=== PATIENT | male | born 1960 | race Two or more races ===

== ENCOUNTER 2020-06-04 17:00 | Inpatient (IN) | payer OTHER, SELFPAY ==
[2020-06-04] VITALS (9 sets, daily range): BP systolic 97–114; BP diastolic 55–82; PULSE 66–170; RESP 15–20; O2SAT 98–100; BMI 30.2
--- NOTE | ~2020-06-04 | XR_ITS ---
EXAMINATION: XR CHEST CLINICAL INFORMATION: CHF COMPARISON: 09/28/2019 TECHNIQUE: Frontal view of the chest was obtained. FINDINGS: No significant abnormality is noted involving the heart, lungs, mediastinum, bony thorax or soft tissues. XR/XR chest 1V IMPRESSION: No acute disease within the chest.
--- NOTE | 2020-06-04 07:31 | ECG_ITS ---
Test Reason : CHEST PESSURE Blood Pressure : / mmHG Vent. Rate : 164 BPM Atrial Rate : 159 BPM P-R Int : 000 ms QRS Dur : 084 ms QT Int : 282 ms P-R-T Axes : 000 065 -65 degrees QTc Int : 465 ms Atrial fibrillation with rapid ventricular response Septal infarct , age undetermined Abnormal ECG When compared with ECG of 02-MAY-2014 15:14, Atrial fibrillation has replaced Sinus rhythm Vent. rate has increased BY [address] now depressed in Inferior leads T wave inversion now evident in Inferior leads Referred By: Taco Schultz Electronically Signed By:KYLEE JIMENEZ MD
[2020-06-04] MEDS: dilTIAZem HCL 50 MG/10 ML VIAL 20 MG IVPUSH (17:26)
[2020-06-04] MEDS: 0.9 % Sodium Chloride 1,000 ML 999 ML IVCONT (17:29)
--- NOTE | 2020-06-04 17:31 | ED_ITS ---
HPI - Arrhythmia/Palpitations General Chief Complaint: Arrhythmia/Palpitations Stated Complaint: chest pain Time Seen by Provider: 06/04/20 17:11 Source: patient Mode of arrival: ambulatory Limitations: no limitations History of Present Illness HPI narrative: Patient with no significant past medical history noticed palpitation with weakness shortness of breath feeling dizzy for last 10 days, patient had similar episode in 2016 which lasted for 4 days when he was in [place] was seen by obstetrics gynecology md here Holter monitor was done which showed SVT with PACs. Patient denies any chest pain feels weak and exhausted on arrival patient's heart rate was in 170s AFib Related Data Home Medications Medication Instructions Recorded Confirmed buprenorphine-naloxone [Suboxone] 1 strip SUBLINGUAL BID 06/04/20 06/04/20 lisinopril-hydrochlorothiazide 1 tab PO DAILY 06/04/20 06/04/20 meloxicam 1 tab PO DAILY 06/04/20 06/04/20 Allergies Allergy/AdvReac Type Severity Reaction Status Date / Time No Known Allergies Allergy Verified 06/04/20 20:07 [No Known Allergies*] Review of Systems Review of Systems: Constitutional : No Weight loss, No Fever, No Chills ENT/Mouth : No sore throat, No Rhinorrhea Eyes: No Eye Pain, No Swelling Cardiovascular : No Chest Pain, ++ palpitations Respiratory : No Cough, No Sputum, + shortness of breath Gastrointestinal : no Nausea, No Vomiting, No Diarrhea, No abdominal Pain, no black stools Genitourinary : No Dysuria, No Urinary Frequency Musculoskeletal : No joint pain, No Myalgias, No Joint Swelling Skin : No Skin Lesions, No rash Neuro : No Weakness, No Numbness, No Dizziness, No Headache Psych : No Anxiety/Panic, No Depression Heme/Lymph: No Bruising, No Lymphadenopathy Endocrine : No Polyuria, No Polydipsia All other systems reviewed and are negative [facility] Past Medical History Medical History (Updated 06/04/20 @ 20:12 by Taco Schultz MD) History of pyloric stenosis Palpitation Surgical History (Updated 02/08/20 @ 08:23 by Reshma Mann) History of colonoscopy History of hip surgery History of wisdom tooth extraction Family History Family History (Updated 02/08/20 @ 08:26 by Reshma Mann) Father Prostate cancer HTN (hypertension) Mother HTN (hypertension) Heart disease Arthritis Kidney disease Diabetes Stroke FH: cataracts Family/Other ADHD Disc disease, degenerative, lumbar or lumbosacral Social History Social History Alcohol intake: unknown Smoking Status: Unknown if ever smoked Use of substances other than those prescribed or required for medical reasons: Unknown Advance Directives: No Advance Directives Information Provided: Yes Physical Exam Vital Signs: Vital Signs: Last Vital Signs Pulse 66 06/04/20 22:00 Resp 15 06/04/20 22:00 BP 114/82 06/04/20 22:00 Pulse Ox 98 06/04/20 22:00 Body Mass Index 30.2 Const: General: comfortable, no acute distress and well developed Orientation/consciousness: patient oriented x3 HENMT: Head: Yes normocephalic and Yes atraumatic Eyes: General: appearance normal, both eyes and all related structures Neck: Neck: Yes normal visual inspection and Yes full ROM Chest: Chest palpation & inspection: normal palpation of entire chest wall Resp: Effort & Inspection: normal respiratory effort and able to speak in complete sentences Auscultation: clear to auscultation bilaterally Cardio: Jugular venous distension: no JVD Palpation: normal PMI Rate: tachycardic Rhythm: abnormal rhythm irregularly irregular Heart sounds: S1 normal heart sound present, S2 normal heart sound present and no murmurs Peripheral pulses: Peripheral pulses 2+ throughout GI: Inspection: Yes normal to inspection Palpation (GI): Soft to palpation and nontender Auscultation: normal bowel sounds : General: Yes Bimanual renal exam normal bilaterally Neuro: General: patient oriented x3 Extrem: General: Yes normal to inspection and Yes pedal edema (1+) MDM - Arrhythmia/Palpitations MDM Narrative Medical decision making narrative: Patient with non valvular atrial fibrillation, Eben vasc score is 1 will give him baby aspirin for now patient heart rate improved after IV Cardizem will start him on p.o. Cardizem plan to admit for further evaluation by obstetrics gynecology md Differential Diagnosis Differential diagnosis: Likely palpitations, artial fibrillation and artial flutter Lab Data Attestation: I reviewed the patient's lab results. Result diagrams: 06/04/20 19:22 06/04/20 19:21 Labs: Lab Results 06/04/20 06/04/20 06/04/20 Range/Units 18:09 19:21 19:22 WBC 5.9 (4.8-10.8) X10*3/uL RBC 4.51 L (4.60-5.80) X10*6/uL Hgb 12.5 L (14.0-18.0) g/dl Hct 40.2 L (42-52) % MCV 89.1 (80-98) fL MCH 27.7 (27.0-33.0) pg MCHC 31.1 (31.0-36.0) g/dl RDW 13.4 (11.0-16.0) % Plt Count 199 (160-400) X10*3/uL MPV 10.4 (9.4-12.4) fL Immature Gran % (Auto) 0.2 (0.0-0.4) % Neut % (Auto) 45.1 (45-73) % Lymph % (Auto) 42.4 H (20-40) % Dodge % (Auto) 10.3 (2-11) % Eos % (Auto) 1.5 (0-4) % Baso % (Auto) 0.5 (0-2) % Lymph # (Auto) 2.5 (1.2-4.9) X10*3/uL Dodge # (Auto) 0.6 (0.1-1.2) X10*3/uL Eos # (Auto) 0.1 (0.0-0.4) X10*3/uL Baso # (Auto) 0.0 (0.0-0.2) X10*3/uL Abs Immat Gran (auto) 0.01 (0.00-0.03) X10*3/uL Absolute Neuts (auto) 2.7 (2.0-8.3) X10*3/uL Absolute Nucleated RBC 0.000 (0.0-0.012) X10*3/uL Nucleated RBC % (auto) 0.0 (0.0-0.2) /100WBC PT (10.8-13.0) SEC INR (0.9-1.1) APTT (24.1-38.0) SEC Sodium 138 (135-145) mmol/L Potassium 5.0 (3.3-5.1) mmol/L Chloride 106 (96-108) mmol/L Carbon Dioxide 24 (22-29) mmol/L Anion Gap 13 (12-20) BUN 16 (9-16) mg/dL Creatinine 0.83 (0.5-1.4) mg/dL Estim Creat Clear Calc 109.2 Estimated GFR > 60 Random Glucose 95 (60-115) mg/dL Calcium 8.6 (8.4-10.2) mg/dL Magnesium 2.1 (1.6-2.6) mg/dL Total Bilirubin 0.6 (0.0-1.0) mg/dL Direct Bilirubin 0.2 (0.0-0.5) mg/dL AST 20 (5-37) U/L ALT 12 (0-40) U/L Alkaline Phosphatase 49 (39-117) U/L Troponin I High Sens (<3.5-35.0) ng/L B-Natriuretic Peptide (<100) pg/mL Total Protein 6.8 (6.5-8.0) g/dL Albumin 3.9 (3.5-5.0) g/dL COVID-19 ([facility]) Negative (Negative) COVID-19 Clin Com See Note 06/04/20 06/04/20 06/04/20 Range/Units 19:22 19:22 19:22 WBC (4.8-10.8) X10*3/uL RBC (4.60-5.80) X10*6/uL Hgb (14.0-18.0) g/dl Hct (42-52) % MCV (80-98) fL MCH (27.0-33.0) pg MCHC (31.0-36.0) g/dl RDW (11.0-16.0) % Plt Count (160-400) X10*3/uL MPV (9.4-12.4) fL Immature Gran % (Auto) (0.0-0.4) % Neut % (Auto) (45-73) % Lymph % (Auto) (20-40) % Dodge % (Auto) (2-11) % Eos % (Auto) (0-4) % Baso % (Auto) (0-2) % Lymph # (Auto) (1.2-4.9) X10*3/uL Dodge # (Auto) (0.1-1.2) X10*3/uL Eos # (Auto) (0.0-0.4) X10*3/uL Baso # (Auto) (0.0-0.2) X10*3/uL Abs Immat Gran (auto) (0.00-0.03) X10*3/uL Absolute Neuts (auto) (2.0-8.3) X10*3/uL Absolute Nucleated RBC (0.0-0.012) X10*3/uL Nucleated RBC % (auto) (0.0-0.2) /100WBC PT 12.6 (10.8-13.0) SEC INR 1.1 (0.9-1.1) APTT 43.9 H (24.1-38.0) SEC Sodium (135-145) mmol/L Potassium (3.3-5.1) mmol/L Chloride (96-108) mmol/L Carbon Dioxide (22-29) mmol/L Anion Gap (12-20) BUN (9-16) mg/dL Creatinine (0.5-1.4) mg/dL Estim Creat Clear Calc Estimated GFR Random Glucose (60-115) mg/dL Calcium (8.4-10.2) mg/dL Magnesium (1.6-2.6) mg/dL Total Bilirubin (0.0-1.0) mg/dL Direct Bilirubin (0.0-0.5) mg/dL AST (5-37) U/L ALT (0-40) U/L Alkaline Phosphatase (39-117) U/L Troponin I High Sens 16.0 (<3.5-35.0) ng/L B-Natriuretic Peptide 618 H (<100) pg/mL Total Protein (6.5-8.0) g/dL Albumin (3.5-5.0) g/dL COVID-19 ([facility]) (Negative) COVID-19 Clin Com ECG Data Attestation: I personally reviewed and interpreted this ECG as follows: Interpretation: Atrial fibrillation with ventricular rate 164 beats per minute poor progression of R-waves no acute ST T wave changes no acute ischemia Discharge Plan Discharge Clinical Impression: Atrial fibrillation Qualifiers: Atrial fibrillation type: paroxysmal Qualified Code(s): I48.0 - Paroxysmal atrial fibrillation Patient Disposition: Admitted As Inpatient
[2020-06-04 18:46] LABS: COVID-19 Test Negative (Negative)
[2020-06-04 19:28] LABS: MANUAL DIFF FLAG NO
[2020-06-04 19:29] LABS: Basophils Percent Auto 0.5 % (0-2); Eosinophils Absolute Auto 0.1 X10*3/uL (0.0-0.4); Eosinophils Percent Auto 1.5 % (0-4); Hematocrit 40.2 % (42-52); Hemoglobin 12.5 g/dl (14.0-18.0); Imm Gran Abs Auto 0.01 X10*3/uL (0.00-0.03); Imm Gran Pct Auto 0.2 % (0.0-0.4); Lymphocytes Absolute Auto 2.5 X10*3/uL (1.2-4.9); Lymphocytes Percent Auto 42.4 % (20-40); Mean Corpuscular HGB Conc 31.1 g/dl (31.0-36.0); Mean Corpuscular Hemoglobin 27.7 pg (27.0-33.0); Mean Corpuscular Volume 89.1 fL (80-98); Mean Platelet Volume 10.4 fL (9.4-12.4); Monocytes Absolute Auto 0.6 X10*3/uL (0.1-1.2); Monocytes Percent Auto 10.3 % (2-11); Neutrophils Absolute Auto 2.7 X10*3/uL (2.0-8.3); Neutrophils Percent Auto 45.1 % (45-73); Platelet Count 199 X10*3/uL (160-400); Red Blood Count 4.51 X10*6/uL (4.60-5.80); Red Cell Distribution Width 13.4 % (11.0-16.0); White Blood Count 5.9 X10*3/uL (4.8-10.8)
[2020-06-04 19:35] LABS: INTERNATIONAL NORM RATIO 1.1 (0.9-1.1); Prothrombin Time 12.6 SEC (10.8-13.0)
[2020-06-04 19:37] LABS: Partial Thromboplastin Time 43.9 SEC (24.1-38.0)
[2020-06-04 20:03] LABS: Alanine Aminotransferase 12 U/L (0-40); Albumin Level 3.9 g/dL (3.5-5.0); Alkaline Phosphatase 49 U/L (39-117); Anion Gap 13 (12-20); Aspartate Amino Transferase 20 U/L (5-37); Bilirubin Direct 0.2 mg/dL (0.0-0.5); Bilirubin Total 0.6 mg/dL (0.0-1.0); Blood Urea Nitrogen 16 mg/dL (9-16); Calcium 8.6 mg/dL (8.4-10.2); Carbon Dioxide 24 mmol/L (22-29); Chloride 106 mmol/L (96-108); Creatinine Clr Calc Pharmacy 109.2; Estimated Glomerular Filt Rate > 60; Glucose Random 95 mg/dL (60-115); Magnesium 2.1 mg/dL (1.6-2.6); Sodium 138 mmol/L (135-145); Total Protein 6.8 g/dL (6.5-8.0)
[2020-06-04 20:06] LABS: B Type Natriuretic Peptide 618 pg/mL (<100)
[2020-06-04] MEDS: Aspirin 81 MG TAB.CHEW 162 MG PO (20:15)
[2020-06-04] MEDS: dilTIAZem HCL 30 MG TABLET PO (20:16)
--- NOTE | 2020-06-04 20:59 | PM.IMHP ---
History of Present Illness Date of Service: 06/04/20 Chief Complaint: palpitations, dizziness This is a 52-year-old male with past medical history of hypertension who presents to the hospital with complaints of 2 weeks history of dizziness and palpitations. His symptoms are daily, not related to any specific event, associated with shortness of breath, as well as PND on multiple occasions. He denies any chest pain, no headache, change in vision, no lower extremity edema. No cough, no fever or chills. He has no abdominal pain nausea or vomiting, no diarrhea constipation. He does have nocturia otherwise no frequency, dysuria, or urgency. No numbness tingling or any limb weakness On arrival to the ED patient was found to have heart rate of 170s, all other vitals within normal range. Labs are significant for WBC count of 5.9, hemoglobin of 12.5, BNP of 618, troponin high sensitivity of 16 with a repeat of 18.9, EKG showedRVR. Patient denies any history of heart disease Past medical history as below and confirmed with patient Review of Systems Review of Systems: Yes all other systems are reviewed and are negative [facility] Medical History Arthritis History of pyloric stenosis Hypertension Family History Father Prostate cancer HTN (hypertension) Mother HTN (hypertension) Heart disease Arthritis Kidney disease Diabetes Stroke FH: cataracts Family/Other ADHD Disc disease, degenerative, lumbar or lumbosacral Pertinent family history: Reports that his mother had heart attacks but he does not remember at what age. Surgical History History of colonoscopy History of hip surgery History of wisdom tooth extraction Social History Alcohol intake: unknown Smoking Status: Unknown if ever smoked Use of substances other than those prescribed or required for medical reasons: Unknown Advance Directives: No Advance Directives Information Provided: Yes Meds Allergies Allergy/AdvReac Type Severity Reaction Status Date / Time No Known Allergies Allergy Verified 06/04/20 20:07 [No Known Allergies*] Active Medications: Current Medications Generic Name Dose Route Start Last Admin Trade Name Freq PRN Reason Stop Dose Admin Buprenorphine/Naloxone film 06/04/20 21:00 Buprenorphine/Naloxone 8/2 Mg Film SUBLINGUAL BID [facility] Non-Formulary Medication 1 tab 06/05/20 09:00 Lisinopril-Hydrochlorothiazide PO DAILY [facility] Home Medications Medication Instructions Recorded Confirmed Last Taken Type buprenorphine-naloxone [Suboxone] 1 strip SUBLINGUAL BID 06/04/20 06/04/20 Unknown History lisinopril-hydrochlorothiazide 1 tab PO DAILY 06/04/20 06/04/20 Unknown History meloxicam 1 tab PO DAILY 06/04/20 06/04/20 Unknown History Physical Exam Vital Signs and Narrative: Vital Signs: Last Vital Signs Pulse 107 H 06/04/20 20:16 Resp 16 06/04/20 18:44 BP 114/82 06/04/20 20:16 Pulse Ox 100 06/04/20 18:44 Body Mass Index 30.2 Const: General: cooperative and no acute distress Orientation/consciousness: patient oriented x3 Eyes: General: appearance normal, both eyes and all related structures Resp: Effort & Inspection: normal respiratory effort and able to speak in complete sentences Cardio: Rate: regular rate Rhythm: regular rhythm GI: Palpation (GI): Soft to palpation Auscultation: normal bowel sounds Skin: General skin exam: no rashes or lesions noted Neuro: General: patient oriented x3 Cognition (Neuro): normal cognition Extrem: General: Yes normal to inspection and Yes no pedal edema Results Labs CBC and Chem 7: 06/04/20 19:22 06/04/20 19:21 Labs: Laboratory Results - last 24 hr 06/04/20 06/04/20 06/04/20 18:09 19:21 19:22 MCV 89.1 MCH 27.7 MCHC 31.1 RDW 13.4 Plt Count 199 MPV 10.4 Immature Gran % (Auto) 0.2 Neut % (Auto) 45.1 Lymph % (Auto) 42.4 H Jerome % (Auto) 10.3 Eos % (Auto) 1.5 Baso % (Auto) 0.5 Lymph # (Auto) 2.5 Jerome # (Auto) 0.6 Eos # (Auto) 0.1 Baso # (Auto) 0.0 Abs Immat Gran (auto) 0.01 Absolute Neuts (auto) 2.7 Absolute Nucleated RBC 0.000 Nucleated RBC % (auto) 0.0 PT INR APTT Anion Gap 13 Estim Creat Clear Calc 109.2 Estimated GFR > 60 Random Glucose 95 Calcium 8.6 Magnesium 2.1 Total Bilirubin 0.6 Direct Bilirubin 0.2 AST 20 ALT 12 Alkaline Phosphatase 49 Troponin I High Sens B-Natriuretic Peptide Total Protein 6.8 Albumin 3.9 COVID-19 ([facility]) Negative COVID-19 Clin Com See Note 06/04/20 06/04/20 06/04/20 19:22 19:22 19:22 MCV MCH MCHC RDW Plt Count MPV Immature Gran % (Auto) Neut % (Auto) Lymph % (Auto) Jerome % (Auto) Eos % (Auto) Baso % (Auto) Lymph # (Auto) Jerome # (Auto) Eos # (Auto) Baso # (Auto) Abs Immat Gran (auto) Absolute Neuts (auto) Absolute Nucleated RBC Nucleated RBC % (auto) PT 12.6 INR 1.1 APTT 43.9 H Anion Gap Estim Creat Clear Calc Estimated GFR Random Glucose Calcium Magnesium Total Bilirubin Direct Bilirubin AST ALT Alkaline Phosphatase Troponin I High Sens 16.0 B-Natriuretic Peptide 618 H Total Protein Albumin COVID-19 ([facility]MIN) COVID-19 Clin Com Imaging Radiologist's Impressions: Impressions Chest X-Ray 06/04/20 17:16 IMPRESSION: No acute disease within the chest. Assessment and Plan (1) Atrial fibrillation: Qualifiers: Atrial fibrillation type: paroxysmal Qualified Code(s): I48.0 - Paroxysmal atrial fibrillation Status: Acute (2) New onset of congestive heart failure: Status: Acute This is a 60-year-old male with past medical history of hypertension who presents to the hospital with complaints of palpitations found to have AFib with RVR # new onset AFib with RVR - chads Vasc of 1 for his history of hypertension - no significant elevation of troponin - symptomatic with dizziness, palpitations - will start him with metoprolol 12.5 b.i.d. - will obtain echocardiogram - consult cardiology # new onset heart failure - has elevated BNP, dyspnea, an PND - no lower extremity edema - will start him on Lasix 40 IV daily - will obtain echocardiogram - low-sodium diet, strict I&O, daily weight # hypertension - will continue lisinopril hydrochlorothiazide combination pill # history of opioid use - continue Suboxone DVT prophylaxis: Lovenox
[2020-06-04] MEDS: Buprenorphine/Naloxone 8/2 mg FILM 1 FILM SUBLINGUAL (21:41)
--- NOTE | 2020-06-04 21:43 | PC.NURSE ---
Patient medicated per emar. Heart rate runs in 90's when patient is resting but any activity and it increases into 140's to 160's
[2020-06-04] MEDS: Furosemide 40 MG/4 ML VIAL IVPUSH (22:41)
[2020-06-04] MEDS: Enoxaparin Sodium 40 MG/0.4 ML SYRINGE SUBCUT (22:42)
[2020-06-04] MEDS: Metoprolol Tartrate 12.5 MG HALFTAB PO (22:56)
[2020-06-04 23:18] LABS: Troponin-I High Sensitivity 18.9 ng/L (<3.5-35.0)
[2020-06-05] VITALS (16 sets, daily range): BP systolic 95–120; BP diastolic 60–102; PULSE 74–160; RESP 15–20; TEMP 36.2–37.2; O2SAT 97–99; BMI 30.9
[2020-06-05] MEDS: Metoprolol Tartrate 5 MG/5 ML VIAL IVPUSH (04:31)
--- NOTE | 2020-06-05 05:13 | PC.NURSE ---
[place]400 [place] [facility] [place]140s [place]ib on tele. Pt resting in bed, asymptomatic. Dr Rivera notified. 5 mg IV lopressor ordered and administered with good effect. Hr now 80s afib on tele.
[2020-06-05] MEDS: Buprenorphine/Naloxone 8/2 mg FILM 1 FILM SUBLINGUAL ×2 (07:36→19:41)
[2020-06-05] MEDS: Furosemide 40 MG/4 ML VIAL IVPUSH (07:37)
[2020-06-05] MEDS: 0.9 % Sodium Chloride Flush 3 ML SYRINGE IVFLUSH ×3 (07:37→18:29)
[2020-06-05] MEDS: lisinopriL 10 MG, hydroCHLOROthiazide 12.5 MG PO (08:14)
[2020-06-05] MEDS: Metoprolol Tartrate 12.5 MG HALFTAB PO ×3 (08:16→18:26)
[2020-06-05 09:06] LABS: Hematocrit 42.2 % (42-52); Hemoglobin 13.1 g/dl (14.0-18.0); Mean Corpuscular Hemoglobin 27.2 pg (27.0-33.0); Mean Corpuscular Volume 87.7 fL (80-98); Mean Platelet Volume 10.5 fL (9.4-12.4); Platelet Count 232 X10*3/uL (160-400); Red Blood Count 4.81 X10*6/uL (4.60-5.80); Red Cell Distribution Width 13.5 % (11.0-16.0); White Blood Count 6.5 X10*3/uL (4.8-10.8)
[2020-06-05 09:27] LABS: Anion Gap 10 (12-20); Blood Urea Nitrogen 17 mg/dL (9-16); Carbon Dioxide 34 mmol/L (22-29); Chloride 101 mmol/L (96-108); Creatinine Clr Calc Pharmacy 100.6; Estimated Glomerular Filt Rate > 60; Glucose Random 108 mg/dL (60-115); Magnesium 2.1 mg/dL (1.6-2.6); Potassium 4.7 mmol/L (3.3-5.1); Sodium 140 mmol/L (135-145)
--- NOTE | 2020-06-05 09:31 | ECG_ITS ---
Test Reason : AFIB Blood Pressure : / mmHG Vent. Rate : 130 BPM Atrial Rate : 326 BPM P-R Int : 000 ms QRS Dur : 090 ms QT Int : 318 ms P-R-T Axes : 000 062 -34 degrees QTc Int : 467 ms Atrial fibrillation with rapid ventricular response Septal infarct (cited on or before 04-JUN-2020) Abnormal ECG When compared with ECG of 04-JUN-2020 16:03, Vent. rate has decreased Referred By: David Choudhary Electronically Signed By:KYLEE JIMENEZ MD
[2020-06-05 09:41] LABS: B Type Natriuretic Peptide 481 pg/mL (<100)
[2020-06-05 09:48] LABS: Thyroid Stimulating Hormone 3.01 uIU/mL (0.32-4.0)
--- NOTE | 2020-06-05 09:56 | P.CONCA_ITS ---
History of Present Illness History of Present Illness Date of Service: 06/05/20 Requesting physician: Jody Rivera Consult reason: atrial fibrillation and congestive heart failure Chief complaint: new onset a fib Narrative: Thank you for inviting us and consult on Mateo for new onset atrial fibrillation and shortness of breath consistent with heart failure. Patient has been having palpitation for few years but no diagnosis. Last seen Dr. florian April 2019 at which time does no obvious diagnosis. His sleep study was denied by insurance company. He was having shortness of breath exertion possibly related to smoking at that time. Since over the last 2 weeks he has been having constant intermittent symptoms of palpitations. He says when he would wake up in the morning and put his feet on the ground he would get shortness of breath and rapid heart rate. This would last for few hours and then was subside. Not sure this was paroxysmal in nature. He said that he did not seek medical attention and was going to sees PCP today however yesterday with this palpitation got very short of breath and decided to come to the [facility] room in the Emergency was noted to be in atrial fibrillation rapid ventricular response of 170 beats per minute. Also noted to have elevated BNP. He was given Lasix IV and since he has gone to urine 3-4 times and shortness of breath is improved. However remains with atrial fibrillation with rapid ventricular response with lowe blood pressure. Along with elevated heart rate he would also get dizzy. He has had no syncopal episodes. No chest pain. No orthopnea, PND. Has noted leg edema her did not pay much attention to it. Has not noted any weight gain. No history of atrial fibrillation in the past. Has prior history of hypertension. Review of Systems Constitutional: Constitutional: Denies body ache(s), Denies chills, Reports daytime sleepiness, Reports fatigue, Denies fever(s), Denies frequent falls, Reports lethargy, Denies poor appetite, Reports snoring and Reports stops breathing during sleep Eyes: Eyes: Reports no additional eye complaints Cardiovascular: Cardiovascular: Denies chest pain, Denies chest pain with activity, Reports leg edema, Denies Loss of Consciousness, Reports dyspnea and Reports orthopnea Respiratory: Respiratory: Denies change in phlegm color, Denies excessive phlegm production, Reports dyspnea and Reports snoring Gastrointestinal: Gastrointestinal: Reports no additional gastrointestinal complaints Genitourinary: Genitourinary: Reports no additional male genitourinary complaints Musculoskeletal: Musculoskeletal: Reports no additional musculoskeletal complaints Neurologic: Reports system reviewed and no additional complaints, except as documented and Denies frequent falls Psychiatric: Psychiatric: Reports no additional psychiatric complaints Endocrine: Endocrine: Reports no additional endocrine complaints and Reports fatigue Hematologic/Lymphatic: Hematologic/Lymphatic: Reports no additional hematologic/lymphatic complaints [facility] Past Medical History Medical History Arthritis History of pyloric stenosis Hypertension Family History Family History Father Prostate cancer HTN (hypertension) Mother HTN (hypertension) Heart disease Arthritis Kidney disease Diabetes Stroke FH: cataracts Family/Other ADHD Disc disease, degenerative, lumbar or lumbosacral Surgical History Surgical History History of colonoscopy History of hip surgery History of wisdom tooth extraction Social History Social History Alcohol intake: unknown Smoking Status: Unknown if ever smoked Use of substances other than those prescribed or required for medical reasons: Unknown Currently Displaying Signs/Symptoms of Drug Intoxication Withdrawal: No Advance Directives: No Advance Directives Information Provided: Yes Do you have thoughts of harming others: None Do you have a plan to hurt others: No Plan Meds Allergies Allergy/AdvReac Type Severity Reaction Status Date / Time No Known Allergies Allergy Verified 06/04/20 20:07 [No Known Allergies*] Active Medications: Current Medications Generic Name Dose Route Start Last Admin Trade Name Andresq PRN Reason Stop Dose Admin Acetaminophen 650 mg 06/04/20 21:36 Acetaminophen 325 Mg Tablet PO Q6H PRN Pain, Mild (Pain Scale 1-3) Buprenorphine/Naloxone 1 film 06/04/20 21:00 06/05/20 07:36 Buprenorphine/Naloxone 8/2 Mg Film SUBLINGUAL 1 film BID EMILE Administration Lisinopril 10 mg/ 0 mg 06/05/20 09:00 06/05/20 08:14 Hydrochlorothiazide 12.5 mg PO 12.5 tablet DAILY EMILE Administration Docusate Sodium 100 mg 06/04/20 21:36 Docusate Sodium 100 Mg Capsule PO DAILY PRN Constipation Enoxaparin Sodium 40 mg 06/04/20 22:00 06/04/20 22:42 Enoxaparin Sodium 40 Mg/0.4 Ml Syringe SUBCUT 40 mg Q24H [facility] Administration Furosemide 40 mg 06/04/20 21:36 06/05/20 07:37 Furosemide 40 Mg/4 Ml Vial IVPUSH 40 mg DAILY [facility] Administration Protocol Metoprolol Tartrate 12.5 mg 06/04/20 22:00 06/05/20 08:16 Metoprolol Tartrate 12.5 Mg Halftab PO 12.5 mg BID [facility] Administration Protocol Ondansetron HCl 4 mg 06/04/20 21:36 Ondansetron Hcl 4 Mg/2 Ml Vial IVPUSH Q8H PRN Nausea and Vomiting Sodium Chloride 3 ml 06/05/20 00:00 06/05/20 07:37 0.9 % Sodium Chloride Flush 3 Ml Syringe IVFLUSH 3 ml QSHIFT [facility] Administration Home Medications Medication Instructions Recorded Confirmed Last Taken Type buprenorphine-naloxone [Suboxone] 1 strip SUBLINGUAL BID 06/04/20 06/04/20 Unknown History lisinopril-hydrochlorothiazide 1 tab PO DAILY 06/04/20 06/04/20 Unknown History meloxicam 1 tab PO DAILY 06/04/20 06/04/20 Unknown History Physical Exam Vital Signs: Vital Signs: Last Vital Signs Temp 97.4 F 06/05/20 08:00 Pulse 160 H 06/05/20 08:16 Resp 18 06/05/20 08:00 BP 120/102 H 06/05/20 08:16 Pulse Ox 98 06/05/20 08:00 Body Mass Index 30.9 Const: General: cooperative, comfortable, no acute distress, alert and awake Nutritional Appearance: well nourished Orientation/consciousness: patient oriented x3 Limitations: no limitations HENMT: Head: Yes normocephalic and Yes atraumatic Neck: Neck: Yes trachea midline and Yes no JVD Chest: Chest palpation & inspection: normal inspection of the chest Resp: Effort & Inspection: normal respiratory effort Auscultation: no rales and wheezes Cardio: Palpation: normal PMI Rate: tachycardic Rhythm: abnormal rhythm irregularly irregular Heart sounds: S1 normal heart sound present and S2 normal heart sound present GI: Inspection: Yes normal to inspection Skin: General skin exam: no rashes or lesions noted Neuro: General: patient oriented x3 and no focal motor deficits Extrem: General: No clubbing and No cyanosis Psych: Appearance: grossly normal Affect: Anxious affect present Results Labs and Meds Result diagrams: 06/05/20 08:10 06/05/20 08:10 Lab results: Laboratory Results - last 24 hr 06/04/20 06/04/20 06/04/20 18:09 19:21 19:22 WBC 5.9 RBC 4.51 L Hgb 12.5 L Hct 40.2 L MCV 89.1 MCH 27.7 MCHC 31.1 RDW 13.4 Plt Count 199 MPV 10.4 Immature Gran % (Auto) 0.2 Neut % (Auto) 45.1 Lymph % (Auto) 42.4 H [place] % (Auto) 10.3 Eos % (Auto) 1.5 Baso % (Auto) 0.5 Lymph # (Auto) 2.5 [place] # (Auto) 0.6 Eos # (Auto) 0.1 Baso # (Auto) 0.0 Abs Immat Gran (auto) 0.01 Absolute Neuts (auto) 2.7 Absolute Nucleated RBC 0.000 Nucleated RBC % (auto) 0.0 PT INR APTT Sodium 138 Potassium 5.0 Chloride 106 Carbon Dioxide 24 Anion Gap 13 BUN 16 Creatinine 0.83 Estim Creat Clear Calc 109.2 Estimated GFR > 60 Random Glucose 95 Calcium 8.6 Magnesium 2.1 Total Bilirubin 0.6 Direct Bilirubin 0.2 AST 20 ALT 12 Alkaline Phosphatase 49 Troponin I High Sens B-Natriuretic Peptide Total Protein 6.8 Albumin 3.9 TSH COVID-19 (YASMIN) Negative COVID-19 Clin Com See Note 06/04/20 06/04/20 06/04/20 19:22 19:22 19:22 WBC RBC Hgb Hct MCV MCH MCHC RDW Plt Count MPV Immature Gran % (Auto) Neut % (Auto) Lymph % (Auto) [place] % (Auto) Eos % (Auto) Baso % (Auto) Lymph # (Auto) [place] # (Auto) Eos # (Auto) Baso # (Auto) Abs Immat Gran (auto) Absolute Neuts (auto) Absolute Nucleated RBC Nucleated RBC % (auto) PT 12.6 INR 1.1 APTT 43.9 H Sodium Potassium Chloride Carbon Dioxide Anion Gap BUN Creatinine Estim Creat Clear Calc Estimated GFR Random Glucose Calcium Magnesium Total Bilirubin Direct Bilirubin AST ALT Alkaline Phosphatase Troponin I High Sens 16.0 B-Natriuretic Peptide 618 H Total Protein Albumin TSH COVID-19 (YASMIN) COVID-19 Yieldex Com 06/04/20 06/05/20 06/05/20 22:35 08:10 08:10 WBC RBC Hgb Hct MCV MCH MCHC RDW Plt Count MPV Immature Gran % (Auto) Neut % (Auto) Lymph % (Auto) [place] % (Auto) Eos % (Auto) Baso % (Auto) Lymph # (Auto) [place] # (Auto) Eos # (Auto) Baso # (Auto) Abs Immat Gran (auto) Absolute Neuts (auto) Absolute Nucleated RBC Nucleated RBC % (auto) PT INR APTT Sodium 140 Potassium 4.7 Chloride 101 Carbon Dioxide 34 H Anion Gap 10 L BUN 17 H Creatinine 0.91 Estim Creat Clear Calc 100.6 Estimated GFR > 60 Random Glucose 108 Calcium 9.0 Magnesium 2.1 Total Bilirubin Direct Bilirubin AST ALT Alkaline Phosphatase Troponin I High Sens 18.9 B-Natriuretic Peptide 481 H Total Protein Albumin TSH 3.01 COVID-19 (YASMIN) COVID-19 Yieldex Com 06/05/20 08:10 WBC 6.5 RBC 4.81 Hgb 13.1 L Hct 42.2 MCV 87.7 MCH 27.2 MCHC 31.0 RDW 13.5 Plt Count 232 MPV 10.5 Immature Gran % (Auto) Neut % (Auto) Lymph % (Auto) [place] % (Auto) Eos % (Auto) Baso % (Auto) Lymph # (Auto) [place] # (Auto) Eos # (Auto) Baso # (Auto) Abs Immat Gran (auto) Absolute Neuts (auto) Absolute Nucleated RBC 0.000 Nucleated RBC % (auto) 0.0 PT INR APTT Sodium Potassium Chloride Carbon Dioxide Anion Gap BUN Creatinine Estim Creat Clear Calc Estimated GFR Random Glucose Calcium Magnesium Total Bilirubin Direct Bilirubin AST ALT Alkaline Phosphatase Troponin I High Sens B-Natriuretic Peptide Total Protein Albumin TSH COVID-19 (YASMIN) COVID-19 [facility] EKG shows atrial fibrillation rapid ventricular response with nonspecific ST changes Imaging Radiologist's impression: Impressions Chest X-Ray 06/04/20 17:16 IMPRESSION: No acute disease within the chest. Assessment and Plan (1) New onset of congestive heart failure: Status: Acute New onset congestive heart failure with symptoms of shortness of breath and leg edema, but does not appear to be in florid heart failure at this point time. Has responded to Lasix therapy. Continue Lasix 40 mg IV push daily. Strict intake and output chart. Most likely cause for his congestive heart failure appears to be new onset atrial fibrillation rapid ventricular response with possibility of tachycardia mediated cardiomyopathy. Will need echocardio gram to assess LV systolic and diastolic function. Further treatment based on the findings of LV systolic function. Will hold off on initiation further therapy at this point in time. CHF education should be provided in details the patient (2) Atrial fibrillation: Qualifiers: Atrial fibrillation type: paroxysmal Qualified Code(s): I48.0 - Paroxysmal atrial fibrillation Status: Acute New onset atrial fibrillation, had prior history of palpitations but no diagnosis. Now with atrial fibrillation rapid ventricular response she is difficult control. Lower blood pressure. Would do digoxin load for rate control with 0.25 mg IV push q.6 hours 3 doses. Given his heart failure and lower blood pressure would pursue VAMSI guided cardioversion. This was discussed with him in details including risks, benefits, alternatives 2nd opinion. He wants to get this done as soon as possible. Will start him on oral anticoagulation with Xarelto 20 mg daily. First dose should be given now. Continue p.o. metoprolol, increased to 12.5 mg Q 6 hours. Avoid Cardizem therapy for possibility of underlying cardiomyopathy. Most likely risk factor is his underlying hypertension and undiagnosed possibly sleep apnea, high risk for the same. Will require sleep study as an outpatient. Also provide education material for atrial fibrillation. Will follow with the patient. Thank you for allowing us to partake in his care
[2020-06-05] MEDS: Digoxin 0.5 MG/2 ML AMPUL 0.25 MG IVPUSH ×3 (10:16→22:16)
[2020-06-05] MEDS: Rivaroxaban 20 MG TABLET PO (10:16)
--- NOTE | 2020-06-05 10:39 | HO.PM.IMPN ---
Subjective Subjective Date of Service: 06/05/20 Interval History: Follow up afib rvr. Better overnight however heart rate back up this morning, patient symptomatic with sob and palpitation. Physical Exam Vital Signs: Vital Signs: Last Vital Signs Temp 97.4 F 06/05/20 08:00 Pulse 156 H 06/05/20 10:16 Resp 18 06/05/20 08:00 BP 106/68 06/05/20 10:18 Pulse Ox 98 06/05/20 08:00 Body Mass Index 30.9 Appearing in no acute distress lung sounds normal expansion heart regular rate IRR Abdomen non tender neuro patient is alert x3, no focal deficits Objective Data Current Medications Generic Name Dose Route Start Last Admin Trade Name Freq PRN Reason Stop Dose Admin Acetaminophen 650 mg 06/04/20 21:36 Acetaminophen 325 Mg Tablet PO Q6H PRN Pain, Mild (Pain Scale 1-3) Buprenorphine/Naloxone 1 film 06/04/20 21:00 06/05/20 07:36 Buprenorphine/Naloxone 8/2 Mg Film SUBLINGUAL 1 film BID EMILE Administration Lisinopril 10 mg/ 0 mg 06/05/20 09:00 06/05/20 08:14 Hydrochlorothiazide 12.5 mg PO 12.5 tablet DAILY EMILE Administration Digoxin 0.25 mg 06/05/20 10:15 06/05/20 10:16 Digoxin 0.5 Mg/2 Ml Ampul IVPUSH 06/06/20 04:16 0.25 mg Q6H EMILE Administration Docusate Sodium 100 mg 06/04/20 21:36 Docusate Sodium 100 Mg Capsule PO DAILY PRN Constipation Furosemide 40 mg 06/04/20 21:36 06/05/20 07:37 Furosemide 40 Mg/4 Ml Vial IVPUSH 40 mg DAILY EMILE Administration Protocol Metoprolol Tartrate 12.5 mg 06/04/20 22:00 06/05/20 08:16 Metoprolol Tartrate 12.5 Mg Halftab PO 12.5 mg BID EMILE Administration Protocol Ondansetron HCl 4 mg 06/04/20 21:36 Ondansetron Hcl 4 Mg/2 Ml Vial IVPUSH Q8H PRN Nausea and Vomiting Rivaroxaban 20 mg 06/05/20 10:00 06/05/20 10:16 Rivaroxaban 20 Mg Tablet PO 20 mg DAILY EMILE Administration Sodium Chloride 3 ml 06/05/20 00:00 06/05/20 07:37 0.9 % Sodium Chloride Flush 3 Ml Syringe IVFLUSH 3 ml QSHIFT EMILE Administration Labs CBC & Chem 7: 06/05/20 08:10 06/05/20 08:10 Assessment and Plan (1) New onset of congestive heart failure: Status: Acute (2) Atrial fibrillation: Status: Acute Assessment and Plan: This is a 60-year-old male with past medical history of hypertension who presents to the hospital with complaints of palpitations found to have AFib with RVR and CHF # New onset AFib with RVR. ChadsVasc of 2. Patient significantly symptomatic with palpitations, dizziness and sob - Increase metoprolol 12.5 to Q6h - xarelto - digoxin load - VAMSI - cardiology following. - Sleep study as outpatient # New onset heart failure. Elevated BNP, dyspnea, and PND. BNP trending down. - continue Lasix 40 IV daily - VAMSI - low-sodium diet, strict I&O, daily weight # Hypertension-Low blood pressure today - hold lisinopril/hydrochlorothiazide # History of opioid use - continue Suboxone # Alcohol abuse. Vague about amount he drinks - CIWA scale Attending: Dr. Choudhary
--- NOTE | 2020-06-05 11:13 | PC.NURSE ---
Pt.'s HR up to 160s, notified, pt. given scheduled PO Metoprolol and Lisinopril with no improvement, pt. was SOB with palpitations, given IV Digoxin 0.25mg, HR dipping down to 90s but fluctuating up to 120s, plan is for patient to go for VAMSI later today, resting in bed, call sarmiento in reach, will continue to monitor
--- NOTE | 2020-06-05 12:28 | MHC.CM.PN ---
PATIENT IS INDEPENDENT WITH ALL ADLS. HIS CAR IS IN LOT AND HE WILL DRIVE SELF HOME UPON DISCHARGE. PER PHYSICIAN ROUNDS, PATIENT IS SCHEDULED FOR T.E.E. TODAY. CASE MANAGEMENT FOLLOWING FOR ANY DISCHARGE NEEDS. NO HCP ON FILE, BUT PATIENT IS CONSIDERING ASSIGNING AN AGENT. HE WILL ASK FOR FINANCIAL EXAMINER IF HE NEEDS ASSIST WITH THIS.
--- NOTE | 2020-06-05 21:36 | CA_ITS ---
Transthoracic Echocardiogram Patient (Last, First, Middle): Mateo Graham R Gender: Male Date of : 1960 Age: 60 Procedure Date: 06/05/2020 Procedure Type: Transthoracic Echocardiogram Location: [facility] Height: 175.26 cm Weight: 94.8 kg BSA: 2.10 m2 Heart Rate: bpm BP: 103 / 69 mmHg Assistant Inventory Manager: MELANIE Hansen MD: Simona Rivera MD Nuclear Plant Construction Worker: Shimon Mac MD Symptoms: new onset A.fib, HF Study Quality: Fair ECG Rhythm: Atrial Fibrillation with rapid ventricular respons Conclusions: - 1. Low normal LV systolic function next 2. Mildly dilated left atrium 3. Moderately dilated right-sided chambers 4. Mild mitral regurgitation 5. Normal RV systolic pressure with mildly elevated right atrial pressure 6. No pericardial effusion Findings Left Ventricle Normal left ventricular cavity size. There is normal left ventricular wall thickness. The left ventricular systolic function is low normal. The visually estimated ejection fraction is between 50-55%. Diastolic function is indeterminate on the basis of available data. Right Ventricle Moderately increased right ventricular cavity size. There is low normal right ventricular systolic function. Atria The left atrium is mildly dilated. There is no evidence of interatrial shunt. The right atrium is moderately dilated. Aortic Valve The aortic valve structure and function is likely normal. There is no aortic valve stenosis. There is no aortic valve regurgitation. Mitral Valve Normal mitral valve structure and function. There is mild mitral valve regurgitation. There is no mitral valve stenosis. Tricuspid Valve Likely normal tricuspid valve structure and function. There is mild tricuspid valve regurgitation. Mildly elevated right atrial pressure. There is no evidence of pulmonary hypertension. Great Vessels All visible segments of the aorta are normal in size. The pulmonary artery was not well visualized. Venous The inferior vena cava is mildly dilated and collapses less than 50% with inspiration. Pericardium/Pleural There is no evidence of pericardial effusion. Prior Study Comparison Changes noted compared to prior study dated: 05/13/2018. Right atrial pressure appear to be mildly increased on this study. LV systolic function appears marginally depressed, and could be due to rapid heart rate Measurements 2D Linear Measurements IVSd: 1.10 0.6-0.9/0.6-1.0 cm LVIDd: 4.73 3.9-5.3/4.2-5.9 cm LVIDd Index: 2.25 2.4-3.2/2.2-3.1 cm/m2 LVIDs: 3.08 2.0-3.6 cm LVPWd: 1.12 0.7-1.1 cm Ao Root: 3.50 2.1-3.5 cm LA Diam: 3.90 2.7-3.8/3.0-4.0 cm LAIDs Index: 1.86 1.5-2.3 cm/m2 LV Mass: 239.07 67-162/88-224 g LV Mass Index: 113.84 43-95/49-115 g/m2 LVOT Diam: 2.20 3.0+(-)1.3 cm Aortic Valve AoV Pk Julian: 1.12 AoV Mn Julian: 0.72 AoV VTI: 0.19 AoV Pk Grad: 5.00 Aov Mn Grad: 3.00 MIGUE Cont.VTI: 2.87 LVOT LVOT Pk Julian: 0.92 LVOT Mn Julian: 0.54 LVOT VTI: 0.15 LVOT Pk Grad: 3.00 LVOT Mn Grad: 1.00 LVOT Diam: 2.20 LVOT Area: 3.80 Tricuspid Valve TR Pk Julian: 2.44 TR Pk Grad: 24.00 RA Press: 8.00 RVSP: 32.00 Great Vessels Aorta Ao Root-2D: 3.50 2.0-3.7 cm Ao Asc: 3.50 2.1-3.4 cm Ao Arch: 2.90 Updated in Other Vendor System with Status of Final Shimon Mac MD electronically signed on 06/05/2020 4:19:02 PM with status of Final
[2020-06-06] VITALS (14 sets, daily range): BP systolic 95–120; BP diastolic 56–81; PULSE 65–133; RESP 16–18; TEMP 35.9–36.8; O2SAT 78–99
[2020-06-06] MEDS: Metoprolol Tartrate 12.5 MG HALFTAB PO ×4 (00:30→20:44)
[2020-06-06] MEDS: 0.9 % Sodium Chloride Flush 3 ML SYRINGE IVFLUSH ×2 (00:36→07:54)
[2020-06-06 06:13] LABS: MANUAL DIFF FLAG NO
[2020-06-06 06:18] LABS: Basophils Percent Auto 0.4 % (0-2); Eosinophils Absolute Auto 0.2 X10*3/uL (0.0-0.4); Eosinophils Percent Auto 4.1 % (0-4); Hematocrit 43.2 % (42-52); Hemoglobin 13.4 g/dl (14.0-18.0); Imm Gran Abs Auto 0.01 X10*3/uL (0.00-0.03); Imm Gran Pct Auto 0.2 % (0.0-0.4); Lymphocytes Absolute Auto 2.4 X10*3/uL (1.2-4.9); Lymphocytes Percent Auto 44.9 % (20-40); Mean Corpuscular Hemoglobin 27.1 pg (27.0-33.0); Mean Corpuscular Volume 87.4 fL (80-98); Mean Platelet Volume 10.3 fL (9.4-12.4); Monocytes Absolute Auto 0.5 X10*3/uL (0.1-1.2); Monocytes Percent Auto 8.9 % (2-11); Neutrophils Absolute Auto 2.3 X10*3/uL (2.0-8.3); Neutrophils Percent Auto 41.5 % (45-73); Platelet Count 205 X10*3/uL (160-400); Red Blood Count 4.94 X10*6/uL (4.60-5.80); Red Cell Distribution Width 13.2 % (11.0-16.0); White Blood Count 5.4 X10*3/uL (4.8-10.8)
[2020-06-06 06:51] LABS: Anion Gap 13 (12-20); Blood Urea Nitrogen 18 mg/dL (9-16); Calcium 9.1 mg/dL (8.4-10.2); Carbon Dioxide 33 mmol/L (22-29); Chloride 101 mmol/L (96-108); Creatinine Clr Calc Pharmacy 97.4; Estimated Glomerular Filt Rate > 60; Glucose Random 109 mg/dL (60-115); Potassium 5.6 mmol/L (3.3-5.1); Sodium 141 mmol/L (135-145)
[2020-06-06] MEDS: Rivaroxaban 20 MG TABLET PO (07:53)
[2020-06-06] MEDS: Sodium Polystyrene Sulfon/Sorb 15 GM/60 ML ORAL.SUSP PO (07:53)
[2020-06-06] MEDS: Furosemide 40 MG/4 ML VIAL IVPUSH (07:53)
[2020-06-06] MEDS: Buprenorphine/Naloxone 8/2 mg FILM 1 FILM SUBLINGUAL ×2 (09:33→20:44)
--- NOTE | 2020-06-06 10:00 | CA_ITS ---
Transesophageal Echocardiogram Patient (Last, First, Middle): Mateo Graham R Gender: Male Date of : 1960 Age: 60 Procedure Date: 06/06/2020 Procedure Type: Transesophageal Echocardiogram [place] [facility] [place] Height: 172.72 cm Weight: kg Substation Operator Helper Generation: NELSON Referring MD: Shimon Mac MD Change Management Analyst: Shimon Mac MD Symptoms: AFIB, CARDIOVERSION Conclusion: ??? 1. Low normal LV systolic function 2. Normal cardiac valvular morphology with no vegetations or masses 3. No intracardiac thrombi including in the left atrial appendage 4. No intracardiac stenting 5. Normal aorta 6. Normal pericardium Findings Procedure Information Consent was obtained prior to the procedure. Pre VAMSI oral cavity was checked and revealed no overcrowding. The adult 3D probe was passed with no difficulty. This was a technically good study. Left Ventricle Normal left ventricular cavity size. There is mildly increased left ventricular wall thickness. The left ventricular systolic function is low normal. The visually estimated ejection fraction is between 50-55%. Diastolic function is indeterminate on the basis of available data. Right Ventricle Normal right ventricular cavity size and systolic function. Atria The left atrium is mildly dilated. There is no evidence of interatrial shunt. the left atrium was free of any clots or significant smoke formation. The left atrial appendage was identified in multiple views including with Xplane technology. there were no thrombi or smoke formation seen within the left atrial appendage. The left atrial appendage ejection velocity was above 40 centimeter/second. The left upper, right upper and right lower pulmonary vein drain normally into the left atrium. The right atrium is mildly dilated. Right atrium is free of any thrombus or smoke formation. The IVC and SVC drain normally into the right atrium. The right atrial appendage was identified without any significant clots. Aortic Valve Normal aortic valve structure and function. There is no aortic valve stenosis. There is no evidence of a mass on the aortic valve. There is no aortic valve regurgitation. Mitral Valve Normal mitral valve structure and function. There is no mitral valve prolapse. There is trace mitral valve regurgitation. There is no mitral valve stenosis. There is no mass noted on the mitral valve. Pulmonic Valve The pulmonic valve is likely normal. There is no mass noted on the pulmonic valve. There is trace pulmonic valve regurgitation. Tricuspid Valve Normal tricuspid valve structure. There is mild tricuspid valve regurgitation. There is no evidence of a mass on the tricuspid valve. Great Vessels All visible segments of the aorta are normal in size. The visualized portions of the pulmonary artery and branches are normal. Venous The inferior vena cava is normal in size and collapses greater than 50% with inspiration. Pericardium/Pleural There is no evidence of pericardial effusion. Updated by Shimon Mac on 05:59 PM with Status of Final Shimon Mac MD electronically signed on 06/06/2020 5:59:53 PM with status of Final
--- NOTE | 2020-06-06 10:00 | HO.PM.IMPN ---
Subjective Subjective Date of Service: 06/06/20 <Agnes Blanco NP - Last Filed: 06/06/20 14:51> 06/06/20 <David Choudhary MD - Last Filed: 06/06/20 15:06> Interval History: Follow up afib rvr. Some dizziness this morning with fast heart rate. <Agnes Blanco NP - Last Filed: 06/06/20 14:51> Physical Exam Vital Signs: Vital Signs: Last Vital Signs Temp 97.8 F 06/06/20 07:50 Pulse 91 06/06/20 07:50 Resp 18 06/06/20 07:50 BP 117/79 06/06/20 07:50 Pulse Ox 97 06/06/20 07:50 Body Mass Index 30.9 <Agnes Blanco NP - Last Filed: 06/06/20 14:51> Appearing in no acute distress lung sounds normal expansion heart regular rate IRR non tender abdomen neuro patient is alert x3, no focal deficits <Agnes Blanco NP - Last Filed: 06/06/20 14:51> Objective Data Current Medications Generic Name Dose Route Start Last Admin Trade Name Freq PRN Reason Stop Dose Admin Acetaminophen 650 mg 06/04/20 21:36 Acetaminophen 325 Mg Tablet PO Q6H PRN Pain, Mild (Pain Scale 1-3) Buprenorphine/Naloxone 1 film 06/04/20 21:00 06/06/20 09:33 Buprenorphine/Naloxone 8/2 Mg Film SUBLINGUAL 1 film BID EMILE Administration Docusate Sodium 100 mg 06/04/20 21:36 Docusate Sodium 100 Mg Capsule PO DAILY PRN Constipation Furosemide 40 mg 06/04/20 21:36 06/06/20 07:53 Furosemide 40 Mg/4 Ml Vial IVPUSH 40 mg DAILY EMILE Administration Protocol Metoprolol Tartrate 12.5 mg 06/05/20 12:45 06/06/20 06:23 Metoprolol Tartrate 12.5 Mg Halftab PO 12.5 mg Q6H EMILE Administration Protocol Ondansetron HCl 4 mg 06/04/20 21:36 Ondansetron Hcl 4 Mg/2 Ml Vial IVPUSH Q8H PRN Nausea and Vomiting Rivaroxaban 20 mg 06/05/20 10:00 06/06/20 07:53 Rivaroxaban 20 Mg Tablet PO 20 mg DAILY EMILE Administration Sodium Chloride 3 ml 06/05/20 00:00 06/06/20 07:54 0.9 % Sodium Chloride Flush 3 Ml Syringe IVFLUSH 3 ml QSHIFT EMILE Administration <Agnes Blanco NP - Last Filed: 06/06/20 14:51> Labs CBC & Chem 7: : 06/06/20 05:54 06/06/20 08:54 <Agnes Blanco NP - Last Filed: 06/06/20 14:51> Assessment and Plan (1) New onset of congestive heart failure: Status: Acute <Agnes Blanco NP - Last Filed: 06/06/20 14:51> (2) Atrial fibrillation: Status: Acute <Agnes Blanco NP - Last Filed: 06/06/20 14:51> Assessment and Plan: This is a 60-year-old male with past medical history of hypertension who presents to the hospital with complaints of palpitations found to have AFib with RVR and CHF # New onset AFib with RVR. ChadsVasc of 2. Patient significantly symptomatic with palpitations, dizziness and sob - VAMSI cardioversion done, back in SR - multaq 400mg BID - metoprolol 12.5 to Q6h - xarelto - digoxin loaded - cardiology following. - sleep study as outpatient - discharge tomorrow if stable. # New onset heart failure. BNP trending down. - Now euvolemic, stop lasix. - low-sodium diet, strict I&O, daily weight #Hyperkalemia. Resolved - Kayexalate, repeat potassium stat prior to cardioversion # Hypertension-Low blood pressure today - Continue to hold lisinopril/hydrochlorothiazide # History of opioid use - continue Suboxone # Alcohol abuse. Vague about amount he drinks - CIWA scale, monitor for withdrawl symptoms. Attending: Dr. Choudhary <Agnes Blanco NP - Last Filed: 06/06/20 14:51>
[2020-06-06 10:12] LABS: Potassium 4.3 mmol/L (3.3-5.1)
--- NOTE | 2020-06-06 10:18 | P.CONAN_ITS ---
[facility] Active Problems Active Problems: All Active Problems (Updated 06/05/20 @ 05:36 by Simona Rivera MD) New onset of congestive heart failure (Acute) Atrial fibrillation (Acute) Past Medical History Medical History Arthritis History of pyloric stenosis Hypertension Family History Family History Father Prostate cancer HTN (hypertension) Mother HTN (hypertension) Heart disease Arthritis Kidney disease Diabetes Stroke FH: cataracts Family/Other ADHD Disc disease, degenerative, lumbar or lumbosacral Surgical History Surgical History History of colonoscopy History of hip surgery History of wisdom tooth extraction Social History Social History Alcohol intake: unknown Smoking Status: Current every day smoker Years Smoked: 39 Use of substances other than those prescribed or required for medical reasons: No Currently Displaying Signs/Symptoms of Drug Intoxication Withdrawal: No Advance Directives: No Advance Directives Information Provided: Yes Do you have thoughts of harming others: None Do you have a plan to hurt others: No Plan service: No Current occupational status: employed Meds Allergies Allergy/AdvReac Type Severity Reaction Status Date / Time No Known Allergies Allergy Verified 06/04/20 20:07 [No Known Allergies*] Active Medications: Current Medications Generic Name Dose Route Start Last Admin Trade Name Freq PRN Reason Stop Dose Admin Acetaminophen 650 mg 06/04/20 21:36 Acetaminophen 325 Mg Tablet PO Q6H PRN Pain, Mild (Pain Scale 1-3) Buprenorphine/Naloxone 1 film 06/04/20 21:00 06/06/20 09:33 Buprenorphine/Naloxone 8/2 Mg Film SUBLINGUAL 1 film BID EMILE Administration Docusate Sodium 100 mg 06/04/20 21:36 Docusate Sodium 100 Mg Capsule PO DAILY PRN Constipation Furosemide 40 mg 06/04/20 21:36 06/06/20 07:53 Furosemide 40 Mg/4 Ml Vial IVPUSH 40 mg DAILY EMILE Administration Protocol Metoprolol Tartrate 12.5 mg 06/05/20 12:45 06/06/20 06:23 Metoprolol Tartrate 12.5 Mg Halftab PO 12.5 mg Q6H EMILE Administration Protocol Ondansetron HCl 4 mg 06/04/20 21:36 Ondansetron Hcl 4 Mg/2 Ml Vial IVPUSH Q8H PRN Nausea and Vomiting Rivaroxaban 20 mg 06/05/20 10:00 06/06/20 07:53 Rivaroxaban 20 Mg Tablet PO 20 mg DAILY EMILE Administration Sodium Chloride 3 ml 06/05/20 00:00 06/06/20 07:54 0.9 % Sodium Chloride Flush 3 Ml Syringe IVFLUSH 3 ml QSHIFT EMILE Administration Home Medications Medication Instructions Recorded Confirmed Last Taken Type buprenorphine-naloxone [Suboxone] 1 strip SUBLINGUAL BID 06/04/20 06/04/20 Unknown History lisinopril-hydrochlorothiazide 1 tab PO DAILY 06/04/20 06/04/20 Unknown History meloxicam 1 tab PO DAILY 06/04/20 06/04/20 Unknown History Exam Exam Date and Time: June 06, 2020 1018 Height,Weight and Vital Signs: Height 5 ft 9 in Weight 95 kg Last Vital Signs Temp 96.7 F L 06/06/20 10:02 Pulse 133 H 06/06/20 10:02 Resp 18 06/06/20 10:02 BP 108/70 06/06/20 10:02 Pulse Ox 99 06/06/20 10:02 Pertinent Lab Results Pertinent Lab Results: Laboratory Tests 06/04/20 06/04/20 06/04/20 18:09 19:21 19:22 WBC 5.9 RBC 4.51 L Hgb 12.5 L Hct 40.2 L MCV 89.1 MCH 27.7 MCHC 31.1 RDW 13.4 Plt Count 199 MPV 10.4 Immature Gran % (Auto) 0.2 Neut % (Auto) 45.1 Lymph % (Auto) 42.4 H [place] % (Auto) 10.3 Eos % (Auto) 1.5 Baso % (Auto) 0.5 Lymph # (Auto) 2.5 Free[place] # (Auto) 0.6 Eos # (Auto) 0.1 Baso # (Auto) 0.0 Abs Immat Gran (auto) 0.01 Absolute Neuts (auto) 2.7 Absolute Nucleated RBC 0.000 Nucleated RBC % (auto) 0.0 PT INR APTT Sodium 138 Potassium 5.0 Chloride 106 Carbon Dioxide 24 Anion Gap 13 BUN 16 Creatinine 0.83 Estim Creat Clear Calc 109.2 Estimated GFR > 60 Random Glucose 95 Calcium 8.6 Magnesium 2.1 Total Bilirubin 0.6 Direct Bilirubin 0.2 AST 20 ALT 12 Alkaline Phosphatase 49 Troponin I High Sens B-Natriuretic Peptide Total Protein 6.8 Albumin 3.9 TSH COVID-19 (YASMIN) Negative COVID-19 Clin Com See Note 06/04/20 06/04/20 06/04/20 19:22 19:22 19:22 WBC RBC Hgb Hct MCV MCH MCHC RDW Plt Count MPV Immature Gran % (Auto) Neut % (Auto) Lymph % (Auto) Free[place] % (Auto) Eos % (Auto) Baso % (Auto) Lymph # (Auto) Free[place] # (Auto) Eos # (Auto) Baso # (Auto) Abs Immat Gran (auto) Absolute Neuts (auto) Absolute Nucleated RBC Nucleated RBC % (auto) PT 12.6 INR 1.1 APTT 43.9 H Sodium Potassium Chloride Carbon Dioxide Anion Gap BUN Creatinine Estim Creat Clear Calc Estimated GFR Random Glucose Calcium Magnesium Total Bilirubin Direct Bilirubin AST ALT Alkaline Phosphatase Troponin I High Sens 16.0 B-Natriuretic Peptide 618 H Total Protein Albumin TSH COVID-19 (YASMIN) COVID-[facility] 06/04/20 06/05/20 06/05/20 22:35 08:10 08:10 WBC RBC Hgb Hct MCV MCH MCHC RDW Plt Count MPV Immature Gran % (Auto) Neut % (Auto) Lymph % (Auto) [place] % (Auto) Eos % (Auto) Baso % (Auto) Lymph # (Auto) Free[place] # (Auto) Eos # (Auto) Baso # (Auto) Abs Immat Gran (auto) Absolute Neuts (auto) Absolute Nucleated RBC Nucleated RBC % (auto) PT INR APTT Sodium 140 Potassium 4.7 Chloride 101 Carbon Dioxide 34 H Anion Gap 10 L BUN 17 H Creatinine 0.91 Estim Creat Clear Calc 100.6 Estimated GFR > 60 Random Glucose 108 Calcium 9.0 Magnesium 2.1 Total Bilirubin Direct Bilirubin AST ALT Alkaline Phosphatase Troponin I High Sens 18.9 B-Natriuretic Peptide 481 H Total Protein Albumin TSH 3.01 COVID-19 (YASMIN) COVID-19 Dr. Tariff Com 06/05/20 06/06/20 06/06/20 08:10 05:54 05:54 WBC 6.5 5.4 RBC 4.81 4.94 Hgb 13.1 L 13.4 L Hct 42.2 43.2 MCV 87.7 87.4 MCH 27.2 27.1 MCHC 31.0 31.0 RDW 13.5 13.2 Plt Count 232 205 MPV 10.5 10.3 Immature Gran % (Auto) 0.2 Neut % (Auto) 41.5 L Lymph % (Auto) 44.9 H [place] % (Auto) 8.9 Eos % (Auto) 4.1 H Baso % (Auto) 0.4 Lymph # (Auto) 2.4 Free[place] # (Auto) 0.5 Eos # (Auto) 0.2 Baso # (Auto) 0.0 Abs Immat Gran (auto) 0.01 Absolute Neuts (auto) 2.3 Absolute Nucleated RBC 0.000 0.000 Nucleated RBC % (auto) 0.0 0.0 PT INR APTT Sodium 141 Potassium 5.6 H Chloride 101 Carbon Dioxide 33 H Anion Gap 13 BUN 18 H Creatinine 0.94 Estim Creat Clear Calc 97.4 Estimated GFR > 60 Random Glucose 109 Calcium 9.1 Magnesium Total Bilirubin Direct Bilirubin AST ALT Alkaline Phosphatase Troponin I High Sens B-Natriuretic Peptide Total Protein Albumin TSH COVID-19 (YASMIN) COVID-19 Clin Com 06/06/20 08:54 WBC RBC Hgb Hct MCV MCH MCHC RDW Plt Count MPV Immature Gran % (Auto) Neut % (Auto) Lymph % (Auto) Free[place] % (Auto) Eos % (Auto) Baso % (Auto) Lymph # (Auto) [place] # (Auto) Eos # (Auto) Baso # (Auto) Abs Immat Gran (auto) Absolute Neuts (auto) Absolute Nucleated RBC Nucleated RBC % (auto) PT INR APTT Sodium Potassium 4.3 D Chloride Carbon Dioxide Anion Gap BUN Creatinine Estim Creat Clear Calc Estimated GFR Random Glucose Calcium Magnesium Total Bilirubin Direct Bilirubin AST ALT Alkaline Phosphatase Troponin I High Sens B-Natriuretic Peptide Total Protein Albumin TSH COVID-19 (YASMIN) COVID-19 Clin Com Narrative Narrative: Patient with diminished breath sounds and some wheezing. HR up to 170s. Sats 98% on RA. Will hold off on albuterol treatment for now with increased HR Airway Mallampati Class: II TM Dist: >3cm Neck ROM: Full Partial: Upper Heart: Irregular Lungs: Bilateral wheezes. Diminished Assessment and Plan Assessment Anesthesia Assessment: Anesthesia Plan Discussed and Chart Reviewed Final Anesthetic Review NPO: Yes ASA Class: III and Emergency Final Preanesthetic Review: No Changes in Pt Med Stat, Meds/Allgs Chart Reviewed, Consent Obtained/Reviewed and Anes Risks/Benef Reviewed Patient Risk: Intermediate Procedure Risk: Intermediate Assessment/Block/Sedation in SS: Assess/Block/Sedation-SS Anesthetic Plan Anesthetic Plan: MAC: Disposition: Inp. Admit - Standard Bed
[2020-06-06] MEDS: Lactated Ringers 1,000 ML 50 ML IV (10:20)
--- NOTE | 2020-06-06 11:17 | P.PNCAR_ITS ---
Cardioversion Procedure Note Cardioversion Date of Procedure: 06/06/2020 Ordering Provider: Myself Performing Provider: Myself Indication for Procedure: Symptomatic atrial fibrillation with rapid ventricular response with difficult to control rate Pre-Op Diagnosis: Atrial fibrillation rapid ventricular response Post-Op Diagnosis: Normal sinus rhythm Performed with Transesophageal Echo: Yes VAMSI findings (if VAMSI Performed): Complete report dictated separately. No left atrial appendage or left atrial clot noted History: See consult Consent: Verbal and Written consent was obtained from the patient before starting after confirming oral anticoagulation. The patient was made aware of the risk of of the procedure including benefits, alternatives and 2nd opinion. Procedure: After consent obtained, cardioversion pads were attached in AP configuration and the patient was sedated by the anesthesia team. Once adequate sedation achieved, patient was delivered 200 joules of biphasic synchronized energy in AP configuration. Complications: Brief hypotension was noted, quickly corrected with bolus of Deshawn- Synephrine Impression: Successful conversion to sinus rhythm Recommendations: 1. Stat EKG 2. Oral anticoagulation with Xarelto 20 mg daily uninterrupted for at least 6 weeks 3. Initiation of antiarrhythmic drug therapy with Multaq to maintain rhythm 4. Will need sleep study as outpatient.
--- NOTE | 2020-06-06 11:17 | ECG_ITS ---
Test Reason : POST CARDIOVERSION Blood Pressure : / mmHG Vent. Rate : 069 BPM Atrial Rate : 069 BPM P-R Int : 156 ms QRS Dur : 090 ms QT Int : 374 ms P-R-T Axes : 064 053 052 degrees QTc Int : 400 ms Normal sinus rhythm with sinus arrhythmia Normal ECG When compared with ECG of 05-JUN-2020 08:39, Sinus rhythm has replaced Atrial fibrillation Vent. rate has decreased BY 61 BPM Nonspecific T wave abnormality no longer evident in Inferior leads Referred By: Shimon Mac Electronically Signed By:SHIMON MAC MD
--- NOTE | 2020-06-06 11:23 | PM.PNCARD ---
Subjective Subjective Date of Service: 06/06/20 Principal diagnosis: Atrial fibrillation with rapid ventricular response Interval history: Patient underwent VAMSI guided cardioversion, successfully converted sinus rhythm. Preprocedure he was complaining of shortness of breath and was wheezing. During the procedure he had brief hypotension which was corrected. There were no left atrium or left atrial appendage clot. LV systolic function. Low normal, but he was in rapid ventricular response. He was then urgently cardioverted with good response. Review of Systems Constitutional: Reports no additional constitutional complaints Cardiovascular: Denies chest pain, Reports rapid heart rate, Denies lightheadedness and Reports dyspnea Respiratory: Denies cough and Reports dyspnea Gastrointestinal: Reports no additional gastrointestinal complaints Genitourinary: Reports no additional male genitourinary complaints Musculoskeletal: Reports no additional musculoskeletal complaints Reports system reviewed and no additional complaints, except as documented Psychiatric: Reports no additional psychiatric complaints Endocrine: Reports no additional endocrine complaints Physical Exam Vital Signs: Last Vital Signs Temp 96.7 F L 06/06/20 10:02 Pulse 133 H 06/06/20 10:02 Resp 18 06/06/20 10:02 BP 108/70 06/06/20 10:02 Pulse Ox 99 06/06/20 10:02 Body Mass Index 30.9 Const General: cooperative, comfortable and lethargic Orientation/consciousness: lethargic Neck Neck: Yes trachea midline, Yes supple and Yes no JVD Resp Effort & Inspection: normal respiratory effort Auscultation: no rales and wheezes Cardio Palpation: normal PMI Rate: regular rate Rhythm: regular rhythm Heart sounds: S1 normal heart sound present and S2 normal heart sound present GI Auscultation: normal bowel sounds Skin General skin exam: no rashes or lesions noted Neuro General: moves all extremities and no focal motor deficits Extrem General: Yes no clubbing, cyanosis or edema Psych Appearance: grossly normal Affect: Anxious affect present Results Labs and Meds Result diagrams: 06/06/20 05:54 06/06/20 08:54 Lab results: Laboratory Results - last 24 hr 06/06/20 06/06/20 06/06/20 05:54 05:54 08:54 WBC 5.4 RBC 4.94 Hgb 13.4 L Hct 43.2 MCV 87.4 MCH 27.1 MCHC 31.0 RDW 13.2 Plt Count 205 MPV 10.3 Immature Gran % (Auto) 0.2 Neut % (Auto) 41.5 L Lymph % (Auto) 44.9 H Brooks % (Auto) 8.9 Eos % (Auto) 4.1 H Baso % (Auto) 0.4 Lymph # (Auto) 2.4 Brooks # (Auto) 0.5 Eos # (Auto) 0.2 Baso # (Auto) 0.0 Abs Immat Gran (auto) 0.01 Absolute Neuts (auto) 2.3 Absolute Nucleated RBC 0.000 Nucleated RBC % (auto) 0.0 Sodium 141 Potassium 5.6 H 4.3 D Chloride 101 Carbon Dioxide 33 H Anion Gap 13 BUN 18 H Creatinine 0.94 Estim Creat Clear Calc 97.4 Estimated GFR > 60 Random Glucose 109 Calcium 9.1 Progress Note: A&P Assessment and plan (1) Atrial fibrillation: Status: Acute Assessment and Plan: New onset atrial fibrillation rapid ventricular response of at least few weeks duration. Status post VAMSI guided cardioversion. No intracardiac thrombi noted. Continue Xarelto on interrupted for at least 6 weeks, however require Xarelto long-term given his atrial enlargement and CHADSVASc score of 1-2. Will switch him to p.o. mom Multaq 400 mg b.i.d. to prevent recurrent atrial fibrillation hospitalization related to the same. Will require sleep study which will be performed as outpatient. Most likely discharge tomorrow. (2) New onset of congestive heart failure: Status: Acute Assessment and Plan: Heart failure syndrome most likely related to rapid atrial fibrillation. Converted back to sinus rhythm. Currently euvolemic and well compensated with no evidence of heart failure. Discontinue Lasix for now. Will check BNP tomorrow likely would be normalized. Will follow with the patient. Fall Risk Details Current Medications: Current Medications Generic Name Dose Route Start Last Admin Trade Name Freq PRN Reason Stop Dose Admin Acetaminophen 650 mg 06/04/20 21:36 Acetaminophen 325 Mg Tablet PO Q6H PRN Pain, Mild (Pain Scale 1-3) Buprenorphine/Naloxone 1 film 06/04/20 21:00 06/06/20 09:33 Buprenorphine/Naloxone 8/2 Mg Film SUBLINGUAL 1 film BID EMILE Administration Docusate Sodium 100 mg 06/04/20 21:36 Docusate Sodium 100 Mg Capsule PO DAILY PRN Constipation Dronedarone 400 mg 06/06/20 11:30 Dronedarone Hcl 400 Mg Tablet PO BID COUNTS INCLUDE 234 BEDS AT THE [facility] Lactated Ringer's 1,000 mls @ 50 mls/hr 06/06/20 11:30 Lr IV .Q20H COUNTS INCLUDE 234 BEDS AT THE [facility] Metoprolol Tartrate 12.5 mg 06/05/20 12:45 06/06/20 06:23 Metoprolol Tartrate 12.5 Mg Halftab PO 12.5 mg Q6H EMILE Administration Protocol Ondansetron HCl 4 mg 06/04/20 21:36 Ondansetron Hcl 4 Mg/2 Ml Vial IVPUSH Q8H PRN Nausea and Vomiting Ondansetron HCl 4 mg 06/06/20 11:18 Ondansetron Hcl 4 Mg/2 Ml Vial IVPUSH ONCE PRN Nausea and Vomiting Rivaroxaban 20 mg 06/05/20 10:00 06/06/20 07:53 Rivaroxaban 20 Mg Tablet PO 20 mg DAILY EMILE Administration Sodium Chloride 3 ml 06/05/20 00:00 06/06/20 07:54 0.9 % Sodium Chloride Flush 3 Ml Syringe IVFLUSH 3 ml QSHIFT COUNTS INCLUDE 234 BEDS AT THE [facility] Administration Time Spent With Patient Time: Total time spent is greater than 50% in coordination of care (as documented) at patient's floor/unit and/or counseling patient: Time with patient: 25 - 35 minutes
[2020-06-06 12:09] LABS: Glucose, Whole Blood 123 mg/dL (60-115)
[2020-06-06] MEDS: Dronedarone HCl 400 MG TABLET PO ×2 (14:20→20:45)
[2020-06-07] VITALS (7 sets, daily range): BP systolic 99–109; BP diastolic 61–65; PULSE 60–72; RESP 16–18; TEMP 36.1–36.7; O2SAT 96–98; BMI 30.3
--- NOTE | 2020-06-07 | ECG_ITS ---
Test Reason : NEW ONSET AFIB Blood Pressure : / mmHG Vent. Rate : 070 BPM Atrial Rate : 070 BPM P-R Int : 146 ms QRS Dur : 098 ms QT Int : 374 ms P-R-T Axes : 072 075 029 degrees QTc Int : 403 ms Normal sinus rhythm Normal ECG When compared with ECG of 06-JUN-2020 10:32, Nonspecific T wave abnormality now evident in Inferior leads Referred By: Agnes Blanco Electronically Signed By:KYLEE JIMENEZ MD
[2020-06-07] MEDS: Metoprolol Tartrate 12.5 MG HALFTAB PO (01:44)
[2020-06-07] MEDS: 0.9 % Sodium Chloride Flush 3 ML SYRINGE IVFLUSH ×2 (01:44→07:49)
[2020-06-07 06:51] LABS: MANUAL DIFF FLAG NO
[2020-06-07 06:59] LABS: Basophils Percent Auto 0.2 % (0-2); Eosinophils Absolute Auto 0.2 X10*3/uL (0.0-0.4); Eosinophils Percent Auto 4.3 % (0-4); Hemoglobin 12.1 g/dl (14.0-18.0); Imm Gran Abs Auto 0.02 X10*3/uL (0.00-0.03); Imm Gran Pct Auto 0.4 % (0.0-0.4); Lymphocytes Absolute Auto 2.3 X10*3/uL (1.2-4.9); Lymphocytes Percent Auto 41.9 % (20-40); Mean Corpuscular Hemoglobin 26.9 pg (27.0-33.0); Mean Corpuscular Volume 86.9 fL (80-98); Mean Platelet Volume 10.6 fL (9.4-12.4); Monocytes Absolute Auto 0.6 X10*3/uL (0.1-1.2); Monocytes Percent Auto 10.1 % (2-11); Neutrophils Absolute Auto 2.4 X10*3/uL (2.0-8.3); Neutrophils Percent Auto 43.1 % (45-73); Platelet Count 207 X10*3/uL (160-400); Red Blood Count 4.49 X10*6/uL (4.60-5.80); Red Cell Distribution Width 13.2 % (11.0-16.0); White Blood Count 5.6 X10*3/uL (4.8-10.8)
[2020-06-07 07:19] LABS: Anion Gap 11 (12-20); Blood Urea Nitrogen 18 mg/dL (9-16); Calcium 8.8 mg/dL (8.4-10.2); Carbon Dioxide 32 mmol/L (22-29); Chloride 99 mmol/L (96-108); Creatinine Clr Calc Pharmacy 104.2; Estimated Glomerular Filt Rate > 60; Glucose Random 101 mg/dL (60-115); Potassium 4.3 mmol/L (3.3-5.1); Sodium 138 mmol/L (135-145)
[2020-06-07 07:35] LABS: B Type Natriuretic Peptide 68 pg/mL (<100)
[2020-06-07] MEDS: Buprenorphine/Naloxone 8/2 mg FILM 1 FILM SUBLINGUAL (09:14)
[2020-06-07] MEDS: Rivaroxaban 20 MG TABLET PO (09:14)
[2020-06-07] MEDS: Dronedarone HCl 400 MG TABLET PO (09:14)
--- NOTE | 2020-06-07 10:11 | P.DS_ITS ---
DS: Providers Provider Date of Service: 06/07/20 <Agnes Blanco NP - Last Filed: 06/07/20 12:57> 06/07/20 <David Choudhary MD - Last Filed: 06/07/20 12:59> Date of admission: 06/04/20 20:23 <Agnes Blanco NP - Last Filed: 06/07/20 12:57> Date of discharge: 06/07/20 <Agnes Blanco NP - Last Filed: 06/07/20 12:57> Primary care physician: Leticia Au MD <Agnes Blanco NP - Last Filed: 06/07/20 12:57> Admitting clinician: Simona Rivera <Agnes Blanco NP - Last Filed: 06/07/20 12:57> Attending physician on admission: Simona Rivera <Agnes Blanco NP - Last Filed: 06/07/20 12:57> Consults: 06/04/20 21:36 Consult to Cardiology Routine Consulting Provider: Thomas Ruffin Reason for consultation: New onset A fib Has provider been notified: No <Agnes Blanco NP - Last Filed: 06/07/20 12:57> Attending physician on discharge: David Choudhary <Agnes Blanco NP - Last Filed: 06/07/20 12:57> Discharging clinician: Agnes Blanco <Agnes Blanco NP - Last Filed: 06/07/20 12:57> DS: Diagnosis Discharge Diagnosis (1) Atrial fibrillation: Status: Acute <Agnes Blanco NP - Last Filed: 06/07/20 12:57> (2) New onset of congestive heart failure: Status: Acute <Agnes Blanco NP - Last Filed: 06/07/20 12:57> (3) Atrial fibrillation with RVR: Status: Acute <Agnes Blanco NP - Last Filed: 06/07/20 12:57> DS: Medications Discharge Medications Home Medications: Home Medications Medication Instructions Recorded Confirmed buprenorphine-naloxone [Suboxone] 1 strip SUBLINGUAL BID 06/04/20 06/04/20 lisinopril-hydrochlorothiazide 1 tab PO DAILY 06/04/20 06/04/20 meloxicam 1 tab PO DAILY 06/04/20 06/04/20 <Agnes Blanco NP - Last Filed: 06/07/20 12:57> DS: Summary Hospital Course Hospital Course: HP as per provider This is a 52-year-old male with past medical history of hypertension who presents to the hospital with complaints of 2 weeks history of dizziness and palpitations. His symptoms are daily, not related to any specific event, associated with shortness of breath, as well as PND on multiple occasions. He denies any chest pain, no headache, change in vision, no lower extremity edema. No cough, no fever or chills. He has no abdominal pain nausea or vomiting, no diarrhea constipation. He does have nocturia otherwise no frequency, dysuria, or urgency. No numbness tingling or any limb weakness. On arrival to the ED patient was found to have heart rate of 170s, all other vitals within normal range. Labs are significant for WBC count of 5.9, hemoglobin of 12.5, BNP of 618, troponin high sensitivity of 16 with a repeat of 18.9, EKG rose . Patient denies any history of heart disease. Past medical history as below and confirmed with patient . Atrial Fibrillation. patient initially presented with dizziness and palpitations however several weeks. He did report that he had been taking some supplements from [facility] that would increase his testosterone levels. He reported he started taking them about 3 months ago but initially on admission did not mention this. His heart rates have been in the 160s pretty consistently. Echocardiogram showed biatrial enlargement. He also likely has obstructive sleep apnea which makes patient at high risk for episodes of atrial fibrillation. He under he underwent successful VAMSI cardioversion. He remained in sinus rhythm overnight. He had no complaints of dizziness, shortness of man ath. He will go home on Multaq, Toprol and Xarelto. He is to follow up with the cardiology office. Congestive heart failure. New onset. Echocardiogram showed mildly dilated left atrium, dilated right sided chambers with EF of 50-55%. he was treated with IV Lasix. Likely exacerbated by atrial fibrillation. Once cardioverted patient seems euvolemic. Will follow up with Cardiology as an outpatient. Hypertension. Blood pressure is on the lower side. Will stop lisinopril/hydrochlorothiazide. Patient to follow blood pressures closely and follow-up with PCP if there are significant changes. <Agnes Blanco NP - Last Filed: 06/07/20 12:57> Time Spent with Patient Time attestation: Total time spent providing and/or coordinating discharge services: <Agnes Blanco NP - Last Filed: 06/07/20 12:57> Discharge coordination time: Greater than 30 minutes <David Choudhary MD - Last Filed: 06/07/20 12:59> Physical Exam Vital Signs: Vital Signs: Last Vital Signs Temp 98.0 F 06/07/20 07:42 Pulse 65 06/07/20 07:42 Resp 16 06/07/20 07:42 BP 109/65 06/07/20 07:42 Pulse Ox 96 06/07/20 07:42 Body Mass Index 30.3 <Agnes Blanco NP - Last Filed: 06/07/20 12:57> Appearing in no acute distress lung sounds are clear to auscultation heart regular rate rhythm, clear S1, S2 positive bowel sounds, abdomen is soft, nontender neuro patient is alert x3, no focal deficits <Agnes Blanco NP - Last Filed: 06/07/20 12:57> DS: Data Data Completed and Pending Labs on day of discharge: Laboratory Results - last 24 hr 06/06/20 06/06/20 06/07/20 08:54 11:59 06:22 WBC 5.6 RBC 4.49 L Hgb 12.1 L Hct 39.0 L MCV 86.9 MCH 26.9 L MCHC 31.0 RDW 13.2 Plt Count 207 MPV 10.6 Immature Gran % (Auto) 0.4 Neut % (Auto) 43.1 L Lymph % (Auto) 41.9 H [place] % (Auto) 10.1 Eos % (Auto) 4.3 H Baso % (Auto) 0.2 Lymph # (Auto) 2.3 [place] # (Auto) 0.6 Eos # (Auto) 0.2 Baso # (Auto) 0.0 Abs Immat Gran (auto) 0.02 Absolute Neuts (auto) 2.4 Absolute Nucleated RBC 0.000 Nucleated RBC % (auto) 0.0 Sodium Potassium 4.3 D Chloride Carbon Dioxide Anion Gap BUN Creatinine Estim Creat Clear Calc Estimated GFR POC Glucose 123 H Random Glucose Calcium B-Natriuretic Peptide 06/07/20 06/07/20 06/07/20 06:22 06:22 06:22 WBC RBC Hgb Hct MCV MCH MCHC RDW Plt Count MPV Immature Gran % (Auto) Neut % (Auto) Lymph % (Auto) [place] % (Auto) Eos % (Auto) Baso % (Auto) Lymph # (Auto) [place] # (Auto) Eos # (Auto) Baso # (Auto) Abs Immat Gran (auto) Absolute Neuts (auto) Absolute Nucleated RBC Nucleated RBC % (auto) Sodium 138 Potassium 4.3 Chloride 99 Carbon Dioxide 32 H Anion Gap 11 L BUN 18 H Creatinine 0.87 Estim Creat Clear Calc 104.2 Estimated GFR > 60 POC Glucose Random Glucose 101 Calcium 8.8 B-Natriuretic Peptide 68 Cancelled <Agnes Blanco NP - Last Filed: 06/07/20 12:57> Discharge Plan Discharge Anticipated Discharge Date/Time: 06/07/20 10:16 <Agnes Blanco NP - Last Filed: 06/07/20 12:57> Patient Disposition: Home, Self-Care <Agnes Blanco NP - Last Filed: 06/07/20 12:57> Referrals: Leticia Au MD [Primary Care Provider] - Reginaldo Blanco MD [Physician] - (call office for appt) <Agnes Blanco NP - Last Filed: 06/07/20 12:57> Discharge Medications: New Xarelto 20 mg Tablet 20 mg PO DAILY Qty: 30 RF: 0 Multaq 400 mg Tablet 400 mg PO BID Qty: 60 RF: 0 metoprolol succinate [Toprol XL] 25 mg tablet extended release 24 hr 25 mg PO DAILY Qty: 30 RF: 0 Continued buprenorphine-naloxone [Suboxone] 8-2 mg film 1 strip sublingual BID RF: 0 Discontinued meloxicam 15 mg tablet 1 tab PO DAILY RF: 0 lisinopril-hydrochlorothiazide 10-12.5 mg tablet 1 tab PO DAILY RF: 0 <Agnes Blanco NP - Last Filed: 06/07/20 12:57> Discharge Orders: Discharge Order (Routine); Ordered 06/07/20 Ordered By: Agnes Blanco <Agnes Blanco NP - Last Filed: 06/07/20 12:57> Diet: advance to usual diet <Agnes Blanco NP - Last Filed: 06/07/20 12:57> advance to usual diet <David Choudhary MD - Last Filed: 06/07/20 12:59> Activity on Discharge: As tolerated <Agnes Blanco NP - Last Filed: 06/07/20 12:57> As tolerated <David Choudhary MD - Last Filed: 06/07/20 12:59> Stand Alone Forms: Patient Portal Discharge page, Work/School Release <Agnes Blanco NP - Last Filed: 06/07/20 12:57> Care Plan Goals: To stay healthy and out of the hospital. <Agnes Blanco NP - Last Filed: 06/07/20 12:57> Health Concerns: A. Fib Possible Sleep Apnea <Agnes Blanco NP - Last Filed: 06/07/20 12:57> Plan of Treatment: Take Xarelto 20mg daily (blood thinner) Take Multaq 400mg twice daily (to keep you in regular rhythm) Take Metoprolol Xl 25mg (to keep your heart from beating too fast) Do not drink alcohol Do not use NSAIDS Follow up with Dr. Mac from cardiology Follow up with Pulmonary clinic for sleep study <Agnes Blanco NP - Last Filed: 06/07/20 12:57>
--- NOTE | 2020-06-07 10:14 | P.PNCA_ITS ---
Subjective Subjective Date of Service: 06/07/20 Principal diagnosis: Atrial fibrillation with rapid ventricular response Interval history: Patient status post cardioversion yesterday. Maintaining sinus rhythm. Started on Multaq, tolerating well. He has lot of questions about medications. He is also on oral anticoagulation. Complains of some spotting from his nose. No chest discomfort, shortness of breath, orthopnea, PND, lightheadedness. Review of Systems Constitutional: Reports no additional constitutional complaints Cardiovascular: Reports no additional cardiovascular complaints Respiratory: Reports no additional respiratory complaints Gastrointestinal: Reports no additional gastrointestinal complaints Genitourinary: Reports no additional male genitourinary complaints Musculoskeletal: Reports no additional musculoskeletal complaints Reports system reviewed and no additional complaints, except as documented Psychiatric: Reports no additional psychiatric complaints Physical Exam Vital Signs: Last Vital Signs Temp 98.0 F 06/07/20 07:42 Pulse 65 06/07/20 07:42 Resp 16 06/07/20 07:42 BP 109/65 06/07/20 07:42 Pulse Ox 96 06/07/20 07:42 Body Mass Index 30.3 Const General: cooperative, comfortable, no acute distress, alert and awake Nutritional Appearance: overweight Orientation/consciousness: patient oriented x3 Limitations: no limitations Neck Neck: Yes trachea midline, Yes supple and Yes no JVD Resp Effort & Inspection: normal respiratory effort Auscultation: clear to auscultation bilaterally Cardio Jugular venous distension: no JVD Palpation: normal PMI Rate: regular rate Rhythm: regular rhythm Heart sounds: S1 normal heart sound present and S2 normal heart sound present GI Auscultation: normal bowel sounds Skin General skin exam: no rashes or lesions noted Neuro General: patient oriented x3 and no focal motor deficits Extrem General: Yes no clubbing, cyanosis or edema Psych Appearance: grossly normal Results Labs and Meds Result diagrams: 06/07/20 06:22 06/07/20 06:22 Lab results: Laboratory Results - last 24 hr 06/06/20 06/07/20 06/07/20 11:59 06:22 06:22 WBC 5.6 RBC 4.49 L Hgb 12.1 L Hct 39.0 L MCV 86.9 MCH 26.9 L MCHC 31.0 RDW 13.2 Plt Count 207 MPV 10.6 Immature Gran % (Auto) 0.4 Neut % (Auto) 43.1 L Lymph % (Auto) 41.9 H [place] % (Auto) 10.1 Eos % (Auto) 4.3 H Baso % (Auto) 0.2 Lymph # (Auto) 2.3 [place] # (Auto) 0.6 Eos # (Auto) 0.2 Baso # (Auto) 0.0 Abs Immat Gran (auto) 0.02 Absolute Neuts (auto) 2.4 Absolute Nucleated RBC 0.000 Nucleated RBC % (auto) 0.0 Sodium 138 Potassium 4.3 Chloride 99 Carbon Dioxide 32 H Anion Gap 11 L BUN 18 H Creatinine 0.87 Estim Creat Clear Calc 104.2 Estimated GFR > 60 POC Glucose 123 H Random Glucose 101 Calcium 8.8 B-Natriuretic Peptide 06/07/20 06/07/20 06:22 06:22 WBC RBC Hgb Hct MCV MCH MCHC RDW Plt Count MPV Immature Gran % (Auto) Neut % (Auto) Lymph % (Auto) [place] % (Auto) Eos % (Auto) Baso % (Auto) Lymph # (Auto) [place] # (Auto) Eos # (Auto) Baso # (Auto) Abs Immat Gran (auto) Absolute Neuts (auto) Absolute Nucleated RBC Nucleated RBC % (auto) Sodium Potassium Chloride Carbon Dioxide Anion Gap BUN Creatinine Estim Creat Clear Calc Estimated GFR POC Glucose Random Glucose Calcium B-Natriuretic Peptide 68 Cancelled Progress Note: A&P Assessment and plan (1) Atrial fibrillation: Status: Acute Assessment and Plan: Symptomatic new onset atrial fibrillation with rapid ventricular response, difficult control status post VAMSI guided cardioversion. Maintaining sinus rhythm. He has biatrial enlargement which makes him prone to get atrial fibrillation the future. This was discussed with him. He did not seem to understand this. Also high likelihood of underlying obstructive sleep apnea. Will require sleep study as an outpatient. Continue Multaq 400 mg b.i.d. for rhythm control to reduce hospitalization.CHADSVASc score of 1-2 with biatrial enlargement should be on oral anticoagulation probably for life. Continue Xarelto 20 mg daily. This was discussed with him and importance of this was discussed. Avoid all nonsteroidals for pain. Avoid alcohol use. Avoid stimulants. Outpatient stress study will be performed to rule out ischemia. Holter will be scheduled in 2 weeks time. Follow up in the clinic in 4 weeks time will be set up. (2) New onset of congestive heart failure: Status: Acute Assessment and Plan: Heart failure which appear to be transient related to atrial fibrillation rapid ventricular response. Clinically appears to be euvolemic and well compensated. No need for Lasix therapy at this point time. Can be discharged home. Heart failure education to be provided. Will follow up in the clinic as outpatient. Thank you for allowing me to partake in his care Fall Risk Details Current Medications: Current Medications Generic Name Dose Route Start Last Admin Trade Name Freq PRN Reason Stop Dose Admin Acetaminophen 650 mg 06/04/20 21:36 Acetaminophen 325 Mg Tablet PO Q6H PRN Pain, Mild (Pain Scale 1-3) Buprenorphine/Naloxone 1 film 06/04/20 21:00 06/07/20 09:14 Buprenorphine/Naloxone 8/2 Mg Film SUBLINGUAL 1 film BID EMILE Administration Docusate Sodium 100 mg 06/04/20 21:36 Docusate Sodium 100 Mg Capsule PO DAILY PRN Constipation Dronedarone 400 mg 06/06/20 11:30 06/07/20 09:14 Dronedarone Hcl 400 Mg Tablet PO 400 mg BID EMILE Administration Metoprolol Tartrate 12.5 mg 06/05/20 12:45 06/07/20 07:26 Metoprolol Tartrate 12.5 Mg Halftab PO Not Given Q6H EMILE Protocol Ondansetron HCl 4 mg 06/04/20 21:36 Ondansetron Hcl 4 Mg/2 Ml Vial IVPUSH Q8H PRN Nausea and Vomiting Ondansetron HCl 4 mg 06/06/20 11:18 Ondansetron Hcl 4 Mg/2 Ml Vial IVPUSH ONCE PRN Nausea and Vomiting Rivaroxaban 20 mg 06/05/20 10:00 06/07/20 09:14 Rivaroxaban 20 Mg Tablet PO 20 mg DAILY EMILE Administration Sodium Chloride 3 ml 06/05/20 00:00 06/07/20 07:49 0.9 % Sodium Chloride Flush 3 Ml Syringe IVFLUSH 3 ml QSHIFT EMILE Administration Time Spent With Patient Time: Total time spent is greater than 50% in coordination of care (as documented) at patient's floor/unit and/or counseling patient: Time with patient: 25 - 35 minutes
--- NOTE | 2020-06-07 12:11 | HO.POSTANES ---
Post Anesthesia Evaluation Post Anesthesia Evaluation Vital Signs: Vital Signs Temp Pulse Resp BP Pulse Ox 06/07/20 11:37 97.8 F 72 18 108/64 98 06/07/20 11:18 98 06/07/20 07:42 98.0 F 65 16 109/65 96 06/07/20 07:27 60 104/61 06/07/20 07:26 60 104/61 06/07/20 03:25 97 F 60 16 99/62 97 06/07/20 01:44 67 109/61 Anesthesia: General Mental Status: Awake Pain Control: Satisfactory Nausea/Vomiting: None Hydration: Adequate Anesthesia-Related Issues: No Anes. Related Issues
--- NOTE | 2020-06-07 12:45 | MHC.CDI.RETR ---
Documented by User: Magdalena Garner RN 06/07/20 12:50 Retrospective Query Please clarify if you have treated a probable/suspected/likely or confirmed: Acute Diastolic CHF Acute Systolic CHF Acute Diastolic and Systolic CHF PLEASE DO NOT DELETE/MODIFY EXISTING CONTENT Additional information is needed in order to code to the highest accuracy and appropriate Severity of Illness (SOI). Please clarify the information noted below in your progress notes and discharge summary. Risk Factors/Clinical Indicators/Treatments 60 year old male admitted with arrhythmia palpitations, chest pain, weakness, SOB, Paroxysmal Atrial Fibrillation, heart rate 170s. BNP 618 Per H&P: Paroxysmal Atrial Fibrillation, CHF. Treated with IV Lasix, cardiology consult and cardioversion CDS: Magdalena Garner RN Contact Number: [phone] Please Review the information above and exercise your independent professional judgment in responding to the query. If you concur, pleas document in the PROGRESS NOTES and DISCHARGE SUMMARY. If you do not agree with the query, please document in the query above. THIS QUERY IS PART OF THE PERMANENT MEDICAL RECORD Documented by User: David Choudhary MD 06/07/20 12:57 Retrospective Query Service Date: 06/07/20 Provider Response: Other Acute CHF related to A. Fib with RVR Normal LVEF and no evidence of diastolic dysfunction
== END 2020-06-07 14:00 | disposition home or self-care (01) | DRG 201 ==
LOC: HO.ED 20:12 → HO.EDOVER 20:57 → HO.S3 06-05 03:01
PROVIDERS: Internal Medicine Cardiovascular Disease; Nurse Practitioner Acute Care; Admitting Provider Internal Medicine; Emergency Provider Internal Medicine; PCP Internal Medicine; Visit Provider Family Medicine
PROC: 5A2204Z Restoration of Cardiac Rhythm, Single (ICD-10-PCS; principal; 2020-06-06 10:00)
DX: I48.0 Paroxysmal atrial fibrillation (principal); I11.0 Hypertensive heart disease with heart failure; I50.9 Heart failure, unspecified; F10.10 Alcohol abuse, uncomplicated; F11.20 Opioid dependence, uncomplicated; Z20.822 Contact with and (suspected) exposure to COVID-19; Z79.899 Other long term (current) drug therapy
CPT/HCPCS: 36415; 71045; 80048; 80076; 82947; 83735; 83880; 84132; 84443; 84484; 85025; 85027; 85610; 85730; 87635; 92960; 93005; 93306; 93312; 96374; 99285; J1160; J1650; J1940

== ENCOUNTER → 2020-06-26 07:42 | Outpatient (REF) | payer OTHER, SELFPAY ==
--- NOTE | ~2020-06-26 | NM_ITS ---
Lexiscan Myocardial perfusion study Indication: Atrial fibrillation, assess for coronary disease and ischemia Technique: The patient was brought in for a Lexiscan perfusion study on 06/26/2020 and was injected 0.4 mg of Lexiscan intravenously. Within a minute of this injection 44 mCi of sestamibi was given intravenously. Images were obtained using the SPECT gamma camera interlaced with the gating device. Images were obtained in supine position. Resting perfusion study was performed on 06/26/2020. Patient was administered 14 mCi of sestamibi intravenously at rest. Images were then obtained in supine position. Total DLP 69mGy-cm. Images were processed with the software and compared side to side in short axis, horizontal long axis and vertical long axis views. Findings: Raw acquisition was reviewed. The stress perfusion study showed mildly diminished tracer uptake along the inferior wall. With CT attenuation correction this improves significantly suggestive of diaphragmatic artifact. The gated study shows normal LV systolic function with calculated LVEF of 62%. LV cavity is normal in size. The gated study shows normal wall thickening and contraction of segments. Resting study shows diminished tracer uptake along the inferior wall as well as the basal inferior septum. Suspect this is all artifactual. Gating at rest reveals normal wall motion with ejection fraction at 67%. The findings are consistent with no reversible defects. Fixed inferior defect suspected to be from diaphragmatic attenuation artifact. NM/NM cardiolite stress test Impression: 1. Myocardial perfusion imaging study shows no definitive ischemia or infarction. Fixed inferior defect suspected to be from diaphragmatic attenuation artifact. 2. Gated LVEF is 62% during stress and 67% during rest. 3. Transient ischemic dilatation not present. EKG component of the test reported separately.
--- NOTE | 2020-06-26 08:00 | CA_ITS ---
Acquisition Time: 2020-06-26 09:35:06 Total Exercise Time: 00:00:15 Test Indications: Dyspnea Medications: MULTAQ XARELTO METOPROLOL Protocol: JALIL Max HR: 110 BPM 67% of Pred: 162 BPM Max BP: 116/080 mmHG Max Work Load: 1.4 METS Pt unable to walk on the treadmill, as he has L hip arhritis, and his L leg was lagging. test switched to Lexicsan, Pt had dyspnea after lexiscan, sx reversed with Aminophyline 75 mg IV and albuterol 2 puffs for mild wheeze. EKG with no arrhthmias, non-diagnostic for ischemia. Nuclear images to follow. Normotensive response to test. Test reviewed with Dr. Mac. Referred By: Shimon Mac Overread By: Judith Gama NP
== END ==
LOC: HO.CARD 07:42
PROVIDERS: Visit Provider Internal Medicine Cardiovascular Disease
DX: I48.0 Paroxysmal atrial fibrillation (principal); I50.9 Heart failure, unspecified; F51.11 Primary hypersomnia; G47.33 Obstructive sleep apnea (adult) (pediatric)
CPT/HCPCS: 78452; 93016; 93017; 93018; A9500; J0280; J2785

== ENCOUNTER → 2020-07-03 13:57 | Outpatient (REF) | payer OTHER, SELFPAY | LOC: HO.SL 13:57 | PROVIDERS: PCP Internal Medicine; Visit Provider Internal Medicine Cardiovascular Disease | DX: G47.30 Sleep apnea, unspecified (principal); I48.0 Paroxysmal atrial fibrillation; I50.9 Heart failure, unspecified; F51.11 Primary hypersomnia | CPT/HCPCS: 95806 ==

== ENCOUNTER 2020-07-20 14:58 | Emergency (ER) | payer OTHER, SELFPAY ==
--- NOTE | ~2020-07-20 | XR_ITS ---
EXAMINATION: XR KNEE, LEFT CLINICAL INFORMATION: Pain in the knee COMPARISON: Left knee 10/17/2017 TECHNIQUE: Four views of the left knee. FINDINGS: Mild joint narrowing of the medial femoral tibial joint.There are small spurs of the tibial spines. No bone erosions. No soft tissue calcification. 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 There is no fracture. No dislocation. There is no joint effusion. XR/XR knee LT 2V IMPRESSION: 1. No acute abnormality. 2. Mild degenerative change of the knee joint.
--- NOTE | ~2020-07-20 | XR_ITS ---
EXAMINATION: XR KNEE, RIGHT CLINICAL INFORMATION: Pain. COMPARISON: Right knee 01/28/2008 TECHNIQUE: Four views of the right knee. FINDINGS: Normal joint space of the femoral tibial and patellofemoral joints. No bone spur or bone erosions. There is no fracture. No dislocation or joint effusion. XR/XR knee RT 2V IMPRESSION: Normal right knee.
--- NOTE | ~2020-07-20 | US_ITS ---
EXAMINATION: US VENOUS ULTRASOUND WITH DOPPLER LOWER EXTREMITY, LEFT CLINICAL INFORMATION: Left lower extremity swelling COMPARISON: None TECHNIQUE: Ultrasound of the deep veins is performed from the hip to the calf with compression sonography and color and pulse Doppler assessment. Spectral analysis with color-flow imaging is performed. FINDINGS: There is normal venous compression and respiratory variation and augmented flow. The visualized common femoral vein, superficial femoral vein, profunda femoral vein, popliteal vein, and the trifurcation region shows no evidence of deep venous thrombosis. Visualized calf veins demonstrate normal vascular flow. No significant Gómez's cyst. There is fluid versus complex fluid collection seen superior to and lateral to the left knee. On the provided images, it is uncertain if this is within the joint space or in the soft tissues. US/US venous duplex LE LT IMPRESSION: No DVT demonstrated in the left lower extremity. Technologist documents fluid versus complex fluid collection seen superior to and lateral to the left knee. On the provided images, it is uncertain if this is in the joint space or the soft tissues. Please clinically correlate. Further evaluation with MRI as clinically warranted.
[2020-07-20 15:51] VITALS: BP 148/92; PULSE 74; RESP 16; TEMP 37.3; O2SAT 95; BMI 31.0
[2020-07-20] MEDS: oxyCODONE HCl Immed Release 5 MG TABLET PO (18:12)
--- NOTE | 2020-07-20 19:28 | ED.EXTPRO ---
HPI - Extremity Problem General Chief complaint: Extremity Problem Stated complaint: BOTH KNEE PAIN Time Seen by Provider: 07/20/20 17:00 Source: patient Mode of arrival: ambulatory Limitations: no limitations History of Present Illness HPI Narrative: Patient presents to ED for bilateral knee pain and left lower extremity swelling. Patient denies any chest pain, shortness of breath, calf pain, coughing up blood, fever, or chills. Patient denies any recent trauma to lower extremity, redness, red streaks, or hotness. Related Data Home Medications Medication Instructions Recorded Confirmed buprenorphine-naloxone [Suboxone] 1 strip SUBLINGUAL BID 06/04/20 06/04/20 Previous Rx's Medication Instructions Recorded dronedarone [Multaq] 400 mg PO BID #60 tab 06/07/20 metoprolol succinate [Toprol XL] 25 mg PO DAILY #30 tab 06/07/20 rivaroxaban [Xarelto] 20 mg PO DAILY #30 tab 06/07/20 naproxen 500 mg PO BID PRN #20 tab 07/20/20 Allergies Allergy/AdvReac Type Severity Reaction Status Date / Time No Known Allergies Allergy Verified 06/04/20 20:07 [No Known Allergies*] Review of Systems Review of Systems: Yes all other systems are reviewed and are negative Constitutional: Constitutional: Reports as per HPI and Reports no additional constitutional complaints Eyes: Eyes: Reports as per HPI and Reports no additional eye complaints ENT: Reports system reviewed and no additional complaints, except as documented and Reports as per HPI Cardiovascular: Cardiovascular: Reports as per HPI and Reports no additional cardiovascular complaints Respiratory: Respiratory: Reports as per HPI and Reports no additional respiratory complaints Gastrointestinal: Gastrointestinal: Reports as per HPI and Reports no additional gastrointestinal complaints Genitourinary: Genitourinary: Reports no additional male genitourinary complaints and Reports as per HPI Musculoskeletal: Musculoskeletal: Reports no additional musculoskeletal complaints, Reports as per HPI and Reports arthralgias (Bilateral knee pain) Neurologic: Reports system reviewed and no additional complaints, except as documented and Reports as per HPI Psychiatric: Psychiatric: Reports no additional psychiatric complaints and Reports as per HPI PMF Past Medical History Medical History Arthritis History of pyloric stenosis Hypertension Surgical History History of colonoscopy History of hip surgery History of wisdom tooth extraction Family History Family History Father Prostate cancer HTN (hypertension) Mother HTN (hypertension) Heart disease Arthritis Kidney disease Diabetes Stroke FH: cataracts Family/Other ADHD Disc disease, degenerative, lumbar or lumbosacral Social History Social History Alcohol intake: unknown Smoking Status: Current every day smoker Years Smoked: 39 Advance Directives: No Advance Directives Information Provided: No service: No Current occupational status: employed Physical Exam Vital Signs: Vital Signs: Last Vital Signs Temp 99.1 F 07/20/20 15:51 Pulse 74 07/20/20 15:51 Resp 16 07/20/20 15:51 BP 148/92 H 07/20/20 15:51 Pulse Ox 95 07/20/20 15:51 Body Mass Index 31.0 Const: General: cooperative, healthy appearing, comfortable, no acute distress, well developed, alert and awake; No Physically active Orientation/consciousness: patient oriented x3 HENMT: Head: Yes normal to inspection, Yes No palpable skull fracture present, Yes normocephalic, Yes atraumatic and No abrasion Eyes: General: appearance normal, both eyes and all related structures Neck: Neck: Yes normal visual inspection, Yes full ROM, Yes no lymphadenopathy, Yes no meningeal signs, Yes trachea midline and Yes supple Chest: Chest palpation & inspection: normal inspection of the chest and normal palpation of entire chest wall Resp: Effort & Inspection: normal respiratory effort and able to speak in complete sentences Auscultation: clear to auscultation bilaterally Cardio: Jugular venous distension: no JVD Heart sounds: S1 normal heart sound present and S2 normal heart sound present GI: Inspection: Yes normal to inspection and No abdominal wall ecchymosis Palpation (GI): Soft to palpation, not firm, nontender, no guarding and not rigid : General: No CVA tenderness and Yes no CVA tenderness Back/Spine/Pelvis: Back: no CVA tenderness, No CVA tenderness and No back tenderness Skin: General skin exam: no rashes or lesions noted and elasticity normal Neuro: General: patient oriented x3, gait normal (Ambulating with cane baseline), no meningeal signs and CN's II-XI intact bilaterally Cranial nerves: Yes CN's II-XII intact bilaterally Extrem: Other: Left lower extremity: Positive for swelling of leg. Negative for calf tenderness or erythema. Knee negative for any erythema, swelling, or ecchymosis. Mild bony tenderness on palpation. Vascular/nerves/motor exam of left lower extremity intact. Right lower extremity: Negative for any swelling, redness, calf tenderness, or ecchymosis of legs. Knee negative for any swelling, redness, deformity. Motor/neuro/vascular exam of all extremities intact. Psych: Appearance: grossly normal, well kempt and not disheveled Course Course Course Narrative: Will send patient for lower extremity knee x-ray and left flank ultrasound to rule out DVT fracture. Reevaluation(s) Reevaluation #1: Patient's right knee came back normal, but left knee came back positive for osteoarthritis. Left lower extremity ultrasound negative for DVT. Will discharge with NSAIDs. Patient states he no longer takes Xarelto or any other blood thinners. MDM - Extremity (Nontraumatic) MDM Narrative Medical decision making narrative: Arthritis Discharge Plan Discharge Clinical Impression: Arthritis Patient Disposition: Home, Self-Care Instructions: Leg Edema (ED), Arthritis (ED) Additional Instructions: Return to the ED for any chest pain, shortness of breath, swelling, redness of lower extremities, calf pain, coughing up blood, fever, chills, or any other concerning symptoms. Prescriptions: New naproxen 500 mg tablet 500 mg PO BID PRN (Reason: pain) Qty: 20 RF: 0 No Action buprenorphine-naloxone [Suboxone] 8-2 mg film 1 strip sublingual BID RF: 0 Xarelto 20 mg Tablet 20 mg PO DAILY Qty: 30 RF: 0 Multaq 400 mg Tablet 400 mg PO BID Qty: 60 RF: 0 metoprolol succinate [Toprol XL] 25 mg tablet extended release 24 hr 25 mg PO DAILY Qty: 30 RF: 0 Referrals: Leticia Au MD [Primary Care Provider] - 2 days (Knee arthritis. Leg edema. Ultrasound negative for DVT) Interventions: ED Discharge Assessment Last Done: 07/20/20 20:37 Discharge Date/Time: 07/20/20 20:38 Print Language: Welsh
--- NOTE | 2020-07-20 20:36 | PC.NURSE ---
PT GIVEN SANDWICH AND JUICE AND AMBULATING WITH OWN CANE TO RESTROOM.
== END 2020-07-20 20:38 | disposition home or self-care (01) ==
PROVIDERS: Emergency Provider Internal Medicine; PCP Internal Medicine
DX: M13.862 Other specified arthritis, left knee (principal); R60.0 Localized edema; M25.562 Pain in left knee; F17.210 Nicotine dependence, cigarettes, uncomplicated; Z71.6 Tobacco abuse counseling; Z79.899 Other long term (current) drug therapy
CPT/HCPCS: 73560; 93971; 99284

== ENCOUNTER 2020-08-01 16:03 | Outpatient (REF) | payer OTHER, SELFPAY ==
--- NOTE | 2020-08-01 | PFT_ITS ---
FLOWS: FEV1 54% of predicted at 1.95 L. FVC 92% of predicted at 4.23 L. FEV1 to FVC ratio of 0.46. Positive bronchodilator response. LUNG VOLUMES: Total lung capacity 107% of predicted at 7.28 L. Residual volume 157% of predicted at 3.38 L. Slow vital capacity 83% of predicted at 3.89 L. Expiratory reserve volume 58% of predicted at 0.80 L. Diffusion capacity is moderately decreased, diffusion capacity corrects to normal after adjustment for alveolar ventilation. IMPRESSION: Moderate to severe obstructive ventilatory defect with significant bronchodilator response. Increased residual volume suggests air trapping. Decreased expiratory reserve volume suggests extrathoracic restriction likely secondary to abdominal obesity. MD LILLIANA Rivers/MODL / [id number]
== END 2020-08-01 16:04 | disposition home or self-care (01) ==
LOC: HO.RESP 16:03
PROVIDERS: PCP Internal Medicine; Visit Provider Internal Medicine
DX: R06.02 Shortness of breath (principal); Z87.891 Personal history of nicotine dependence
CPT/HCPCS: 94060; 94727; 94729

== ENCOUNTER → 2020-08-10 09:03 | Outpatient (BNVA) | payer OTHER, SELFPAY | PROVIDERS: PCP Internal Medicine; Referring Provider Internal Medicine; Visit Provider Internal Medicine Cardiovascular Disease | DX: Z01.810 Encounter for preprocedural cardiovascular examination (principal); I48.0 Paroxysmal atrial fibrillation; I10 Essential (primary) hypertension; F17.200 Nicotine dependence, unspecified, uncomplicated; Z79.899 Other long term (current) drug therapy; Z71.6 Tobacco abuse counseling | CPT/HCPCS: 93005 ==

== ENCOUNTER 2021-01-13 10:46 | Outpatient (REF) | payer OTHER, SELFPAY ==
[2021-01-13 11:14] LABS: MANUAL DIFF FLAG NO
[2021-01-13 11:29] LABS: Basophils Percent Auto 0.4 % (0-2); Eosinophils Absolute Auto 0.2 X10*3/uL (0.0-0.4); Hematocrit 38.9 % (42-52); Hemoglobin 12.3 g/dl (14.0-18.0); Imm Gran Abs Auto 0.01 X10*3/uL (0.00-0.03); Imm Gran Pct Auto 0.2 % (0.0-0.4); Lymphocytes Absolute Auto 2.5 X10*3/uL (1.2-4.9); Lymphocytes Percent Auto 46.2 % (20-40); Mean Corpuscular HGB Conc 31.6 g/dl (31.0-36.0); Mean Corpuscular Hemoglobin 26.9 pg (27.0-33.0); Mean Corpuscular Volume 85.1 fL (80-98); Mean Platelet Volume 9.9 fL (9.4-12.4); Monocytes Absolute Auto 0.6 X10*3/uL (0.1-1.2); Monocytes Percent Auto 10.8 % (2-11); Neutrophils Absolute Auto 2.1 X10*3/uL (2.0-8.3); Neutrophils Percent Auto 39.4 % (45-73); Platelet Count 214 X10*3/uL (160-400); Red Blood Count 4.57 X10*6/uL (4.60-5.80); Red Cell Distribution Width 14.3 % (11.0-16.0); White Blood Count 5.4 X10*3/uL (4.8-10.8)
[2021-01-13 11:32] LABS: Appearance Urine CLEAR; Color Urine YELLOW; Glucose Urine UA NEG (NEG); Leukocyte Esterase Urine NEG (NEG); Nitrite Urine NEG (NEG); Specific Gravity - Urine 1.015 (1.005-1.025); Urine Blood TRACE (NEG); Urine Ketones NEG (NEG); Urine Protein NEG (NEG-TRACE)
[2021-01-13 11:40] LABS: Estimated Average Glucose 128 mg/dL; Hemoglobin A1c % 6.1 %
[2021-01-13 11:56] LABS: Alanine Aminotransferase 19 U/L (0-40); Albumin Level 4.6 g/dL (3.5-5.0); Alkaline Phosphatase 57 U/L (39-117); Anion Gap 11 (12-20); Aspartate Amino Transferase 27 U/L (5-37); Bilirubin Direct 0.2 mg/dL (0.0-0.5); Bilirubin Total 0.5 mg/dL (0.0-1.0); Blood Urea Nitrogen 18 mg/dL (9-16); Calcium 9.5 mg/dL (8.4-10.2); Carbon Dioxide 30 mmol/L (22-29); Chloride 98 mmol/L (96-108); Cholesterol 132 mg/dL; Estimated Glomerular Filt Rate > 60; Glucose Random 112 mg/dL (60-115); HDL Cholesterol 64 mg/dL; LDL Cholesterol Calculated 63 mg/dl; Potassium 4.7 mmol/L (3.3-5.1); Sodium 134 mmol/L (135-145); Total Protein 7.6 g/dL (6.5-8.0); Triglycerides 28 mg/dL
[2021-01-13 12:08] LABS: RBC Urine 0-2 /HPF (0); WBC Urine 0 /HPF (0-4)
[2021-01-13 12:12] LABS: Prostate Specific Antigen 0.12 ng/mL (<0.05-4.0); Vitamin D 25-OH Total 27.7 ng/mL (>30)
[2021-01-13 16:06] LABS: CT PCR NOT DETECTED (Not Detect.); NG PCR NOT DETECTED (Not Detect.)
[2021-01-15 07:59] LABS: HIV AB/AG Nonreactive (Nonreactive); HIV Num 1 0.09 S/CO (0.00-0.99)
[2021-01-15 08:16] LABS: Syphilis Screen Nonreactive (Nonreactive)
[2021-01-15 08:35] LABS: Vitamin B12 602 pg/mL (200-900)
[2021-01-19 11:37] LABS: HCV Log PCR <1.18 NOT DETECTED Log IU/mL (NOT DETECTED); HepC Viral Load <15 NOT DETECTED IU/mL (NOT DETECTED)
== END 2021-01-13 10:47 | disposition home or self-care (01) ==
LOC: HO.LAB 10:46
PROVIDERS: Absent Provider Internal Medicine; PCP Internal Medicine; Visit Provider Pediatrics
DX: Z01.84 Encounter for antibody response examination (principal); Z12.5 Encounter for screening for malignant neoplasm of prostate; Z11.3 Encounter for screening for infections with a predominantly sexual mode of transmission; Z11.4 Encounter for screening for human immunodeficiency virus [HIV]; I10 Essential (primary) hypertension; I48.91 Unspecified atrial fibrillation
CPT/HCPCS: 36415; 80053; 80061; 81001; 82248; 82306; 82607; 83036; 84153; 85025; 86780; 87389; 87491; 87522; 87591

== ENCOUNTER 2021-07-22 06:41 | Emergency (ER) | payer OTHER, SELFPAY ==
[2021-07-22] VITALS (9 sets, daily range): BP systolic 116–130; BP diastolic 59–78; PULSE 81–117; RESP 11–31; TEMP 36.6; O2SAT 94–100; BMI 32.5
--- NOTE | ~2021-07-22 | XR_ITS ---
EXAMINATION: XR CHEST CLINICAL INFORMATION: Chest pain COMPARISON: Chest x-ray 06/04/2020 TECHNIQUE: Frontal view of the chest was obtained. FINDINGS: No significant abnormality is noted involving the heart, lungs, mediastinum, bony thorax or soft tissues. XR/XR chest 1V IMPRESSION: Unremarkable chest examination.
--- NOTE | 2021-07-22 06:51 | ED_ITS ---
HPI - Chest Pain General Chief Complaint: Chest Pain Stated Complaint: chest pain Time Seen by Provider: 07/22/21 06:51 Source: patient Mode of arrival: ambulatory Limitations: other (poor historian) History of Present Illness MD complaint: chest pain (diff breathing) Pertinent past history: other (afib with RVR) Onset (ago): hour(s) (few) Timing of current episode: constant Prior episodes: Yes Onset: associated with drug use (snorted cocaine last night) Pain location: substernal Pain radiation: none Severity: moderate Quality: tightness Relieving factors: nothing Exacerbating factors: movement Context: other (cocaine) Associated symptoms: dyspnea Treatment prior to arrival: none Related Data Home Medications Medication Instructions Recorded Confirmed buprenorphine 8 mg-naloxone 2 mg 1 strip SUBLINGUAL BID 06/04/20 06/04/20 sublingual film (Suboxone) lisinopril 10 1 tab PO DAILY 08/10/20 mg-hydrochlorothiazide 12.5 mg tablet Previous Rx's Medication Instructions Recorded albuterol sulfate 90 mcg/actuation 2 puff INHALATION QID PRN #6.7 g 07/22/21 aerosol inhaler prednisone 20 mg tablet 40 mg PO DAILY 5 Days #10 tab 07/22/21 Allergies Allergy/AdvReac Type Severity Reaction Status Date / Time No Known Allergies Allergy Verified 06/04/20 20:07 [No Known Allergies*] Review of Systems Review of Systems: Constitutional : No Weight loss, No Fever, No Chills ENT/Mouth : No sore throat, No Rhinorrhea Eyes: No Eye Pain, No Swelling Cardiovascular : pos Chest Pain, pos SOB, no Dyspnea on Exertion, No Orthopnea, No Edema, No Palpitations Respiratory : No Cough, No Sputum Gastrointestinal : no Nausea, No Vomiting, No Diarrhea, No abdominal Pain, No Hematochezia, No Melena Genitourinary : No Dysuria, No Urinary Frequency Musculoskeletal : No joint pain, No Myalgias, No Joint Swelling Skin : No Skin Lesions, No rash Neuro : No Weakness, No Numbness, No Dizziness, No Headache Psych : pos Anxiety/Panic, No Depression Heme/Lymph: No Bruising, No Lymphadenopathy Endocrine : No Polyuria, No Polydipsia All other systems reviewed and are negative PMFSH Past Medical History Attestation statement: The following information was validated with the patient. Medical History (Updated 07/22/21 @ 07:21 by Sachi Rodriguez DO) Arthritis Atrial fibrillation with RVR History of pyloric stenosis Hypertension New onset of congestive heart failure Surgical History History of colonoscopy History of hip surgery History of wisdom tooth extraction Family History Family History Father Prostate cancer HTN (hypertension) Mother HTN (hypertension) Heart disease Arthritis Kidney disease Diabetes Stroke FH: cataracts Family/Other ADHD Disc disease, degenerative, lumbar or lumbosacral Social History Social History (Updated 07/22/21 @ 07:20 by Sachi Rodriguez DO) Alcohol intake: unknown Patient Tobacco Use Status: Current everyday Tobacco user Cigarettes Per Day: 6 Years Smoked: 39 Substance Use Type: Crack/Cocaine Advance Directives: No Advance Directives Information Provided: Yes service: No Current occupational status: employed Physical Exam Vital Signs: Vital Signs: Last Vital Signs Temp 98 F 07/22/21 13:05 Pulse 81 07/22/21 13:05 Resp 13 07/22/21 13:05 BP 130/59 L 07/22/21 13:05 Pulse Ox 94 07/22/21 13:05 BMI result Body Mass Index 32.5 Appearance: Alert. Oriented X3. anxious mild acute distress. Eyes: Pupils equal, round and reactive to light. ENT: Pharynx normal. Neck: Normal inspection. Neck supple. CVS: tachycardic heart rate and rhythm. Pulses normal. Respiratory: No respiratory distress. Breath sounds mild diffuse exp wheezes Abdomen: Soft and non-tender. Skin: Skin warm and dry. Normal skin color. Normal skin turgor. Extremities: No lower extremity edema. No calf ttp Neuro: Oriented X 3. No motor deficit. No sensory deficit. Course Course Course Narrative: repeat nebs ordered, patient is wheezing did improve HR and RR down - pulse ox stable, no STEMI on EKG initial trop 96, repeat due at 10am, given steroids and IV ativan. patient asleep, repeat trop negative patient much improved - feels better, just sleepy now admits to 3 bags of cocaine, no hypoxia, has sinus congestion from cocaine use - lungs are CTAB, able to blow nose and feels much better 98% on RA observed for 6 hours feels better anticipate DC home MDM - Chest Pain MDM Narrative Medical decision making narrative: 61 yo male with hx of afib on eliquis, opiate use disorder on suboxone, CHF, HTN, here with c/o snorting cocaine last night now c/o diff breathing and chest pain since use. He is wheezing. He appears sedated as well and is a poor historian. At this time labs, troponin. PO aspirin and IV ativan. He will need xopenex for wheezing as well given tachycardia. He has symmetric distal pulses doubt dissection and BP is stable at this time. Will need serial troponins to evaluate for coronary spasm and NSTEMI but a lot of his issue seems that he is having bronchospasm from cocaine. Lab Data Result diagrams: 07/22/21 09:54 07/22/21 07:17 Labs: Lab Results 07/22/21 07/22/21 07/22/21 Range/Units 07:17 07:17 07:17 WBC (4.8-10.8) X10*3/uL RBC (4.60-5.80) X10*6/uL Hgb (14.0-18.0) g/dl Hct (42.0-52.0) % MCV (80.0-98.0) fL MCH (27.0-33.0) pg MCHC (31.0-36.0) g/dl RDW (11.0-16.0) % Plt Count (160-400) X10*3/uL MPV (9.4-12.4) fL Immature Gran % (Auto) (0.0-0.4) % Neut % (Auto) (45-73) % Lymph % (Auto) (20-40) % Bulloch % (Auto) (2-11) % Eos % (Auto) (0-4) % Baso % (Auto) (0-2) % Lymph # (Auto) (1.2-4.9) X10*3/uL [place] # (Auto) (0.1-1.2) X10*3/uL Eos # (Auto) (0.0-0.4) X10*3/uL Baso # (Auto) (0.0-0.2) X10*3/uL Abs Immat Gran (auto) (0.00-0.03) X10*3/uL Absolute Neuts (auto) (2.0-8.3) x10*3/uL Absolute Nucleated RBC (0.0-0.012) X10*3/uL Nucleated RBC % (auto) (0.0-0.2) /100WBC PT 15.0 H (9.9-13.0) SEC INR 1.3 H (0.9-1.1) APTT 37.2 (24.1-38.0) SEC Sodium 135 (135-145) mmol/L Potassium 4.3 (3.3-5.1) mmol/L Chloride 99 (96-108) mmol/L Carbon Dioxide 25 (22-29) mmol/L Anion Gap 15 (12-20) BUN 17 H (9-16) mg/dL Creatinine 0.87 (0.5-1.4) mg/dL Estim Creat Clear Calc 106.4 Estimated GFR > 60 Random Glucose 120 H (60-115) mg/dL Calcium 9.2 (8.4-10.2) mg/dL Magnesium 2.0 (1.6-2.6) mg/dL Total Bilirubin 0.3 (0.0-1.0) mg/dL Direct Bilirubin 0.2 (0.0-0.5) mg/dL AST 21 (5-37) U/L ALT 14 (0-40) U/L Alkaline Phosphatase 57 (39-117) U/L Troponin I High Sens (<3.5-35.0) ng/L B-Natriuretic Peptide 18 (<100) pg/mL Total Protein 7.5 (6.5-8.0) g/dL Albumin 4.5 (3.5-5.0) g/dL COVID-19 (YASMIN) (Negative) COVID-19 Clin Com 07/22/21 07/22/21 07/22/21 Range/Units 07:17 08:37 09:54 WBC (4.8-10.8) X10*3/uL RBC (4.60-5.80) X10*6/uL Hgb (14.0-18.0) g/dl Hct (42.0-52.0) % MCV (80.0-98.0) fL MCH (27.0-33.0) pg MCHC (31.0-36.0) g/dl RDW (11.0-16.0) % Plt Count (160-400) X10*3/uL MPV (9.4-12.4) fL Immature Gran % (Auto) (0.0-0.4) % Neut % (Auto) (45-73) % Lymph % (Auto) (20-40) % Bulloch % (Auto) (2-11) % Eos % (Auto) (0-4) % Baso % (Auto) (0-2) % Lymph # (Auto) (1.2-4.9) X10*3/uL [place] # (Auto) (0.1-1.2) X10*3/uL Eos # (Auto) (0.0-0.4) X10*3/uL Baso # (Auto) (0.0-0.2) X10*3/uL Abs Immat Gran (auto) (0.00-0.03) X10*3/uL Absolute Neuts (auto) (2.0-8.3) x10*3/uL Absolute Nucleated RBC (0.0-0.012) X10*3/uL Nucleated RBC % (auto) (0.0-0.2) /100WBC PT (9.9-13.0) SEC INR (0.9-1.1) APTT (24.1-38.0) SEC Sodium (135-145) mmol/L Potassium (3.3-5.1) mmol/L Chloride (96-108) mmol/L Carbon Dioxide (22-29) mmol/L Anion Gap (12-20) BUN (9-16) mg/dL Creatinine (0.5-1.4) mg/dL Estim Creat Clear Calc Estimated GFR Random Glucose (60-115) mg/dL Calcium (8.4-10.2) mg/dL Magnesium (1.6-2.6) mg/dL Total Bilirubin (0.0-1.0) mg/dL Direct Bilirubin (0.0-0.5) mg/dL AST (5-37) U/L ALT (0-40) U/L Alkaline Phosphatase (39-117) U/L Troponin I High Sens 26.6 24.4 (<3.5-35.0) ng/L B-Natriuretic Peptide (<100) pg/mL Total Protein (6.5-8.0) g/dL Albumin (3.5-5.0) g/dL COVID-19 (YASMIN) Negative (Negative) COVID-19 Clin Com See Note 07/22/21 Range/Units 09:54 WBC 6.8 (4.8-10.8) X10*3/uL RBC 4.02 L (4.60-5.80) X10*6/uL Hgb 11.2 L (14.0-18.0) g/dl Hct 34.7 L (42.0-52.0) % MCV 86.3 (80.0-98.0) fL MCH 27.9 (27.0-33.0) pg MCHC 32.3 (31.0-36.0) g/dl RDW 13.8 (11.0-16.0) % Plt Count 196 (160-400) X10*3/uL MPV 9.9 (9.4-12.4) fL Immature Gran % (Auto) 0.7 H (0.0-0.4) % Neut % (Auto) 85.5 H (45-73) % Lymph % (Auto) 10.6 L (20-40) % Bulloch % (Auto) 3.1 (2-11) % Eos % (Auto) 0.0 (0-4) % Baso % (Auto) 0.1 (0-2) % Lymph # (Auto) 0.7 L (1.2-4.9) X10*3/uL [place] # (Auto) 0.2 (0.1-1.2) X10*3/uL Eos # (Auto) 0.0 (0.0-0.4) X10*3/uL Baso # (Auto) 0.0 (0.0-0.2) X10*3/uL Abs Immat Gran (auto) 0.05 H (0.00-0.03) X10*3/uL Absolute Neuts (auto) 5.8 (2.0-8.3) x10*3/uL Absolute Nucleated RBC 0.000 (0.0-0.012) X10*3/uL Nucleated RBC % (auto) 0.0 (0.0-0.2) /100WBC PT (9.9-13.0) SEC INR (0.9-1.1) APTT (24.1-38.0) SEC Sodium (135-145) mmol/L Potassium (3.3-5.1) mmol/L Chloride (96-108) mmol/L Carbon Dioxide (22-29) mmol/L Anion Gap (12-20) BUN (9-16) mg/dL Creatinine (0.5-1.4) mg/dL Estim Creat Clear Calc Estimated GFR Random Glucose (60-115) mg/dL Calcium (8.4-10.2) mg/dL Magnesium (1.6-2.6) mg/dL Total Bilirubin (0.0-1.0) mg/dL Direct Bilirubin (0.0-0.5) mg/dL AST (5-37) U/L ALT (0-40) U/L Alkaline Phosphatase (39-117) U/L Troponin I High Sens (<3.5-35.0) ng/L B-Natriuretic Peptide (<100) pg/mL Total Protein (6.5-8.0) g/dL Albumin (3.5-5.0) g/dL COVID-19 (YASMIN) (Negative) COVID-19 Clin Com ECG Data ECG #1: Attestation: I personally reviewed and interpreted this ECG as follows: ECG interpretation date: 07/22/21 ECG interpretation time: 07:05 Interpretation: Rate: 120 Rhythm: sinus tachycardia [place]: normal Normal P waves. Normal CHIQUITA. Normal QRS complex. ST T wave : no BRIAN, normal qTC: normal prior studies: no acute ischemia The study has been interpreted contemporaneously by me. . Critical Care Time Critical Care Time Critical Care Time: Yes Total Critical Care Time: 45 Attestation: repeat nebs, IV ativan, repeat assessments I attest to this time spent taking care of the patient Discharge Plan Discharge Clinical Impression: Cocaine abuse, Acute bronchospasm Chest pain Qualifiers: Chest pain type: precordial pain Qualified Code(s): R07.2 - Precordial pain Patient Disposition: Home, Self-Care Instructions: Chest Pain (ED), Cocaine Abuse (ED), Bronchospasm (ED) Additional Instructions: return to ED for any worsening symptoms or concerns do not use cocaine it can cause heart attacks and strokes Prescriptions: New prednisone 20 mg tablet 40 mg PO DAILY 5 Days Qty: 10 0RF albuterol sulfate 90 mcg/actuation HFA aerosol inhaler 2 puff inhalation QID PRN (Reason: shortness of breath or wheezing) Qty: 6.7 0RF No Action buprenorphine-naloxone [Suboxone] 8-2 mg film 1 strip sublingual BID 0RF lisinopril-hydrochlorothiazide 10-12.5 mg tablet 1 tab PO DAILY 0RF Stand Alone Forms: Work/School Release Interventions: ED Discharge Assessment Last Done: 07/22/21 13:17 Discharge Date/Time: 07/22/21 13:33
--- NOTE | 2021-07-22 06:59 | ECG_ITS ---
Test Reason : CHEST PAIN Blood Pressure : / mmHG Vent. Rate : 120 BPM Atrial Rate : 120 BPM P-R Int : 156 ms QRS Dur : 094 ms QT Int : 320 ms P-R-T Axes : 061 058 025 degrees QTc Int : 452 ms Sinus tachycardia Septal infarct , age undetermined Abnormal ECG When compared with ECG of 07-JUN-2020 09:11, Vent. rate has increased BY 50 BPM Referred By: Sachi Rodriguez Electronically Signed By:HANSA DRISCOLL
[2021-07-22] MEDS: LORazepam 2 MG/ML VIAL 1 MG IVPUSH (07:25)
[2021-07-22] MEDS: Aspirin 81 MG TAB.CHEW PO (07:25)
[2021-07-22 07:36] LABS: INTERNATIONAL NORM RATIO 1.3 (0.9-1.1)
[2021-07-22] MEDS: Albuterol Sulfate (0.083%) 2.5 MG/3 ML VIAL.NEB INHALE (07:36)
[2021-07-22 07:42] LABS: Alanine Aminotransferase 14 U/L (0-40); Albumin Level 4.5 g/dL (3.5-5.0); Alkaline Phosphatase 57 U/L (39-117); Anion Gap 15 (12-20); Aspartate Amino Transferase 21 U/L (5-37); Bilirubin Direct 0.2 mg/dL (0.0-0.5); Bilirubin Total 0.3 mg/dL (0.0-1.0); Blood Urea Nitrogen 17 mg/dL (9-16); Calcium 9.2 mg/dL (8.4-10.2); Carbon Dioxide 25 mmol/L (22-29); Chloride 99 mmol/L (96-108); Creatinine Clr Calc Pharmacy 106.4; Estimated Glomerular Filt Rate > 60; Glucose Random 120 mg/dL (60-115); Potassium 4.3 mmol/L (3.3-5.1); Sodium 135 mmol/L (135-145); Total Protein 7.5 g/dL (6.5-8.0)
[2021-07-22 07:45] LABS: Troponin-I High Sensitivity 26.6 ng/L (<3.5-35.0)
[2021-07-22] MEDS: Albuterol/Iprat 2.5/0.5MG 3 ML AMPUL.NEB INHALE (07:45)
[2021-07-22 07:46] LABS: B Type Natriuretic Peptide 18 pg/mL (<100)
[2021-07-22] MEDS: methylPREDNISolone Sod Succ 125 MG/2 ML VIAL IVPUSH (07:52)
[2021-07-22 08:51] LABS: Partial Thromboplastin Time 37.2 SEC (24.1-38.0)
[2021-07-22 09:02] LABS: COVID-19 Test Negative (Negative); IDNOW Serial# 16C4AD1C
[2021-07-22 09:58] LABS: MANUAL DIFF FLAG NO
[2021-07-22 10:05] LABS: Basophils Percent Auto 0.1 % (0-2); Hematocrit 34.7 % (42.0-52.0); Hemoglobin 11.2 g/dl (14.0-18.0); Imm Gran Abs Auto 0.05 X10*3/uL (0.00-0.03); Imm Gran Pct Auto 0.7 % (0.0-0.4); Lymphocytes Absolute Auto 0.7 X10*3/uL (1.2-4.9); Lymphocytes Percent Auto 10.6 % (20-40); Mean Corpuscular HGB Conc 32.3 g/dl (31.0-36.0); Mean Corpuscular Hemoglobin 27.9 pg (27.0-33.0); Mean Corpuscular Volume 86.3 fL (80.0-98.0); Mean Platelet Volume 9.9 fL (9.4-12.4); Monocytes Absolute Auto 0.2 X10*3/uL (0.1-1.2); Monocytes Percent Auto 3.1 % (2-11); Neutrophils Absolute Auto 5.8 x10*3/uL (2.0-8.3); Neutrophils Percent Auto 85.5 % (45-73); Platelet Count 196 X10*3/uL (160-400); Red Blood Count 4.02 X10*6/uL (4.60-5.80); Red Cell Distribution Width 13.8 % (11.0-16.0); White Blood Count 6.8 X10*3/uL (4.8-10.8)
[2021-07-22 10:23] LABS: Troponin-I High Sensitivity 24.4 ng/L (<3.5-35.0)
== END 2021-07-22 13:33 | disposition home or self-care (01) ==
PROVIDERS: Emergency Provider Emergency Medicine; PCP Internal Medicine
DX: R07.2 Precordial pain (principal); F14.10 Cocaine abuse, uncomplicated; J98.01 Acute bronchospasm; I11.0 Hypertensive heart disease with heart failure; I50.9 Heart failure, unspecified; I48.91 Unspecified atrial fibrillation; F17.210 Nicotine dependence, cigarettes, uncomplicated; Z79.01 Long term (current) use of anticoagulants; Z20.822 Contact with and (suspected) exposure to COVID-19
CPT/HCPCS: 36415; 71045; 80048; 80076; 83735; 83880; 84484; 85025; 85610; 85730; 87635; 93005; 94640; 96374; 96375; 99284; 99291; J2060; J2930

== ENCOUNTER 2022-03-23 01:24 | Emergency (ER) | payer OTHER, SELFPAY ==
--- NOTE | 2022-03-23 | ECG_ITS ---
Test Reason : palpitations Blood Pressure : / mmHG Vent. Rate : 095 BPM Atrial Rate : 095 BPM P-R Int : 160 ms QRS Dur : 090 ms QT Int : 368 ms P-R-T Axes : 070 055 039 degrees QTc Int : 462 ms Normal sinus rhythm Septal infarct (cited on or before 22-JUL-2021) Abnormal ECG When compared with ECG of 22-JUL-2021 06:53, Questionable change in initial forces of Septal leads Referred By: Generic ED Physician Electronically Signed By:HANSA DRISCOLL
[2022-03-23 02:18] VITALS: BP 110/69; PULSE 102; RESP 20; TEMP 36.2; O2SAT 100; BMI 31.0
[2022-03-23 04:36] VITALS: BP 114/73; PULSE 82; RESP 14; O2SAT 98
[2022-03-23 04:44] LABS: MANUAL DIFF FLAG NO
[2022-03-23 04:45] LABS: Basophils Percent Auto 0.2 % (0-2); Hematocrit 38.2 % (42.0-52.0); Hemoglobin 12.2 g/dl (14.0-18.0); Imm Gran Abs Auto 0.04 X10*3/uL (0.00-0.03); Imm Gran Pct Auto 0.6 % (0.0-0.4); Lymphocytes Absolute Auto 1.4 X10*3/uL (1.2-4.9); Lymphocytes Percent Auto 20.5 % (20-40); Mean Corpuscular HGB Conc 31.9 g/dl (31.0-36.0); Mean Corpuscular Hemoglobin 27.2 pg (27.0-33.0); Mean Corpuscular Volume 85.1 fL (80.0-98.0); Monocytes Absolute Auto 0.3 X10*3/uL (0.1-1.2); Monocytes Percent Auto 4.8 % (2-11); Neutrophils Absolute Auto 4.9 x10*3/uL (2.0-8.3); Neutrophils Percent Auto 73.9 % (45-73); Platelet Count 183 X10*3/uL (160-400); Red Blood Count 4.49 X10*6/uL (4.60-5.80); Red Cell Distribution Width 13.3 % (11.0-16.0); White Blood Count 6.6 X10*3/uL (4.8-10.8)
[2022-03-23 05:08] LABS: Alanine Aminotransferase 15 U/L (0-40); Albumin Level 4.5 g/dL (3.5-5.0); Alkaline Phosphatase 53 U/L (39-117); Anion Gap 14 (12-20); Aspartate Amino Transferase 26 U/L (5-37); Bilirubin Total 0.4 mg/dL (0.0-1.0); Blood Urea Nitrogen 17 mg/dL (9-16); Calcium 9.3 mg/dL (8.4-10.2); Carbon Dioxide 26 mmol/L (22-29); Chloride 99 mmol/L (96-108); Creatinine Clr Calc Pharmacy 106.5; Estimated Glomerular Filt Rate > 60; Glucose Random 111 mg/dL (60-115); Potassium 4.7 mmol/L (3.3-5.1); Sodium 134 mmol/L (135-145); Total Protein 7.5 g/dL (6.5-8.0)
[2022-03-23 05:39] VITALS: BP 125/76; PULSE 65; RESP 12; O2SAT 97
[2022-03-23 05:58] LABS: Amphetamine Screen Urine Not Detected (Not Detect); Barbiturates, Urine Not Detected (Not Detect); Benzodiazepines Screen Urine Not Detected (Not Detect); Cannabinoid Screen Urine Not Detected (Not Detect); Cocaine Screen Urine POSITIVE (Not Detect); Fentanyl, urine Not Detected (Not Detect); Opiate Screen Urine Not Detected (Not Detect); Phencyclidine Screen Urine Not Detected (Not Detect)
--- NOTE | 2022-03-23 06:01 | PC.NURSE ---
Pt sleeping, VSS.
[2022-03-23 06:58] VITALS: BP 100/62; PULSE 68; RESP 11; TEMP 36.4; O2SAT 96
--- NOTE | 2022-03-23 07:12 | PC.NURSE ---
assumed care of patient, pt resting comfortably in bed, VSS, ?d/c vs detox
[2022-03-23 08:12] VITALS: BP 91/55; PULSE 63; RESP 15; O2SAT 99
--- NOTE | 2022-03-23 08:25 | ED.GENADULT ---
HPI - General Adult General Chief complaint: ETOH/Substance Use Stated complaint: drug related Time Seen by Provider: 03/23/22 08:21 Source: patient Limitations: no limitations History of Present Illness HPI narrative: This is a 61-year-old male who came in last night as he had been doing cocaine, partying, also drinking beer, and had palpitations. The patient left but then came back again. Feels better now, denies any chest pain, shortness of breath, or palpitations. Denies wanting to hurt himself. He feels comfortable going home. He denies abdominal pain, nausea vomiting. Related Data Home Medications Medication Instructions Recorded Confirmed buprenorphine 8 mg-naloxone 2 mg 1 strip sublingual BID 06/04/20 06/04/20 sublingual film (Suboxone) lisinopril 10 1 tab PO DAILY 08/10/20 mg-hydrochlorothiazide 12.5 mg tablet Previous Rx's Medication Instructions Recorded albuterol sulfate 90 mcg/actuation 2 puff inhalation QID PRN 07/22/21 aerosol inhaler shortness of breath or wheezing #6.7 grams prednisone 20 mg tablet 40 mg PO DAILY 5 days #10 tabs 07/22/21 Allergies Allergy/AdvReac Type Severity Reaction Status Date / Time No Known Allergies Allergy Verified 03/23/22 02:20 [No Known Allergies*] Review of Systems Review of Systems: Yes all other systems are reviewed and are negative Constitutional: Constitutional: Reports as per HPI and Denies fever(s) Eyes: Eyes: Reports as per HPI and Reports no additional eye complaints ENT: Reports system reviewed and no additional complaints, except as documented, Reports as per HPI, Denies nasal congestion, Denies nasal discharge and Denies sore throat Cardiovascular: Cardiovascular: Reports as per HPI, Denies chest pain, Reports rapid heart rate and Denies dyspnea Respiratory: Respiratory: Reports as per HPI, Denies cough and Denies dyspnea Gastrointestinal: Gastrointestinal: Reports as per HPI, Denies abdominal pain, Denies diarrhea and Denies vomiting Genitourinary: Genitourinary: Reports as per HPI, Denies hematuria, Denies dysuria and Denies urinary frequency Musculoskeletal: Musculoskeletal: Reports no additional musculoskeletal complaints and Denies numbness Integumentary/Breasts: Skin/Breast: Reports as per HPI and Denies rash Neurologic: Reports as per HPI, Denies focal weakness and Denies numbness Psychiatric: Psychiatric: Reports no additional psychiatric complaints and Reports as per HPI Endocrine: Endocrine: Reports no additional endocrine complaints and Reports as per HPI Hematologic/Lymphatic: Hematologic/Lymphatic: Reports no additional hematologic/lymphatic complaints, Reports as per HPI and Reports other (No peripheral edema) [facility] Past Medical History Medical History (Updated 03/23/22 @ 08:29 by Joaquín Waller MD) Arthritis Atrial fibrillation with RVR History of pyloric stenosis Hypertension New onset of congestive heart failure Surgical History History of colonoscopy History of hip surgery History of wisdom tooth extraction Family History Family History Father Prostate cancer HTN (hypertension) Mother HTN (hypertension) Heart disease Arthritis Kidney disease Diabetes Stroke FH: cataracts Family/Other ADHD Disc disease, degenerative, lumbar or lumbosacral Social History Social History (Updated 07/22/21 @ 07:20 by Gifty Rodriguez DO) Alcohol intake: unknown Patient Tobacco Use Status: Current everyday Tobacco user Cigarettes Per Day: 6 Years Smoked: 39 Substance Use Type: Crack/Cocaine Advance Directives: No Advance Directives Information Provided: No service: No Current occupational status: employed Physical Exam ED Vital Signs: Vital Signs - 24 hr 03/23/22 02:18 03/23/22 04:36 03/23/22 05:39 Temperature 97.2 F Pulse Rate 102 H 82 65 Respiratory Rate 20 14 12 Blood Pressure 110/69 114/73 125/76 Pulse Oximetry 100 98 97 Oxygen Delivery Method Room Air Room Air Room Air 03/23/22 06:58 03/23/22 08:12 Temperature 97.6 F Pulse Rate 68 63 Respiratory Rate 11 L 15 Blood Pressure 100/62 91/55 L Pulse Oximetry 96 99 Oxygen Delivery Method Room Air Room Air BMI result Body Mass Index 31.0 Const General: no acute distress Orientation/consciousness: patient oriented x3 HENMT Head: Yes normal to inspection General nose exam: Normal external nose present Mouth: moist mucous membranes Throat: Yes posterior oropharynx normal, Yes tonsils normal and Yes uvula midline Eyes Eyelids: Yes eyelids normal Conjunctivae: conjunctivae normal Pupils: Equal, round and reactive pupils present Neck Neck: Yes supple Resp Effort & Inspection: normal respiratory effort Auscultation: clear to auscultation bilaterally Cardio Rate: regular rate Rhythm: regular rhythm Heart sounds: S1 normal heart sound present, S2 normal heart sound present, no gallops, no murmurs and no rubs GI Inspection: No distended Palpation (GI): Soft to palpation and nontender Auscultation: normal bowel sounds Skin General skin exam: other (Warm and dry) Neuro General: patient oriented x3 and CN's II-XI intact bilaterally Cranial nerves: Yes Equal, round and reactive pupils present Extrem General: Yes no pedal edema Psych Affect: normal affect Attitude: cooperative Course Course Course Narrative: Patient came in with toxication palpitations. The patient was observed overnight and feels better now. No evidence of any suicidal ideation. Patient feels comfortable going home. 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 Result Diagrams: 03/23/22 04:40 03/23/22 04:40 Labs: Lab Results 03/23/22 03/23/22 03/23/22 Range/Units 04:40 04:40 04:40 WBC 6.6 (4.8-10.8) X10*3/uL RBC 4.49 L (4.60-5.80) X10*6/uL Hgb 12.2 L (14.0-18.0) g/dl Hct 38.2 L (42.0-52.0) % MCV 85.1 (80.0-98.0) fL MCH 27.2 (27.0-33.0) pg MCHC 31.9 (31.0-36.0) g/dl RDW 13.3 (11.0-16.0) % Plt Count 183 (160-400) X10*3/uL MPV 10.0 (9.4-12.4) fL Immature Gran % (Auto) 0.6 H (0.0-0.4) % Neut % (Auto) 73.9 H (45-73) % Lymph % (Auto) 20.5 (20-40) % [place] % (Auto) 4.8 (2-11) % Eos % (Auto) 0.0 (0-4) % Baso % (Auto) 0.2 (0-2) % Lymph # (Auto) 1.4 (1.2-4.9) X10*3/uL [place] # (Auto) 0.3 (0.1-1.2) X10*3/uL Eos # (Auto) 0.0 (0.0-0.4) X10*3/uL Baso # (Auto) 0.0 (0.0-0.2) X10*3/uL Abs Immat Gran (auto) 0.04 H (0.00-0.03) X10*3/uL Absolute Neuts (auto) 4.9 (2.0-8.3) x10*3/uL Absolute Nucleated RBC 0.000 (0.0-0.012) X10*3/uL Nucleated RBC % (auto) 0.0 (0.0-0.2) /100WBC Sodium 134 L (135-145) mmol/L Potassium 4.7 (3.3-5.1) mmol/L Chloride 99 (96-108) mmol/L Carbon Dioxide 26 (22-29) mmol/L Anion Gap 14 (12-20) BUN 17 H (9-16) mg/dL Creatinine 0.85 (0.5-1.4) mg/dL Estim Creat Clear Calc 106.5 Estimated GFR > 60 Random Glucose 111 (60-115) mg/dL Calcium 9.3 (8.4-10.2) mg/dL Total Bilirubin 0.4 (0.0-1.0) mg/dL AST 26 (5-37) U/L ALT 15 (0-40) U/L Alkaline Phosphatase 53 (39-117) U/L Troponin I High Sens 25.0 (<3.5-35.0) ng/L Total Protein 7.5 (6.5-8.0) g/dL Albumin 4.5 (3.5-5.0) g/dL Urine Opiates Screen (Not Detect) Urine Fentanyl Screen (Not Detect) Ur Barbiturates Screen (Not Detect) Ur Phencyclidine Scrn (Not Detect) Ur Amphetamines Screen (Not Detect) U Benzodiazepines Scrn (Not Detect) Urine Cocaine Screen (Not Detect) U Marijuana (THC) Screen (Not Detect) 03/23/22 Range/Units 05:38 WBC (4.8-10.8) X10*3/uL RBC (4.60-5.80) X10*6/uL Hgb (14.0-18.0) g/dl Hct (42.0-52.0) % MCV (80.0-98.0) fL MCH (27.0-33.0) pg MCHC (31.0-36.0) g/dl RDW (11.0-16.0) % Plt Count (160-400) X10*3/uL MPV (9.4-12.4) fL Immature Gran % (Auto) (0.0-0.4) % Neut % (Auto) (45-73) % Lymph % (Auto) (20-40) % [place] % (Auto) (2-11) % Eos % (Auto) (0-4) % Baso % (Auto) (0-2) % Lymph # (Auto) (1.2-4.9) X10*3/uL [place] # (Auto) (0.1-1.2) X10*3/uL Eos # (Auto) (0.0-0.4) X10*3/uL Baso # (Auto) (0.0-0.2) X10*3/uL Abs Immat Gran (auto) (0.00-0.03) X10*3/uL Absolute Neuts (auto) (2.0-8.3) x10*3/uL Absolute Nucleated RBC (0.0-0.012) X10*3/uL Nucleated RBC % (auto) (0.0-0.2) /100WBC Sodium (135-145) mmol/L Potassium (3.3-5.1) mmol/L Chloride (96-108) mmol/L Carbon Dioxide (22-29) mmol/L Anion Gap (12-20) BUN (9-16) mg/dL Creatinine (0.5-1.4) mg/dL Estim Creat Clear Calc Estimated GFR Random Glucose (60-115) mg/dL Calcium (8.4-10.2) mg/dL Total Bilirubin (0.0-1.0) mg/dL AST (5-37) U/L ALT (0-40) U/L Alkaline Phosphatase (39-117) U/L Troponin I High Sens (<3.5-35.0) ng/L Total Protein (6.5-8.0) g/dL Albumin (3.5-5.0) g/dL Urine Opiates Screen Not Detected (Not Detect) Urine Fentanyl Screen Not Detected (Not Detect) Ur Barbiturates Screen Not Detected (Not Detect) Ur Phencyclidine Scrn Not Detected (Not Detect) Ur Amphetamines Screen Not Detected (Not Detect) U Benzodiazepines Scrn Not Detected (Not Detect) Urine Cocaine Screen POSITIVE H (Not Detect) U Marijuana (THC) Screen Not Detected (Not Detect) Independent Interpretation I performed an independent interpretation of an: EKG Interpretation: Sinus rhythm with a rate of 95. No ST elevation or depression. Normal QRS axis. Q-waves in leads V1 and V2 consistent with the old septal infarct. Discharge Plan Discharge Clinical Impression: Alcoholic intoxication, Cocaine use Patient Disposition: Home, Self-Care Instructions: Cocaine Abuse (ED), Alcohol Intoxication (ED) Additional Instructions: Follow-up with your primary care physician. Return for any new or worsened symptoms. Drink plenty of fluids (non alcoholic) Prescriptions: No Action buprenorphine-naloxone [Suboxone] 8-2 mg film 1 strip sublingual BID prednisone 20 mg tablet 40 mg PO DAILY 5 Days Qty: 10 0RF albuterol sulfate 90 mcg/actuation HFA aerosol inhaler 2 puff inhalation QID PRN (Reason: shortness of breath or wheezing) Qty: 6.7 0RF lisinopril-hydrochlorothiazide 10-12.5 mg tablet 1 tab PO DAILY Interventions: [place]-Suicide Risk Severity Scale Last Done: 03/23/22 03:13 LWBS Worksheet Last Done: 03/23/22 03:14
== END 2022-03-23 08:30 | disposition home or self-care (01) ==
PROVIDERS: Internal Medicine; Emergency Provider Emergency Medicine
DX: F10.220 Alcohol dependence with intoxication, uncomplicated (principal); Y90.9 Presence of alcohol in blood, level not specified; F14.90 Cocaine use, unspecified, uncomplicated; R00.2 Palpitations; F17.210 Nicotine dependence, cigarettes, uncomplicated; I48.20 Chronic atrial fibrillation, unspecified; I11.0 Hypertensive heart disease with heart failure; I50.9 Heart failure, unspecified; F11.20 Opioid dependence, uncomplicated; Z79.899 Other long term (current) drug therapy
CPT/HCPCS: 36415; 80053; 80307; 84484; 85025; 93005; 99284

== ENCOUNTER 2022-06-29 09:32 | Outpatient (REF) | payer OTHER, SELFPAY ==
[2022-06-29 09:43] LABS: MANUAL DIFF FLAG NO
[2022-06-29 09:58] LABS: Basophils Percent Auto 0.4 % (0-2); Eosinophils Absolute Auto 0.2 X10*3/uL (0.0-0.4); Eosinophils Percent Auto 3.6 % (0-4); Hemoglobin 13.1 g/dl (14.0-18.0); Lymphocytes Absolute Auto 2.9 X10*3/uL (1.2-4.9); Lymphocytes Percent Auto 56.4 % (20-40); Mean Corpuscular HGB Conc 31.2 g/dl (31.0-36.0); Mean Corpuscular Hemoglobin 27.6 pg (27.0-33.0); Mean Corpuscular Volume 88.6 fL (80.0-98.0); Mean Platelet Volume 10.2 fL (9.4-12.4); Monocytes Absolute Auto 0.6 X10*3/uL (0.1-1.2); Neutrophils Absolute Auto 1.5 x10*3/uL (2.0-8.3); Neutrophils Percent Auto 28.6 % (45-73); Platelet Count 205 X10*3/uL (160-400); Red Blood Count 4.74 X10*6/uL (4.60-5.80); Red Cell Distribution Width 13.6 % (11.0-16.0); White Blood Count 5.1 X10*3/uL (4.8-10.8)
[2022-06-29 10:52] LABS: Alanine Aminotransferase 12 U/L (0-40); Albumin Level 4.2 g/dL (3.5-5.0); Alkaline Phosphatase 53 U/L (39-117); Anion Gap 11 (12-20); Aspartate Amino Transferase 17 U/L (5-37); Bilirubin Total 0.6 mg/dL (0.0-1.0); Blood Urea Nitrogen 17 mg/dL (9-16); Calcium 9.4 mg/dL (8.4-10.2); Carbon Dioxide 34 mmol/L (22-29); Chloride 104 mmol/L (96-108); Estimated Glomerular Filt Rate > 60; Glucose Random 103 mg/dL (60-115); Potassium 5.4 mmol/L (3.3-5.1); Sodium 144 mmol/L (135-145); Total Protein 6.8 g/dL (6.5-8.0)
== END 2022-06-29 09:33 | disposition home or self-care (01) ==
LOC: HO.LAB 09:32
PROVIDERS: PCP Internal Medicine; Visit Provider Internal Medicine
DX: I10 Essential (primary) hypertension (principal)
CPT/HCPCS: 36415; 80053; 85025

== ENCOUNTER 2022-10-20 14:39 | Emergency (ER) | payer OTHER, SELFPAY ==
--- NOTE | ~2022-10-20 | XR_ITS ---
EXAMINATION: XR CHEST CLINICAL INFORMATION: Dizziness. Weakness. COMPARISON: Chest x-ray July 22, 2021 TECHNIQUE: 2 views of the chest were obtained. FINDINGS: Cardiac silhouette is normal in size. The lungs are well aerated. There is no lobar consolidation. No pleural effusion or pneumothorax. Mild degenerative changes of the spine. XR/XR chest 2V IMPRESSION: No acute pulmonary pathology.
[2022-10-20 14:49] VITALS: BP 173/86; PULSE 83; RESP 18; TEMP 36.1; O2SAT 96; BMI 30.3
--- NOTE | 2022-10-20 14:49 | ED.DIZZY ---
HPI - Dizziness General Chief Complaint: Dizziness Stated Complaint: Dizziness/Weakness Time Seen by Provider: 10/20/22 16:10 Source: patient Mode of arrival: ambulatory Limitations: no limitations History of Present Illness HPI Narrative: Patient has history of hypertension AFib on Eliquis recently diagnosed with anemia also has history of depression complaining of dizziness fatigue weakness with multiple complaints also complaining of right-sided pain recently which showed according to patient patient had labs done recently which showed anemia but today hemoglobin was 12.8 with hematocrit 40.6 no melena no bleeding from any other place Related Data Home Medications Medication Instructions Recorded Confirmed buprenorphine 8 mg-naloxone 2 mg 1 strip sublingual BID 06/04/20 06/04/20 sublingual film (Suboxone) lisinopril 10 1 tab PO DAILY 08/10/20 mg-hydrochlorothiazide 12.5 mg tablet Previous Rx's Medication Instructions Recorded albuterol sulfate 90 mcg/actuation 2 puff inhalation QID PRN 07/22/21 aerosol inhaler shortness of breath or wheezing #6.7 grams prednisone 20 mg tablet 40 mg PO DAILY 5 days #10 tabs 07/22/21 Allergies Allergy/AdvReac Type Severity Reaction Status Date / Time No Known Allergies Allergy Verified 10/20/22 14:56 [No Known Allergies*] Review of Systems Review of Systems: Yes all other systems are reviewed and are negative PMFSH Past Medical History Medical History Arthritis Atrial fibrillation with RVR History of pyloric stenosis Hypertension New onset of congestive heart failure Surgical History History of colonoscopy History of hip surgery History of wisdom tooth extraction Family History Family History Father Prostate cancer HTN (hypertension) Mother HTN (hypertension) Heart disease Arthritis Kidney disease Diabetes Stroke FH: cataracts Family/Other ADHD Disc disease, degenerative, lumbar or lumbosacral Social History Social History Alcohol intake: current Alcohol intake frequency: 3 or more drinks per day Alcohol type: beer Patient Tobacco Use Status: Current everyday Tobacco user Cigarettes Per Day: 6 Years Smoked: 39 Smoked in Last 30 Days: Yes Use of substances other than those prescribed or required for medical reasons: No Substance Use Type: Crack/Cocaine Advance Directives: No Advance Directives Information Provided: Yes service: No Current occupational status: employed Physical Exam Vital Signs: Vital Signs: Last Vital Signs Temp 97 F 10/20/22 14:49 Pulse 68 10/20/22 15:30 Resp 18 10/20/22 15:30 BP 128/77 10/20/22 15:30 Pulse Ox 97 10/20/22 15:30 O2 Del Method Room Air 10/20/22 15:30 BMI result Body Mass Index 30.3 Appearance: Alert. Oriented X3. No acute distress. Eyes: PERRLA, No Nystagmus ENT: Pharynx normal. Oral Mucosa moist Neck: Normal inspection. Neck supple. CVS: Normal heart rate and rhythm. Pulses normal. Respiratory: No respiratory distress. Equal air entry bilateral, no wheezing/rales/rhonchi Abdomen: Soft and nontender. Bowel sounds are present, no mass palpable, no CVA tenderness Skin: Skin warm and dry. Normal skin color. Normal skin turgor. Extremities: No lower extremity edema. No calf tenderness Neuro: Oriented X 3. No motor deficit. No sensory deficit.No cerebellar signs , cranial nerves II-XII intact Course Course Course Narrative: This is a rapid medical exam. Deferred additional HPI, ROS, PE to primary provider. 62yo male with history of HTN, afib on eliquis intermittently compliant, asthma, OUD on suboxone here with complaints generalized weakness, dizziness, chest pain, tactile temp x 4 days. Drinks 1-2 beers/day No current substance use. Will obtain labs, EKG, CXR, covid test. +hypertensive in triage, all other VSS Medications Administered Discontinued Medications Generic Name Dose Route Start Last Admin Trade Name Freq PRN Reason Stop Dose Admin Acetaminophen/Butalbital/Caffeine 1 tab 10/20/22 16:58 10/20/22 17:17 Butalb/Acetamin/Caff 50/325/40 Tablet PO 10/20/22 16:59 1 tab ONCE ONE Administration Medical Decision Making Medical Decision Making MDM Narrative: patient with multiple complaints nonspecific with stable labs discharge patient home likely depression patient been sleeping since he arrived in the ER Lab Data MDM Lab Attestation statement: I reviewed the patient's lab results. 10/20/22 15:14 10/20/22 15:14 Labs: Lab Results 10/20/22 10/20/22 10/20/22 Range/Units 15:14 15:14 15:14 WBC 2.4 L (4.8-10.8) X10*3/uL RBC 4.65 (4.60-5.80) X10*6/uL Hgb 12.8 L (14.0-18.0) g/dl Hct 40.6 L (42.0-52.0) % MCV 87.3 (80.0-98.0) fL MCH 27.5 (27.0-33.0) pg MCHC 31.5 (31.0-36.0) g/dl RDW 14.0 (11.0-16.0) % Plt Count 138 L D (160-400) X10*3/uL MPV 9.7 (9.4-12.4) fL Immature Gran % (Auto) 0.4 (0.0-0.4) % Neut % (Auto) 57.2 (45-73) % Lymph % (Auto) 27.6 (20-40) % [place] % (Auto) 14.4 H (2-11) % Eos % (Auto) 0.0 (0-4) % Baso % (Auto) 0.4 (0-2) % Lymph # (Auto) 0.7 L (1.2-4.9) X10*3/uL [place] # (Auto) 0.4 (0.1-1.2) X10*3/uL Eos # (Auto) 0.0 (0.0-0.4) X10*3/uL Baso # (Auto) 0.0 (0.0-0.2) X10*3/uL Abs Immat Gran (auto) 0.01 (0.00-0.03) X10*3/uL Absolute Neuts (auto) 1.4 L (2.0-8.3) x10*3/uL Absolute Nucleated RBC 0.000 (0.0-0.012) X10*3/uL Nucleated RBC % (auto) 0.0 (0.0-0.2) /100WBC Smear Tech's Comments VERIFIED PT 12.3 (11.1-13.3) SEC INR 1.0 (0.9-1.1) Sodium 137 (135-145) mmol/L Potassium 5.1 (3.3-5.1) mmol/L Chloride 99 (96-108) mmol/L Carbon Dioxide 26 (22-29) mmol/L Anion Gap 17 (12-20) BUN 11 (9-16) mg/dL Creatinine 0.83 (0.5-1.4) mg/dL Estim Creat Clear Calc 106.6 Estimated GFR > 60 Random Glucose 121 H (60-115) mg/dL Calcium 9.4 (8.4-10.2) mg/dL Magnesium 2.0 (1.6-2.6) mg/dL Total Bilirubin 0.4 (0.0-1.0) mg/dL Direct Bilirubin 0.2 (0.0-0.5) mg/dL AST 50 H (5-37) U/L ALT 39 (0-40) U/L Alkaline Phosphatase 54 (39-117) U/L Troponin I High Sens (<3.5-35.0) ng/L Total Protein 7.0 (6.5-8.0) g/dL Albumin 4.2 (3.5-5.0) g/dL Urine Color Urine Appearance Urine pH (5.0-9.0) Ur Specific [place] (1.005-1.025) Urine Protein (Neg-Trace) mg/dL Urine Glucose (UA) (Negative) mg/dL Urine Ketones (Negative) mg/dL Urine Blood (Negative) Urine Nitrite (Negative) Ur Leukocyte Esterase (Negative) COVID-19 (YASMIN) (Negative) COVID-19 Clin Com 10/20/22 10/20/22 10/20/22 Range/Units 15:14 15:14 16:02 WBC (4.8-10.8) X10*3/uL RBC (4.60-5.80) X10*6/uL Hgb (14.0-18.0) g/dl Hct (42.0-52.0) % MCV (80.0-98.0) fL MCH (27.0-33.0) pg MCHC (31.0-36.0) g/dl RDW (11.0-16.0) % Plt Count (160-400) X10*3/uL MPV (9.4-12.4) fL Immature Gran % (Auto) (0.0-0.4) % Neut % (Auto) (45-73) % Lymph % (Auto) (20-40) % [place] % (Auto) (2-11) % Eos % (Auto) (0-4) % Baso % (Auto) (0-2) % Lymph # (Auto) (1.2-4.9) X10*3/uL [place] # (Auto) (0.1-1.2) X10*3/uL Eos # (Auto) (0.0-0.4) X10*3/uL Baso # (Auto) (0.0-0.2) X10*3/uL Abs Immat Gran (auto) (0.00-0.03) X10*3/uL Absolute Neuts (auto) (2.0-8.3) x10*3/uL Absolute Nucleated RBC (0.0-0.012) X10*3/uL Nucleated RBC % (auto) (0.0-0.2) /100WBC Smear Tech's Comments PT (11.1-13.3) SEC INR (0.9-1.1) Sodium (135-145) mmol/L Potassium (3.3-5.1) mmol/L Chloride (96-108) mmol/L Carbon Dioxide (22-29) mmol/L Anion Gap (12-20) BUN (9-16) mg/dL Creatinine (0.5-1.4) mg/dL Estim Creat Clear Calc Estimated GFR Random Glucose (60-115) mg/dL Calcium (8.4-10.2) mg/dL Magnesium (1.6-2.6) mg/dL Total Bilirubin (0.0-1.0) mg/dL Direct Bilirubin (0.0-0.5) mg/dL AST (5-37) U/L ALT (0-40) U/L Alkaline Phosphatase (39-117) U/L Troponin I High Sens < 2.7 D (<3.5-35.0) ng/L Total Protein (6.5-8.0) g/dL Albumin (3.5-5.0) g/dL Urine Color Yellow Urine Appearance Clear Urine pH 8.0 (5.0-9.0) Ur Specific [place] 1.015 (1.005-1.025) Urine Protein Negative (Neg-Trace) mg/dL Urine Glucose (UA) Negative (Negative) mg/dL Urine Ketones Negative (Negative) mg/dL Urine Blood Negative (Negative) Urine Nitrite Negative (Negative) Ur Leukocyte Esterase Negative (Negative) COVID-19 (YASMIN) Negative (Negative) COVID-19 Clin Com See Note Independent Interpretation I performed an independent interpretation of an: EKG Interpretation: Now sinus rhythm heart rate 83 beats per minute normal interval normal axis no acute ST elevation acute ischemia Discharge Plan Discharge Clinical Impression: Chronic anemia, Weakness Patient Disposition: Home, Self-Care Instructions: Weakness (ED), Anemia (ED) Additional Instructions: Your hemoglobin is stable Take medication as prescribed and follow with PCP Prescriptions: No Action buprenorphine-naloxone [Suboxone] 8-2 mg film 1 strip sublingual BID prednisone 20 mg tablet 40 mg PO DAILY 5 Days Qty: 10 0RF albuterol sulfate 90 mcg/actuation HFA aerosol inhaler 2 puff inhalation QID PRN (Reason: shortness of breath or wheezing) Qty: 6.7 0RF lisinopril-hydrochlorothiazide 10-12.5 mg tablet 1 tab PO DAILY Stand Alone Forms: Work/School Release Interventions: ED Discharge Assessment Last Done: 10/20/22 17:59 Discharge Date/Time: 10/20/22 18:05
--- NOTE | 2022-10-20 14:52 | ECG_ITS ---
Test Reason : CHEST PAIN Blood Pressure : / mmHG Vent. Rate : 083 BPM Atrial Rate : 083 BPM P-R Int : 152 ms QRS Dur : 086 ms QT Int : 340 ms P-R-T Axes : 060 029 040 degrees QTc Int : 399 ms Normal sinus rhythm Normal ECG When compared with ECG of 23-MAR-2022 03:48, QT has shortened Referred By: Concepción Monroe Electronically Signed By:HANSA DRISCOLL
[2022-10-20 15:21] LABS: Basophils Percent Auto 0.4 % (0-2); Hematocrit 40.6 % (42.0-52.0); Hemoglobin 12.8 g/dl (14.0-18.0); Imm Gran Abs Auto 0.01 X10*3/uL (0.00-0.03); Imm Gran Pct Auto 0.4 % (0.0-0.4); Lymphocytes Absolute Auto 0.7 X10*3/uL (1.2-4.9); Lymphocytes Percent Auto 27.6 % (20-40); MANUAL DIFF FLAG SCAN; Mean Corpuscular HGB Conc 31.5 g/dl (31.0-36.0); Mean Corpuscular Hemoglobin 27.5 pg (27.0-33.0); Mean Corpuscular Volume 87.3 fL (80.0-98.0); Mean Platelet Volume 9.7 fL (9.4-12.4); Monocytes Absolute Auto 0.4 X10*3/uL (0.1-1.2); Monocytes Percent Auto 14.4 % (2-11); Neutrophils Absolute Auto 1.4 x10*3/uL (2.0-8.3); Neutrophils Percent Auto 57.2 % (45-73); Platelet Count 138 X10*3/uL (160-400); Red Blood Count 4.65 X10*6/uL (4.60-5.80); SCAN SMEAR FLAG 1
[2022-10-20 15:29] LABS: White Blood Count 2.4 X10*3/uL (4.8-10.8)
[2022-10-20 15:30] VITALS: BP 128/77; PULSE 68; RESP 18; O2SAT 97
--- NOTE | 2022-10-20 15:40 | PC.NURSE ---
Alert and oriented, arrived fro home after 3 days of fatigue, weakness, dizziness, and lightheadedness. is SOB. Denies chest pain. has had some dizziness in the past and hx of anemia but has never felt this bad. Denies n/v/d/. takes saboxone daily, norally drinks 3-4 beers daily but has not had a beer in 3 days because of how he has been feeling
[2022-10-20 15:46] LABS: SLIDE REVIEW VERIFIED
[2022-10-20 15:48] LABS: Alanine Aminotransferase 39 U/L (0-40); Albumin Level 4.2 g/dL (3.5-5.0); Alkaline Phosphatase 54 U/L (39-117); Anion Gap 17 (12-20); Aspartate Amino Transferase 50 U/L (5-37); Bilirubin Direct 0.2 mg/dL (0.0-0.5); Bilirubin Total 0.4 mg/dL (0.0-1.0); Blood Urea Nitrogen 11 mg/dL (9-16); Calcium 9.4 mg/dL (8.4-10.2); Carbon Dioxide 26 mmol/L (22-29); Chloride 99 mmol/L (96-108); Creatinine Clr Calc Pharmacy 106.6; Estimated Glomerular Filt Rate > 60; Glucose Random 121 mg/dL (60-115); Potassium 5.1 mmol/L (3.3-5.1); Sodium 137 mmol/L (135-145)
[2022-10-20 15:50] LABS: IDNOW Serial# BCCEAD1C
[2022-10-20 15:51] LABS: COVID-19 Test Negative (Negative)
[2022-10-20 16:11] LABS: Troponin-I High Sensitivity < 2.7 ng/L (<3.5-35.0)
[2022-10-20 16:12] LABS: Appearance Urine Clear; Color Urine Yellow; Glucose Urine UA Negative (Negative); Leukocyte Esterase Urine Negative (Negative); Nitrite Urine Negative (Negative); Specific Gravity - Urine 1.015 (1.005-1.025); Urine Blood Negative (Negative); Urine Ketones Negative (Negative); Urine Protein Negative (Neg-Trace)
[2022-10-20 16:14] LABS: Prothrombin Time 12.3 SEC (11.1-13.3)
[2022-10-20] MEDS: Butalb/Acetamin/Caff 50/325/40 TABLET 1 TAB PO (17:17)
--- NOTE | 2022-10-20 18:00 | PC.NURSE ---
Discharge instructions reviewed with patient who verbalized understanding
== END 2022-10-20 18:05 | disposition home or self-care (01) ==
PROVIDERS: Nurse Practitioner Family; Emergency Provider Internal Medicine; PCP Internal Medicine
DX: R07.89 Other chest pain (principal); D64.9 Anemia, unspecified; R42 Dizziness and giddiness; R53.1 Weakness; F17.210 Nicotine dependence, cigarettes, uncomplicated; Z71.6 Tobacco abuse counseling; Z20.822 Contact with and (suspected) exposure to COVID-19; Z20.828 Contact with and (suspected) exposure to other viral communicable diseases; Z79.899 Other long term (current) drug therapy
CPT/HCPCS: 36415; 71046; 80048; 80076; 81003; 83735; 84484; 85025; 85610; 87635; 93005; 99284; 99285

== ENCOUNTER → 2022-10-20 14:52 | Outpatient (BNV) | payer OTHER, SELFPAY | PROVIDERS: Emergency Provider Internal Medicine; PCP Internal Medicine; Visit Provider Internal Medicine | DX: R07.9 Chest pain, unspecified (principal) | CPT/HCPCS: 93010 ==

== ENCOUNTER 2022-10-22 14:40 | Outpatient (REF) | payer OTHER, SELFPAY ==
[2022-10-22 17:40] LABS: MANUAL DIFF FLAG NO
[2022-10-22 17:45] LABS: Basophils Percent Auto 0.4 % (0-2); Hematocrit 39.9 % (42.0-52.0); Hemoglobin 12.6 g/dl (14.0-18.0); Lymphocytes Absolute Auto 1.1 X10*3/uL (1.2-4.9); Lymphocytes Percent Auto 39.8 % (20-40); Mean Corpuscular HGB Conc 31.6 g/dl (31.0-36.0); Mean Corpuscular Hemoglobin 27.3 pg (27.0-33.0); Mean Corpuscular Volume 86.6 fL (80.0-98.0); Mean Platelet Volume 10.5 fL (9.4-12.4); Monocytes Absolute Auto 0.4 X10*3/uL (0.1-1.2); Monocytes Percent Auto 16.3 % (2-11); Neutrophils Absolute Auto 1.2 x10*3/uL (2.0-8.3); Neutrophils Percent Auto 43.5 % (45-73); Platelet Count 147 X10*3/uL (160-400); Red Blood Count 4.61 X10*6/uL (4.60-5.80); White Blood Count 2.6 X10*3/uL (4.8-10.8)
[2022-10-22 18:05] LABS: Iron 41 mcg/dL (45-160); Percent Iron Saturation 15 % (15-50); Total Iron Binding Capacity 277 mcg/dL (228-428); Unsaturated Iron Binding 236 ug/dL
[2022-10-22 18:21] LABS: Ferritin 326 ng/mL (20-250)
[2022-10-22 18:27] LABS: Vitamin B12 730 pg/mL (200-900)
== END 2022-10-22 14:41 | disposition home or self-care (01) ==
LOC: HO.CHCLDS 14:40
PROVIDERS: Visit Provider Internal Medicine
DX: D64.9 Anemia, unspecified (principal)
CPT/HCPCS: 36415; 82607; 82728; 83540; 85025

== ENCOUNTER 2022-11-12 09:52 | Outpatient (REF) | payer OTHER, SELFPAY ==
[2022-11-12 14:20] LABS: Baso%MD 0.2 %; Eos%MD 2.9 %; Hematocrit 37.5 % (42.0-52.0); Hemoglobin 11.8 g/dl (14.0-18.0); IG%MD 0.2 %; Immature Retic Fraction 10.9 % (2.3-13.4); Lymph%MD 56.7 %; Mean Corpuscular HGB Conc 31.5 g/dl (31.0-36.0); Mean Corpuscular Hemoglobin 27.6 pg (27.0-33.0); Mean Corpuscular Volume 87.6 fL (80.0-98.0); Mean Platelet Volume 10.6 fL (9.4-12.4); Mono%MD 9.4 %; Neut%MD 30.6 %; Platelet Count 188 X10*3/uL (160-400); Red Blood Count 4.28 X10*6/uL (4.60-5.80); Red Cell Distribution Width 13.8 % (11.0-16.0); Retic HGB Equivalent 32.2 pg (30.0-35.0); Reticulocyte Percent 1.4 % (0.5-1.8); White Blood Count 4.9 X10*3/uL (4.8-10.8)
[2022-11-12 14:52] LABS: C Reactive Protein 0.17 mg/dL (< or = 0.50)
[2022-11-12 15:01] LABS: Erythrocyte Sedimentation Rate 4 MM/HR (0-15)
[2022-11-12 15:44] LABS: Atypical Lymph Absolute Manual 0.1 x10*3/uL; Atypical Lymphs Percent Manual 3 % (0-6); Band Neutrophils Percent 1 % (3-5); Basophils Percent Manual 1 % (0-2); Eosinophils Absolute Manual 0.2 X10*3/uL (0.0-0.4); Eosinophils Percent Manual 4 % (0-4); Lymphocytes Absolute Manual 2.7 X10*3/uL (1.2-4.9); Lymphocytes Percent Manual 56 % (20-40); Monocytes Absolute Manual 0.4 X10*3/uL (0.1-1.2); Monocytes Percent Manual 8 % (2-11); Neutrophils Absolute Manual 1.4 X10*3/uL (2.0-8.3); Neutrophils Percent Manual 27 % (45-73)
[2022-11-12 15:53] LABS: Platelet Estimate NORMAL (NORMAL); Platelet Morphology Comment NORMAL; RBC Morphology NORMAL
== END 2022-11-12 09:53 | disposition home or self-care (01) ==
LOC: HO.CHCLDS 09:52
PROVIDERS: Visit Provider Internal Medicine
DX: D61.818 Other pancytopenia (principal)
CPT/HCPCS: 36415; 85007; 85027; 85045; 85652; 86140

== ENCOUNTER 2023-01-06 15:57 | Outpatient (REF) | payer OTHER, SELFPAY ==
[2023-01-06 17:28] LABS: MANUAL DIFF FLAG NO
[2023-01-06 17:34] LABS: Basophils Percent Auto 0.3 % (0-2); Eosinophils Absolute Auto 0.2 X10*3/uL (0.0-0.4); Eosinophils Percent Auto 3.7 % (0-4); Hematocrit 39.1 % (42.0-52.0); Hemoglobin 12.1 g/dl (14.0-18.0); Imm Gran Abs Auto 0.01 X10*3/uL (0.00-0.03); Imm Gran Pct Auto 0.2 % (0.0-0.4); Lymphocytes Absolute Auto 2.3 X10*3/uL (1.2-4.9); Lymphocytes Percent Auto 36.4 % (20-40); Mean Corpuscular HGB Conc 30.9 g/dl (31.0-36.0); Mean Corpuscular Hemoglobin 27.3 pg (27.0-33.0); Mean Corpuscular Volume 88.1 fL (80.0-98.0); Monocytes Absolute Auto 0.6 X10*3/uL (0.1-1.2); Neutrophils Absolute Auto 3.1 x10*3/uL (2.0-8.3); Neutrophils Percent Auto 49.4 % (45-73); Platelet Count 217 X10*3/uL (160-400); Red Blood Count 4.44 X10*6/uL (4.60-5.80); Red Cell Distribution Width 14.2 % (11.0-16.0); White Blood Count 6.2 X10*3/uL (4.8-10.8)
[2023-01-06 17:54] LABS: Anion Gap 17 (12-20); Blood Urea Nitrogen 23 mg/dL (9-16); Calcium 9.9 mg/dL (8.4-10.2); Carbon Dioxide 28 mmol/L (22-29); Chloride 97 mmol/L (96-108); Estimated Glomerular Filt Rate > 60; Glucose Random 109 mg/dL (60-115); Potassium 4.6 mmol/L (3.3-5.1); Sodium 137 mmol/L (135-145)
== END 2023-01-06 15:58 | disposition home or self-care (01) ==
LOC: HO.CHCLDS 15:57
PROVIDERS: Visit Provider Internal Medicine
DX: D50.9 Iron deficiency anemia, unspecified (principal)
CPT/HCPCS: 36415; 80048; 85025

== ENCOUNTER 2023-04-27 11:44 | Emergency (ER) | payer OTHER, SELFPAY ==
--- NOTE | ~2023-04-27 | XR_ITS ---
EXAMINATION: XR CHEST CLINICAL INFORMATION: Chest pain COMPARISON: Previous chest x-ray most recent September 2022 TECHNIQUE: Frontal view of the chest was obtained. FINDINGS: No significant abnormality is noted involving the heart, lungs, mediastinum, bony thorax or soft tissues. XR/XR chest 1V IMPRESSION: Unremarkable examination.
--- NOTE | 2023-04-27 11:53 | ECG_ITS ---
Test Reason : drug Blood Pressure : / mmHG Vent. Rate : 112 BPM Atrial Rate : 112 BPM P-R Int : 130 ms QRS Dur : 090 ms QT Int : 354 ms P-R-T Axes : 067 048 032 degrees QTc Int : 483 ms Sinus tachycardia Septal infarct , age undetermined Abnormal ECG When compared with ECG of 20-OCT-2022 15:02, No significant change was found Referred By: Sasha Pena Electronically Signed By:HANSA DRISCOLL
--- NOTE | 2023-04-27 12:00 | ED_ITS ---
HPI - General Adult General Chief complaint: ETOH/Substance Use Stated complaint: Substance use Time Seen by Provider: 04/27/23 13:47 Source: patient Mode of arrival: ambulatory Limitations: no limitations History of Present Illness HPI narrative: Patient is a 62-year-old male who presents emergency department reporting diffuse anterior chest pain, lightheadedness feeling as though he is going to pass out. Reports a smoke 6 bags crack this morning for the 1st time in about 14 years and feels unwell. Reporting that he believes it may have been laced with heroin without his knowledge. Related Data Home Medications Medication Instructions Recorded Confirmed buprenorphine 8 mg-naloxone 2 mg 1 strip sublingual BID 06/04/20 06/04/20 sublingual film (Suboxone) lisinopril 10 1 tab PO DAILY 08/10/20 mg-hydrochlorothiazide 12.5 mg tablet Previous Rx's Medication Instructions Recorded albuterol sulfate 90 mcg/actuation 2 puff inhalation QID PRN 07/22/21 aerosol inhaler shortness of breath or wheezing #6.7 grams prednisone 20 mg tablet 40 mg (2 x 20 mg) PO DAILY 5 days 07/22/21 #10 tabs Allergies Allergy/AdvReac Type Severity Reaction Status Date / Time No Known Allergies Allergy Verified 10/20/22 14:56 [No Known Allergies*] PMFSH Past Medical History Medical History Arthritis Atrial fibrillation with RVR History of pyloric stenosis Hypertension New onset of congestive heart failure Surgical History History of colonoscopy History of hip surgery History of wisdom tooth extraction Family History Family History Father Prostate cancer HTN (hypertension) Mother HTN (hypertension) Heart disease Arthritis Kidney disease Diabetes Stroke FH: cataracts Family/Other ADHD Disc disease, degenerative, lumbar or lumbosacral Social History Social History Alcohol intake: current Alcohol intake frequency: holidays/special occasions only Alcohol type: hard liquor Patient Tobacco Use Status: Current everyday Tobacco user Cigarettes Per Day: 6 Years Smoked: 39 Smoked in Last 30 Days: Yes Use of substances other than those prescribed or required for medical reasons: No Substance Use Type: Crack/Cocaine Advance Directives: No Advance Directives Information Provided: No service: No Current occupational status: employed Physical Exam ED Vital Signs: Vital Signs - 24 hr 04/27/23 12:01 04/27/23 14:02 Temperature 97.2 F 97.7 F Pulse Rate 98 74 Respiratory Rate 7 L 18 Blood Pressure 99/62 127/65 Pulse Oximetry 90 L 96 Oxygen Delivery Method Room Air Room Air BMI result Body Mass Index 36.5 Course Course Course Narrative: RME: 62 yold male with pmh of subustance abuse presents to the ED for Chest pain, drowsiness, feeling of about to pass out. states smoked six bags of crack. pin point pupils and falling alseep. Might have been laced with heroin. labs and EKG ordered. To be brought to the ED. Reevaluation(s) Reevaluation #1: CBC is without leukocytosis, mild normocytic anemia that does not meet transfusion criteria. No electrolyte abnormality. Fall the elevated BUN with normal creatinine, appears consistent with prior the slightly increased, may be secondary to slight dehydration. High sensitive troponin 7.7, EKG revealing sinus tachycardia with a ventricular rate of 112, no STEMI, no ST elevation, plan to obtain delta trop. BNP within normal range doubt acute CHF. Mildly elevated CK 358, patient to receive 1L IV fluids. CXR is without acute cardiopulmonary abnormality Time: 15:01 Reevaluation #2: Patient signed out to [facility] pending delta troponin and re-evaluation Time: 16:00 Reevaluation #3: Patient was signed out to [place] pending repeat troponin and re-evaluation. Repeat troponin 6.7, negative delta. Patient is ambulatory in the emergency department, feeling well and would like to be discharged home. Patient clinically sober, eating and drinking without difficulty. Discussed workup with patient, answered all questions. He understands and agrees with plan. Patient stable for discharge Time: 18:41 Medications Administered Discontinued Medications Generic Name Dose Route Start Last Admin Trade Name Freq PRN Reason Stop Dose Admin Aspirin 324 mg 04/27/23 15:02 04/27/23 16:54 Aspirin 81 Mg Tab.Chew PO 04/27/23 15:03 324 mg ONCE ONE Administration Sodium Chloride 1,000 mls @ 999 mls/hr 02/04/24 15:15 04/27/23 16:53 Ns IV 04/27/23 16:15 999 mls/hr .Q1H1M EMILE Administration Medical Decision Making Medical Decision Making [facility] Narrative: Patient is a 62-year-old male presents emergency department for evaluation of chest pain lightheadedness and near-syncope sensation after using crack cocaine earlier today. Sensitive initially drowsy, pinpoint pupils and slow respirations. At the time my examination he is alert, responsive to verbal stimuli, reports resolution of chest pain but still feels lightheaded. Airway is patent, speaking clear full sentences, no hypoxia or tachypnea. Will obtain CBC to evaluate for leukocytosis/ anemia, CMP and lipase to evaluate for abnormal electrolytes /abnormal renal function/ abnormal hepatic/biliary function, EKG and troponin to evaluate for ischemia/ACS. Chest x-ray to evaluate for consolidation/ infiltrate/ mass/ pulmonary congestion drug abuse screen and Urinalysis. Differential Diagnosis Differential Diagnoses: The differential diagnosis associated with the presentation includes (See narrative above) Admission/Observation Consideration of admission/observation: Escalation of care including admission/observation considered (See narrative above and course narrative for further detail) Lab Data [facility] Lab Attestation statement: I reviewed the patient's lab results. (See course narrative) 04/27/23 13:57 04/27/23 13:57 Labs: Lab Results 04/27/23 04/27/23 04/27/23 Range/Units 13:57 15:18 17:49 WBC 8.2 (4.8-10.8) X10*3/uL RBC 4.40 L (4.60-5.80) X10*6/uL Hgb 12.2 L (14.0-18.0) g/dl Hct 37.5 L (42.0-52.0) % MCV 85.2 (80.0-98.0) fL MCH 27.7 (27.0-33.0) pg MCHC 32.5 (31.0-36.0) g/dl RDW 13.2 (11.0-16.0) % Plt Count 185 (160-400) X10*3/uL MPV 9.8 (9.4-12.4) fL Immature Gran % (Auto) 0.2 (0.0-0.4) % Neut % (Auto) 81.2 H (45-73) % Lymph % (Auto) 13.7 L (20-40) % Sierra % (Auto) 4.7 (2-11) % Eos % (Auto) 0.1 (0-4) % Baso % (Auto) 0.1 (0-2) % Lymph # (Auto) 1.1 L (1.2-4.9) X10*3/uL Sierra # (Auto) 0.4 (0.1-1.2) X10*3/uL Eos # (Auto) 0.0 (0.0-0.4) X10*3/uL Baso # (Auto) 0.0 (0.0-0.2) X10*3/uL Abs Immat Gran (auto) 0.02 (0.00-0.03) X10*3/uL Absolute Neuts (auto) 6.6 (2.0-8.3) x10*3/uL Absolute Nucleated RBC 0.000 (0.0-0.012) X10*3/uL Nucleated RBC % (auto) 0.0 (0.0-0.2) /100WBC PT 12.0 (11.1-13.3) SEC INR 1.0 (0.9-1.1) APTT 37.6 H (26.0-36.8) SEC Sodium 136 (135-145) mmol/L Potassium 4.1 (3.3-5.1) mmol/L Chloride 100 (96-108) mmol/L Carbon Dioxide 23 (22-29) mmol/L Anion Gap 17 (12-20) BUN 20 H (9-16) mg/dL Creatinine 0.79 (0.5-1.4) mg/dL Estim Creat Clear Calc 118.9 Estimated GFR > 60 Random Glucose 82 (60-115) mg/dL Calcium 8.9 D (8.4-10.2) mg/dL Magnesium 1.9 (1.6-2.6) mg/dL Total Bilirubin 0.4 (0.0-1.0) mg/dL AST 25 (5-37) U/L ALT 18 (0-40) U/L Alkaline Phosphatase 47 (39-117) U/L Total Creatine Kinase 358 H (38-174) U/L Troponin I High Sens 7.7 D 6.7 (<3.5-35.0) ng/L B-Natriuretic Peptide 54 (<100) pg/mL Total Protein 7.2 (6.5-8.0) g/dL Albumin 4.3 (3.5-5.0) g/dL Urine Opiates Screen Not Detected (Not Detect) Urine Fentanyl Screen Not Detected (Not Detect) Ur Barbiturates Screen Not Detected (Not Detect) Ur Phencyclidine Scrn Not Detected (Not Detect) Ur Amphetamines Screen Not Detected (Not Detect) U Benzodiazepines Scrn Not Detected (Not Detect) Urine Cocaine Screen POSITIVE H (Not Detect) U Marijuana (THC) Screen Not Detected (Not Detect) Ethyl Alcohol 45 mg/dL Independent Interpretation I performed an independent interpretation of an: EKG (See course narrative) and Plain X-Ray (I personally interpreted x-ray and agree with radiologist impression) Radiology Impression Discussion of test interpretation with radiology: I have reviewed the radiologist's reading. Radiologist Impression: XR/XR chest 1V IMPRESSION: Unremarkable examination. External Record Review External record reviewed: Outpatient record Discharge Plan Discharge Clinical Impression: Chest pain, Substance use Patient Disposition: Home, Self-Care Additional Instructions: Your seen in the emergency department after using substances. Your workup today was reassuring. Please drink plenty of fluids get plenty of rest. We had given you IV fluids. If you develop any worsening symptoms including chest pain, shortness of breath, abdominal pain, nausea, vomiting, or diarrhea, please return for re-evaluation. Prescriptions: No Action buprenorphine-naloxone [Suboxone] 8-2 mg film 1 strip sublingual BID prednisone 20 mg tablet 40 mg PO DAILY 5 Days Qty: 10 0RF albuterol sulfate 90 mcg/actuation HFA aerosol inhaler 2 puff inhalation QID PRN (Reason: shortness of breath or wheezing) Qty: 6.7 0RF lisinopril-hydrochlorothiazide 10-12.5 mg tablet 1 tab PO DAILY Stand Alone Forms: Work/School Release Interventions: ED Discharge Assessment Last Done: 04/27/23 20:17 Discharge Date/Time: 04/27/23 20:19
[2023-04-27 12:01] VITALS: BP 99/62; PULSE 98; RESP 7; TEMP 36.2; O2SAT 90; BMI 36.5
[2023-04-27 14:01] LABS: MANUAL DIFF FLAG NO
[2023-04-27 14:02] VITALS: BP 127/65; PULSE 74; RESP 18; TEMP 36.5; O2SAT 96
[2023-04-27 14:03] LABS: Basophils Percent Auto 0.1 % (0-2); Eosinophils Percent Auto 0.1 % (0-4); Hematocrit 37.5 % (42.0-52.0); Hemoglobin 12.2 g/dl (14.0-18.0); Imm Gran Abs Auto 0.02 X10*3/uL (0.00-0.03); Imm Gran Pct Auto 0.2 % (0.0-0.4); Lymphocytes Absolute Auto 1.1 X10*3/uL (1.2-4.9); Lymphocytes Percent Auto 13.7 % (20-40); Mean Corpuscular HGB Conc 32.5 g/dl (31.0-36.0); Mean Corpuscular Hemoglobin 27.7 pg (27.0-33.0); Mean Corpuscular Volume 85.2 fL (80.0-98.0); Mean Platelet Volume 9.8 fL (9.4-12.4); Monocytes Absolute Auto 0.4 X10*3/uL (0.1-1.2); Monocytes Percent Auto 4.7 % (2-11); Neutrophils Absolute Auto 6.6 x10*3/uL (2.0-8.3); Neutrophils Percent Auto 81.2 % (45-73); Platelet Count 185 X10*3/uL (160-400); Red Cell Distribution Width 13.2 % (11.0-16.0); White Blood Count 8.2 X10*3/uL (4.8-10.8)
[2023-04-27 14:11] LABS: Partial Thromboplastin Time 37.6 SEC (26.0-36.8)
[2023-04-27 14:14] LABS: Ethanol 45 mg/dL
[2023-04-27 14:23] LABS: B Type Natriuretic Peptide 54 pg/mL (<100)
[2023-04-27 14:24] LABS: Troponin-I High Sensitivity 7.7 ng/L (<3.5-35.0)
[2023-04-27 14:30] LABS: Chloride 100 mmol/L (96-108); Potassium 4.1 mmol/L (3.3-5.1); Sodium 136 mmol/L (135-145)
[2023-04-27 14:43] LABS: Alanine Aminotransferase 18 U/L (0-40); Albumin Level 4.3 g/dL (3.5-5.0); Alkaline Phosphatase 47 U/L (39-117); Anion Gap 17 (12-20); Aspartate Amino Transferase 25 U/L (5-37); Bilirubin Total 0.4 mg/dL (0.0-1.0); Blood Urea Nitrogen 20 mg/dL (9-16); Calcium 8.9 mg/dL (8.4-10.2); Carbon Dioxide 23 mmol/L (22-29); Creatinine Clr Calc Pharmacy 118.9; Estimated Glomerular Filt Rate > 60; Glucose Random 82 mg/dL (60-115); Magnesium 1.9 mg/dL (1.6-2.6); Total Protein 7.2 g/dL (6.5-8.0)
[2023-04-27 15:33] LABS: Amphetamine Screen Urine Not Detected (Not Detect); Barbiturates, Urine Not Detected (Not Detect); Benzodiazepines Screen Urine Not Detected (Not Detect); Cannabinoid Screen Urine Not Detected (Not Detect); Cocaine Screen Urine POSITIVE (Not Detect); Fentanyl, urine Not Detected (Not Detect); Opiate Screen Urine Not Detected (Not Detect); Phencyclidine Screen Urine Not Detected (Not Detect)
--- NOTE | 2023-04-27 16:17 | ECG_ITS ---
Test Reason : CX PAIN Blood Pressure : / mmHG Vent. Rate : 071 BPM Atrial Rate : 071 BPM P-R Int : 156 ms QRS Dur : 092 ms QT Int : 424 ms P-R-T Axes : 078 042 044 degrees QTc Int : 460 ms Normal sinus rhythm Normal ECG When compared with ECG of 27-APR-2023 11:56, Vent. rate has decreased BY 41 BPM Referred By: Sasha Pena Electronically Signed By:HANSA DRISCOLL
[2023-04-27] MEDS: 0.9 % Sodium Chloride 1,000 ML 999 ML IV (16:53)
[2023-04-27] MEDS: Aspirin 81 MG TAB.CHEW 324 MG PO (16:54)
[2023-04-27 18:12] LABS: Troponin-I High Sensitivity 6.7 ng/L (<3.5-35.0)
--- NOTE | 2023-04-27 20:17 | PC.NURSE ---
Patient states he's feeling better sitting at the end of stretcher. Patient is wide awake stood up to sign discharge paperwork.
== END 2023-04-27 20:19 | disposition home or self-care (01) ==
PROVIDERS: Nurse Practitioner Family; Physician Assistant; Emergency Provider Student in an Organized Health Care Education/Training Program
DX: R07.89 Other chest pain (principal); R06.02 Shortness of breath; F14.10 Cocaine abuse, uncomplicated; F17.200 Nicotine dependence, unspecified, uncomplicated; F10.10 Alcohol abuse, uncomplicated; Y90.2 Blood alcohol level of 40-59 mg/100 ml; Z79.899 Other long term (current) drug therapy
CPT/HCPCS: 36415; 71045; 80053; 80307; 82550; 83735; 83880; 84484; 85025; 85610; 85730; 93005; 99283; 99285

== ENCOUNTER → 2023-04-27 11:53 | Outpatient (BNV) | payer MEDICAID, SELFPAY | PROVIDERS: Emergency Provider Student in an Organized Health Care Education/Training Program; Visit Provider Internal Medicine | DX: R00.0 Tachycardia, unspecified (principal); R94.31 Abnormal electrocardiogram [ECG] [EKG] | CPT/HCPCS: 93010 ==

== ENCOUNTER → 2023-04-30 14:30 | Outpatient (BNV) | payer OTHER, SELFPAY | PROVIDERS: PCP Student in an Organized Health Care Education/Training Program; Visit Provider Internal Medicine | DX: D64.9 Anemia, unspecified (principal) | CPT/HCPCS: 99204; 99214 ==

== ENCOUNTER 2023-05-28 15:01 | Outpatient (REF) | payer MEDICAID, SELFPAY ==
[2023-05-28 18:01] LABS: Appearance Urine Clear; Color Urine Yellow; Glucose Urine UA Negative (Negative); Leukocyte Esterase Urine Negative (Negative); Nitrite Urine Negative (Negative); PH 6.5 (5.0-9.0); Urine Blood Negative (Negative); Urine Ketones Negative (Negative); Urine Protein Negative (Neg-Trace)
[2023-05-28 18:46] LABS: PSA,Total (Free>4and<10) 0.11 ng/mL (0.00-4.00)
[2023-05-28 18:52] LABS: Bacteria Urine None Seen (None Seen); Hyaline Casts Urine 0-2 /LPF (0-2); RBC Urine 0-2 /HPF (0-2); Squamous Epithelial Cell Urine 0-2 /HPF (0-2); WBC Urine 0-5 /HPF (0-5)
== END 2023-05-28 15:02 | disposition home or self-care (01) ==
LOC: HO.CHCLDS 15:01
PROVIDERS: Visit Provider Internal Medicine
DX: Z12.5 Encounter for screening for malignant neoplasm of prostate (principal); R30.0 Dysuria
CPT/HCPCS: 36415; 81001; 84153

== ENCOUNTER 2023-07-25 15:04 | Outpatient (AMB) | payer OTHER, SELFPAY ==
[2023-07-25 15:08] VITALS: BP 155/86; PULSE 71; BMI 32.9
--- NOTE | 2023-07-25 15:08 | MHC.OFFVIS ---
Vital Signs 07/25/23 15:08 Height 5 ft 9 in Weight 223 lb 1.725 oz BMI 32.9 BP 155/86 H Blood Pressure Location Rt brachial Position Sitting Pulse 71 Intake Visit Reasons: Colonoscopy Screening Intake Note: Patient in office today for colonoscopy screening. CC: Last colonoscopy [place] [address] Mann. He reports occasional bleeding with BMs and about x5 of episodes of fecal incontinence. Denies having any GI symptoms at this time. Field Seismologist Required: No Accompanied by: Self / Same As Patient Allergies No Known Allergies [No Known Allergies*] Allergy (Verified 07/25/23 15:15) HPI HPI Colonoscopy Screening: Details: 63-year-old male here for preprocedural meeting to discuss a screening colonoscopy. He is referred by Monica Au of [facility]. PMX LUZ MARINA AFIB - on Eliquis HYPERTENSION Nummular eczema Varicose veins ? BPH HISTORY OF PYLORIC STENOSIS Hx of Hep C s/p tx with SVR, ? Hep B * SURGICAL HISTORY [place] tooth extraction Hip surgery 2014, 2019 bilateral THR Colonoscopy -m 2012=TA [place] * ALLERGIES: NKDA * TestObject LABS: Laboratory Tests 04/27/23 13:57 WBC 8.2 RBC 4.40 L Hgb 12.2 L Hct 37.5 L MCV 85.2 MCH 27.7 Plt Count 185 Estimated GFR > 60 Total Bilirubin 0.4 AST 25 ALT 18 Alkaline Phosphatase 47 2012 COLONOSCOPY-DEIDRE= 1 HYPERPLASTIC POLYP AND 1 TUBULAR ADENOMA TODAY'S VISIT His last scope was in [address] Mann and he had hyperplastic polyps and one TA. He denies any bowel or upper GI problems. I am like a clock! There are no prior problems with anesthesia or sedation. He has afib and is on eliquis and will need clearance from Dr. Ruffin to hold this, no respiratory problems except LUZ MARINA. He has a hx of hEP c s/p svr and he thinks Hep B - sending for testing for Hep B. He thinks that he had a maternal uncle that of crc, and his mother had a colostomy bag but he is unsure why. [facility] Medical History (Updated 07/25/23 @ 15:52 by CRYSTAL Winter) Atrial fibrillation with RVR New onset of congestive heart failure Arthritis Hypertension History of pyloric stenosis Surgical History (Updated 07/25/23 @ 15:52 by CRYSTAL Winter) Status post total replacement of both hips S/P gastric surgery History of wisdom tooth extraction History of colonoscopy Family History Father Prostate cancer HTN (hypertension) Mother HTN (hypertension) Heart disease Arthritis Kidney disease Diabetes Stroke FH: cataracts Constipation S/P colostomy Family/Other ADHD Disc disease, degenerative, lumbar or lumbosacral Maternal Uncle Cancer S/P colostomy Social History Household Members: None Housing: Apartment Alcohol intake: current Alcohol intake frequency: holidays/special occasions only Alcohol type: hard liquor Patient Tobacco Use Status: Current everyday Tobacco user Years Smoked: 39 Substance Use Type: Crack/Cocaine and Marijuana service: No Current occupational status: employed Review of Systems Const Denies fatigue, Denies fever(s), Denies night sweats, Denies poor appetite and Denies weight loss ENT Reports Normal hearing present, Denies dental pain, Denies dysphagia, Denies hearing loss, Denies mouth pain, Denies odynophagia, Denies throat swelling, Denies tongue swelling and Reports other (Dentition adequate) Card Reports no additional complaints Resp Reports no additional complaints GI Details: Denies abdominal pain, Denies melena, Denies bloating, Denies hematochezia, Denies constipation, Denies GI cramping, Denies dysphagia, Denies excessive flatus, Denies early satiety, Denies heartburn, Denies diarrhea, Denies nausea, Denies odynophagia, Denies vomiting and Denies hematemesis Skin/Breast Denies pruritus, Denies lesions, Denies rash and Denies jaundice Neuro Reports Normal hearing present and Denies Abnormal speech present Endo Denies fatigue Aller/Immun Denies throat swelling and Denies tongue swelling Physical Exam Vital Signs: Last Vital Signs Pulse 71 07/25/23 15:08 BP 155/86 H 07/25/23 15:08 BMI result Body Mass Index 32.9 Const General: cooperative, no acute distress, well developed and well groomed Nutritional Appearance: well nourished and obese Orientation/consciousness: oriented to person, oriented to place and oriented to time Limitations: language barrier HEENT Head: Yes normocephalic and Yes atraumatic Eyes General: appearance normal, both eyes and all related structures Pupils: Equal, round and reactive pupils present Neck Neck: Yes normal visual inspection and Yes no lymphadenopathy Thyroid: Thyroid normal Resp Effort & Inspection: normal respiratory effort and able to speak in complete sentences Auscultation: clear to auscultation bilaterally Cardio Rate: regular rate Rhythm: regular rhythm Heart sounds: Normal, physiologic split S2 sound present Peripheral pulses: radial pulses present and posterior tibial pulses present GI Inspection: No distended, No Abdominal panniculus present, Yes obesity and Yes scar Palpation (GI): Soft to palpation, nontender, no guarding, not rigid and No hepatosplenomegaly present Percussion: Yes normal to percussion Auscultation: normal bowel sounds Rectal Exam - Male: Yes deferred Abdomen image: 1. surgical scar pyloric stenosis correction Skin General skin exam: no rashes or lesions noted, turgor normal, skin not dry, no jaundice, No spider nevi and no striae Rashes: no rashes Nails: normal Neuro General: oriented to person, oriented to place and oriented to time Cranial nerves: Yes Equal, round and reactive pupils present and Yes Normal hearing present Speech: No Abnormal speech present Extrem General: Yes normal to inspection, No clubbing, No cyanosis and Yes edema (mild pitting) Psych Appearance: grossly normal and well kempt Mental Status: mental status grossly normal Speech and movement: Normal speech and movement present Affect: normal affect Attitude: cooperative Thought process: Normal thought process present and not confabulating Thought content: Normal thought content present Insight: Limited insight present (Psych) Judgement: Limited judgement present (Psych) Assessment & Plan Assessment & Plan (1) Tubular adenoma of colon: Comment: 2012 SCOPE-DEIDRE= 1 TA 1 HYPERPLASTIC POLYP Code(s): D12.6 - Benign neoplasm of colon, unspecified Category: Medical (2) Hepatitis B: Comment: ? if he had this with his Hep C infection Code(s): B19.10 - Unspecified viral hepatitis B without hepatic coma Category: Medical (3) Chronic hepatitis C: Comment: s/p tx adn SVR Code(s): B18.2 - Chronic viral hepatitis C Category: Medical (4) Atrial fibrillation: Code(s): I48.91 - Unspecified atrial fibrillation Category: Medical Qualifiers: Atrial fibrillation type: paroxysmal Qualified Code(s): I48.0 - Paroxysmal atrial fibrillation (5) Chronic anticoagulation: Code(s): Z79.01 - terminologist (current) use of anticoagulants Category: Medical Plan His last scope was in [address] Mann and he had hyperplastic polyps and one TA. He denies any bowel or upper GI problems. I am like a clock! There are no prior problems with anesthesia or sedation. He has afib and is on eliquis and will need clearance from Dr. Ruffin to hold this, no respiratory problems except LUZ MARINA. He has a hx of hEP c s/p svr and he thinks Hep B - sending for testing for Hep B. He thinks that he had a maternal uncle that of crc, and his mother had a colostomy bag but he is unsure why. Orders: Orders Colonoscopy - GI Use Only Today D12.6 - Benign neoplasm of colon, unspecified Hepatitis B Profile Today B18.2 - Chronic viral hepatitis C, B19.10 - Unspecified viral hepatitis B without hepatic coma Medications: New peg 3350-electrolytes 236-22.74-6.74 -5.86 gram (Golytely) until fecal effluent is clear; do not exceed a total volume of 2,000 mL 240 mL PO Q10M 1 day 4,000 mL 0RF Z12.11 - Encounter for screening for malignant neoplasm of colon bisacodyl (Dulcolax (bisacodyl)) 10 mg (2 x 5 mg) PO BEDTIME 2 days 4 tabs 0RF Coding Level of Care Code New Pt Level 3 (47134) Diagnoses Tubular adenoma of colon D12.6 Hepatitis B B19.10 Chronic hepatitis C B18.2 Atrial fibrillation I48.0 Atrial fibrillation type: paroxysmal Chronic anticoagulation Z79.01
== END 2023-07-25 15:52 | disposition home or self-care (01) ==
PROVIDERS: PCP Internal Medicine; Visit Provider Nurse Practitioner
DX: D12.6 Benign neoplasm of colon, unspecified (principal); B19.10 Unspecified viral hepatitis B without hepatic coma; B18.2 Chronic viral hepatitis C; I48.0 Paroxysmal atrial fibrillation; Z79.01 Long term (current) use of anticoagulants
CPT/HCPCS: 99203

== ENCOUNTER 2023-07-25 15:04 | Outpatient (REF) | payer OTHER, SELFPAY ==
[2023-07-26 03:46] LABS: HBS Num1 29.13 mIU/mL (0-7.99); HBc Num1 4.78 S/CO (0.00-0.79); HBsAGNum1 0.33 S/CO (0.00-0.99); Hepatitis B Surface Antigen Negative (Negative); ~Hepatitis B Surface Antibody REACTIVE (Nonreactive)
[2023-07-26 04:48] LABS: HBc Num2 4.68 S/CO; HBc Num3 4.88 S/CO; Hepatitis B Core Antibody Reactive (Nonreactive)
== END 2023-07-25 15:05 | disposition home or self-care (01) ==
LOC: HO.LAB 15:04
PROVIDERS: PCP Internal Medicine; Visit Provider Nurse Practitioner
DX: B19.10 Unspecified viral hepatitis B without hepatic coma (principal); B18.2 Chronic viral hepatitis C; D12.6 Benign neoplasm of colon, unspecified; I48.0 Paroxysmal atrial fibrillation; Z79.01 Long term (current) use of anticoagulants
CPT/HCPCS: 36415; 86704; 86706; 87340

== ENCOUNTER 2023-08-08 14:45 | Outpatient (REF) | payer OTHER, SELFPAY ==
[2023-08-08 16:52] LABS: Urine Cytology See Pathology rpt
== END 2023-08-08 14:46 | disposition home or self-care (01) ==
LOC: HO.LNP 14:45
PROVIDERS: PCP Internal Medicine; Visit Provider Nurse Practitioner Family
DX: R35.1 Nocturia (principal); R31.29 Other microscopic hematuria
CPT/HCPCS: 51798; 81003; 88112

== ENCOUNTER 2023-08-08 14:45 | Outpatient (AMB) | payer OTHER, SELFPAY ==
--- NOTE | 2023-08-08 15:19 | A.OFFVIS_ITS ---
Intake Visit Reasons: dysuria, nocturia Intake Note: New Patient presents for initial visit for Urology Medications: Blood Thinner: Director Of In Service Education Required: No Accompanied by: Self / Same As Patient Allergies No Known Allergies [No Known Allergies*] Allergy (Verified 08/08/23 22:43) Medication List - Last Reconciled 08/08/23 by CINTHYA Aguiar- albuterol sulfate 90 mcg/actuation 2 puffs inhalation QID PRN apixaban (Eliquis) 2.5 mg PO Q12H ascorbate calcium (vitamin C) 500 mg PO DAILY bisacodyl (Dulcolax (bisacodyl)) 10 mg (2 x 5 mg) PO BEDTIME 2 days buprenorphine-naloxone 8-2 mg (Suboxone) 1 strip sublingual BID cholecalciferol (vitamin D3) 25 mcg PO DAILY lisinopril-hydrochlorothiazide 10-12.5 mg 1 tab PO DAILY lisinopril-hydrochlorothiazide 20-12.5 mg 1 tab PO DAILY lorazepam 1 mg PO mecobalamin (vitamin B12) mcg PO multivitamin 1 tab PO DAILY peg 3350-electrolytes 236-22.74-6.74 -5.86 gram (Golytely) 240 mL PO Q10M 1 day triamcinolone acetonide 0.1% appl topical HPI Comments Details: Mateo is a very pleasant 63-year-old male patient of Dr. Au. He has a past medical history of AFib with RVR, congestive heart failure, arthritis, hypertension, pyloric stenosis, substance abuse, and hep C. He presents to the office today as a new patient for nocturia. In discussion with the patient today he reports nocturia has been present for many years however feels it is worsening. He reports to be getting up anywhere between 3-7 times per night. When asked he does report a history of sleep apnea in the past however is unsure as to why he stopped using his CPAP machine and does not currently have 1. He does report fatigue and snoring. When asked he does report a history of nephrolithiasis in the past however never requiring surgical intervention. In office urinalysis results reviewed with the patient today microscopic hematuria noted otherwise within normal limits. He does report a smoking history of approximately 20-25 years. He endorses smoking approximately 1 pack of cigarettes per day. He otherwise denies incontinence, hematuria, dysuria, foul smelling urine, changes to urinary stream, flank pain, fever, and or chills. He also discusses having experienced dysuria and bladder pressure in the past however these symptoms are infrequent. PVR 35 mL. In review of patient's chart it appears PSAs are as follows: PSA: 09/09 0.1, 06/14 0.1 Discussed reasons for blood in the urine may include but are not limited to kidney stones, cancer in the urinary tract, BPH, kidney stone disease or inflammatory conditions of the urinary tract. I have discussed workup to include cystoscopy evaluation. He otherwise offers no other issues or concerns at this time. [facility] Medical History Atrial fibrillation with RVR New onset of congestive heart failure Arthritis Hypertension History of pyloric stenosis Surgical History Status post total replacement of both hips S/P gastric surgery History of wisdom tooth extraction History of colonoscopy Family History Father Prostate cancer HTN (hypertension) Mother HTN (hypertension) Heart disease Arthritis Kidney disease Diabetes Stroke FH: cataracts Constipation S/P colostomy Family/Other ADHD Disc disease, degenerative, lumbar or lumbosacral Maternal Uncle Cancer S/P colostomy Social History Household Members: None Housing: Apartment Alcohol intake: current Alcohol intake frequency: holidays/special occasions on ly Alcohol type: hard liquor Patient Tobacco Use Status: Current everyday Tobacco user Years Smoked: 39 Substance Use Type: Crack/Cocaine and Marijuana service: No Current occupational status: employed Review of Systems Const Reports no additional complaints Eyes Reports no additional complaints ENT Reports no additional complaints Card Reports as per HPI Resp Reports no additional complaints GI Reports as per HPI Reports as per HPI Musc Reports as per HPI Neuro Reports no additional complaints Psych Reports no additional complaints Endo Reports no additional complaints Robby/Lymph Reports no additional complaints Aller/Immun Reports no additional complaints Physical Exam Const General: cooperative, healthy appearing, comfortable, no acute distress, well developed, alert and awake Nutritional Appearance: overweight Orientation/consciousness: patient oriented x3 Limitations: no limitations HEENT Head: Yes normal to inspection, Yes normocephalic and Yes atraumatic Ears: hearing grossly normal bilaterally Eyes General: appearance normal, both eyes and all related structures Neck Neck: Yes normal visual inspection and Yes trachea midline Chest Chest palpation & inspection: normal inspection of the chest Resp Effort & Inspection: normal respiratory effort and able to speak in complete sentences Cardio Rate: regular rate GI Inspection: Yes normal to inspection General: Yes no CVA tenderness Back/Spine/Pelvis Back: no CVA tenderness Skin General skin exam: no rashes or lesions noted Neuro General: patient oriented x3 Extrem General: Yes normal to inspection Psych Appearance: grossly normal and well kempt Mental Status: mental status grossly normal Speech and movement: Normal speech and movement present and Clear speech present Affect: normal affect Attitude: cooperative Thought process: Normal thought process present Thought content: Normal thought content present Insight: Fair insight present (Psych) Judgement: Fair judgement present (Psych) Office Procedures Post Void Residual Post Residual Void Post Void Residual (PVR): 35 23336-Nulv Void Residual by ultrasound Results AMB Urinalysis, Automated UA Leukoctes 0 Raven/uL Last Edit by [employer] on 08/08/23 15:45 UA Nitrite Negative Last Edit by [employer] on 08/08/23 15:45 UA Urobilinogen 0.2 mg/dL Last Edit by [employer] on 08/08/23 15:45 UA Protein 0 mg/dL Last Edit by [employer] on 08/08/23 15:45 UA pH 6.5 Last Edit by [employer] on 08/08/23 15:45 UA Blood 10 Aldair/uL Last Edit by [employer] on 08/08/23 15:45 UA Specific Hinckley 1.005 Last Edit by [employer] on 08/08/23 15:45 UA Ketone Negative Last Edit by [employer] on 08/08/23 15:45 UA Bilirubin 0 mg/dL Last Edit by [employer] on 08/08/23 15:45 UA Glucose 0 mg/dL Last Edit by [employer] on 08/08/23 15:45 Results Reviewed Results Reviewed: Laboratory Last Values Urine pH (Auto) 6.5 08/08/23 15:40 Specific Hinckley (Auto) 1.005 08/08/23 15:40 Urine Protein (Auto) 0 mg/dL 08/08/23 15:40 Glucose (UA)(Auto) 0 mg/dL 08/08/23 15:40 Urine Ketones (Auto) Negative 08/08/23 15:40 Urine Blood (Auto) 10 Aldair/uL 08/08/23 15:40 Urine Nitrite (Auto) Negative 08/08/23 15:40 Urine Bilirubin (Auto) 0 mg/dL 08/08/23 15:40 Urine Urobilinogen (Auto) 0.2 mg/dL 08/08/23 15:40 Leukocyte Esterase (Auto) 0 Raven/uL 08/08/23 15:40 Assessment & Plan Assessment & Plan (1) Nocturia: Code(s): R35.1 - Nocturia Category: Medical (2) Microscopic hematuria: Code(s): R31.29 - Other microscopic hematuria Category: Medical (3) Nicotine dependence: Code(s): F17.200 - Nicotine dependence, unspecified, uncomplicated Category: Medical Plan In office urinalysis results reviewed with the patient today; as noted above; will send for urine cytology. PVR 35 mL. Discussed at length potential causes for microscopic hematuria; discussed further workup to include CT urogram, in office cystoscopy, and urine cytology; discussed risks and benefits of further workup versus surveillance monitoring. Will obtain sleep study for further assessment evaluation. Discussed at length potential causes of nocturia. Discussed limiting fluids 2-3 hours prior to bed to decrease episodes of nocturia. Discussed bladder triggers/irritants. Discussed, educated, and stressed the importance of limiting/quitting smoking for overall health and well-being. Will obtain CT urogram for further assessment evaluation. BUN and creatinine ordered for imaging. Follow-up in office cystoscopy with imaging and labs to be completed prior; or sooner with any issues, concerns, and or questions. Orders: Orders Urine Cytology Today Z13.9 - Encounter for screening, unspecified CT urogram Today R31.0 - Gross hematuria RT home sleep study Today R06.83 - Snoring, R35.1 - Nocturia, R53.83 - Other fatigue AMB Urinalysis Automated Today Z13.9 - Encounter for screening, unspecified AMB Post Void Residual by ultrasound Today Z13.9 - Encounter for screening, unspecified Blood Urea Nitrogen Today R31.29 - Other microscopic hematuria, R35.1 - Noc turia Creatinine Today R31.29 - Other microscopic hematuria, R35.1 - Nocturia Patient Instructions: The patient had an opportunity to ask questions regarding the treatment plan. All questions were answered. Physical exam, labs, and imaging were discussed and reviewed in detail. As well as risks, benefits, and discussion of treatment choices. No major barriers to understanding were identified. The patient expressed understanding and agreement with the above treatment plan. The patient was made aware they should contact our office by phone for worsening of their current condition, the appearance of new symptoms, or with any questions or concerns. Compliance is encouraged with any medications and follow up testing that is ordered. It is a privilege to be allowed the opportunity to participate in? your urological care.? Again, if you have any questions or concerns If you have any questions or concerns please do not hesitate to contact me. The office is [phone]. This note is constructed using voice recognition software. While every effort has been made to ensure accuracy fire lieutenant marine errors may have been included. Yours sincerely, CINTHYA Aguiar-MEGHANA Coding Level of Care Code New Pt Level 4 (45325) Diagnoses Nocturia R35.1 Microscopic hematuria R31.29 Nicotine dependence F17.200 CPT Codes Post Residual Void - PVR CPT Code: 92282-Chxa Void Residual by ultrasound ([id number]) Time Spent (min) 35
== END 2023-08-08 16:02 | disposition home or self-care (01) ==
PROVIDERS: PCP Internal Medicine; Visit Provider Nurse Practitioner Family
DX: R35.1 Nocturia (principal); R31.29 Other microscopic hematuria; F17.200 Nicotine dependence, unspecified, uncomplicated; Z13.9 Encounter for screening, unspecified
CPT/HCPCS: 99204

== ENCOUNTER 2023-09-04 08:29 | Emergency (ER) | payer OTHER, SELFPAY ==
--- NOTE | ~2023-09-04 | XR_ITS ---
EXAMINATION: XR KNEE, LEFT CLINICAL INFORMATION: Work injury COMPARISON: Left knee radiograph from 07/20/2020 TECHNIQUE: Four views of the left knee. FINDINGS: No acute visible fracture or dislocation. Multicompartment arthritic changes. Enthesopathy at the quadriceps tendon insertion site. 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 Joint space alignment otherwise maintained. No large knee joint effusion. Soft tissues are unremarkable. XR/XR knee LT 4V IMPRESSION: 1. No acute visible fracture or dislocation. 2. Multicompartment arthritic changes. 3. Enthesopathy at the quadriceps tendon insertion site. 4. 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
[2023-09-04 08:39] VITALS: BP 144/59; PULSE 71; RESP 18; TEMP 36.6; O2SAT 98; BMI 31.7
--- NOTE | 2023-09-04 09:42 | ED_ITS ---
HPI - General Adult General Chief complaint: Extremity Injury, Lower Stated complaint: l knee inj at work Time Seen by Provider: 09/04/23 09:43 Source: patient Mode of arrival: ambulatory Limitations: no limitations History of Present Illness ED Provider: Meredith SANCHEZ narrative: Patient is a 63-year-old male presenting to the emergency department complaint of left knee pain and swelling since yesterday. 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 He felt a twisting sensation. He arrives in a knee brace and using crutches from home. Has not taken any [id number]-oermojk medications for his symptoms. MD complaint: Left knee pain Onset (ago): day(s) Location: left and lower extremity Radiation: non-radiation Severity: severe Quality: aching Pain Consistency: constant Relieving factors: rest Exacerbating factors: movement Associated symptoms: denies other symptoms Treatments prior to arrival: none Related Data Home Medications ?Medication ?Instructions ?Recorded ?Confirmed buprenorphine 8 mg-naloxone 2 mg 1 strip sublingual BID 06/04/20 04/30/23 sublingual film (Suboxone) apixaban 2.5 mg tablet (Eliquis) 2.5 mg PO Q12H 04/30/23 04/30/23 ascorbate calcium (vitamin C) 500 500 mg PO DAILY 07/25/23 mg tablet cholecalciferol (vitamin D3) 25 25 mcg PO DAILY 07/25/23 mcg (1,000 unit) tablet lisinopril 20 1 tab PO DAILY 07/25/23 mg-hydrochlorothiazide 12.5 mg tablet lorazepam 1 mg tablet 1 mg PO 07/25/23 mecobalamin (vitamin B12) 500 mcg mcg PO 07/25/23 chewable tablet multivitamin 1 tab PO DAILY 07/25/23 triamcinolone acetonide 0.1 % appl topical pain 07/25/23 topical cream Previous Rx's ?Medication ?Instructions ?Recorded albuterol sulfate 90 mcg/actuation 2 puff inhalation QID PRN 07/22/21 aerosol inhaler shortness of breath or wheezing #6.7 grams bisacodyl 5 mg tablet,delayed 10 mg (2 x 5 mg) PO BEDTIME 2 days 07/25/23 release (Dulcolax (bisacodyl)) #4 tabs peg 3350-electrolytes 236 240 ml PO Q10M 1 day #4,000 mL 07/25/23 gram-22.74 gram-6.74 gram-5.86 gram solution (Golytely) lidocaine 5 % topical patch 1 patch topical DAILY #15 ea 09/04/23 Allergies Allergy/AdvReac Type Severity Reaction Status Date / Time No Known Allergies Allergy Verified 09/04/23 08:42 [No Known Allergies*] Review of Systems Review of Systems: As per HPI. Yes all other systems are reviewed and are negative Constitutional: Constitutional: Reports as per HPI [facility] Past Medical History Medical History Atrial fibrillation with RVR New onset of congestive heart failure Arthritis Hypertension History of pyloric stenosis Surgical History Status post total replacement of both hips S/P gastric surgery History of wisdom tooth extraction History of colonoscopy Family History Family History Father Prostate cancer HTN (hypertension) Mother HTN (hypertension) Heart disease Arthritis Kidney disease Diabetes Stroke FH: cataracts Constipation S/P colostomy Family/Other ADHD Disc disease, degenerative, lumbar or lumbosacral Maternal Uncle Cancer S/P colostomy Social History Social History Household Members: None Housing: Apartment Alcohol intake: current Alcohol intake frequency: holidays/special occasions only Alcohol type: hard liquor Patient Tobacco Use Status: Current everyday Tobacco user Years Smoked: 39 Substance Use Type: Crack/Cocaine and Marijuana Advance Directives: No service: No Current occupational status: employed Physical Exam ED Vital Signs: Vital Signs - 24 hr 09/04/23 08:39 Temperature 97.8 F Pulse Rate 71 Respiratory Rate 18 Blood Pressure 144/59 H Pulse Oximetry 98 Oxygen Delivery Method Room Air BMI result Body Mass Index 31.7 Vital signs have been reviewed and appear to be correct. Blood pressure mildly elevated. Heart rate normal. Respiratory rate normal. Temperature normal. Oxygen saturation normal. Const General: cooperative, healthy appearing and no acute distress Orientation/consciousness: oriented to person, oriented to place, oriented to time and patient oriented x3 Limitations: no limitations HENMT Head: Yes normocephalic and Yes atraumatic Ears: external ears normal General nose exam: Normal external nose present Face and sinus: Yes face symmetric Mouth: oropharynx normal and moist mucous membranes Throat: Yes uvula midline Eyes Pupils: Equal, round and reactive pupils present Neck Neck: Yes normal visual inspection and Yes supple Resp Effort & Inspection: normal respiratory effort and able to speak in complete sentences Auscultation: clear to auscultation bilaterally Cardio Rate: regular rate Rhythm: regular rhythm Heart sounds: S1 normal heart sound present and S2 normal heart sound present GI Palpation (GI): Soft to palpation and nontender Auscultation: normoactive bowel sounds General: Yes no CVA tenderness Back/Spine/Pelvis Back: no CVA tenderness Skin General skin exam: elasticity normal and turgor normal Neuro General: oriented to person, oriented to place, oriented to time, patient oriented x3, moves all extremities, no focal motor deficits and CN's II-XI intact bilaterally Cranial nerves: Yes Equal, round and reactive pupils present Cognition (Neuro): normal cognition Extrem General: Yes full ROM, Yes normal exam except as noted, Yes no pedal edema and Yes no calf tenderness Left lower extremity: knee Details: tenderness Location: of the medial joint line, swelling Location: of the pre-patellar area, normal ROM (pain with ROM) and knee ligament exam normal Details: anterior drawer test normal, posterior drawer test normal, valgus stress test normal, varus stress test normal and Phillip's test normal; no ecchymosis and no unusual warmth and foot Details: vascular exam Details: dorsalis pedis pulse present and posterior tibial pulse present Psych Mental Status: mental status grossly normal Affect: normal affect Thought process: Normal thought process present Medical Decision Making Medical Decision Making MDM Narrative: Patient is a 63-year-old male presenting to the emergency department complaint of left knee pain and swelling since yesterday. On exam patient is awake, A+ Ox3, VS WNL, afebrile, normal neurological exam without focal deficits, physical exam findings as above. Given reported symptoms and physical exam findings, initial differential includes left knee strain, sprain, ligamentous injury. Unlikely fracture or dislocation. Do not suspect septic arthritis. X-ray notable for no acute fracture or dislocation, arthritic changes, enthesopathy at quadriceps tendon insertion site, previously noted bony ankylosis. My interpretation is in agreement with the radiologist's interpretation. Will place patient in knee immobilizer and advised him to remain nonweightbearing until evaluated by orthopedics. Patient has his own crutches, will provide crutch teaching and ensure crutches or fitted properly. [facility] as this was a work-related injury. Advised patient to keep leg elevated while at rest and apply ice intermittently. Will send prescription for lidocaine patches, advised Tylenol every 6 hours as patient is on Eliquis. Instructed patient to follow-up with PCP as well. Return precautions discussed. Patient verbalized understanding of and agreement with plan. Differential Diagnosis Differential Diagnoses: The differential diagnosis associated with the presentation includes As per MDM. Independent Interpretation I performed an independent interpretation of an: Plain X-Ray Interpretation: X-ray notable for no acute fracture or dislocation, arthritic changes, enthesopathy at quadriceps tendon insertion site, previously noted bony ankylosis. Radiology Impression Discussion of test interpretation with radiology: I have reviewed the radiologist's reading. Radiologist Impression: XR/XR knee LT 4V IMPRESSION: 1. No acute visible fracture or dislocation. 2. Multicompartment arthritic changes. 3. Enthesopathy at the quadriceps tendon insertion site. 4. 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 External Record Review External record reviewed: Inpatient record, Office record and Outpatient record Prescription Management I considered prescription management with: Pain Medication Discharge Plan Discharge Clinical Impression: Strain of left knee Patient Disposition: Home, Self-Care Instructions: Knee Sprain (DC), Crutch Instructions (ED), Knee Immobilizer (ED) Additional Instructions: You were evaluated in the emergency department today for left knee pain. Your x-ray did not show evidence of a fracture or dislocation. We recommend further evaluation and management with orthopedics. PLEASE CALL THEIR OFFICE TO SCHEDULE AN APPOINTMENT, THEY WILL NOT CALL YOU. You were placed in a knee immobilizer in the emergency department today. Please wear this until advised otherwise by Orthopedics. You were provided with crutch teaching. We recommend that you elevate your leg while at rest and apply ice for 10-15 minutes at a time several times daily, using caution not to apply ice directly to skin. We recommend taking 650 mg of Tylenol every 6 hours as needed for pain. You are also being prescribed topical lidocaine patches which you can wear for up to 12 hours in a 24 hour period, do not apply heat directly over the patches. You will need to follow-up with [facility] as this was a work-related injury. Please call to schedule an appointment. [facility] [address] [place] [address] Return to the emergency department if you develop new redness, increasing swelling, worsening pain, fever, change of color in your leg or any other concerning symptoms. Prescriptions: New lidocaine 5 % adhesive patch,medicated 1 patch topical DAILY Qty: 15 0RF Rx Instructions: leave on most painful area for up to 12 hrs No Action buprenorphine-naloxone [Suboxone] 8-2 mg film 1 strip sublingual BID albuterol sulfate 90 mcg/actuation HFA aerosol inhaler 2 puff inhalation QID PRN (Reason: shortness of breath or wheezing) Qty: 6.7 0RF Eliquis 2.5 mg tablet 2.5 mg PO Q12H lisinopril-hydrochlorothiazide 20-12.5 mg tablet 1 tab PO DAILY triamcinolone acetonide 0.1 % cream topical cholecalciferol (vitamin D3) 25 mcg (1,000 unit) tablet 25 mcg PO DAILY lorazepam 1 mg tablet 1 mg PO multivitamin Tablet 1 tab PO DAILY mecobalamin (vitamin B12) 500 mcg tablet,chewable PO ascorbate calcium (vitamin C) 500 mg tablet 500 mg PO DAILY peg 3350-electrolytes [Golytely] 236-22.74-6.74 -5.86 gram recon soln 240 ml PO Q10M 1 Days Qty: 4000 0RF Rx Instructions: until fecal effluent is clear; do not exceed a total volume of 2,000 mL bisacodyl [Dulcolax (bisacodyl)] 5 mg tablet,delayed release (DR/EC) 10 mg PO BEDTIME 2 Days Qty: 4 0RF Referrals: [facility] [Provider Group] Print Language: Faroese
[2023-09-04 11:47] VITALS: BP 122/85; PULSE 58; RESP 16; TEMP 36.2; O2SAT 100
== END 2023-09-04 11:48 | disposition home or self-care (01) ==
PROVIDERS: Emergency Provider Emergency Medicine; PCP Internal Medicine
DX: S86.912A Strain of unspecified muscle(s) and tendon(s) at lower leg level, left leg, initial encounter (principal); I10 Essential (primary) hypertension; W23.0XXA Caught, crushed, jammed, or pinched between moving objects, initial encounter; Y93.9 Activity, unspecified; Y92.9 Unspecified place or not applicable; Y99.0 Civilian activity done for income or pay
CPT/HCPCS: 73564; 99282; 99283

== ENCOUNTER → 2023-09-05 13:03 | Outpatient (BNVA) | payer OTHER, SELFPAY | PROVIDERS: PCP Internal Medicine; Visit Provider Physician Assistant Medical | DX: M25.562 Pain in left knee (principal) | CPT/HCPCS: 99202 ==

== ENCOUNTER → 2023-09-09 12:36 | Outpatient (BNVA) | payer OTHER, SELFPAY | PROVIDERS: PCP Internal Medicine; Visit Provider Physician Assistant Medical | DX: M23.92 Unspecified internal derangement of left knee (principal); S83.412A Sprain of medial collateral ligament of left knee, initial encounter; S90.02XA Contusion of left ankle, initial encounter; W24.0XXA Contact with lifting devices, not elsewhere classified, initial encounter | CPT/HCPCS: 73610; 99214 ==

== ENCOUNTER → 2023-09-16 12:56 | Outpatient (BNVA) | payer OTHER, SELFPAY | PROVIDERS: PCP Internal Medicine; Visit Provider Physician Assistant Medical | DX: M23.92 Unspecified internal derangement of left knee (principal); S83.412A Sprain of medial collateral ligament of left knee, initial encounter; S90.02XA Contusion of left ankle, initial encounter; W24.0XXA Contact with lifting devices, not elsewhere classified, initial encounter | CPT/HCPCS: 99213 ==

== ENCOUNTER 2023-09-19 08:13 | Outpatient (REF) | payer OTHER, SELFPAY ==
--- NOTE | ~2023-09-19 | XR_ITS ---
EXAMINATION: XR KNEE, BILATERAL CLINICAL INFORMATION: Pain. COMPARISON: 09/04/2023. TECHNIQUE: AP standing view and sunrise views of the bilateral knees FINDINGS: Minimal narrowing of the bilateral medial compartments. Redemonstration of bony ankylosis along the left proximal tibial metadiaphysis and left proximal fibular head. Tiny posterior patellar osteophytes bilaterally. XR/XR knee LT 1V IMPRESSION: 1. Mild degenerative changes as detailed above. 2. Redemonstration of bony ankylosis along the left proximal tibial metadiaphysis and left proximal fibular head.
--- NOTE | ~2023-09-19 | XR_ITS ---
EXAMINATION: XR KNEE, BILATERAL CLINICAL INFORMATION: Pain. COMPARISON: 09/04/2023. TECHNIQUE: AP standing view and sunrise views of the bilateral knees FINDINGS: Minimal narrowing of the bilateral medial compartments. Redemonstration of bony ankylosis along the left proximal tibial metadiaphysis and left proximal fibular head. Tiny posterior patellar osteophytes bilaterally. XR/XR knee RT 2V IMPRESSION: 1. Mild degenerative changes as detailed above. 2. Redemonstration of bony ankylosis along the left proximal tibial metadiaphysis and left proximal fibular head.
== END 2023-09-19 08:14 | disposition home or self-care (01) ==
LOC: HO.HOSX 08:13
PROVIDERS: Visit Provider Physician Assistant
DX: M23.92 Unspecified internal derangement of left knee (principal)
CPT/HCPCS: 73560; 99202

== ENCOUNTER 2023-09-19 10:53 | Outpatient (AMB) | payer OTHER, SELFPAY ==
[2023-09-19 11:10] VITALS: BMI 31.7
--- NOTE | 2023-09-19 11:10 | A.OFFVIS_ITS ---
Vital Signs 09/19/23 11:10 Height 5 ft 9 in Weight 215 lb BMI 31.7 Intake Visit Reasons: New Pt - Left knee injury, WC 09/03/23 Intake Note: Mateo is a 63 year old male who presents today as a new patient for a evaluation of his left knee injury, DOI 09/03/23. He states that he was operating a Merlin at work and when he turned the corner it did not stop as it was supposed to and states that his knee became pinned in between the merlin and a steal wall. Currently he is doing a little better, he states that his ROM is a bit limited. He finds relief with taking Tylenol 650mg and using lidocaine patches. Allergies No Known Allergies [No Known Allergies*] Allergy (Verified 09/19/23 11:11) HPI HPI New Pt - Left knee injury, WC 09/03/23: Details: 63-year-old male who presents in the office today, as a new patient, for an evaluation of left knee pain. The patient presented to the ED on 09/04/2023 with a complaint of left knee pain accompanied by edema, which began on 09/03/2023. He reports he was operating a merlin at work when he turned a corner. The merlin did not stop like it was supposed to pinning his left knee and causing him a twisting sensation. He presented to the ED in a knee brace with crutch from home. X-rays were obtained. He was placed in a knee immobilizer and instructed to remain non-weight bearing.? ? The patient reported being seen at work connection and confirmed this is a work- related injury. ? ? While in the office today, the patient confirmed his left knee was pinned at a corner of a steal wall while using a merlin at work. He states he is currently doing ?a little better?. He reports his ROM is also slightly better. He finds pain relief with the use of Tylenol 650 mg and Lidocaine patches. ? [facility] Medical History Atrial fibrillation with RVR New onset of congestive heart failure Arthritis Hypertension History of pyloric stenosis Surgical History Status post total replacement of both hips S/P gastric surgery History of wisdom tooth extraction History of colonoscopy Family History Father Prostate cancer HTN (hypertension) Mother HTN (hypertension) Heart disease Arthritis Kidney disease Diabetes Stroke FH: cataracts Constipation S/P colostomy Family/Other ADHD Disc disease, degenerative, lumbar or lumbosacral Maternal Uncle Cancer S/P colostomy Social History (Updated 09/19/23 @ 11:22 by Radha Blanco) Household Members: None Housing: Apartment Alcohol intake: current Alcohol intake frequency: holidays/special occasions only Alcohol type: hard liquor Patient Tobacco Use Status: Current everyday Tobacco user Years Smoked: 39 Substance Use Type: Crack/Cocaine and Marijuana Substance Use Type Other:: no longer using service: No Current occupational status: employed Review of Systems Const All systems reviewed & are unremarkable except as noted in HPI and below Physical Exam Vital Signs: BMI result Body Mass Index 31.7 Const General: cooperative and no acute distress Orientation/consciousness: patient oriented x3 Resp Effort & Inspection: normal respiratory effort and able to speak in complete sentences Cardio Peripheral pulses: Peripheral pulses 2+ throughout Skin General skin exam: no rashes or lesions noted Neuro General: patient oriented x3 Extrem Other: Left knee: Normal to inspection. No ecchymosis, erythema, or joint effusion. No tenderness to palpation over the medial or lateral joint lines. ROM is 0-90 degrees. Positive Steiman?s at the medial and lateral joint lines. NVI.? Assessment & Plan Assessment & Plan (1) Internal derangement of left knee: Code(s): M23.92 - Unspecified internal derangement of left knee Category: Medical Plan Mr. Graham is a 63-year-old male who presents in the office today, as a new patient, for an evaluation of left knee pain. The patient presented to the ED on 09/04/2023 with a complaint of left knee pain accompanied by edema, which began on 09/03/2023. He reports he was operating a merlin at work when he turned a corner. The merlin did not stop like it was supposed to pinning his left knee and causing him a twisting sensation. He presented to the ED in a knee brace with crutch from home. X-rays were obtained. He was placed in a knee immobilizer and instructed to remain non-weight bearing.? ? The patient reported being seen at work connection and confirmed this is a work- related injury. ? ? While in the office today, the patient confirmed his left knee was pinned at a corner of a steal wall while using a merlin at work. He states he is currently doing ?a little better?. He reports his ROM is also slightly better. He finds pain relief with the use of Tylenol 650 mg and Lidocaine patches.? ? A referral for an MRI to further evaluate the integrity of the left knee was made in the office today. We discussed the role of physical therapy; however, the patient has declined at this time due to working on ROM at home. He will call the office once the MRI is obtained. Follow-up will after the MRI, or sooner if needed. ? ? X-rays of the left knee which were obtained while in the office today and were reviewed by me, Elizabeth Erazo PA-C, revealed no acute fractures or dislocations.? ? X-rays of the left knee, obtained on 09/04/2023, revealed:? 1. No acute visible fracture or dislocation.? 2. Multicompartment arthritic changes.? 3. Enthesopathy at the quadriceps tendon insertion site.? 4. 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 Orders: Orders XR knee LT 1V Today M25.569 - Pain in unspecified knee XR knee RT 2V Today M25.569 - Pain in unspecified knee MR knee LT wo con Today M23.92 - Unspecified internal derangement of left knee Patient Instructions: Scribed by Vashti Escamilla anesthesiology medical doctor, for Elizabeth Erazo PA-C on 09/19/2023 at 11:37 am, EST.? Coding Level of Care Code New Pt Level 4 (17797) Diagnoses Internal derangement of left knee M23.92
== END 2023-09-19 11:33 | disposition home or self-care (01) ==
PROVIDERS: PCP Internal Medicine; Visit Provider Physician Assistant
DX: M23.92 Unspecified internal derangement of left knee (principal); W23.0XXA Caught, crushed, jammed, or pinched between moving objects, initial encounter; Y99.0 Civilian activity done for income or pay; Z04.2 Encounter for examination and observation following work accident
CPT/HCPCS: 99204

== ENCOUNTER → 2023-09-23 14:58 | Outpatient (BNVA) | payer OTHER, SELFPAY | PROVIDERS: PCP Internal Medicine; Visit Provider Physician Assistant Medical | DX: M23.92 Unspecified internal derangement of left knee (principal) | CPT/HCPCS: 99213 ==

== ENCOUNTER → 2023-09-24 14:51 | Outpatient (REF) | payer OTHER, SELFPAY | LOC: HO.SL 14:51 | PROVIDERS: PCP Internal Medicine; Visit Provider Nurse Practitioner Family | DX: G47.33 Obstructive sleep apnea (adult) (pediatric) (principal); R35.1 Nocturia; R53.83 Other fatigue; R06.83 Snoring | CPT/HCPCS: 95806 ==

== ENCOUNTER → 2023-09-26 15:03 | Outpatient (BNV) | payer OTHER, SELFPAY | PROVIDERS: PCP Internal Medicine; Visit Provider Internal Medicine | DX: G47.33 Obstructive sleep apnea (adult) (pediatric) (principal) | CPT/HCPCS: 95806 ==

== ENCOUNTER 2023-09-27 09:50 | Outpatient (REF) | payer OTHER, SELFPAY ==
[2023-09-27 10:53] LABS: Blood Urea Nitrogen 16 mg/dL (9-16); Estimated Glomerular Filt Rate > 60
== END 2023-09-27 09:51 | disposition home or self-care (01) ==
LOC: HO.LAB 09:50
PROVIDERS: PCP Internal Medicine; Visit Provider Nurse Practitioner Family
DX: R31.29 Other microscopic hematuria (principal); R35.1 Nocturia
CPT/HCPCS: 36415; 82565; 84520

== ENCOUNTER 2023-09-30 12:31 | Outpatient (AMB) | payer OTHER, SELFPAY ==
--- NOTE | 2023-09-30 13:04 | A.OFFVIS_ITS ---
Intake Visit Reasons: cysto/CT/labs Intake Note: Patient is Present for Cystoscopy Urology Med: None Antibiotic Allergy:None Blood Thinner:Eliquis URO- G Disposable Cystoscope lot: [id number] exp:05/08/2026 Aerial Crop Duster Required: No Allergies No Known Allergies [No Known Allergies*] Allergy (Verified 09/30/23 13:04) HPI Comments Details: Mateo is a pleasant male. He has a patient of Dr. Au. He has seen for the following urologic conditions - lower urinary tract symptoms Here for cystoscopy secondary to microscopic hematuria Prostate normal Side effects with prior medication and retrograde ejaculation Will start alfuzosin 2 month follow-up with a me. Apparently sleep study has been done. Lower urinary tract symptoms Progressive nocturia getting up 3-7 times per night Prior history sleep apnea but had stopped using CPAP machine. Reports fatigue and snoring. Prior history of nephrolithiasis Smoking history 25 year pack per day history Urine cytology negative Is on Eliquis PSA 09/09 0.1, 06/14 0.1 PFSH Medical History Atrial fibrillation with RVR New onset of congestive heart failure Arthritis Hypertension History of pyloric stenosis Surgical History Status post total replacement of both hips S/P gastric surgery History of wisdom tooth extraction History of colonoscopy Family History Father Prostate cancer HTN (hypertension) Mother HTN (hypertension) Heart disease Arthritis Kidney disease Diabetes Stroke FH: cataracts Constipation S/P colostomy Family/Other ADHD Disc disease, degenerative, lumbar or lumbosacral Maternal Uncle Cancer S/P colostomy Social History Household Members: None Housing: Apartment Alcohol intake: current Alcohol intake frequency: holidays/special occasions only Alcohol type: hard liquor Patient Tobacco Use Status: Current everyday Tobacco user Years Smoked: 39 Substance Use Type: Crack/Cocaine and Marijuana service: No Current occupational status: employed Review of Systems Const Denies chills and Denies fever(s) Card Reports no additional complaints and Denies syncope Resp Denies cough GI Denies abdominal pain and Denies heartburn Reports as per HPI and Denies change in libido Neuro Denies syncope Psych Denies change in libido Endo Denies change in libido Physical Exam Const General: cooperative, healthy appearing, comfortable and no acute distress Orientation/consciousness: patient oriented x3 HEENT Face and sinus: Yes normal facial exam Mouth: moist mucous membranes Neck Neck: Yes normal visual inspection, Yes full ROM and Yes trachea midline Chest Chest palpation & inspection: normal inspection of the chest Resp Effort & Inspection: normal respiratory effort, able to speak in complete sentences and no respiratory distress GI Inspection: Yes normal to inspection Back/Spine/Pelvis Cervical Spine: normal cervical lordosis Thoracic/Lumbar Spine: thoracic and lumbar spine normal to inspection Skin General skin exam: no rashes or lesions noted Neuro General: patient oriented x3, gait normal, tone normal and moves all extremities Extrem General: Yes normal to inspection and Yes capillary refill normal Office Procedures Cystoscopy Consent Discussed risk and benefit or proposed procedure with the patient. Information consent for procedure given to the patient. Discussed technical aspects, risks, benefits and alternatives in full. Addressed all of the patient's questions and concerns regarding the procedure. The patient demonstrated knowledge and u nderstanding. They wish to proceed with this procedure. Preparation The patient was prepped in the usual manner. A billboard poster was present and in the room. Genitalia was prepped with betadine solution in a sterile manner. Lidocaine Jelly 2% was placed into the urethra and 16Fr flexible Olympus cystoscope was inserted into the meatus after adequate lubrication. Procedure Cystoscopy performed using a disposable Urovue digital 16 Ukrainian cystoscope. Meatus circumcised Urethra anterior-posterior urethra normal Prostatic Urethra unremarkable Bladder examination with retroflexion of cystoscope Bladder Orifices normal shape and position Bladder Capacity median Trabeculations grade 1 Cellule Formation - Diverticulum Formation - Mucosal Erythema - Bladder Tumor - 45310-Hlayraxpyh DISPOSABLE SCOPE URO-G FLEXIBLE SCOPE Procedure code (CPT) selection complete Office Meds lidocaine HCl 2 % mucosal jelly in applicator Performing Provider: Navid Mcgowan MD [place] [facility] [place] [facility] Documented (not given) by: Navid Mcgowan MD on 09/30/23 13:49 Dose Route Admin Location Dispensed Lot Number Expiration Date [facility] Care Aide 10 mL intra-urethral mL nitrofurantoin monohydrate/macrocrystals 100 mg capsule Performing Provider: Navid Mcgowan MD Performing Location[place] [facility] [place] [facility] Documented (not given) by: Navid Mcgowan MD on 09/30/23 13:49 Dose Route Admin Location Dispensed Lot Number Expiration Date [facility] Care Aide 100 mg PO cap naproxen 500 mg tablet Performing Provider: Navid Mcgowan MD Performing Location: [facility] [place] [facility] Documented (not given) by: Navid Mcgowan MD on 09/30/23 13:49 Dose Route Admin Location Dispensed Lot Number Expiration Date [facility]DC Care Aide 500 mg PO tab Results AMB Urinalysis, Automated UA Leukoctes 0 Raven/uL Last Edit by Lizz Marie [facility] on 09/30/23 13:16 UA Nitrite Negative Last Edit by Lizz Marie [facility] on 09/30/23 13:16 UA Urobilinogen 0.2 mg/dL Last Edit by Lizz Marie [facility] on 09/30/23 13:1 6 UA Protein 0 mg/dL Last Edit by Lizz Marie [facility] on 09/30/23 13:16 UA pH 6.0 Last Edit by Lizz Marie [facility] on 09/30/23 13:16 UA Blood 10 Aldair/uL Last Edit by Lizz Marie [facility] on 09/30/23 13:16 UA Specific Serafina 1.010 Last Edit by Lizz Marie [facility] on 09/30/23 13: 16 UA Ketone Negative Last Edit by Lizz Marie [facility] on 09/30/23 13:16 UA Bilirubin 0 mg/dL Last Edit by Lizz Marie [facility] on 09/30/23 13:16 UA Glucose 0 mg/dL Last Edit by Lizz Marie [facility] on 09/30/23 13:16 Results Reviewed Results Reviewed: Laboratory Last Values Urine pH (Auto) 6.0 09/30/23 13:05 Specific Serafina (Auto) 1.010 09/30/23 13:05 Urine Protein (Auto) 0 mg/dL 09/30/23 13:05 Glucose (UA)(Auto) 0 mg/dL 09/30/23 13:05 Urine Ketones (Auto) Negative 09/30/23 13:05 Urine Blood (Auto) 10 Aldair/uL 09/30/23 13:05 Urine Nitrite (Auto) Negative 09/30/23 13:05 Urine Bilirubin (Auto) 0 mg/dL 09/30/23 13:05 Urine Urobilinogen (Auto) 0.2 mg/dL 09/30/23 13:05 Leukocyte Esterase (Auto) 0 Raven/uL 09/30/23 13:05 Assessment & Plan Assessment & Plan (1) Nocturia: Code(s): R35.1 - Nocturia Category: Medical Plan Two month follow-up nurse-practitioner Orders: Orders AMB Cystoscopy Today R31.29 - Other microscopic hematuria AMB Urinalysis Automated Today Z13.9 - Encounter for screening, unspecified Medications: New naproxen 500 mg PO ONCE 1 tab 0RF R31.29 - Other microscopic hematuria lidocaine HCl 2% 10 mL intra-urethral ONCE 10 mL 0RF R31.29 - Other microscopic hematuria nitrofurantoin monohyd/m-cryst 100 mg 100 mg PO ONCE 1 cap 0RF R31.29 - Other microscopic hematuria alfuzosin ER Take before bedtime 10 mg PO BEDTIME 30 days 30 tabs 1RF N32.0 - Bladder- neck obstruction, N40.1 - Benign prostatic hyperplasia with lower urinary tract symptoms, R33.9 - Retention of urine, unspecified, R35.1 - Nocturia, R39.12 - Poor urinary stream Patient Instructions: Imaging studies, laboratory and physical exam results were discussed and reviewed in detail. No major barriers to patient understanding were identified. An opportunity to ask questions regarding the treatment plan was provided. All questions were answered. The patient expressed understanding and agreement with the above treatment plan. The patient is aware they should contact our office by phone for worsening of their current condition or the appearance of new urologic symptoms. Compliance is encouraged with any medications and followup testing that is ordered. It is a privilege to participate in the urologic care of your patient. If you have any questions or concerns regarding treatment for the above conditions, or other urologic issues, please do not hesitate to contact me. The office telephone contact is [phone]. This note is constructed using voice recognition software. While every effort has been made to ensure accuracy data analytics developer errors may have been included. Yours sincerely, Dr Navid Mcgowan MD, [facility] - Urology Providers of Expert, Compassionate Care for the Genitourinary System Coding Level of Care Code Est Pt Level 3 (63830) Diagnoses Nocturia R35.1 CPT Codes Cystoscopy - CPT: 54931-[id number] ([id number])
== END 2023-09-30 13:52 | disposition home or self-care (01) ==
PROVIDERS: PCP Internal Medicine; Visit Provider Urology
DX: R35.1 Nocturia (principal); Z13.9 Encounter for screening, unspecified
CPT/HCPCS: 52000; 99213

== ENCOUNTER → 2023-09-30 12:31 | Outpatient (BNVA) | payer OTHER, SELFPAY | PROVIDERS: PCP Internal Medicine; Visit Provider Urology | DX: R35.1 Nocturia (principal) | CPT/HCPCS: 52000; 81003 ==

== ENCOUNTER 2023-10-13 15:03 | Outpatient (REF) | payer OTHER, SELFPAY ==
--- NOTE | ~2023-10-13 | CT_ITS ---
EXAMINATION: CT ABDOMEN AND PELVIS WITHOUT AND WITH CONTRAST CLINICAL INFORMATION: Gross hematuria. Urogram protocol. COMPARISON: CT abdomen and pelvis 04/14/2014. Renal ultrasound 03/30/2019, 09/09/2018. TECHNIQUE: Noncontrast CT of the abdomen and pelvis is performed followed by split bolus contrast-enhanced images using 85 mL Omnipaque 350 contrast. Postcontrast imaging is performed during the combined nephrogram and excretion phase. Sagittal and coronal reformatted images were obtained on the technologist's workstation for both the precontrast and postcontrast phases. This CT examination was performed using dose optimization techniques as appropriate, variously including the following: *Automated exposure control *Adjustment of mA and/or kV according to patient size (this includes techniques or standardized protocols for targeted exams where dose is matched to indication/reason for exam; i.e. extremities or head) *Use of iterative reconstruction technique DLP: 963 mGy-cm Please note, due to [facility] contractual, systems, and staffing issues, an [facility] radiologist was not available for review and dictation of this case until 11/25/2023. FINDINGS: LUNG BASES: Lung bases are clear aside from minor dependent atelectasis. No effusions. LIVER, GALLBLADDER, AND BILIARY TREE: The liver is normal in size, shape, and attenuation. No focal hepatic lesion or biliary ductal dilatation is present. The dome of the liver was excluded from the both the pre and postcontrast sequences. The gallbladder is unremarkable with no evidence of radiopaque gallstones, gallbladder wall thickening, or obvious pericholecystic inflammatory changes. PANCREAS: Unremarkable. SPLEEN: Unremarkable. ADRENAL GLANDS: -There is a low-attenuation left oval adrenal mass measuring 2.6 x 3.2 cm, with Hounsfield units of -11, consistent with a lipid rich benign adenoma. This is unchanged. -The right adrenal gland is normal. KIDNEYS AND URETERS: -Noncontrast exam demonstrates no evidence of calculi in either kidney. -In the left kidney midpole, there is a minimally complex cyst measuring 6.2 x 4.9 x 4,0 cm, increased somewhat in size from 2014 (on 03/30/2019 sonogram, this measured 4.9 x 3.7 x 3.4 cm). After contrast this demonstrates no significant abnormal nodular or thin enhancement. There is a solitary septation with calcification contained within, making this a Bosniak 2 cyst. This is benign. There is a smaller simple cyst in the more inferior aspect left kidney, simple in appearance, measuring 2.6 cm in diameter. This is benign. -There are no renal masses, no hydronephrosis, and there are no pyelocalyceal filling defects identified. -There are symmetric nephrograms. There is symmetric excretion of contrast on the delayed sequence. -Ureters enhance normally and are normal in course and caliber. No ureteral abnormality. BLADDER: The urinary bladder posteroinferior aspect is obscured by streak artifact from bilateral replacements. Within these confines, there are no bladder calculi or definite bladder masses or wall thickening identified in the visualized aspects of the bladder. If there remains high clinical suspicion, cystoscopy is recommended. GASTROINTESTINAL TRACT: -Probable small type hiatus hernia. -The stomach is decompressed but grossly normal. -The duodenal sweep is normal. -Small bowel appears normal in course and caliber. -Normal appendix is visualized. -Colon is normal in course and caliber. No significant diverticular disease. No wall thickening or inflammation. -The rectum is partially obscured by streak artifact but grossly normal. ABDOMINAL WALL: There is a right scrotal hydrocele incidentally noted. This is partially imaged. -No hernia is appreciated. -Abdominal and pelvic wall is normal. No adenopathy. LYMPH NODES: No abnormal lymph nodes are appreciated in the abdomen or pelvis. VASCULAR: The aorta is normal in caliber and course. No aneurysm. Mild atheromatous calcification of the iliac arteries. PELVIC VISCERA: Prostate is largely obscured. No definite enlargement. OSSEUS STRUCTURES: -Bilateral hip arthroplasties in place. [id number] heterotopic bone formation is present right greater than left . -Mild levoconvex scoliosis of the lumbar spine with associated moderate degenerative spondylosis most significant at L3-4. 5 mm, grade 1 anterolisthesis L3 on L4. There are bilateral L3 pars defects. Disc vacuum phenomenon L3-4 and L5-S1. -Mild degenerative changes in both SI joints. -No suspicious lytic or blastic bony lesions appreciated. CT/CT urogram IMPRESSION: 1. No CT urogram explanation for hematuria. The imaged urinary bladder appears normal. Of note, posteroinferior aspect of the urinary bladder is completely obscured by streak artifact from bilateral hip arthroplasties, making this region non-characterizable. If there is high clinical suspicion, cystoscopy is recommended. Alternatively, a quality sonogram of the urinary bladder could also be performed. 2. There are no renal calculi, or masses. The ureters are normal in course and caliber. 3. There are 2 cysts in the left kidney, the larger measuring 6.2 x 4.9 x 4.0 cm, with a solitary thin septation with thin calcification, making this a Bosniak 2 cyst. The smaller cyst is a simple cyst. The right kidney is normal. 4. The dome of the liver has been excluded from the examination. 5. Stable left adrenal lipid rich adenoma. This is benign. 6. Additional ancillary findings as discussed in the body of the report. Electronically signed by: Johnny Hurley MD 11/25/2023 08:51 AM EDT
[2023-10-13] MEDS: iohexoL 350 MG/ML 100 ML INFUS..BTL IV (16:24)
== END 2023-10-13 15:04 | disposition home or self-care (01) ==
LOC: HO.CT 15:03
PROVIDERS: Visit Provider Nurse Practitioner Family
DX: R31.0 Gross hematuria (principal)
CPT/HCPCS: 74178; Q9967

== ENCOUNTER → 2023-10-13 15:05 | Outpatient (BNV) | payer OTHER, SELFPAY | PROVIDERS: Visit Provider Radiology Diagnostic Radiology | DX: R31.0 Gross hematuria (principal) | CPT/HCPCS: 74178 ==

== ENCOUNTER → 2023-10-14 14:58 | Outpatient (BNVA) | payer OTHER, SELFPAY | PROVIDERS: PCP Internal Medicine; Visit Provider Physician Assistant Medical | DX: S86.912D Strain of unspecified muscle(s) and tendon(s) at lower leg level, left leg, subsequent encounter (principal); W23.0XXD Caught, crushed, jammed, or pinched between moving objects, subsequent encounter | CPT/HCPCS: 99213 ==

== ENCOUNTER 2023-10-18 10:12 | Outpatient (REF) | payer OTHER, SELFPAY ==
--- NOTE | ~2023-10-18 | MR_ITS ---
EXAMINATION: MR KNEE WITHOUT CONTRAST, LEFT CLINICAL INFORMATION: Unspecified internal derangement of the knee. COMPARISON: None available. TECHNIQUE: MRI of the knee without contrast was performed using routine sequences on a high-field scanner. FINDINGS: MENISCI: Medial Meniscus: Intact Lateral Meniscus: Intact LIGAMENTS: Cruciate: Intact Collateral: Medial collateral ligament: There is abnormal signal marked thickening and some irregularity proximal medial collateral ligament beginning at the femoral attachment extending just distal to the joint line. There is some reactive edema within the medial condyle at the deep fibers attachment and some edema in the immediately surrounding soft tissues. Distal ligament grossly intact. Lateral ligaments intact. EXTENSOR MECHANISM: Intact ARTICULAR CARTILAGE/BONE: Patellofemoral Compartment: There is minimal surface irregularity of the cartilage of the medial facet of the patella. There is some mild cartilage heterogeneity of the central sulcus of the trochlea. Overall, mild patellofemoral arthrosis. Medial Compartment: Normal. Lateral Compartment: Normal. JOINT FLUID AND BURSAE: There is a mild joint effusion. MR/MR knee LT wo con IMPRESSION: 1. Moderate grade partial tear of the proximal medial collateral ligament. 2. Mild patellofemoral arthrosis. 3. Mild joint effusion.
== END 2023-10-18 10:13 | disposition home or self-care (01) ==
LOC: HO.MRI 10:12
PROVIDERS: PCP Internal Medicine; Visit Provider Physician Assistant
DX: M23.92 Unspecified internal derangement of left knee (principal)
CPT/HCPCS: 73721

== ENCOUNTER 2023-10-23 14:59 | Outpatient (AMB) | payer OTHER, SELFPAY ==
[2023-10-23 15:14] VITALS: BP 130/78; PULSE 75; O2SAT 96; BMI 32.9
--- NOTE | 2023-10-23 15:14 | A.OFFVIS_ITS ---
Vital Signs 10/23/23 15:14 Height 5 ft 9 in Weight 223 lb BMI 32.9 BP 130/78 Blood Pressure Location Lt brachial Position Sitting Pulse 75 Pulse Source Pulse Oximeter Pulse Oximetry (%) 96 Oxygen Delivery Method Room Air Intake Visit Reasons: sleep apnea Intake Note: pt is here as a new patient for follow up of sleep study, and he does state some shortness of breath, wheezing. Drive In Waiter/Waitress Required: No Allergies No Known Allergies [No Known Allergies*] Allergy (Verified 10/23/23 15:44) Medication List - Last Reconciled 10/23/23 by Carlene Guardado MD albuterol sulfate 90 mcg/actuation 2 puffs inhalation QID PRN alfuzosin ER 10 mg PO BEDTIME 30 days apixaban (Eliquis) 2.5 mg PO Q12H ascorbate calcium (vitamin C) 500 mg PO DAILY bisacodyl (Dulcolax (bisacodyl)) 10 mg (2 x 5 mg) PO BEDTIME 2 days buprenorphine-naloxone 8-2 mg (Suboxone) 1 strip sublingual BID cholecalciferol (vitamin D3) 25 mcg PO DAILY lidocaine 5% 1 patch topical DAILY lisinopril-hydrochlorothiazide 20-12.5 mg 1 tab PO DAILY lorazepam 1 mg PO mecobalamin (vitamin B12) mcg PO multivitamin 1 tab PO DAILY peg 3350-electrolytes 236-22.74-6.74 -5.86 gram (Golytely) 240 mL PO Q10M 1 day triamcinolone acetonide 0.1% appl topical Do you need a note to return to daycare/school/sports/work: No HPI HPI sleep apnea: Details: THIS 63 YEARS OLD GENTLEMAN IS BEING SEEN FOR THE 1ST TIME, FOR MANAGEMENT OF HIS OBSTRUCTIVE SLEEP APNEA. HE IS VERY VAGUE AND HAS SOMEWHAT POOR UNDERSTANDING OF HIS HEALTH ISSUE. IT IS STRANGE TO KNOW THAT HE DOES NOT HAVE ANY PRIMARY CARE PHYSICIAN AT THIS TIME. THE RECENT SLEEP STUDY WAS ORDERED ACTUALLY BY JEROD HORAN , THE NURSE PRACTITIONER . THIS GENTLEMAN WAS HOSPITALIZED IN 2020 DUE TO NEW ONSET ATRIAL FIBRILLATION. HE HAS BEEN MANAGED BY CARDIOLOGY SERVICE, AND IS ON ANTICOAGULATION WITH ELIQUIS ALSO ON LISINOPRIL FOR CONTROL OF HYPERTENSION. HE DID HAVE A SLEEP STUDY IN 2020 WHICH WAS POSITIVE FOR RATHER SEVERE OBSTRUCTIVE SLEEP APNEA. BECAUSE HE ALSO HAD NOCTURNAL HYPOXEMIA IS CPAP TITRATION IN THE SLEEP LAB WAS ADVISED AT THAT TIME. UNFORTUNATELY THERE HAS BEEN NO FOLLOW-UP SINCE THEN, OR AT LEAST I A.M. NOT ABLE TO GET ANY DETAIL. HE CONTINUES TO HAVE POOR SLEEP AT NIGHT WITH FREQUENT AWAKENINGS, HE SNORES HEAVY. HE REMAINS SOMEWHAT TIRED AND SLEEPY DURING THE DAYTIME. IN ADDITION HE ALSO HAS INTERMITTENT COUGH AND WHEEZING AND USES ALBUTEROL INHALER P.R.N.. SURPRISINGLY HE HAD PULMONARY FUNCTION TEST IN 2020 WHICH SHOWED PRESENCE OF SEVERE OBSTRUCTIVE DISORDER AND ALMOST COMPLETE REVERSIBILITY WITH BRONCHODILATOR THERAPY. HE DENIES SMOKING CIGARETTES. HE HAS HISTORY OF OPIOIDS ABUSE, AND CURRENTLY ON SUBOXONE THERAPY [facility] Medical History (Updated 10/23/23 @ 15:59 by Carlene Guardado MD) Asthma LUZ MARINA (obstructive sleep apnea) Obesity (BMI 30-39.9) Atrial fibrillation with RVR New onset of congestive heart failure Arthritis Hypertension History of pyloric stenosis Surgical History Status post total replacement of both hips S/P gastric surgery History of wisdom tooth extraction History of colonoscopy Family History Father Prostate cancer HTN (hypertension) Mother HTN (hypertension) Heart disease Arthritis Kidney disease Diabetes Stroke FH: cataracts Constipation S/P colostomy Family/Other ADHD Disc disease, degenerative, lumbar or lumbosacral Maternal Uncle Cancer S/P colostomy Social History Household Members: None Housing: Apartment Alcohol intake: current Alcohol intake frequency: holidays/special occasions only Alcohol type: hard liquor Patient Tobacco Use Status: Current everyday Tobacco user Cigarette Packs Per Day: 0.5 Cigarettes Per Day: 12 Years Smoked: 39 Substance Use Type: Crack/Cocaine and Marijuana service: No Current occupational status: employed Review of Systems Const All systems reviewed & are unremarkable except as noted in HPI and below Reports snoring Eyes Reports no additional complaints ENT Reports no additional complaints Card Denies chest pain, Denies irregular heart rhythm and Denies leg edema Resp Reports cough, Reports snoring and Reports wheezing GI Reports constipation Reports other (HISTORY OF FREQUENT URINARY TRACT INFECTION) Skin/Breast Reports system reviewed and no additional complaints, except as documented Neuro Reports no additional complaints Psych Reports no additional complaints Endo Reports no additional complaints Robby/Lymph Reports no additional complaints Aller/Immun Reports no additional complaints and Reports wheezing Physical Exam Vital Signs: Last Vital Signs Pulse 75 10/23/23 15:14 BP 130/78 10/23/23 15:14 Pulse Ox 96 10/23/23 15:14 Oxygen Delivery Method Room Air 10/23/23 15:14 BMI result Body Mass Index 32.9 HE IS MODERATELY OBESE WITH THE ROUND FACE, SHORT NECK. Const General: healthy appearing (EXCEPT FOR BEING OVERWEIGHT), comfortable, no acute distress, alert and awake Orientation/consciousness: patient oriented x3 HEENT Head: Yes normal to inspection General nose exam: No nasal polyps present and No nasal discharge present Face and sinus: Yes sinuses nontender Mouth: oropharynx abnormals (NARROW AND SOMEWHAT CROWDED, MALLAMPATI CLASS 3) Throat: Yes posterior oropharynx normal Eyes General: appearance normal, both eyes and all related structures Neck Neck: Yes normal visual inspection, Yes no lymphadenopathy, Yes trachea midline, Yes no JVD and Yes other (NECK SIZE 16 IN) Thyroid: Thyroid normal Chest Chest palpation & inspection: normal inspection of the chest, normal palpation of entire chest wall and no tenderness Resp Effort & Inspection: normal respiratory effort Auscultation: clear to auscultation bilaterally, no crackles and no wheezes Cardio Palpation: normal PMI Rate: regular rate Rhythm: regular rhythm Heart sounds: no gallops and no murmurs Peripheral pulses: Peripheral pulses 2+ throughout GI Palpation (GI): Soft to palpation, nontender, No hepatosplenomegaly present and no masses Auscultation: normal bowel sounds Back/Spine/Pelvis Thoracic/Lumbar Spine: thoracic and lumbar spine normal to inspection Skin General skin exam: no rashes or lesions noted Neuro General: patient oriented x3 and no focal motor deficits Cranial nerves: Yes CN's II-XII intact bilaterally Extrem General: Yes normal to inspection, Yes no clubbing, cyanosis or edema and Yes no calf tenderness Psych Appearance: grossly normal and well kempt Mental Status: mental status grossly normal Speech and movement: Normal speech and movement present Results Reviewed Results Reviewed: HOME-BASED SLEEP STUDY ON 09/26/2023 TOTAL SLEEP TIME AHI 22.6 MOST OF THE SLEEP WAS IN SUPINE POSITION HE SLEPT ONLY FOR 200 64 MINUTE SNORING FOR 10% OF THE SLEEP TIME. MILD NOCTURNAL HYPOXEMIA WITH O2 SAT BELOW 88% FOR 4 MINUTE Assessment & Plan Assessment & Plan (1) Obesity (BMI 30-39.9): Comment: THIS GENTLEMAN IS MODERATELY OBESE WITH CURRENT BMI 32.9. HE DOES HAVE A SHORT OBESE NECK. PHYSICAL FEATURES SUGGESTIVE OF OBSTRUCTIVE SLEEP APNEA Code(s): E66.9 - Obesity, unspecified Category: Medical Plan: DISCUSSED ABOUT HIM BEING OVERWEIGHT. HE WILL HAVE DIFFICULTY IN UNDERSTANDING ABOUT DIETARY RESTRICTION. HOPEFULLY AFTER HE STARTS USING CPAP AND HAS MORE ENERGY WE CAN ASK HIM TO DO SOME EXERCISE. (2) LUZ MARINA (obstructive sleep apnea): Comment: HE IS A KNOWN CASE OF OBSTRUCTIVE SLEEP APNEA SINCE 2020. UNFORTUNATELY HE LOST FOLLOW-UP AFTER HIS INITIAL STUDY IN 2020. HIS CURRENT STUDY IS POSITIVE FOR MODERATELY SEVERE OBSTRUCTIVE SLEEP APNEA. HE HAS MINIMAL NOCTURNAL HYPOXEMIA WHICH SHOULD IMPROVE AFTER TREATMENT OF HIS LUZ MARINA. Code(s): G47.33 - Obstructive sleep apnea (adult) (pediatric) Category: Medical Plan: HE NEEDS TO BE STARTED ON CPAP THERAPY. I HAVE EXPLAINED TO HIM IN DETAIL THE FINDINGS OF SLEEP APNEA AND NEED TO START HIM ON CPAP. CPAP THERAPY WITH AUTO PAP MODE AND PRESSURE SETTING 6-20 CM IS ORDERED, HE WILL BE CHECKED IN 4-6 WEEKS FOR COMPLIANCE AND BENEFITS. (3) Asthma: Comment: HE HAS HISTORY OF INTERMITTENT BRONCHIAL ASTHMA SINCE MANY YEARS. PULMONARY FUNCTION TEST IN JULY 2020 SHOWED SEVERE OBSTRUCTIVE AIRWAY DISORDER W ITH ALMOST COMPLETE REVERSIBILITY. C/W BRONCHIAL ASTHMA, HE HAS BEEN USING ALBUTEROL HFA 2 PUFFS Q 4-6 HOURS P.R.N.. Code(s): J45.909 - Unspecified asthma, uncomplicated Category: Medical Plan: AT THIS TIME HE WILL CONTINUE ALBUTEROL USE P.R.N.. I THINK HE WOULD NEED REPEAT PULMONARY FUNCTION TEST, WHICH WILL BE ARRANGED ON HIS NEXT VISIT. HE MAY NEED TO BE STARTED ON LONG-ACTING BD AND ICS AGENT . Coding Level of Care Code New Pt Level 4 (87359) Diagnoses Obesity (BMI 30-39.9) E66.9 LUZ MARINA (obstructive sleep apnea) G47.33 Asthma J45.909
== END 2023-10-23 15:40 | disposition home or self-care (01) ==
PROVIDERS: PCP Internal Medicine; Visit Provider Internal Medicine
DX: G47.33 Obstructive sleep apnea (adult) (pediatric) (principal); E66.9 Obesity, unspecified; J45.909 Unspecified asthma, uncomplicated
CPT/HCPCS: 99214

== ENCOUNTER → 2023-10-23 14:59 | Outpatient (BNVA) | payer OTHER, SELFPAY | PROVIDERS: PCP Internal Medicine; Visit Provider Internal Medicine ==

== ENCOUNTER 2023-12-18 23:20 | Inpatient (IN) | payer OTHER, SELFPAY ==
--- NOTE | ~2023-12-18 | CT_ITS ---
EXAMINATION: CT ANGIOGRAM CHEST CLINICAL INFORMATION: Chest pain. COMPARISON: None available. TECHNIQUE: Multiple axial images were obtained through the chest after the administration of 65 mL of Omnipaque 350 intravenous contrast. Extensive vascular post-processing including two-dimensional and three-dimensional reformatted images were created and reviewed on an independent workstation. This CT examination was performed using dose optimization techniques as appropriate, variously including the following: *Automated exposure control *Adjustment of mA and/or kV according to patient size (this includes techniques or standardized protocols for targeted exams where dose is matched to indication/reason for exam; i.e. extremities or head) *Use of iterative reconstruction technique DLP: 366 mGy-cm FINDINGS: QUALITY OF STUDY/CONTRAST BOLUS: Satisfactory. PULMONARY ARTERIES: No pulmonary emboli. THORACIC AORTA: No aneurysm. LUNG: There is mild bibasilar atelectasis or scarring. The lungs are otherwise clear. PLEURA: No pleural effusion or pneumothorax. MEDIASTINUM: Normal heart size. No pericardial effusion. No hilar or mediastinal lymphadenopathy. No evidence of septal bowing or right heart strain. CORONARY ARTERY CALCIFICATION: None visualized on this study. CHEST WALL/AXILLA: No axillary or internal mammary lymphadenopathy. OSSEOUS STRUCTURES: No acute or suspicious osseous abnormality. UPPER ABDOMEN: There is a 3.5 cm low-density left adrenal mass. No reflux of contrast into the hepatic veins to suggest elevated right heart pressures. CT/CT angio chest PE protocol IMPRESSION: No evidence of pulmonary embolism. Mild bibasilar atelectasis or scarring. 3.5 cm low-density left adrenal mass probably representing an adenoma. Fleischner guidelines were followed. Electronically signed by: Beka Haas MD 12/19/2023 06:44 AM EDT
--- NOTE | ~2023-12-18 | US_ITS ---
EXAMINATION: US TRIPLEX LOWER EXTREMITY, LEFT CLINICAL INFORMATION: Left lower extremity edema and pain COMPARISON: 07/20/2020 TECHNIQUE: Color-flow triplex imaging with spectral analysis and compression Doppler were performed on the left lower extremity. FINDINGS: Respiratory variation, normal compression and augmented flow are noted throughout the left lower extremity. The visualized common femoral vein, superficial femoral vein, profunda femoral vein, popliteal vein and midcalf peroneal and posterior tibial venous segments show no evidence of deep venous thrombosis. There is no Gómez's cyst. US/US venous duplex LE LT IMPRESSION: No evidence of deep venous thrombosis involving the left lower extremity. Electronically signed by: Zoran Patterson MD 12/19/2023 08:51 AM EDT
--- NOTE | ~2023-12-18 | XR_ITS ---
EXAMINATION: XR CHEST CLINICAL INFORMATION: Dyspnea. COMPARISON: April 27, 2023. TECHNIQUE: Frontal view of the chest was obtained. FINDINGS: The cardiomediastinal silhouette is stable. There is no focal lung consolidation or pleural effusions. The bony structures and the soft tissues are unremarkable. XR/XR chest 1V IMPRESSION: No acute cardiopulmonary process. Electronically signed by: Beka Haas MD 12/19/2023 12:12 AM EDT
[2023-12-18 23:24] VITALS: BP 99/72; PULSE 155; RESP 20; TEMP 36.8; O2SAT 98; BMI 33.7
--- NOTE | 2023-12-18 23:30 | ECG_ITS ---
Test Reason : CHEST PAIN Blood Pressure : / mmHG Vent. Rate : 169 BPM Atrial Rate : 000 BPM P-R Int : 000 ms QRS Dur : 086 ms QT Int : 280 ms P-R-T Axes : 000 061 259 degrees QTc Int : 469 ms Atrial fibrillation with rapid ventricular response Nonspecific ST and T wave abnormality Abnormal ECG When compared with ECG of 27-APR-2023 17:13, Atrial fibrillation has replaced Sinus rhythm Vent. rate has increased BY [address] now depressed in Anterolateral leads Nonspecific T wave abnormality, worse in Inferior leads Nonspecific T wave abnormality now evident in Lateral leads Referred By: Nelson Hoang Electronically Signed By:SVEN PALM
[2023-12-18 23:46] VITALS: BP 115/83; PULSE 180; RESP 18; O2SAT 98
--- NOTE | 2023-12-18 23:47 | MHC.EDTECH ---
Patient brought in from triage,EKG completed by pilot plant techniciannasreen Garcia,this tech changed pt in hospital attire,placed on the campus monitor,HR at 180/RN and MD at bedside,vitals taken
[2023-12-18 23:54] VITALS: BP 115/83; PULSE 175
[2023-12-18] MEDS: dilTIAZem HCL 50 MG/10 ML VIAL 10 MG IVPUSH (23:54)
--- NOTE | 2023-12-18 23:55 | ED.ARRPALP ---
HPI - Arrhythmia/Palpitations General Chief Complaint: Arrhythmia/Palpitations Stated Complaint: heart palp, dizziness Time Seen by Provider: 12/18/23 23:39 Source: patient and old records reviewed Mode of arrival: ambulatory Limitations: other (poor historian) History of Present Illness ED Provider: GILBERTO HPI narrative: 63 yo male with PMH of asthma, anemia, hep C, HTN, PAF prior cardioversion currently on eliquis and compliant since 12/08 though admits between 11/22 and 12/08 he was short 11 days when he went to visit his mom in [place]. He notes in [place] he had episodes on and off of palpitations. He never sought care. He takes his eliquis and lisinopril and that is it. He notes he did drink ETOH today. He states he feels dizzy and tired and his left leg is swollen and a friend told him it could be a blood clot so he hasn't missed a dose of eliquis since 12/08 but it looks like he is on the 2.5mg dose. He has no chest pain. MD complaint: rapid heart beat, heart racing , skipped beats and palpitations Onset (ago): month(s) (1) Duration: intermittent Severity: severe Context: other (states eating bother hims) Arrhythmia history: atrial fibrillation Associated symptoms: shortness of breath, anxiety and paresthesias Related Data Home Medications ?Medication ?Instructions ?Recorded ?Confirmed buprenorphine 8 mg-naloxone 2 mg 1 strip sublingual BID 06/04/20 10/23/23 sublingual film (Suboxone) apixaban 2.5 mg tablet (Eliquis) 2.5 mg PO Q12H 04/30/23 10/23/23 ascorbate calcium (vitamin C) 500 500 mg PO DAILY 07/25/23 10/23/23 mg tablet cholecalciferol (vitamin D3) 25 25 mcg PO DAILY 07/25/23 10/23/23 mcg (1,000 unit) tablet lisinopril 20 1 tab PO DAILY 07/25/23 10/23/23 mg-hydrochlorothiazide 12.5 mg tablet lorazepam 1 mg tablet 1 mg PO 07/25/23 10/23/23 mecobalamin (vitamin B12) 500 mcg mcg PO 07/25/23 10/23/23 chewable tablet multivitamin 1 tab PO DAILY 07/25/23 10/23/23 triamcinolone acetonide 0.1 % appl topical pain 07/25/23 10/23/23 topical cream Previous Rx's ?Medication ?Instructions ?Recorded albuterol sulfate 90 mcg/actuation 2 puff inhalation QID PRN 07/22/21 aerosol inhaler shortness of breath or wheezing #6.7 grams bisacodyl 5 mg tablet,delayed 10 mg (2 x 5 mg) PO BEDTIME 2 days 07/25/23 release (Dulcolax (bisacodyl)) #4 tabs peg 3350-electrolytes 236 240 ml PO Q10M 1 day #4,000 mL 07/25/23 gram-22.74 gram-6.74 gram-5.86 gram solution (Golytely) lidocaine 5 % topical patch 1 patch topical DAILY #15 ea 09/04/23 alfuzosin 10 mg tablet,extended 10 mg PO BEDTIME 30 days #30 tabs 09/30/23 release 24 hr Allergies Allergy/AdvReac Type Severity Reaction Status Date / Time No Known Allergies Allergy Verified 12/18/23 23:26 [No Known Allergies*] Review of Systems Review of Systems: Constitutional : No Fever, No Chills ENT/Mouth : No sore throat, No Rhinorrhea, No Swallowing Difficulty Eyes: No Eye Pain, No Swelling, No Redness Cardiovascular : No Chest Pain, positive SOB, No Orthopnea, positive Edema, pos palpitations Respiratory : No Cough, No Sputum, No Wheezing, positive dyspnea Gastrointestinal : No Nausea, No Vomiting, No Diarrhea, No abdominal Pain, No Hematochezia, No Melena Genitourinary : No Dysuria, No Urinary Frequency, No Hematuria Musculoskeletal : No joint pain, No Myalgias Skin : No Skin Lesions, No rash Neuro : No Weakness, No Numbness, No Dizziness, No Headache All other systems reviewed and are negative [facility] Past Medical History Attestation statement: The following information was validated with the patient. Source: old records reviewed Medical History Asthma LUZ MARINA (obstructive sleep apnea) Obesity (BMI 30-39.9) Atrial fibrillation with RVR New onset of congestive heart failure Arthritis Hypertension History of pyloric stenosis Surgical History Status post total replacement of both hips S/P gastric surgery History of wisdom tooth extraction History of colonoscopy Family History Family History Father Prostate cancer HTN (hypertension) Mother HTN (hypertension) Heart disease Arthritis Kidney disease Diabetes Stroke FH: cataracts Constipation S/P colostomy Family/Other ADHD Disc disease, degenerative, lumbar or lumbosacral Maternal Uncle Cancer S/P colostomy Social History Social History Household Members: None Housing: Apartment Alcohol intake: current Alcohol intake frequency: 0-2 drinks per day Alcohol type: beer Patient Tobacco Use Status: Current everyday Tobacco user Cigarette Packs Per Day: 0.5 Cigarettes Per Day: 12 Years Smoked: 39 Smoked in Last 30 Days: Yes Use of substances other than those prescribed or required for medical reasons: No Substance Use Type: Crack/Cocaine and Marijuana Advance Directives: No Advance Directives Information Provided: No service: No Current occupational status: employed Physical Exam Vital Signs: Vital Signs: Last Vital Signs Temp 98.2 F 12/18/23 23:24 Pulse 123 H 12/19/23 00:23 Resp 17 12/19/23 00:23 BP 101/60 12/19/23 00:23 Pulse Ox 95 12/19/23 00:23 O2 Del Method Room Air 12/19/23 00:23 BMI result Body Mass Index 33.7 Appearance: Alert. Oriented X3. No acute distress. Eyes: Pupils equal, round and reactive to light. ENT: Pharynx normal. Neck: Normal inspection. Neck supple. CVS: tachycardic irregular heart rate and rhythm. Pulses normal. Respiratory: No respiratory distress. Breath sounds bases diminished Abdomen: Soft and nontender. Skin: Skin warm and dry. Normal skin color. Normal skin turgor. Extremities: 1-2+ pitting lower extremity edema. Neuro: Oriented X 3. No motor deficit. No sensory deficit. Medications Administered Discontinued Medications Generic Name Dose Route Start Last Admin Trade Name Freq PRN Reason Stop Dose Admin Diltiazem HCl 10 mg 12/18/23 23:46 12/18/23 23:54 Diltiazem Hcl 50 Mg/10 Ml Vial IVPUSH 12/18/23 23:47 10 mg STAT STA Administration Diltiazem HCl 10 mg 12/19/23 00:07 12/19/23 00:12 Diltiazem Hcl 50 Mg/10 Ml Vial IVPUSH 12/19/23 00:08 10 mg STAT STA Administration Medical Decision Making Medical Decision Making [facility] Narrative: 63 yo male with PMH of asthma, anemia, hep C, HTN, PAF prior cardioversion here in afib with RVR though states he is only on lisinopril and eliquis recently missed some doses of eliquis at this time has some leg edema will start on IV diltiazem and likely gtt - took eliquis COMPLIANCE CLERK will obtain ddimer. At this time suspect either ETOH use, lyte abnormality, VTE, afib with RVR Differential Diagnosis Differential Diagnoses: The differential diagnosis associated with the presentation includes ETOH use, lyte abnormality, VTE, afib with RVR Admission/Observation Consideration of admission/observation: Escalation of care including admission/observation considered admit for afib with RVR Consult Healthcare Provider Management of the patient was discussed with: Hospitalist (will admit) Lab Data [facility] Lab Attestation statement: I reviewed the patient's lab results. 12/18/23 23:50 12/18/23 23:50 Labs: Lab Results 12/18/23 Range/Units 23:50 WBC 6.1 (4.8-10.8) X10*3/uL RBC 4.14 L (4.60-5.80) X10*6/uL Hgb 11.8 L (14.0-18.0) g/dl Hct 35.7 L (42.0-52.0) % MCV 86.2 (80.0-98.0) fL MCH 28.5 (27.0-33.0) pg MCHC 33.1 (31.0-36.0) g/dl RDW 14.1 (11.0-16.0) % Plt Count 197 (160-400) X10*3/uL MPV 10.2 (9.4-12.4) fL Absolute Nucleated RBC 0.000 (0.0-0.012) X10*3/uL Nucleated RBC % (auto) 0.0 (0.0-0.2) /100WBC D-Dimer High Sensitivty < 150 NG/ML Sodium 137 (135-145) mmol/L Potassium 3.9 D (3.3-5.1) mmol/L Chloride 101 (96-108) mmol/L Carbon Dioxide 27 (22-29) mmol/L Anion Gap 13 (12-20) BUN 22 H (9-16) mg/dL Creatinine 1.15 (0.5-1.4) mg/dL Estim Creat Clear Calc 79.9 Estimated GFR > 60 Random Glucose 147 H (60-115) mg/dL Calcium 9.3 D (8.4-10.2) mg/dL Magnesium 2.1 (1.6-2.6) mg/dL Total Bilirubin 0.3 (0.0-1.0) mg/dL AST 22 (5-37) U/L ALT 30 (0-40) U/L Alkaline Phosphatase 61 (39-117) U/L Troponin I High Sens 3.4 (<3.5-35.0) ng/L B-Natriuretic Peptide 622 H (<100) pg/mL Total Protein 6.7 (6.5-8.0) g/dL Albumin 4.1 (3.5-5.0) g/dL Ethyl Alcohol < 10 mg/dL Independent Interpretation I performed an independent interpretation of an: EKG and Plain X-Ray (normal ) Interpretation: Rate: 169 Rhythm: afib [place]: normal Normal QRS complex. ST T wave : nonspecific ST T wave changes inf and lateral leads, NO BRIAN qTC: 469 prior studies: no acute ischemia The study has been interpreted contemporaneously by me. . Radiology Impression Discussion of test interpretation with radiology: I have reviewed the radiologist's reading. External Record Review External record reviewed: Inpatient record Critical Care Time Critical Care Time Critical Care Time: Yes Total Critical Care Time: 45 Attestation: review of records, repeat IV diltiazem, IV dilt gtt, admission I attest to this time spent taking care of the patient Discharge Plan Discharge Clinical Impression: Atrial fibrillation with rapid ventricular response Patient Disposition: Admitted As Inpatient Prescriptions: No Action buprenorphine-naloxone [Suboxone] 8-2 mg film 1 strip sublingual BID albuterol sulfate 90 mcg/actuation HFA aerosol inhaler 2 puff inhalation QID PRN (Reason: shortness of breath or wheezing) Qty: 6.7 0RF Eliquis 2.5 mg tablet 2.5 mg PO Q12H lidocaine 5 % adhesive patch,medicated 1 patch topical DAILY Qty: 15 0RF Rx Instructions: leave on most painful area for up to 12 hrs naproxen 500 mg tablet 500 mg PO ONCE Qty: 1 0RF nitrofurantoin monohyd/m-cryst 100 mg capsule 100 mg PO ONCE Qty: 1 0RF lidocaine HCl 2 % jelly in applicator 10 ml intra-urethral ONCE Qty: 10 0RF alfuzosin 10 mg tablet extended release 24 hr 10 mg PO BEDTIME 30 Days Qty: 30 1RF Rx Instructions: Take before bedtime lisinopril-hydrochlorothiazide 20-12.5 mg tablet 1 tab PO DAILY triamcinolone acetonide 0.1 % cream topical cholecalciferol (vitamin D3) 25 mcg (1,000 unit) tablet 25 mcg PO DAILY lorazepam 1 mg tablet 1 mg PO multivitamin Tablet 1 tab PO DAILY mecobalamin (vitamin B12) 500 mcg tablet,chewable PO ascorbate calcium (vitamin C) 500 mg tablet 500 mg PO DAILY peg 3350-electrolytes [Golytely] 236-22.74-6.74 -5.86 gram recon soln 240 ml PO Q10M 1 Days Qty: 4000 0RF Rx Instructions: until fecal effluent is clear; do not exceed a total volume of 2,000 mL bisacodyl [Dulcolax (bisacodyl)] 5 mg tablet,delayed release (DR/EC) 10 mg PO BEDTIME 2 Days Qty: 4 0RF Print Language: Arabic
[2023-12-19] VITALS (22 sets, daily range): BP systolic 85–129; BP diastolic 50–86; PULSE 61–134; RESP 12–20; TEMP 36.2–36.6; O2SAT 93–98
[2023-12-19] LABS: Hematocrit 35.7 % (42.0-52.0); Hemoglobin 11.8 g/dl (14.0-18.0); Mean Corpuscular HGB Conc 33.1 g/dl (31.0-36.0); Mean Corpuscular Hemoglobin 28.5 pg (27.0-33.0); Mean Corpuscular Volume 86.2 fL (80.0-98.0); Mean Platelet Volume 10.2 fL (9.4-12.4); Platelet Count 197 X10*3/uL (160-400); Red Blood Count 4.14 X10*6/uL (4.60-5.80); Red Cell Distribution Width 14.1 % (11.0-16.0); White Blood Count 6.1 X10*3/uL (4.8-10.8)
[2023-12-19] MEDS: dilTIAZem HCL 50 MG/10 ML VIAL 10 MG IVPUSH (00:12)
[2023-12-19 00:18] LABS: Alanine Aminotransferase 30 U/L (0-40); Albumin Level 4.1 g/dL (3.5-5.0); Alkaline Phosphatase 61 U/L (39-117); Anion Gap 13 (12-20); Aspartate Amino Transferase 22 U/L (5-37); Bilirubin Total 0.3 mg/dL (0.0-1.0); Blood Urea Nitrogen 22 mg/dL (9-16); Calcium 9.3 mg/dL (8.4-10.2); Carbon Dioxide 27 mmol/L (22-29); Chloride 101 mmol/L (96-108); Creatinine Clr Calc Pharmacy 79.9; Estimated Glomerular Filt Rate > 60; Ethanol < 10 mg/dL; Glucose Random 147 mg/dL (60-115); Magnesium 2.1 mg/dL (1.6-2.6); Potassium 3.9 mmol/L (3.3-5.1); Sodium 137 mmol/L (135-145); Total Protein 6.7 g/dL (6.5-8.0)
[2023-12-19 00:19] LABS: B Type Natriuretic Peptide 622 pg/mL (<100); D Dimer High Sensitivity < 150 NG/ML; Troponin-I High Sensitivity 3.4 ng/L (<3.5-35.0)
--- NOTE | 2023-12-19 00:50 | PC.NURSE ---
Holding diltiazem at this time at pts HR is within protocol parameters and BP is soft 96/56. aware
--- NOTE | 2023-12-19 00:52 | P.HPHOSP_ITS ---
History of Present Illness Date of Service: 12/19/23 Chief Complaint: Palpitations This is a 63-year-old male with pertinent history of opioid use disorder on Suboxone, hypertension, chronic hepatitis-C, asthma not on home oxygen, atrial fibrillation on anticoagulation who presents to the emergency department for evaluation of palpitations. Patient states he recently went to [place] for 11 days but only took 3 days supply of Eliquis with him. Admits he is not compliant with his Eliquis and only takes 2.5 mg twice a day. Does have a history of AFib with prior cardioversion. During his trip in [place] he was having palpitations on and off. Reports drinking 2 beers every day but no history of alcohol withdrawal. Also noticed that his left lower extremity is swollen with redness. No fever, chills, abdominal pain, changes in urinary or bowel habits. In the emergency department, patient was found to be in AFib with RVR and initiated on IV diltiazem drip Review of Systems 2 Constitutional: Constitutional: Reports no additional constitutional complaints Cardiovascular: Cardiovascular: Reports rapid heart rate Respiratory: Respiratory: Reports no additional respiratory complaints Gastrointestinal: Gastrointestinal: Reports no additional gastrointestinal complaints Genitourinary: Genitourinary: Reports no additional male genitourinary complaints [facility] Medical History Asthma LUZ MARINA (obstructive sleep apnea) Obesity (BMI 30-39.9) Atrial fibrillation with RVR New onset of congestive heart failure Arthritis Hypertension History of pyloric stenosis Family History Father Prostate cancer HTN (hypertension) Mother HTN (hypertension) Heart disease Arthritis Kidney disease Diabetes Stroke FH: cataracts Constipation S/P colostomy Family/Other ADHD Disc disease, degenerative, lumbar or lumbosacral Maternal Uncle Cancer S/P colostomy Surgical History Status post total replacement of both hips S/P gastric surgery History of wisdom tooth extraction History of colonoscopy Social History Household Members: None Housing: Apartment Alcohol intake: current Alcohol intake frequency: 0-2 drinks per day Alcohol type: beer Patient Tobacco Use Status: Current everyday Tobacco user Cigarette Packs Per Day: 0.5 Cigarettes Per Day: 12 Years Smoked: 39 Smoked in Last 30 Days: Yes Use of substances other than those prescribed or required for medical reasons: No Substance Use Type: Crack/Cocaine and Marijuana Advance Directives: No Advance Directives Information Provided: No Nutrition Risks: No Nutritional Risk service: No Current occupational status: employed Meds Allergies Allergy/AdvReac Type Severity Reaction Status Date / Time No Known Allergies Allergy Verified 12/18/23 23:26 [No Known Allergies*] Active Medications: Current Medications Acetaminophen (Acetaminophen 325 Mg Tablet) 650 mg PO Q6H PRN PRN Reason: Pain, Mild (Pain Scale 1-3), fever or headache Calcium Carbonate (Calcium Carbonate 750 Mg Tab.Chew) 750 mg PO Q4H PRN PRN Reason: Heartburn Diltiazem HCl 125 mg/ Sodium (Chloride) 125 mls @ 0 mls/hr IVCONT .Q0M [facility]; Protocol Magnesium Hydroxide (Milk Of Magnesia 30 Ml Oral.Susp) 30 ml PO DAILY PRN PRN Reason: Constipation Melatonin (Melatonin 3 Mg Tablet) 6 mg PO BEDTIME PRN PRN Reason: Insomnia Ondansetron HCl (Ondansetron Hcl 4 Mg/2 Ml Vial) 4 mg IVPUSH Q8H PRN PRN Reason: Nausea and Vomiting Sodium Chloride (0.9 % Sodium Chloride Flush 3 Ml Syringe) [facility] Home Medications ?Medication ?Instructions ?Recorded ?Confirmed ?Last Taken ?Type buprenorphine 8 mg-naloxone 2 mg 1 strip sublingual BID 06/04/20 10/23/23 Unknown History sublingual film (Suboxone) apixaban 2.5 mg tablet (Eliquis) 2.5 mg PO Q12H 04/30/23 10/23/23 Unknown History ascorbate calcium (vitamin C) 500 500 mg PO DAILY 07/25/23 10/23/23 Unknown History mg tablet cholecalciferol (vitamin D3) 25 25 mcg PO DAILY 07/25/23 10/23/23 Unknown History mcg (1,000 unit) tablet lisinopril 20 1 tab PO DAILY 07/25/23 10/23/23 Unknown History mg-hydrochlorothiazide 12.5 mg tablet lorazepam 1 mg tablet 1 mg PO 07/25/23 10/23/23 Unknown History mecobalamin (vitamin B12) 500 mcg 500 mcg PO 1XD 07/25/23 12/19/23 Unknown History chewable tablet multivitamin 1 tab PO DAILY 07/25/23 10/23/23 Unknown History triamcinolone acetonide 0.1 % appl topical pain 07/25/23 10/23/23 Unknown History topical cream Physical Exam 2 Vital Signs and Narrative: Vital Signs: Last Vital Signs Temp 98.2 F 12/18/23 23:24 Pulse 123 H 12/19/23 00:23 Resp 17 12/19/23 00:23 BP 101/60 12/19/23 00:23 Pulse Ox 95 12/19/23 00:23 O2 Del Method Room Air 12/19/23 00:23 BMI result Body Mass Index 33.7 Middle-aged male lying in bed in no distress Neck supple, no JVD Irregularly irregular, S1-S2 heard Regular breath sounds bilaterally, no wheezing or crackles appreciated Abdomen soft nontender, no guarding, no rigidity Patient is awake, alert and oriented to self, place, time and person ; no focal motor deficit Psych: Normal mood Left leg with swelling or erythema Results Labs 12/19/23 04:22 12/19/23 04:22 Labs: Laboratory Results - last 24 hr 12/18/23 23:50 MCV 86.2 MCH 28.5 MCHC 33.1 RDW 14.1 Plt Count 197 MPV 10.2 Absolute Nucleated RBC 0.000 Nucleated RBC % (auto) 0.0 D-Dimer High Sensitivty < 150 Anion Gap 13 Estim Creat Clear Calc 79.9 Estimated GFR > 60 Random Glucose 147 H Calcium 9.3 D Magnesium 2.1 Total Bilirubin 0.3 AST 22 ALT 30 Alkaline Phosphatase 61 Troponin I High Sens 3.4 B-Natriuretic Peptide 622 H Total Protein 6.7 Albumin 4.1 Ethyl Alcohol < 10 Imaging Radiologist's Impressions: Impressions Chest X-Ray 12/18/23 23:47 IMPRESSION: No acute cardiopulmonary process. Electronically signed by: Beka Haas MD 12/19/2023 12:12 AM EDT Assessment and Plan (1) Atrial fibrillation with rapid ventricular response: Status: Acute Plan This is a 63-year-old male with pertinent history of opioid use disorder on Suboxone, hypertension, chronic hepatitis-C, asthma not on home oxygen, atrial fibrillation on anticoagulation who presents to the emergency department for evaluation of palpitations. #. AFib with RVR: Noncompliant with Eliquis, was also taking subtherapeutic dosage. Will admit patient with cardiac monitoring. Initiated on diltiazem drip in the ER which has now been discontinued. Obtaining TSH and echocardiogram. Initiated p.o. diltiazem. Also initiated therapeutic dose Eliquis 5 mg b.i.d.. CTA pending #. Left lower extremity swelling: Obtaining venous Doppler #. Opioid use disorder: On Suboxone #. Hypertension: On lisinopril #. Asthma: No exacerbation during admission. Continue home inhalers Med rec pending DVT prophylaxis: Eliquis Full code Admit as inpatient and will require two night minimum hospital stay for close monitoring of heart rate, IV diltiazem drip (as above), which is not possible in a lesser acute setting. Quality Stroke Does the patient have a stroke diagnosis?: No VTE Prior VTE?: No VTE Risk Level:: Medical - moderate - high VTE Device Contraindication: Treatment Not Indicated VTE Drug Contraindication: N/A - Med Ordered
--- NOTE | 2023-12-19 01:23 | MHC.EDTECH ---
Patient urinated 650MLS of yellow urine in urinal,UDS obtained and sent to lab,vitals taken,BP is low 91/53,RN made aware,belongings list completed and copy placed in chart,call sarmiento in reach
[2023-12-19] MEDS: iohexoL 350 MG/ML 100 ML INFUS..BTL 65 ML IV ×2 (01:40→01:51)
[2023-12-19 01:45] LABS: Amphetamine Screen Urine Not Detected (Not Detect); Barbiturates, Urine Not Detected (Not Detect); Benzodiazepines Screen Urine Not Detected (Not Detect); Buprenorphine Scr Positive (Not Detect); Cannabinoid Screen Urine Not Detected (Not Detect); Cocaine Screen Urine Not Detected (Not Detect); Fentanyl, urine Not Detected (Not Detect); Methadone Screen, Urine Not Detected (Not Detect); Opiate Screen Urine Not Detected (Not Detect); Oxycodone Screen Urine Not Detected (Not Detect); Phencyclidine Screen Urine Not Detected (Not Detect)
[2023-12-19] MEDS: Lactated Ringers 1,000 ML 999 ML IV (01:58)
[2023-12-19 04:33] LABS: Hematocrit 36.8 % (42.0-52.0); Hemoglobin 11.7 g/dl (14.0-18.0); Mean Corpuscular HGB Conc 31.8 g/dl (31.0-36.0); Mean Corpuscular Hemoglobin 27.9 pg (27.0-33.0); Mean Corpuscular Volume 87.6 fL (80.0-98.0); Mean Platelet Volume 10.3 fL (9.4-12.4); Platelet Count 171 X10*3/uL (160-400); Red Cell Distribution Width 14.2 % (11.0-16.0); White Blood Count 4.6 X10*3/uL (4.8-10.8)
[2023-12-19 04:55] LABS: Anion Gap 12 (12-20); Blood Urea Nitrogen 20 mg/dL (9-16); Calcium 9.1 mg/dL (8.4-10.2); Carbon Dioxide 26 mmol/L (22-29); Chloride 103 mmol/L (96-108); Creatinine Clr Calc Pharmacy 102.1; Estimated Glomerular Filt Rate > 60; Glucose Random 101 mg/dL (60-115); Sodium 137 mmol/L (135-145)
[2023-12-19 05:11] LABS: Thyroid Stimulating Hormone 3.15 uIU/mL (0.32-4.0)
--- NOTE | 2023-12-19 05:24 | PC.NURSE ---
Inpatient MD notified of Diltiazem drip continuing to be held d/t HR within protocol limits and asking if he would like to put in Diltiazem PO. MD agreed with PO Diltiazem and that he would d/c the drip.
[2023-12-19] MEDS: dilTIAZem HCL 30 MG TABLET PO (05:39)
--- NOTE | 2023-12-19 06:15 | MHC.EDTECH ---
Emptied 400MLS from suction canister ,yellow in color,vitals completed,patient is watching TV at this time,call sarmiento in reach
--- NOTE | 2023-12-19 06:21 | MHC.EDTECH ---
Emptied 400MLS of yellow urine from urinal,vitals taken,patient is resting quietly,call sarmiento in reach
--- NOTE | 2023-12-19 07:00 | CA_ITS ---
Transthoracic Echocardiogram Patient (Last, First, Middle): Mateo Graham R Gender: Male Date of : 1960 Age: 63 Procedure Date: 12/19/2023 Procedure Type: Transthoracic Echocardiogram [place] [facility] [place] Height: 175.26 cm Weight: 103.42 kg BSA: 2.18 m2 Heart Rate: bpm BP: 121 / 82 mmHg Kitchen Mechanic: Referring MD: Xavier Hoang MD Symptoms: afib Study Quality: Fair ECG Rhythm: Atrial Fibrillation Conclusions: - LVEF difficult to assess due to atrial fibrillation as well as image quality. Probably mildly reduced at about 45-50%. - No obvious valvular pathology seen on this study. Findings Left Ventricle Normal left ventricular cavity size. There is mildly increased left ventricular wall thickness. Diastolic function is indeterminate on the basis of available data. LVEF difficult to assess due to atrial fibrillation as well as image quality. Probably mildly reduced at about 45-50%. Right Ventricle Mildly increased right ventricular cavity size. There is normal right ventricular systolic function. Atria The left atrium is mildly dilated. The right atrium is normal in size. Aortic Valve There is a normal trileaflet aortic valve. There is no aortic valve stenosis. There is trace (trivial) aortic valve regurgitation. Mitral Valve The mitral valve appears normal. There is mild mitral valve regurgitation. There is no mitral valve stenosis. Pulmonic Valve The pulmonic valve is likely normal. Tricuspid Valve There is mild tricuspid valve regurgitation. There is no evidence of pulmonary hypertension. Great Vessels The aorta was not well visualized. The sinuses of valsalva is normal in size. Venous The inferior vena cava is normal in size and collapses greater than 50% with inspiration. Pericardium/Pleural There is no evidence of pericardial effusion. Prior Study Comparison No significant change compared to prior study dated: 06/06/2020. Recommendations, Care & Conclusions No obvious valvular pathology seen on this study. Measurements 2D Linear Measurements IVSd: 1.25 0.6-0.9/0.6-1.0 cm LVIDd: 4.73 3.9-5.3/4.2-5.9 cm LVIDd Index: 2.17 2.4-3.2/2.2-3.1 cm/m2 LVIDs: 2.99 2.0-3.6 cm LVPWd: 1.30 0.7-1.1 cm Ao Root: 3.20 2.1-3.5 cm LA Diam: 4.50 2.7-3.8/3.0-4.0 cm LAIDs Index: 2.06 1.5-2.3 cm/m2 LV Mass: 291.20 67-162/88-224 g LV Mass Index: 133.58 43-95/49-115 g/m2 LVOT Diam: 2.20 3.0+(-)1.3 cm 2D Systolic Function EF 4C: 59.40 >55% EF 2C: 60.90 >55% EF BiP: 61.20 >55% Mitral Valve MV Pk E: 0.89 MV Decel Time: 253.00 E'Lateral: 10.20 E'Medial: 10.80 E/E' Med: 8.30 E/E' Lat: 8.80 PHT: 74.00 MVA PHT: 2.97 Decel Florence: 3.53 Aortic Valve AoV Pk Julian: 1.14 AoV Mn Julian: 0.77 AoV VTI: 0.25 AoV Pk Grad: 5.00 Aov Mn Grad: 3.00 MIGUE Cont.VTI: 2.64 LVOT LVOT Pk Julian: 0.99 LVOT Mn Julian: 0.62 LVOT VTI: 0.18 LVOT Pk Grad: 4.00 LVOT Mn Grad: 2.00 LVOT Diam: 2.20 LVOT Area: 3.80 Diastolic Function MV Pk E: 0.89 E'Medial: 10.80 E/E' Med: 8.30 E' Laterial: 10.20 E/E' Lat: 8.80 Right Ventricle TAPSE (mm): 23.00 TVS' Julian: 12.00 Tricuspid Valve TR Pk Julian: 2.45 TR Pk Grad: 24.00 RA Press: 3.00 RVSP: 27.00 Great Vessels Aorta Ao Root-2D: 3.20 2.0-3.7 cm Ao Asc: 3.60 2.1-3.4 cm Pulmonary Valve PV Pk Julian: 0.91 Peak PV Grad: 3.00 Updated in Other Vendor System with Status of Final Logan Teixeira MD electronically signed on 12/19/2023 2:24:18 PM with status of Final
--- NOTE | 2023-12-19 09:06 | PHA.MEDREC ---
Addendum entered by Charlene Bonilla [facility] 12/19/23 09:11: Reviewed by [facility] Original Note: Pharmacy Consult ? Medication Reconciliation Pharmacy has completed the medication reconciliation. Spoke to patent to confirm med list. Patient states is no longer taking Alfuzosin 10 mg, Bisacodyl 5 mg, Lidocaine patch, Lidocain 2% jelly, Lorazepam 1 mg, Naproxen 500 mg, Nitrofurantion 100 mg, Triamcinolone 0.1% cream. Patient states he is on Eliquis 2.5 mg BID and he is taking BOTH suboxone 8/2 mg bid and Suboxone 4 mg daily, claims does show both where filled 12/09/23 for 20 days.
[2023-12-19] MEDS: 0.9 % Sodium Chloride Flush 3 ML SYRINGE IVFLUSH ×3 (09:19→23:55)
[2023-12-19] MEDS: dilTIAZem HCL CD 180 MG CAP.ER.24H PO (09:19)
[2023-12-19] MEDS: Apixaban 5 MG TABLET PO ×2 (09:19→23:55)
--- NOTE | 2023-12-19 10:40 | P.CONCA_ITS ---
History of Present Illness History of Present Illness Date of Service: 12/19/23 Chief complaint: Palpitations Narrative: This is a cardiology consultation regarding atrial fibrillation. Last seen in our clinic by . He had atrial fibrillation 2020. At that time, apparently was not heart failure. Underwent VAMSI/cardioversion. Then put on Multaq and Xarelto. After that, he was not taking any medications. After that visit, he has not been seen. Currently, he states he went to [place] and apparently there was again a medication issue. He was not taking Eliquis. He believes he was still taking the others but again not very clear. He has been having some palpitations for the last couple of weeks and hence he is here. Was thought to be in atrial fibrillation with rapid rate and given IV diltiazem. Currently, in atrial fibrillation but slow down. He states he is okay at rest but has not been moving around. Smoker. Drinks beer daily. Substance abuse history as well. However, denies any recent drugs but not clear if reliable or not. Cocaine screen from April of this year was positive. Currently negative. Review of Systems 2 Review of Systems: Yes all other systems are reviewed and are negative Constitutional: Constitutional: Reports as per HPI and Reports no additional constitutional complaints Eyes: Eyes: Reports as per HPI and Denies no additional eye complaints ENT: Denies system reviewed and no additional complaints, except as documented and Reports as per HPI Cardiovascular: Cardiovascular: Reports as per HPI, Reports no additional cardiovascular complaints, Denies acrocyanosis, Denies cool extremities, Denies chest pain, Denies leg edema, Denies lightheadedness, Reports palpitations and Denies dyspnea Respiratory: Respiratory: Reports as per HPI, Denies no additional respiratory complaints and Denies dyspnea Gastrointestinal: Gastrointestinal: Reports as per HPI and Denies no additional gastrointestinal complaints Genitourinary: Genitourinary: Reports no additional male genitourinary complaints and Reports as per HPI Musculoskeletal: Musculoskeletal: Reports no additional musculoskeletal complaints and Reports as per HPI Integumentary/Breasts: Skin/Breast: Reports system reviewed and no additional complaints, except as docu Neurologic: Reports system reviewed and no additional complaints, except as documented and Reports as per HPI Psychiatric: Psychiatric: Reports no additional psychiatric complaints and Reports as per HPI Endocrine: Endocrine: Reports no additional endocrine complaints, Reports as per HPI and Reports palpitations Hematologic/Lymphatic: Hematologic/Lymphatic: Reports no additional hematologic/lymphatic complaints and Reports as per HPI Allergic/Immunologic: Allergic/Immunologic: Reports no additional allergic/immunologic complaints and Reports as per HPI [facility] Past Medical History Medical History Asthma LUZ MARINA (obstructive sleep apnea) Obesity (BMI 30-39.9) Atrial fibrillation with RVR New onset of congestive heart failure Arthritis Hypertension History of pyloric stenosis Family History Family History Father Prostate cancer HTN (hypertension) Mother HTN (hypertension) Heart disease Arthritis Kidney disease Diabetes Stroke FH: cataracts Constipation S/P colostomy Family/Other ADHD Disc disease, degenerative, lumbar or lumbosacral Maternal Uncle Cancer S/P colostomy Surgical History Surgical History Status post total replacement of both hips S/P gastric surgery History of wisdom tooth extraction History of colonoscopy Social History Social History Household Members: None Housing: Apartment Alcohol intake: current Alcohol intake frequency: 0-2 drinks per day Alcohol type: beer Patient Tobacco Use Status: Current everyday Tobacco user Cigarette Packs Per Day: 0.5 Cigarettes Per Day: 12 Years Smoked: 39 Smoked in Last 30 Days: Yes Use of substances other than those prescribed or required for medical reasons: No Substance Use Type: Crack/Cocaine and Marijuana Advance Directives: No Advance Directives Information Provided: No Nutrition Risks: No Nutritional Risk service: No Current occupational status: employed Meds Allergies Allergy/AdvReac Type Severity Reaction Status Date / Time No Known Allergies Allergy Verified 12/18/23 23:26 [No Known Allergies*] Active Medications: Current Medications Acetaminophen (Acetaminophen 325 Mg Tablet) 650 mg PO Q6H PRN PRN Reason: Pain, Mild (Pain Scale 1-3), fever or headache Apixaban (Apixaban 5 Mg Tablet) 5 mg PO BID EMILE Last Admin: 12/19/23 09:19 Dose: 5 mg Calcium Carbonate (Calcium Carbonate 750 Mg Tab.Chew) 750 mg PO Q4H PRN PRN Reason: Heartburn Diltiazem HCl (Diltiazem Hcl Cd 180 Mg Cap.Er.24h) 180 mg PO DAILY [facility]; Protocol Last Admin: 12/19/23 09:19 Dose: 180 mg Magnesium Hydroxide (Milk Of Magnesia 30 Ml Oral.Susp) 30 ml PO DAILY PRN PRN Reason: Constipation Melatonin (Melatonin 3 Mg Tablet) 6 mg PO BEDTIME PRN PRN Reason: Insomnia Ondansetron HCl (Ondansetron Hcl 4 Mg/2 Ml Vial) 4 mg IVPUSH Q8H PRN PRN Reason: Nausea and Vomiting Sodium Chloride (0.9 % Sodium Chloride Flush 3 Ml Syringe) [facility] Last Admin: 12/19/23 09:19 Dose: 3 ml Home Medications ?Medication ?Instructions ?Recorded ?Confirmed ?Last Taken ?Type buprenorphine 8 mg-naloxone 2 mg 1 strip sublingual BID 06/04/20 12/19/23 12/18/23 History sublingual film (Suboxone) apixaban 2.5 mg tablet (Eliquis) 2.5 mg PO BID 04/30/23 12/19/23 12/18/23 History ascorbate calcium (vitamin C) 500 500 mg PO DAILY 07/25/23 12/19/23 12/18/23 History mg tablet cholecalciferol (vitamin D3) 25 25 mcg PO DAILY 07/25/23 12/19/23 12/18/23 History mcg (1,000 unit) tablet lisinopril 20 1 tab PO DAILY 07/25/23 12/19/23 12/18/23 History mg-hydrochlorothiazide 12.5 mg tablet mecobalamin (vitamin B12) 500 mcg 500 mcg PO DAILY 07/25/23 12/19/23 12/18/23 History chewable tablet multivitamin 1 tab PO DAILY 07/25/23 12/19/23 12/18/23 History buprenorphine 4 mg-naloxone 1 mg 1 film sublingual DAILY 12/19/23 12/19/23 12/18/23 History sublingual film Physical Exam 2 Vital Signs: Vital Signs: Last Vital Signs Temp 97.8 F 12/19/23 05:30 Pulse 86 12/19/23 09:19 Resp 14 12/19/23 09:17 BP 99/70 12/19/23 09:19 Pulse Ox 95 12/19/23 09:17 O2 Del Method Room Air 12/19/23 09:17 BMI result Body Mass Index 33.7 Const: General: comfortable and no acute distress O rientation/consciousness: patient oriented x3 HEENT: Other: Unremarkable Head: Yes normal to inspection Neck: Neck: Yes normal visual inspection Chest: Chest palpation & inspection: normal inspection of the chest Resp: Auscultation: clear to auscultation bilaterally Cardio: Palpation: normal PMI Heart sounds: S1 normal heart sound present, S2 normal heart sound present, no gallops, no murmurs and no rubs GI: Palpation (GI): Soft to palpation Back/Spine/Pelvis: Other: unremarkable Skin: General skin exam: no rashes or lesions noted Neuro: General: patient oriented x3 Extrem: General: Yes normal to inspection Psych: Mental Status: mental status grossly normal Objective Labs and Meds 12/19/23 04:22 12/19/23 04:22 Lab results: Laboratory Results - last 24 hr 12/18/23 12/19/23 12/19/23 23:50 01:23 04:22 WBC 6.1 4.6 L RBC 4.14 L 4.20 L Hgb 11.8 L 11.7 L Hct 35.7 L 36.8 L MCV 86.2 87.6 MCH 28.5 27.9 MCHC 33.1 31.8 RDW 14.1 14.2 Plt Count 197 171 MPV 10.2 10.3 Absolute Nucleated RBC 0.000 0.000 Nucleated RBC % (auto) 0.0 0.0 D-Dimer High Sensitivty < 150 Sodium 137 137 Potassium 3.9 D 4.0 Chloride 101 103 Carbon Dioxide 27 26 Anion Gap 13 12 BUN 22 H 20 H Creatinine 1.15 0.90 Estim Creat Clear Calc 79.9 102.1 Estimated GFR > 60 > 60 Random Glucose 147 H 101 Calcium 9.3 D 9.1 Magnesium 2.1 Total Bilirubin 0.3 AST 22 ALT 30 Alkaline Phosphatase 61 Troponin I High Sens 3.4 B-Natriuretic Peptide 622 H Total Protein 6.7 Albumin 4.1 TSH 3.15 Urine Opiates Screen Not Detected Ur Buprenorphine Scrn Positive H Ur Oxycodone Screen Not Detected Urine Methadone Screen Not Detected Urine Fentanyl Screen Not Detected Ur Barbiturates Screen Not Detected Ur Phencyclidine Scrn Not Detected Ur Amphetamines Screen Not Detected U Benzodiazepines Scrn Not Detected Urine Cocaine Screen Not Detected U Marijuana (THC) Screen Not Detected Ethyl Alcohol < 10 12/19/23 04:22 WBC RBC Hgb Hct MCV MCH MCHC RDW Plt Count MPV Absolute Nucleated RBC Nucleated RBC % (auto) D-Dimer High Sensitivty Sodium Potassium Chloride Carbon Dioxide Anion Gap BUN Creatinine Estim Creat Clear Calc Estimated GFR Random Glucose Calcium Magnesium Total Bilirubin AST ALT Alkaline Phosphatase Troponin I High Sens B-Natriuretic Peptide Total Protein Albumin TSH Cancelled Urine Opiates Screen Ur Buprenorphine Scrn Ur Oxycodone Screen Urine Methadone Screen Urine Fentanyl Screen Ur Barbiturates Screen Ur Phencyclidine Scrn Ur Amphetamines Screen U Benzodiazepines Scrn Urine Cocaine Screen U Marijuana (THC) Screen Ethyl Alcohol ECG Interpretation: Admission EKG with atrial fibrillation at a rate of 169/Min with nonspecific ST- T changes. Currently, rate is much lower in the 70s or so. Imaging Radiologist's impression: Impressions Chest X-Ray 12/18/23 23:47 IMPRESSION: No acute cardiopulmonary process. Electronically signed by: Beka Haas MD 12/19/2023 12:12 AM EDT Chest CTA 12/19/23 01:40 IMPRESSION: No evidence of pulmonary embolism. Mild bibasilar atelectasis or scarring. 3.5 cm low-density left adrenal mass probably representing an adenoma. Fleischner guidelines were followed. Electronically signed by: Beka Haas MD 12/19/2023 06:44 AM EDT Venous Duplex 12/19/23 08:04 IMPRESSION: No evidence of deep venous thrombosis involving the left lower extremity. Electronically signed by: Zoran Patterson MD 12/19/2023 08:51 AM EDT Assessment and Plan (1) Atrial fibrillation with rapid ventricular response: Status: Acute Plan In the home meds, do not see any beta-blockers or calcium channel blockers and hence not clear what he is taking. Seems to be on Eliquis at lower dose. Due to compliance issues, recommend that he is just rather be on rate control as opposed to rhythm control. Not reliable for antiarrhythmics. Agree with diltiazem CD 180 mg daily. Also on appropriate dose of Eliquis. They may be continued. Recommend follow-up in clinic. Per transesophageal echocardiogram in 2020, low normal LVEF. No significant valvular findings. Procedures Date of Service Date of Service: 12/19/23
[2023-12-19] MEDS: Buprenorphine/Naloxone 4/1 mg FILM 1 FILM SUBLINGUAL (14:43)
[2023-12-19] MEDS: Buprenorphine/Naloxone 8/2 mg FILM 1 FILM SUBLINGUAL ×2 (14:43→23:55)
[2023-12-20] VITALS: BP 105/72; PULSE 71; RESP 18; TEMP 36.4; O2SAT 96
[2023-12-20 03:41] VITALS: BP 109/76; PULSE 66; RESP 18; TEMP 36.1; O2SAT 95
[2023-12-20 08:00] VITALS: BP 126/85; PULSE 72; RESP 20; TEMP 36.4; O2SAT 98
--- NOTE | 2023-12-20 08:25 | P.DS_ITS ---
DS: Providers Provider Date of Service: 12/20/23 Date of admission: 12/19/23 00:49 Date of discharge: 12/20/23 Primary care physician: Unknown Physician DS: Diagnosis Discharge Diagnosis (1) Atrial fibrillation with rapid ventricular response: Status: Acute DS: Summary Hospital Course Hospital Course: admission hpi Chief Complaint: Palpitations This is a 63-year-old male with pertinent history of opioid use disorder on Suboxone, hypertension, chronic hepatitis-C, asthma not on home oxygen, atrial fibrillation on anticoagulation who presents to the emergency department for evaluation of palpitations. Patient states he recently went to [place] for 11 days but only took 3 days supply of Eliquis with him. Admits he is not compliant with his Eliquis and only takes 2.5 mg twice a day. Does have a history of AFib with prior cardioversion. During his trip in [place] he was having palpitations on and off. Reports drinking 2 beers every day but no history of alcohol withdrawal. Also noticed that his left lower extremity is swollen with redness. No fever, chills, abdominal pain, changes in urinary or bowel habits. In the emergency department, patient was found to be in AFib with RVR and initiated on IV diltiazem drip Hospital course: The patient has a history of atrial fibrillation (AFib) and is non-compliant with his medications. He presented with palpitations and was found to be in AFib with rapid ventricular response (RVR). He was treated with IV Cardizem, and his heart rate is now controlled. The patient has been transitioned to oral Cardizem and restarted on Eliquis at the appropriate dose of 5 mg twice daily, as opposed to the previously prescribed 2.5 mg twice daily, which he was not taking. Additionally, he was not on any rate control agents such as beta-blockers or calcium channel blockers. Cardiology recommends continuing Cardizem and anticoagulation, he is not a good candidate for antiarrythmic due to non compliance. Outpatient follow-up with cardiology. Presently his heart rate is in the 60s and 70 Time Attestation Discharge Coordination Time (in mins): 35 Quality: Safe Use of Opioids Does Pt have an Active Cancer Diagnosis on the Problem List?: No Quality: Stroke Does the patient have a stroke diagnosis?: No Physical Exam Vital Signs: Vital Signs: Selected Entries 12/20/23 08:00 Temperature 97.6 F Pulse Rate 72 Respiratory Rate 20 Blood Pressure 126/85 Pulse Oximetry 98 Oxygen Delivery Me thod Room Air General: AO X 3, no acute distress Resp: CTA bilateral CVS: S1,S2, iregular iregular GI: +BS, NT, no distention Skin: No rash Neuro: motor grossly intact Psych: appropriate affect DS: Data Data Completed and Pending Completed studies during hospitalization [Text1]: Procedures [facility] of Cardiac Rhythm, Single (06/04/20) Labs on day of discharge: Laboratory Results - last 24 hr 12/18/23 12/19/23 12/19/23 23:50 01:23 04:22 WBC 6.1 4.6 L RBC 4.14 L 4.20 L Hgb 11.8 L 11.7 L Hct 35.7 L 36.8 L MCV 86.2 87.6 MCH 28.5 27.9 MCHC 33.1 31.8 RDW 14.1 14.2 Plt Count 197 171 MPV 10.2 10.3 Absolute Nucleated RBC 0.000 0.000 Nucleated RBC % (auto) 0.0 0.0 D-Dimer High Sensitivty < 150 Sodium 137 137 Potassium 3.9 D 4.0 Chloride 101 103 Carbon Dioxide 27 26 Anion Gap 13 12 BUN 22 H 20 H Creatinine 1.15 0.90 Estim Creat Clear Calc 79.9 102.1 Estimated GFR > 60 > 60 Random Glucose 147 H 101 Calcium 9.3 D 9.1 Magnesium 2.1 Total Bilirubin 0.3 AST 22 ALT 30 Alkaline Phosphatase 61 Troponin I High Sens 3.4 B-Natriuretic Peptide 622 H Total Protein 6.7 Albumin 4.1 TSH 3.15 Urine Opiates Screen Not Detected Ur Buprenorphine Scrn Positive H Ur Oxycodone Screen Not Detected Urine Methadone Screen Not Detected Urine Fentanyl Screen Not Detected Ur Barbiturates Screen Not Detected Ur Phencyclidine Scrn Not Detected Ur Amphetamines Screen Not Detected U Benzodiazepines Scrn Not Detected Urine Cocaine Screen Not Detected U Marijuana (THC) Screen Not Detected Ethyl Alcohol < 10 12/19/23 04:22 WBC RBC Hgb Hct MCV MCH MCHC RDW Plt Count MPV Absolute Nucleated RBC Nucleated RBC % (auto) D-Dimer High Sensitivty Sodium Potassium Chloride Carbon Dioxide Anion Gap BUN Creatinine Estim Creat Clear Calc Estimated GFR Random Glucose Calcium Magnesium Total Bilirubin AST ALT Alkaline Phosphatase Troponin I High Sens B-Natriuretic Peptide Total Protein Albumin TSH Cancelled Urine Opiates Screen Ur Buprenorphine Scrn Ur Oxycodone Screen Urine Methadone Screen Urine Fentanyl Screen Ur Barbiturates Screen Ur Phencyclidine Scrn Ur Amphetamines Screen U Benzodiazepines Scrn Urine Cocaine Screen U Marijuana (THC) Screen Ethyl Alcohol Discharge Plan Discharge Anticipated Discharge Date/Time: 12/20/23 07:10 Patient Disposition: Home, Self-Care Discharge Diagnosis: Atrial Fibrilation, palpitation Referrals: Physician,Unknown J [Physician] - 1 Week Discharge Medications: New diltiazem HCl [Cardizem CD] 180 mg Capsule,Extended Release 24hr 180 mg PO DAILY Qty: 90 0RF Protocol: Hold for SBP/HR < HOLD for SBP < : 90 HOLD for HR < : 60 Eliquis 5 mg Tablet 5 mg PO BID Qty: 180 0RF Continued buprenorphine-naloxone [Suboxone] 8-2 mg film 1 strip sublingual BID albuterol sulfate 90 mcg/actuation HFA aerosol inhaler 2 puff inhalation QID PRN (Reason: shortness of breath or wheezing) Qty: 6.7 0RF buprenorphine-naloxone 4-1 mg film 1 film sublingual DAILY lisinopril-hydrochlorothiazide 20-12.5 mg tablet 1 tab PO DAILY cholecalciferol (vitamin D3) 25 mcg (1,000 unit) tablet 25 mcg PO DAILY multivitamin Tablet 1 tab PO DAILY mecobalamin (vitamin B12) 500 mcg tablet,chewable 500 mcg PO DAILY ascorbate calcium (vitamin C) 500 mg tablet 500 mg PO DAILY Discontinued Eliquis 2.5 mg tablet 2.5 mg PO BID Discharge Orders: Discharge Order (Routine); Ordered 12/20/23 Ordered By: Dilshad Owusu Diet: Advance to usual diet Activity on Discharge: As tolerated Stand Alone Forms: Patient Portal Discharge page Print Language: Hungarian Care Plan Goals: management of afib, stroke prevention and symptom control Health Concerns: atrial fibrilation Plan of Treatment: take cardizem to control your heart rate take elquis to thin your blood and prevent stroke follow up with your doctor in a week Assessment: see above
[2023-12-20] MEDS: Cyanocobalamin (Vitamin B-12) 500 MCG TABLET PO (08:32)
[2023-12-20] MEDS: Multivitamin TABLET 1 TAB PO (08:32)
[2023-12-20] MEDS: Apixaban 5 MG TABLET PO (08:32)
[2023-12-20] MEDS: dilTIAZem HCL CD 180 MG CAP.ER.24H PO (08:32)
[2023-12-20] MEDS: Ascorbic Acid 500 MG TABLET PO (08:32)
[2023-12-20] MEDS: Buprenorphine/Naloxone 8/2 mg FILM 1 FILM SUBLINGUAL (08:32)
[2023-12-20] MEDS: Buprenorphine/Naloxone 4/1 mg FILM 1 FILM SUBLINGUAL (08:32)
[2023-12-20] MEDS: Cholecalciferol (Vitamin D3) 25 MCG TABLET PO (08:32)
[2023-12-20] MEDS: 0.9 % Sodium Chloride Flush 3 ML SYRINGE IVFLUSH (08:33)
--- NOTE | 2023-12-20 10:11 | MHC.CM.PN ---
PT REPORTS HE LIVES ALONE AND IS INDEPENDENT WITH CARE HE REPORTS HE HAS A CPAP HOWEVER FEELS WORSE WHEN HE USES IT PT STATES HE HAS A HCP, COPY REQUESTED PCP: KRISTIAN CABRALES DCP: HOME TODAY, WITH NO SERVICES, VIA SELF TRANSPORT
== END 2023-12-20 09:55 | disposition home or self-care (01) | DRG 201 ==
LOC: HO.ED 12-19 00:38 → HO.EDOVER 12-19 00:53 → HO.IMC 12-19 19:19
PROVIDERS: Admitting Provider Student in an Organized Health Care Education/Training Program; Emergency Provider Emergency Medicine; PCP Internal Medicine; Visit Provider Internal Medicine
DX: I48.0 Paroxysmal atrial fibrillation (principal); B18.2 Chronic viral hepatitis C; G47.33 Obstructive sleep apnea (adult) (pediatric); F11.20 Opioid dependence, uncomplicated; I10 Essential (primary) hypertension; J45.909 Unspecified asthma, uncomplicated; T45.516A Underdosing of anticoagulants, initial encounter; F17.210 Nicotine dependence, cigarettes, uncomplicated; Z71.6 Tobacco abuse counseling; Z79.01 Long term (current) use of anticoagulants; Z79.899 Other long term (current) drug therapy
CPT/HCPCS: 36415; 71045; 71275; 80048; 80053; 80307; 83735; 83880; 84443; 84484; 85027; 85379; 93005; 93306; 93971; 99285; J7120; Q9957; Q9967

== ENCOUNTER → 2023-12-19 00:49 | Outpatient (BNV) | payer OTHER, SELFPAY | PROVIDERS: Admitting Provider Student in an Organized Health Care Education/Training Program; Emergency Provider Emergency Medicine; Visit Provider Internal Medicine | DX: I48.91 Unspecified atrial fibrillation (principal); I36.1 Nonrheumatic tricuspid (valve) insufficiency; I34.0 Nonrheumatic mitral (valve) insufficiency | CPT/HCPCS: 93306; 99223 ==

== ENCOUNTER → 2023-12-19 00:49 | Outpatient (BNV) | payer OTHER, SELFPAY | PROVIDERS: Admitting Provider Student in an Organized Health Care Education/Training Program; Emergency Provider Emergency Medicine; Visit Provider Student in an Organized Health Care Education/Training Program | DX: I48.91 Unspecified atrial fibrillation (principal) | CPT/HCPCS: 99222; 99239 ==

== ENCOUNTER 2023-12-31 14:21 | Outpatient (AMB) | payer OTHER, SELFPAY ==
[2023-12-31 14:25] VITALS: BP 130/70; PULSE 114; BMI 33.6
--- NOTE | 2023-12-31 14:25 | A.OFFVIS_ITS ---
Vital Signs 12/31/23 14:25 Height 5 ft 9 in Weight 227 lb 11.8 oz BMI 33.6 BP 130/70 Blood Pressure Location Lt brachial Position Sitting Pulse 114 H Pulse Source Monitor Intake Visit Reasons: C f/up-Afib Intake Note: [facility] [place] f/up-Afib Transportation Planning Technician Required: No Accompanied by: Self / Same As Patient Allergies No Known Allergies [No Known Allergies*] Allergy (Verified 12/18/23 23:26) Medication List - Last Reconciled 12/31/23 by Thomas Ruffin MD albuterol sulfate 90 mcg/actuation 2 puffs inhalation QID PRN apixaban (Eliquis) 5 mg PO BID ascorbate calcium (vitamin C) 500 mg PO DAILY buprenorphine-naloxone 4-1 mg 1 film sublingual DAILY buprenorphine-naloxone 8-2 mg (Suboxone) 1 strip sublingual BID cholecalciferol (vitamin D3) 25 mcg PO DAILY diltiazem HCl CD (Cardizem CD) 180 mg See Protocol PO DAILY lisinopril-hydrochlorothiazide 20-12.5 mg 1 tab PO DAILY mecobalamin (vitamin B12) 500 mcg PO DAILY multivitamin 1 tab PO DAILY quetiapine 25 - 50 mg PO BEDTIME HPI Comments Details: 63-year-old male returning for office visit after 3 years. He was seen in 2020 for atrial fibrillation. He was in [place] and was drinking alcohol when he developed atrial fibrillation. He was started on anticoagulation with CHADS- VASc score of 2. Subsequent to that he stopped following up with us and recently got admitted to [facility] with palpitations and AFib with RVR. Apparently he was in [place] and again was drinking beer every day and developed palpitations. He also ran out of his Eliquis while he was in [place] and did not take it for some time. He was started on Cardizem drip in the hospital and eventually transitioned to oral Cardizem. He was started on Eliquis 5 mg twice a day. ECHO showed borderline reduced EF and previously had low normal ejection fraction. He is complaining of some fatigue. Denying any chest discomfort. Overall not complaining of any significant shortness of breath or symptoms of heart failure. Blood pressure control is good. He is drinking around 5 beers daily. No hard liquor. [facility] Medical History Asthma LUZ MARINA (obstructive sleep apnea) Obesity (BMI 30-39.9) Atrial fibrillation with RVR New onset of congestive heart failure Arthritis Hypertension History of pyloric stenosis Surgical History Status post total replacement of both hips S/P gastric surgery History of wisdom tooth extraction History of colonoscopy Family History Father Prostate cancer HTN (hypertension) Mother HTN (hypertension) Heart disease Arthritis Kidney disease Diabetes Stroke FH: cataracts Constipation S/P colostomy Family/Other ADHD Disc disease, degenerative, lumbar or lumbosacral Maternal Uncle Cancer S/P colostomy Social History Household Members: None Housing: Apartment Do you presently have visiting nurse or other home services: No Alcohol intake: current Alcohol intake frequency: 0-2 drinks per day Alcohol type: beer Patient Tobacco Use Status: Current everyday Tobacco user Tobacco use type: Cigarette Cigarette Packs Per Day: 0.5 Cigarettes Per Day: 10 Years Smoked: 25 e-Cigarette/Vaping Use: Never Used Second Hand Smoke Exposure: Yes Substance Use Type: Crack/Cocaine and Heroin service: No Current occupational status: employed Review of Systems Const Denies chills, Denies fatigue, Denies fever(s), Denies frequent falls, Denies weakness, Denies weight gain and Denies weight loss ENT Denies dizziness Card Denies chest pain, Denies leg edema, Denies lightheadedness, Denies palpitations, Denies dyspnea and Denies dyspnea on exertion Resp Denies cough, Denies dyspnea and Denies dyspnea on exertion GI Denies hematochezia Musc Denies abnormal gait, Denies muscle weakness, Denies numbness, Denies radiating pain into limb and Denies tingling Neuro Denies abnormal gait, Denies dizziness, Denies frequent falls, Denies numbness, Denies tingling and Denies weakness Endo Denies fatigue and Denies palpitations Physical Exam Vital Signs: Last Vital Signs Pulse 114 H 12/31/23 14:25 BP 130/70 12/31/23 14:25 BMI result Body Mass Index 33.6 GENERAL APPEARANCE: in no acute distress, pleasant. NECK: no carotid bruit, no jugular venous distention. SKIN: no suspicious lesions, warm and dry. HEART: no murmurs, irregular rate and rhythm. tachycardic LUNGS: clear to auscultation bilaterally. ABDOMEN: soft, nontender. EXTREMITIES: no edema. PERIPHERAL PULSES: equal. NEUROLOGIC: No gross deficits, AAO X 3 Office Procedures EKG Details: Atrial fibrillation 114 beats per minute, normal axis, QTC 446 milliseconds. [id number], Complete Assessment & Plan Assessment & Plan (1) Atrial fibrillation with rapid ventricular response: Code(s): I48.91 - Unspecified atrial fibrillation Category: Medical Plan [age] year gentleman here for atrial fibrillation with rapid ventricular response. Recent admission to [facility] when he was in AFib with RVR and was started on Cardizem drip and then transitioned to 180 mg p.o. Cardizem. He is on Eliquis 5 mg twice a day. There is clear noncompliance with medications and decision was made not to do cardioversion or start him on any antiarrhythmic therapy. Heart rates are in 110s currently. I am going to start him on metoprolol 25 mg 2 times a day. He will continue Cardizem and Eliquis. If he stops drinking and shows that he will take medications regularly then we can consider cardioversion and put him on antiarrhythmic therapy. Otherwise there is risk of stroke and I think we should be careful with cardioverting him. Overall he appears to be stable and I think with beta-escobar addition we can control his heart rate. I have explained to him that he needs to stop drinking completely. Thank you for allowing me to participate in the care of your patient. Please feel free to contact me if you have any questions. Medications: New metoprolol tartrate 12.5 mg (1/2 x 25 mg) PO BID 60 tabs 4RF metoprolol tartrate 25 mg PO BID 60 tabs 4RF Coding Level of Care Code New Pt Level 5 (63273) Complex EM visit Add On G2211 Diagnoses Atrial fibrillation with rapid ventricular response I48.91 CPT Codes EKG - CPT: 79336-[id number], Complete ([id number])
== END 2023-12-31 14:57 | disposition home or self-care (01) ==
PROVIDERS: PCP Internal Medicine; Visit Provider Internal Medicine Cardiovascular Disease
DX: I48.91 Unspecified atrial fibrillation (principal)
CPT/HCPCS: 93010; 99214

== ENCOUNTER → 2023-12-31 14:21 | Outpatient (BNVA) | payer OTHER, SELFPAY | PROVIDERS: PCP Internal Medicine; Visit Provider Internal Medicine Cardiovascular Disease | DX: I48.91 Unspecified atrial fibrillation (principal); Z79.01 Long term (current) use of anticoagulants | CPT/HCPCS: 93005 ==

== ENCOUNTER 2024-01-13 14:31 | Outpatient (AMB) | payer OTHER, SELFPAY ==
--- NOTE | 2024-01-13 14:35 | A.OFFVIS_ITS ---
Intake Visit Reasons: 2m follow up Intake Note: Patient presents today for follow up visit on: nocturia Urology Medications: none (patient stated that he stopped alfuzosin due to side effects) Blood Thinner: Eliquis PVR: 38ml's Sales Operations Specialist Required: No Accompanied by: Self / Same As Patient Allergies No Known Allergies [No Known Allergies*] Allergy (Verified 01/13/24 15:19) Medication List - Last Reconciled 01/13/24 by AGUILAR Aguiar albuterol sulfate 90 mcg/actuation 2 puffs inhalation QID PRN apixaban (Eliquis) 5 mg PO BID ascorbate calcium (vitamin C) 500 mg PO DAILY buprenorphine-naloxone 4-1 mg 1 film sublingual DAILY buprenorphine-naloxone 8-2 mg (Suboxone) 1 strip sublingual BID cholecalciferol (vitamin D3) 25 mcg PO DAILY diltiazem HCl CD (Cardizem CD) 180 mg See Protocol PO DAILY lisinopril-hydrochlorothiazide 20-12.5 mg 1 tab PO DAILY mecobalamin (vitamin B12) 500 mcg PO DAILY metoprolol tartrate 25 mg PO BID multivitamin 1 tab PO DAILY quetiapine 25 - 50 mg PO BEDTIME HPI Comments Details: Mateo is a very pleasant 63-year-old male patient of Dr. Au. He has a past medical history of AFib with RVR, congestive heart failure, arthritis, hypertension, pyloric stenosis, substance abuse, and hep C. He presents to the office today for follow-up of his nocturia. Of note, patient underwent an office cystoscopy a proximally [address] Mcgowan that noted a normal prostate and was started on alfuzosin 10 mg at bedtime. In discussion with the patient today he reports having stopped the medication due to side effects of retrograde ejaculation and low libido he noted after 3-4 days of taking the medication. He continues to experience episodes of nocturia up to 5 times per night. He has been diagnosed with sleep apnea however continues to follow-up with neurology as he has been having a difficult time with settings and compliance with CPAP. He has previously trialed Flomax with no improvement in lower urinary tract symptoms. Previous workup has also included at CT urogram as patient also has a history of microscopic hematuria in the setting of nicotine dependence. There are symmetrical nephrograms, no ureteral abnormality, no renal masses or hydronephrosis noted bilaterally there are bilateral renal cysts simple and classifications of Bosniak 2. The urinary bladder post inferior aspect is obscured by artifact. There are no definite bladder calculi or bladder masses. Urine cytology 08/14 Negative for high-grade urothelial carcinoma. When asked denies incontinence, hematuria, dysuria, foul smelling urine, changes to urinary stream, flank pain, fever, and or chills. In office urinalysis results reviewed with the patient today. PVR 38 mL. In review of patient's chart it appears PSAs are as follows: PSA: 09/09 0.1, 06/14 0.1 We discussed at length potential causes of nocturia. We discussed correlation of sleep apnea and nocturia. He continues to drink approximately 5 beers per day we discussed affects of alcohol on lower urinary tract symptoms as well as overall health and well-being. He discusses his ongoing cardiac issues and has been following up with cardiology here at [place]. He otherwise offers no other issues or concerns at this time. [facility] Medical History Asthma LUZ MARINA (obstructive sleep apnea) Obesity (BMI 30-39.9) Atrial fibrillation with RVR New onset of congestive heart failure Arthritis Hypertension History of pyloric stenosis Surgical History Status post total replacement of both hips S/P gastric surgery History of wisdom tooth extraction History of colonoscopy Family History Father Prostate cancer HTN (hypertension) Mother HTN (hypertension) Heart disease Arthritis Kidney disease Diabetes Stroke FH: cataracts Constipation S/P colostomy Family/Other ADHD Disc disease, degenerative, lumbar or lumbosacral Maternal Uncle Cancer S/P colostomy Social History Household Members: None Housing: Apartment Do you presently have visiting nurse or other home services: No Alcohol intake: current Alcohol intake frequency: 0-2 drinks per day Alcohol type: beer Patient Tobacco Use Status: Current everyday Tobacco user Tobacco use type: Cigarette Cigarette Packs Per Day: 0.5 Cigarettes Per Day: 10 Years Smoked: 25 e-Cigarette/Vaping Use: Never Used Second Hand Smoke Exposure: Yes Substance Use Type: Crack/Cocaine and Heroin service: No Current occupational status: employed Review of Systems Const Reports no additional complaints Eyes Reports no additional complaints ENT Reports no additional complaints Card Reports as per HPI Resp Reports no additional complaints GI Reports as per HPI Reports as per HPI Musc Reports as per HPI Neuro Reports no additional complaints Psych Reports no additional complaints Endo Reports no additional complaints Robby/Lymph Reports no additional complaints Aller/Immun Reports no additional complaints Physical Exam Const General: cooperative, healthy appearing, comfortable, no acute distress, well developed, alert and awake Nutritional Appearance: overweight Orientation/consciousness: patient oriented x3 Limitations: no limitations HEENT Head: Yes normal to inspection, Yes normocephalic and Yes atraumatic Ears: hearing grossly normal bilaterally Eyes General: appearance normal, both eyes and all related structures Neck Neck: Yes normal visual inspection and Yes trachea midline Chest Chest palpation & inspection: normal inspection of the chest Resp Effort & Inspection: normal respiratory effort and able to speak in complete sentences Cardio Rate: regular rate GI Inspection: Yes normal to inspection General: Yes no CVA tenderness Back/Spine/Pelvis Back: no CVA tenderness Skin General skin exam: no rashes or lesions noted Neuro General: patient oriented x3 Extrem General: Yes normal to inspection Psych Appearance: grossly normal and well kempt Mental Status: mental status grossly normal Speech and movement: Normal speech and movement present and Clear speech present Affect: normal affect Attitude: cooperative Thought process: Normal thought process present Thought content: Normal thought content present Insight: Fair insight present (Psych) Judgement: Fair judgement present (Psych) Office Procedures Post Void Residual Post Residual Void Post Void Residual (PVR): 38 [id number] Void Residual by ultrasound Results AMB Urinalysis, Automated UA Leukoctes 0 Raven/uL Last Edit by Brandyce Bress on 01/13/24 15:03 UA Nitrite Negative Last Edit by Utanyce Bress on 01/13/24 15:03 UA Urobilinogen 0.2 mg/dL Last Edit by Brandyce Bress on 01/13/24 15:03 UA Protein 0 mg/dL Last Edit by Raquel Emilyjovana on 01/13/24 15:03 UA pH 6.0 Last Edit by Raquel Emilyjovana on 01/13/24 15:03 UA Blood 10 Aldair/uL Last Edit by Raquel Bailey on 01/13/24 15:03 UA Specific Lake 1.010 Last Edit by Raquel Emilyjovana on 01/13/24 15:03 UA Ketone Last Edit by Raquel Bailey on 01/13/24 15:03 UA Bilirubin 0 mg/dL Last Edit by Raquel Bailey on 01/13/24 15:03 UA Glucose 0 mg/dL Last Edit by Raquel Bailey on 01/13/24 15:03 Results Reviewed Results Reviewed: Laboratory Last Values Urine pH (Auto) 6.0 01/13/24 15:02 Specific [place] (Auto) 1.010 01/13/24 15:02 Urine Protein (Auto) 0 mg/dL 01/13/24 15:02 Glucose (UA)(Auto) 0 mg/dL 01/13/24 15:02 Urine Blood (Auto) 10 Aldair/uL 01/13/24 15:02 Urine Nitrite (Auto) Negative 01/13/24 15:02 Urine Bilirubin (Auto) 0 mg/dL 01/13/24 15:02 Urine Urobilinogen (Auto) 0.2 mg/dL 01/13/24 15:02 Leukocyte Esterase (Auto) 0 Raven/uL 01/13/24 15:02 Assessment & Plan Assessment & Plan (1) Nocturia: Code(s): R35.1 - Nocturia Category: Medical (2) Microscopic hematuria: Code(s): R31.29 - Other microscopic hematuria Category: Medical (3) Nicotine dependence: Code(s): F17.200 - Nicotine dependence, unspecified, uncomplicated Category: Medical Plan In office urinalysis results reviewed with the patient today; as noted above; will send for urine cytology. PVR 38 mL. Stop alfuzosin. Start Cialis 5 mg daily as discussed. Discussed importance of following up with Neurology regarding CPAP. We discussed affects of sleep apnea as well as noncompliance with CPAP and affects it has on overall health and well-being. Discussed at length potential causes of nocturia. Discussed limiting fluids 2-3 hours prior to bed to decrease episodes of noctur ia. Discussed bladder triggers/irritants. Discussed, educated, and stressed the importance of limiting/quitting smoking for overall health and well-being. Follow-up in 3 months with PVR; or sooner with any issues, concerns, and or questions. Orders: Orders AMB Post Void Residual by ultrasound Today R35.1 - Nocturia AMB Urinalysis Automated Today Z13.9 - Encounter for screening, unspecified Medications: New tadalafil (Cialis) [facility] [id number] [id number] 5 mg PO DAILY 90 days 90 tabs 1RF Patient Instructions: The patient had an opportunity to ask questions regarding the treatment plan. All questions were answered. Physical exam, labs, and imaging were discussed and reviewed in detail. As well as risks, benefits, and discussion of treatment choices. No major barriers to understanding were identified. The patient expressed understanding and agreement with the above treatment plan. The patient was made aware they should contact our office by phone for worsening of their current condition, the appearance of new symptoms, or with any questions or concerns. Compliance is encouraged with any medications and follow up testing that is ordered. It is a privilege to be allowed the opportunity to participate in? your urological care.? Again, if you have any questions or concerns If you have any questions or concerns please do not hesitate to contact me. The office is [phone]. This note is constructed using voice recognition software. While every effort has been made to ensure accuracy cat swamper errors may have been included. Yours sincerely, JUANA Aguiar Coding Level of Care Code Est Pt Level 4 (75816) Complex EM visit Add On G2211 Diagnoses Nocturia R35.1 Microscopic hematuria R31.29 Nicotine dependence F17.200 CPT Codes Post Residual Void - PVR CPT Code: 03450-Skan Void Residual by ultrasound ([id number]) Time Spent (min) 30
== END 2024-01-13 15:17 | disposition home or self-care (01) ==
PROVIDERS: PCP Internal Medicine; Visit Provider Nurse Practitioner Family
DX: R35.1 Nocturia (principal); R31.29 Other microscopic hematuria; F17.200 Nicotine dependence, unspecified, uncomplicated; Z13.9 Encounter for screening, unspecified
CPT/HCPCS: 99214

== ENCOUNTER → 2024-01-13 14:31 | Outpatient (BNVA) | payer OTHER, SELFPAY | PROVIDERS: PCP Internal Medicine; Visit Provider Nurse Practitioner Family | DX: R35.1 Nocturia (principal); R31.29 Other microscopic hematuria; F17.210 Nicotine dependence, cigarettes, uncomplicated | CPT/HCPCS: 51798; 81003 ==

== ENCOUNTER → 2024-02-10 06:21 | Day surgery (SDC) | payer OTHER, SELFPAY ==
[2024-02-06 14:18] VITALS: BMI 32.9
--- NOTE | 2024-02-09 11:54 | HO.ANESPROP2 ---
HPI - Anesthesia Eval Consult details Narrative: 63yo M for Colonoscopy Follows C for afib. 11/2023 C admit for afib with RVR. Question of med compliance. 12/2023 office f/u stable Eliquis for afib Polysub abuse. Suboxone daily PMFSH Active Problems Active Problems: All Active Problems Atrial fibrillation with rapid ventricular response (Acute) Asthma (Acute) LUZ MARINA (obstructive sleep apnea) (Acute) Obesity (BMI 30-39.9) (Acute) Sleep apnea (Acute) Internal derangement of left knee (Acute) Nicotine dependence (Acute) Nocturia (Acute) Microscopic hematuria (Acute) Chronic anticoagulation (Acute) Chronic hepatitis C (Acute) Hepatitis B (Acute) Tubular adenoma of colon (Acute) Anemia (Chronic) Preoperative cardiovascular examination (Acute) Hypertension (Acute) Atrial fibrillation (Acute) Past Medical History Medical History Asthma LUZ MARINA (obstructive sleep apnea) Obesity (BMI 30-39.9) Atrial fibrillation with RVR New onset of congestive heart failure Arthritis Hypertension History of pyloric stenosis Family History Family History Father Prostate cancer HTN (hypertension) Mother HTN (hypertension) Heart disease Arthritis Kidney disease Diabetes Stroke FH: cataracts Constipation S/P colostomy Family/Other ADHD Disc disease, degenerative, lumbar or lumbosacral Maternal Uncle Cancer S/P colostomy Surgical History Surgical History Status post total replacement of both hips S/P gastric surgery History of wisdom tooth extraction History of colonoscopy Social History Social History Household Members: None Housing: Apartment Do you presently have visiting nurse or other home services: No Alcohol intake: current Alcohol intake frequency: 0-2 drinks per day Alcohol type: beer Patient Tobacco Use Status: Current everyday Tobacco user Tobacco use type: Cigarette Cigarette Packs Per Day: 0.5 Cigarettes Per Day: 10 Years Smoked: 25 e-Cigarette/Vaping Use: Never Used Second Hand Smoke Exposure: Yes Substance Use Type: Crack/Cocaine and Heroin service: No Current occupational status: employed Meds Allergies Allergy/AdvReac Type Severity Reaction Status Date / Time No Known Allergies Allergy Verified 01/13/24 15:19 [No Known Allergies*] Home Medications ?Medication ?Instructions ?Recorded ?Confirmed ?Last Taken ?Type buprenorphine 8 mg-naloxone 2 mg 1 strip sublingual BID 06/04/20 12/31/23 12/18/23 History sublingual film (Suboxone) ascorbate calcium (vitamin C) 500 500 mg PO DAILY 07/25/23 12/31/23 12/18/23 History mg tablet cholecalciferol (vitamin D3) 25 25 mcg PO DAILY 07/25/23 12/31/23 12/18/23 History mcg (1,000 unit) tablet lisinopril 20 1 tab PO DAILY 07/25/23 12/31/23 12/18/23 History mg-hydrochlorothiazide 12.5 mg tablet mecobalamin (vitamin B12) 500 mcg 500 mcg PO DAILY 07/25/23 12/31/23 12/18/23 History chewable tablet multivitamin 1 tab PO DAILY 07/25/23 12/31/23 12/18/23 History buprenorphine 4 mg-naloxone 1 mg 1 film sublingual DAILY 12/19/23 12/31/23 12/18/23 History sublingual film quetiapine 25 mg tablet 25 - 50 mg PO BEDTIME 12/31/23 12/31/23 Unknown History Exam Height,Weight and Vital Signs: Height 5 ft 9 in Weight 101.151 kg Pertinent Lab Results Pertinent Lab Results: Laboratory Tests 12/19/23 04:22 WBC 4.6 L Hgb 11.7 L Hct 36.8 L Plt Count 171 Sodium 137 Potassium 4.0 Chloride 103 Carbon Dioxide 26 BUN 20 H Creatinine 0.90 Narrative Narrative: EKG 12/2023 Details: Atrial fibrillation 114 beats per minute, normal axis, QTC 446 milliseconds. ECHO 11/2023 Conclusions: - LVEF difficult to assess due to atrial fibrillation as well as image quality. Probably mildly reduced at about 45-50%. - No obvious valvular pathology seen on this study. Assessment and Plan Assessment Anesthesia Assessment: Chart Reviewed
[2024-02-10 06:40] VITALS: BMI 34.0
--- NOTE | 2024-02-10 06:48 | MHC.SHP ---
Pre-Procedural Eval Section A - 24 Hr Update-Section A only Date of Service: 02/10/24 Section B - Complete if H&P > 30 days Chief Complaint: Benign neoplasm of colon, unspecified Relevant Family History (Specify if Yes): No Relevant Social History: Tobacco Use Present Medications: see Short Stay Collaborative assessment Medical History: Significant History (Asthma LUZ MARINA (obstructive sleep apnea) Obesity (BMI 30-39.9) Atrial fibrillation with RVR New onset of congestive heart failure Arthritis Hypertension History of pyloric stenosis) History of Previous Operations: Relevant previous surgery/procedure and date(s) (Status post total replacement of both hips S/P gastric surgery History of wisdom tooth extraction History of colonoscopy) Allergies: Allergies Allergy/AdvReac Type Severity Reaction Status Date / Time No Known Allergies Allergy Verified 01/13/24 15:19 [No Known Allergies*] Family History Family History Father Prostate cancer HTN (hypertension)Mother HTN (hypertension) Heart disease Arthritis Kidney disease Diabetes Stroke FH: cataracts Constipation S/P colostomyFamily/Other ADHD Disc disease, degenerative, lumbar or lumbosacralMaternal Uncle Cancer S/P colostomy Surgical History Surgical History Review of Systems Sugical H&P ROS: Negative: Constitution, Cardiovascular, Respiratory, Neurological, Psychiatric, Hem-Onc, Allergic/Immunologic, Gastrointestinal, Genitourinary, Musculoskeletal, Integumentary, Endocrine and Eyes/Ears/Nose/Throat Plan I have reviewed the history and physical and performed a pertinent physical examination on my patient. No changes have occurred unless specified. Time Spent With Patient Time: Total time managing care of this patient today ____ minutes.
[2024-02-10 06:56] VITALS: BP 92/68; PULSE 176; RESP 18; TEMP 36.5; O2SAT 96
[2024-02-10 07:07] LABS: Amphetamine Screen Urine Not Detected (Not Detect); Barbiturates, Urine Not Detected (Not Detect); Benzodiazepines Screen Urine Not Detected (Not Detect); Buprenorphine Scr Positive (Not Detect); Cannabinoid Screen Urine Not Detected (Not Detect); Cocaine Screen Urine Not Detected (Not Detect); Fentanyl, urine Not Detected (Not Detect); Methadone Screen, Urine Not Detected (Not Detect); Opiate Screen Urine Not Detected (Not Detect); Oxycodone Screen Urine Not Detected (Not Detect); Phencyclidine Screen Urine Not Detected (Not Detect)
--- NOTE | 2024-02-10 07:10 | ECG_ITS ---
Test Reason : pre op Blood Pressure : / mmHG Vent. Rate : 166 BPM Atrial Rate : 000 BPM P-R Int : 000 ms QRS Dur : 082 ms QT Int : 244 ms P-R-T Axes : 000 066 254 degrees QTc Int : 405 ms Atrial fibrillation with rapid ventricular response Low voltage QRS Septal infarct , age undetermined ST & T wave abnormality, consider lateral ischemia Abnormal ECG When compared with ECG of 18-DEC-2023 23:30, Nonspecific T wave abnormality, worse in Anterior leads Referred By: Daisy Manuel Electronically Signed By:KYLEE JIMENEZ MD
--- NOTE | 2024-02-10 07:16 | PC.NURSE ---
ekg being performed. iv inserted 2l n/c applied. sob per patient. no s/sx of resp distress.
[2024-02-10] MEDS: Lactated Ringers 1,000 ML 100 ML IVCONT (07:17)
--- NOTE | 2024-02-10 07:36 | PC.NURSE ---
0724-report given to jason cedeno charge nurse and transferred on to [facility] ed bed two. no changes. patient aware of plan of care.
== END ==
LOC: HO.SSS 06:22
PROVIDERS: Nurse Practitioner; PCP Internal Medicine; Visit Provider Internal Medicine Gastroenterology
DX: Z12.11 Encounter for screening for malignant neoplasm of colon (principal); Z53.09 Procedure and treatment not carried out because of other contraindication; Z86.0101 Personal history of adenomatous and serrated colon polyps; I48.91 Unspecified atrial fibrillation; Z79.01 Long term (current) use of anticoagulants; F19.10 Other psychoactive substance abuse, uncomplicated; F14.90 Cocaine use, unspecified, uncomplicated; F11.90 Opioid use, unspecified, uncomplicated; F17.210 Nicotine dependence, cigarettes, uncomplicated
CPT/HCPCS: 80307; 93005

== ENCOUNTER → 2024-02-10 07:10 | Outpatient (BNV) | payer OTHER, SELFPAY | PROVIDERS: PCP Internal Medicine; Visit Provider Internal Medicine Cardiovascular Disease | DX: R94.31 Abnormal electrocardiogram [ECG] [EKG] (principal) | CPT/HCPCS: 93010 ==

== ENCOUNTER 2024-02-10 07:33 | Inpatient (IN) | payer OTHER, SELFPAY ==
[2024-02-10] VITALS (15 sets, daily range): BP systolic 110–139; BP diastolic 73–104; PULSE 85–171; RESP 11–18; TEMP 36.6–36.9; O2SAT 89–98; BMI 35.1
--- NOTE | ~2024-02-10 | XR_ITS ---
EXAMINATION: XR CHEST 8:15 AM CLINICAL INFORMATION: dyspnea COMPARISON: 12/18/2023 TECHNIQUE: Frontal view of the chest was obtained. FINDINGS: The lungs are grossly clear and unchanged since 12/18/2023. The cardiomediastinal silhouette is magnified by the AP position. XR/XR chest 1V IMPRESSION: Grossly clear and unchanged single view chest x-ray. Electronically signed by: Jose Pete MD 02/10/2024 08:33 AM [facility] - [place]
--- NOTE | 2024-02-10 07:35 | ECG_ITS ---
Test Reason : rapid afib Blood Pressure : / mmHG Vent. Rate : 170 BPM Atrial Rate : 000 BPM P-R Int : 000 ms QRS Dur : 084 ms QT Int : 246 ms P-R-T Axes : 000 073 252 degrees QTc Int : 413 ms Atrial fibrillation with rapid ventricular response Low voltage QRS Septal infarct (cited on or before 10-FEB-2024) Abnormal ECG When compared with ECG of 10-FEB-2024 07:15, No significant change was found Referred By: Gifty Rodriguez Electronically Signed By:KYLEE JIMENEZ MD
--- NOTE | 2024-02-10 07:37 | ED.ARRPALP ---
HPI - Arrhythmia/Palpitations General Chief Complaint: Arrhythmia/Palpitations Stated Complaint: rapid AFib Time Seen by Provider: 02/10/24 07:34 Source: patient and old records reviewed Mode of arrival: other (via stretcher from preop) Limitations: no limitations History of Present Illness ED Provider: GILBERTO HPI narrative: 63 yo male with PMH of afib on dilt and eliquis, LUZ MARINA, asthma, hep C, HTN, suboxone use, leg swelling but not on diuretics here with c/o doing his colonscopy prep last night he has not been on eliquis x 2 days. He states it was rough and he feels terrible. Did not take his medications today. He did have a lot of diarrhea and some blood x 2 in the stool. He has no complaints now he does admit that his leg swelling is worse. He denies CP/SOB but was in rapid afib in preop. He state he wouldn't have known unless the RN told him. MD complaint: atrial fibrillation Onset (ago): unknown Duration: constant Severity: mild Context: occurred during rest Arrhythmia history: atrial fibrillation Associated symptoms: other (with prep did have 2 episodes of blood in stool) Related Data Home Medications ?Medication ?Instructions ?Recorded ?Confirmed buprenorphine 8 mg-naloxone 2 mg 1 strip sublingual BID 06/04/20 12/31/23 sublingual film (Suboxone) ascorbate calcium (vitamin C) 500 500 mg PO DAILY 07/25/23 12/31/23 mg tablet cholecalciferol (vitamin D3) 25 25 mcg PO DAILY 07/25/23 12/31/23 mcg (1,000 unit) tablet lisinopril 20 1 tab PO DAILY 07/25/23 12/31/23 mg-hydrochlorothiazide 12.5 mg tablet mecobalamin (vitamin B12) 500 mcg 500 mcg PO DAILY 07/25/23 12/31/23 chewable tablet multivitamin 1 tab PO DAILY 07/25/23 12/31/23 buprenorphine 4 mg-naloxone 1 mg 1 film sublingual DAILY 12/19/23 12/31/23 sublingual film quetiapine 25 mg tablet 25 - 50 mg PO BEDTIME 12/31/23 12/31/23 Previous Rx's ?Medication ?Instructions ?Recorded albuterol sulfate 90 mcg/actuation 2 puff inhalation QID PRN 07/22/21 aerosol inhaler shortness of breath or wheezing #6.7 grams apixaban 5 mg tablet (Eliquis) 5 mg PO BID #180 tabs 12/20/23 diltiazem HCl 180 mg 180 mg PO DAILY #90 caps 12/20/23 capsule,extended release 24 hr (Cardizem CD) metoprolol tartrate 25 mg tablet 25 mg PO BID #60 tabs 12/31/23 tadalafil 5 mg tablet (Cialis) 5 mg PO DAILY 90 days #90 tabs 01/13/24 bisacodyl 5 mg tablet,delayed 20 mg (4 x 5 mg) PO ONCE 1 day #4 02/05/24 release (Dulcolax (bisacodyl)) tabs peg 3350-electrolytes 236 240 ml PO Q10M #4,000 mL 02/05/24 gram-22.74 gram-6.74 gram-5.86 gram solution Allergies Allergy/AdvReac Type Severity Reaction Status Date / Time No Known Allergies Allergy Verified 02/10/24 07:53 [No Known Allergies*] Review of Systems Review of Systems: Constitutional : No Fever, No Chills, No Fatigue ENT/Mouth : No sore throat, No Rhinorrhea Eyes: No Eye Pain, No Swelling, No Redness Cardiovascular : No Chest Pain, pos SOB, No Dyspnea on Exertion, pos edema Respiratory : No Cough, No Sputum Gastrointestinal : No Nausea, No Vomiting, No Diarrhea, No abdominal Pain Genitourinary : No Dysuria, No Urinary Frequency, No Hematuria, Musculoskeletal : No joint pain, No Myalgias, No Joint Swelling Skin : No Skin Lesions, No rash Neuro : No Weakness, No Numbness, No Dizziness, no Headache Psych : No Anxiety/Panic, No Depression All other systems reviewed and are negative [facility] Past Medical History Attestation statement: The following information was validated with the patient. Source: old records reviewed Medical History Asthma LUZ MARINA (obstructive sleep apnea) Obesity (BMI 30-39.9) Atrial fibrillation with RVR New onset of congestive heart failure Arthritis Hypertension History of pyloric stenosis Surgical History S/P LASIK surgery of both eyes History of abdominal surgery Status post total replacement of both hips S/P gastric surgery History of wisdom tooth extraction History of colonoscopy Family History Family History Father Prostate cancer HTN (hypertension) Mother HTN (hypertension) Heart disease Arthritis Kidney disease Diabetes Stroke FH: cataracts Constipation S/P colostomy Family/Other ADHD Disc disease, degenerative, lumbar or lumbosacral Maternal Uncle Cancer S/P colostomy Social History Social History Household Members: None Housing: Apartment Do you presently have visiting nurse or other home services: No Alcohol intake: current Alcohol intake frequency: a few times a week Alcohol type: beer Patient Tobacco Use Status: Current everyday Tobacco user Tobacco use type: Cigarette Cigarette Packs Per Day: 0.5 Cigarettes Per Day: 8 Years Smoked: 25 Smoked in Last 30 Days: Yes e-Cigarette/Vaping Use: Never Used Second Hand Smoke Exposure: Yes Use of substances other than those prescribed or required for medical reasons: No Substance Use Type: Crack/Cocaine and Heroin Advance Directives: No Advance Directives Information Provided: Yes service: No Current occupational status: employed Physical Exam Vital Signs: Vital Signs: Last Vital Signs Temp 98 F 02/10/24 08:44 Pulse 85 02/10/24 10:10 Resp 14 02/10/24 10:00 BP 125/91 H 02/10/24 10:00 Pulse Ox 89 L 02/10/24 10:24 O2 Del Method Room Air 02/10/24 10:24 BMI result Body Mass Index 35.1 Appearance: Alert. Oriented X3. No acute distress. Eyes: Pupils equal, round and reactive to light. ENT: Pharynx normal. Neck: Normal inspection. Neck supple. CVS: irregular tachycardic heart rate and rhythm. Pulses normal. Respiratory: No respiratory distress. Breath sounds diminished bilaterally bases with rales Abdomen: Soft and nontender. Skin: Skin warm and dry. Normal skin color. Normal skin turgor. Extremities: 2+ pitting lower extremity edema. Neuro: Oriented X 3. No motor deficit. No sensory deficit. Course Course Course Narrative: HR down in 80s, BP stable CXR clear given IV lasix repet trop for 950am but suspect demand he is very upset and wants to have a colonoscopy today Reevaluation(s) Reevaluation #1: got up to use BR HR 170s repeat IV dilt ordered Medications Administered Discontinued Medications Generic Name Dose Route Start Last Admin Trade Name Prasanth PRN Reason Stop Dose Admin Diltiazem HCl 10 mg 02/10/24 07:34 02/10/24 07:48 Diltiazem Hcl 50 Mg/10 Ml Vial IVPUSH 02/10/24 07:35 10 mg STAT STA Administration Diltiazem HCl 10 mg 02/10/24 09:06 02/10/24 09:12 Diltiazem Hcl 50 Mg/10 Ml Vial IVPUSH 02/10/24 09:07 10 mg STAT STA Administration Furosemide 40 mg 02/10/24 08:22 02/10/24 08:40 Furosemide 40 Mg/4 Ml Vial IVPUSH 02/10/24 08:23 40 mg STAT STA Administration Protocol Medical Decision Making Medical Decision Making [facility] Narrative: 63 yo male with PMH of afib on dilt and eliquis, LUZ MARINA, asthma, hep C, HTN, suboxone use, leg swelling but not on diuretics here with c/o rapid afib in preop at this time will need basic labs, IV dilt, BNP and CXR. The patient likely in rapid afib from lack of medications and colonoscopy prep. He has no CP/SOB. May need start of diuretic last ECHO 11/2023 EF 45-50% only on HCTZ Differential Diagnosis Differential Diagnoses: The differential diagnosis associated with the presentation includes dehydration, CHF, afib with RVR Admission/Observation Consideration of admission/observation: Escalation of care including admission/observation considered 89% on RA suspect CHF and afib with RVR anticipate admission for diuresis Consult Healthcare Provider Management of the patient was discussed with: Hospitalist (will admit) Lab Data [facility] Lab Attestation statement: I reviewed the patient's lab results. 02/10/24 07:50 02/10/24 07:50 Labs: Lab Results 02/10/24 02/10/24 Range/Units 07:50 10:05 WBC 5.9 (4.8-10.8) X10*3/uL RBC 4.75 (4.60-5.80) X10*6/uL Hgb 13.2 L (14.0-18.0) g/dl Hct 40.5 L (42.0-52.0) % MCV 85.3 (80.0-98.0) fL MCH 27.8 (27.0-33.0) pg MCHC 32.6 (31.0-36.0) g/dl RDW 14.1 (11.0-16.0) % Plt Count 184 (160-400) X10*3/uL MPV 10.8 (9.4-12.4) fL Immature Gran % (Auto) 0.2 (0.0-0.4) % Neut % (Auto) 41.8 L (45-73) % Lymph % (Auto) 44.9 H (20-40) % [place] % (Auto) 11.8 H (2-11) % Eos % (Auto) 0.8 (0-4) % Baso % (Auto) 0.5 (0-2) % Lymph # (Auto) 2.7 (1.2-4.9) X10*3/uL [place] # (Auto) 0.7 (0.1-1.2) X10*3/uL Eos # (Auto) 0.1 (0.0-0.4) X10*3/uL Baso # (Auto) 0.0 (0.0-0.2) X10*3/uL Abs Immat Gran (auto) 0.01 (0.00-0.03) X10*3/uL Absolute Neuts (auto) 2.5 (2.0-8.3) x10*3/uL Absolute Nucleated RBC 0.000 (0.0-0.012) X10*3/uL Nucleated RBC % (auto) 0.0 (0.0-0.2) /100WBC Hold Blue Top SEE NOTE Sodium 138 (135-145) mmol/L Potassium 3.8 (3.3-5.1) mmol/L Chloride 104 (96-108) mmol/L Carbon Dioxide 24 (22-29) mmol/L Anion Gap 14 (12-20) BUN 14 (9-16) mg/dL Creatinine 1.03 (0.5-1.4) mg/dL Estim Creat Clear Calc 91.0 Estimated GFR > 60 Random Glucose 112 (60-115) mg/dL Calcium 8.6 (8.4-10.2) mg/dL Magnesium 2.0 (1.6-2.6) mg/dL Total Bilirubin 1.0 (0.0-1.0) mg/dL Direct Bilirubin 0.4 (0.0-0.5) mg/dL AST 39 H (5-37) U/L ALT 34 (0-40) U/L Alkaline Phosphatase 42 (39-117) U/L Troponin I High Sens 57.5 H D 61.1 H (<3.5-35.0) ng/L B-Natriuretic Peptide 851 H (<100) pg/mL Total Protein 5.7 L (6.5-8.0) g/dL Albumin 3.6 (3.5-5.0) g/dL Lipase 25 (8-78) U/L Independent Interpretation I performed an independent interpretation of an: EKG and Plain X-Ray (no edema) Interpretation: Rate: 170 Rhythm: afib with RVR [place]: normal Normal QRS complex. ST T wave : nonspecific ST T wave changes, no BRIAN qTC: 413 prior studies: now in rapid afib with RVR The study has been interpreted contemporaneously by me. . Radiology Impression Discussion of test interpretation with radiology: I have reviewed the radiologist's reading. External Record Review External record reviewed: Inpatient record and Outpatient record Discharge Plan Discharge Clinical Impression: Atrial fibrillation with rapid ventricular response, Leg edema, Hypoxia, Acute on chronic clinical systolic heart failure Patient Disposition: Admitted As Inpatient Print Language: Sinhala
[2024-02-10] MEDS: dilTIAZem HCL 50 MG/10 ML VIAL 10 MG IVPUSH ×2 (07:48→09:12)
[2024-02-10 07:53] LABS: MANUAL DIFF FLAG NO
[2024-02-10 08:01] LABS: Basophils Percent Auto 0.5 % (0-2); Eosinophils Absolute Auto 0.1 X10*3/uL (0.0-0.4); Eosinophils Percent Auto 0.8 % (0-4); Hematocrit 40.5 % (42.0-52.0); Hemoglobin 13.2 g/dl (14.0-18.0); Imm Gran Abs Auto 0.01 X10*3/uL (0.00-0.03); Imm Gran Pct Auto 0.2 % (0.0-0.4); Lymphocytes Absolute Auto 2.7 X10*3/uL (1.2-4.9); Lymphocytes Percent Auto 44.9 % (20-40); Mean Corpuscular HGB Conc 32.6 g/dl (31.0-36.0); Mean Corpuscular Hemoglobin 27.8 pg (27.0-33.0); Mean Corpuscular Volume 85.3 fL (80.0-98.0); Mean Platelet Volume 10.8 fL (9.4-12.4); Monocytes Absolute Auto 0.7 X10*3/uL (0.1-1.2); Monocytes Percent Auto 11.8 % (2-11); Neutrophils Absolute Auto 2.5 x10*3/uL (2.0-8.3); Neutrophils Percent Auto 41.8 % (45-73); Platelet Count 184 X10*3/uL (160-400); Red Blood Count 4.75 X10*6/uL (4.60-5.80); Red Cell Distribution Width 14.1 % (11.0-16.0); White Blood Count 5.9 X10*3/uL (4.8-10.8)
--- NOTE | 2024-02-10 08:05 | PC.NURSE ---
Brought fro OR to ED with afib with RVR. Patient alert and oriented, reports felt sob earlier but feels fine now. Reports took 1/2 dose of metoprolol and did not take cardizem this am. Completed prep for colonoscopy. Medicated per may, remains in afib with HR of 102 at this time. Denies pain, reports he really does not want to have to re-do colonoscopy prep and once he is out of afib he would like to have the colonoscopy today.
[2024-02-10 08:14] LABS: Alanine Aminotransferase 34 U/L (0-40); Albumin Level 3.6 g/dL (3.5-5.0); Alkaline Phosphatase 42 U/L (39-117); Anion Gap 14 (12-20); Aspartate Amino Transferase 39 U/L (5-37); Bilirubin Direct 0.4 mg/dL (0.0-0.5); Blood Urea Nitrogen 14 mg/dL (9-16); Calcium 8.6 mg/dL (8.4-10.2); Carbon Dioxide 24 mmol/L (22-29); Chloride 104 mmol/L (96-108); Estimated Glomerular Filt Rate > 60; Glucose Random 112 mg/dL (60-115); Lipase 25 U/L (8-78); Potassium 3.8 mmol/L (3.3-5.1); Sodium 138 mmol/L (135-145); Total Protein 5.7 g/dL (6.5-8.0)
[2024-02-10 08:18] LABS: B Type Natriuretic Peptide 851 pg/mL (<100)
[2024-02-10 08:21] LABS: Troponin-I High Sensitivity 57.5 ng/L (<3.5-35.0)
[2024-02-10] MEDS: Furosemide 40 MG/4 ML VIAL IVPUSH ×2 (08:40→17:44)
--- NOTE | 2024-02-10 08:59 | PC.NURSE ---
Patient out of bed to use bathroom HR 160-170`s. Patient declined to use urinal, walked to bathroom. Provider aware
--- NOTE | 2024-02-10 10:13 | PC.NURSE ---
Called OR to review that patient was still in afib but with HR in the 80`s. Nurse Peyton stating patient unable to have procedure today d/t HR in 180`s and patient being symptomatic with SOB and low BP. Provider aware
[2024-02-10 10:38] LABS: Troponin-I High Sensitivity 61.1 ng/L (<3.5-35.0)
--- NOTE | 2024-02-10 12:03 | PHA.MEDREC ---
Addendum entered by Arley Nuno 02/10/24 12:49: review Original Note: Pharmacy Consult ? Medication Reconciliation Pharmacy has completed the medication reconciliation. Spoke to patient to confirm med list. Patient states he no longer takes Diltiazem 180 mg. Patient states he only had Suboxone 8/2mg today all other medication was 02/08/24
--- NOTE | 2024-02-10 12:47 | PM.IMHP ---
History of Present Illness Date of Service: 02/10/24 Chief Complaint: sent from pre-op The patient is a 63 year old male with a PMH of asthma, LUZ MARINA, obesity, AFib with RVR, CHF with borderline EF, alcohol use, chronic opiate therapy on Suboxone who presents to the emergency room from the preop area for tachycardia. The patient was scheduled for an outpatient colonoscopy today but was noted to have heart rates above 160-70. In the emergency room he was found to be in AFib with RVR and was treated with 2 doses of IV diltiazem with improved heart rate. Further workup revealed signs and symptoms concerning for acute CHF. The patient was treated with IV diuretics and reports no significant improvement in his symptoms. He was noted to have O2 saturations of 89% on room air which have improved to the mid 90s on 2 L. Given his AFib and suspected CHF, he will be admitted for further care. The patient is seen and examined in the emergency room around 12:30. He reports that currently he is not feeling any palpitations but does endorse shortness of breath with exertion. On further questioning, the patient reports that he is supposed to be on both metoprolol and diltiazem for his AFib. He states that he was not able to tolerate his diltiazem as he felt this worsened his heart rate and hence he has not taken it over the last 1 month. He has not taken his metoprolol today in preparation for his colonoscopy. He reports he is on Eliquis but that has been on hold for the last 48 hours again in preparation for his colonoscopy. In regards to his shortness of breath, the patient endorses exertional dyspnea. He reports easy fatigability even with ambulation within his own home. He is unsure if he has had orthopnea or nocturnal dyspnea but does report feeling increasingly bloated as well as bilateral lower extremity edema. He reports a weight gain of about 10-15 lb, unclear in what duration. He does not appear to be on diuretic therapy other than HCTZ. In regards to compliance with his medication, the patient reports that he has been compliant with his meds with the exception of Cardizem. Does endorse alcohol use on a near daily basis. States that he was previously drinking about 10 beers daily and now has cut that in about half. He denies any withdrawal symptoms. He states ?I am not an alcoholic.? He does report minor epistaxis several weeks ago and reports 2 episodes of blood in his stool while completing his prep. Review of Systems Review of Systems: Negative except HPI/interval history. [facility] Medical History Asthma LUZ MARINA (obstructive sleep apnea) Obesity (BMI 30-39.9) Atrial fibrillation with RVR New onset of congestive heart failure Arthritis Hypertension History of pyloric stenosis Family History Father Prostate cancer HTN (hypertension) Mother HTN (hypertension) Heart disease Arthritis Kidney disease Diabetes Stroke FH: cataracts Constipation S/P colostomy Family/Other ADHD Disc disease, degenerative, lumbar or lumbosacral Maternal Uncle Cancer S/P colostomy Surgical History S/P LASIK surgery of both eyes History of abdominal surgery Status post total replacement of both hips S/P gastric surgery History of wisdom tooth extraction History of colonoscopy Social History Household Members: None Housing: Apartment Do you presently have visiting nurse or other home services: No Alcohol intake: current Alcohol intake frequency: a few times a week Alcohol type: beer Patient Tobacco Use Status: Current everyday Tobacco user Tobacco use type: Cigarette Cigarette Packs Per Day: 0.5 Cigarettes Per Day: 8 Years Smoked: 25 Smoked in Last 30 Days: Yes e-Cigarette/Vaping Use: Never Used Second Hand Smoke Exposure: Yes Use of substances other than those prescribed or required for medical reasons: No Substance Use Type: Crack/Cocaine and Heroin Advance Directives: No Advance Directives Information Provided: Yes service: No Current occupational status: employed Meds Allergies Allergy/AdvReac Type Severity Reaction Status Date / Time No Known Allergies Allergy Verified 02/10/24 07:53 [No Known Allergies*] Active Medications: Current Medications Acetaminophen (Acetaminophen 325 Mg Tablet) 650 mg PO Q6H PRN PRN Reason: Pain, Mild (Pain Scale 1-3), fever or headache Calcium Carbonate (Calcium Carbonate 750 Mg Tab.Chew) 750 mg PO Q4H PRN PRN Reason: Heartburn Furosemide (Furosemide 40 Mg/4 Ml Vial) 40 mg IVPUSH BID@0900,1800 EMILE; Protocol Magnesium Hydroxide (Milk Of Magnesia 30 Ml Oral.Susp) 30 ml PO DAILY PRN PRN Reason: Constipation Melatonin (Melatonin 3 Mg Tablet) 6 mg PO BEDTIME PRN PRN Reason: Insomnia Ondansetron HCl (Ondansetron Hcl 4 Mg/2 Ml Vial) 4 mg IVPUSH Q8H PRN PRN Reason: Nausea and Vomiting Sodium Chloride (0.9 % Sodium Chloride Flush 3 Ml Syringe) 3 ml IVFLUSH [facility] Home Medications ?Medication ?Instructions ?Recorded ?Confirmed ?Last Taken ?Type buprenorphine 8 mg-naloxone 2 mg 1 strip sublingual BID 06/04/20 02/10/24 02/10/24 History sublingual film (Suboxone) ascorbate calcium (vitamin C) 500 500 mg PO DAILY 07/25/23 02/10/24 02/09/24 History mg tablet cholecalciferol (vitamin D3) 25 25 mcg PO DAILY 07/25/23 02/10/24 02/09/24 History mcg (1,000 unit) tablet lisinopril 20 1 tab PO DAILY 07/25/23 02/10/24 02/09/24 History mg-hydrochlorothiazide 12.5 mg tablet mecobalamin (vitamin B12) 500 mcg 500 mcg PO DAILY 07/25/23 02/10/24 02/09/24 History chewable tablet multivitamin 1 tab PO DAILY 07/25/23 02/10/24 02/09/24 History buprenorphine 4 mg-naloxone 1 mg 1 film sublingual DAILY 12/19/23 02/10/24 02/09/24 History sublingual film quetiapine 25 mg tablet 25 - 50 mg PO BEDTIME 12/31/23 02/10/24 02/09/24 History ferrous sulfate 325 mg (65 mg 325 mg PO DAILY 02/10/24 02/10/24 Unknown History iron) tablet (iron) Physical Exam Vital Signs and Narrative: Vital Signs: Last Vital Signs Temp 98.4 F 02/10/24 12:00 Pulse 88 02/10/24 12:00 Resp 11 L 02/10/24 12:00 BP 111/80 02/10/24 12:00 Pulse Ox 95 02/10/24 12:00 O2 Del Method Nasal Cannula 02/10/24 12:00 O2 Flow Rate 2 02/10/24 12:00 BMI result Body Mass Index 35.1 Const: Other: Constitutional - Awake and Alert, No apparent distress Eyes - PERRLA, EOMI Cardiovascular - IRR, rates 90s-100s; +JVD; +2+ b/l pitting edema Respiratory - dimished sounds globally, trace wheezing; no rales appreciated Gastrointestinal - NT / ND; +BS; No rebound or guarding - No CVA tenderness Extremities - no calf tenderness bilaterally, no swelling Musculoskeletal - Normal inspection, normal ROM Skin - Warm/Dry Neurological - Alert & oriented x3, No focal deficit Psychological - Appropriate affect Results Labs 02/10/24 07:50 02/10/24 07:50 Labs: Laboratory Results - last 24 hr 02/10/24 02/10/24 07:50 10:05 MCV 85.3 MCH 27.8 MCHC 32.6 RDW 14.1 Plt Count 184 MPV 10.8 Immature Gran % (Auto) 0.2 Neut % (Auto) 41.8 L Lymph % (Auto) 44.9 H [place] % (Auto) 11.8 H Eos % (Auto) 0.8 Baso % (Auto) 0.5 Lymph # (Auto) 2.7 [place] # (Auto) 0.7 Eos # (Auto) 0.1 Baso # (Auto) 0.0 Abs Immat Gran (auto) 0.01 Absolute Neuts (auto) 2.5 Absolute Nucleated RBC 0.000 Nucleated RBC % (auto) 0.0 Hold Blue Top SEE NOTE Anion Gap 14 Estim Creat Clear Calc 91.0 Estimated GFR > 60 Random Glucose 112 Calcium 8.6 Magnesium 2.0 Total Bilirubin 1.0 Direct Bilirubin 0.4 AST 39 H ALT 34 Alkaline Phosphatase 42 Troponin I High Sens 57.5 H D 61.1 H B-Natriuretic Peptide 851 H Total Protein 5.7 L Albumin 3.6 Lipase 25 Imaging Radiologist's Impressions: Impressions Chest X-Ray 02/10/24 07:54 IMPRESSION: Grossly clear and unchanged single view chest x-ray. Electronically signed by: Jose Pete MD 02/10/2024 08:33 AM [facility] [place] and Plan (1) Acute on chronic clinical systolic heart failure: Status: Acute (2) Hypoxia: Status: Acute (3) Atrial fibrillation with rapid ventricular response: Status: Acute Plan 63 yo M who presents from preop for outpatient colonoscopy for tachycardia and is found to be in rapid AFib and CHF. He has been treated with 2 doses of IV diltiazem and IV Lasix with improvements in his rates, however, appears to be in CHF and hence will be admitted for further treatment. Also noted to hypoxic at 89% on room air. 1. Acute on chronic CHF, possibly systolic Question if related to tachycardia / AFib Last echo showing borderline EF of about 45% but technically difficult study but does endorse about a 10-15 lb weight gain and exertional dyspnea Is not on diuretics at home, given IV Lasix in the ED, will continue Will ask for Cardiology input Low-salt diet, daily weights, intake and output 2. AFib with RVR Patient improved status post 2 doses of IV diltiazem Patient states he was last told to be on metoprolol as well as Cardizem, last Cardiology notes confirm this. Patient reports he stopped diltiazem about 1 month ago and has only been taking metoprolol For the time being, will continue with oral metoprolol and use IV rate control drugs as needed On Eliquis, which had been held in preparation for his colonoscopy. He reports several episodes of blood in the stool, suspect mild. For now will hold his Eliquis and check H&H tomorrow. 3. Acute respiratory failure with hypoxia Saturations 89 on room air with symptoms of exertional dyspnea Likely due to 1. 4. Suspected alcohol use disorder Patient endorses drinking 10 beers almost every day, reports the last several weeks he has cut this down to about 5. Denies prior withdrawal symptoms For now monitor with [facility] Consider Addiction Medicine consultation, although the patient at this point does not appear to think his drinking is a problem. 5. Chronic opiate therapy Continue Suboxone at baseline 6. Hypertension Blood pressure in the 110s post IV Cardizem Will hold his home medications with the exception of metoprolol for rate control 7. LUZ MARINA CPAP 8. Demand ischemia HS trop elevated x 2, but delta okay. Suspected due to #1 and #2 monitor for now Full Code DVT pptx -- mechanical for now (due to reports of blood in stool), but likely back on Eliquis if h/h stable Pt with CHF resulting in hypoxia and uncontrolled A. fib requiring IV diuretics and oxygen therapy, complicated by A. fib with poorly controlled rates - therefore expected to require, at a minimum 2 midnights in the hospital for treatment, hence will be admitted as inpatient. Quality Stroke Does the patient have a stroke diagnosis?: No VTE Prior VTE?: No VTE Risk Level:: Medical - moderate - high VTE Device Contraindication: N/A - Device Ordered VTE Drug Contraindication: Treatment Not Indicated
[2024-02-10] MEDS: Metoprolol Tartrate 25 MG TABLET PO ×2 (14:12→22:01)
[2024-02-10] MEDS: 0.9 % Sodium Chloride Flush 3 ML SYRINGE IVFLUSH (15:21)
[2024-02-10] MEDS: Buprenorphine/Naloxone 8/2 mg FILM 1 FILM SUBLINGUAL (17:40)
[2024-02-11] VITALS (15 sets, daily range): BP systolic 104–135; BP diastolic 67–100; PULSE 74–125; RESP 12–20; TEMP 36.6–36.9; O2SAT 94–98; BMI 32.1
--- NOTE | 2024-02-11 | ECG_ITS ---
Test Reason : AFIB Blood Pressure : / mmHG Vent. Rate : 093 BPM Atrial Rate : 000 BPM P-R Int : 000 ms QRS Dur : 096 ms QT Int : 398 ms P-R-T Axes : 000 050 170 degrees QTc Int : 494 ms Atrial fibrillation Low voltage QRS Septal infarct (cited on or before 10-FEB-2024) T wave abnormality, consider anterolateral ischemia Abnormal ECG When compared with ECG of 10-FEB-2024 07:35, Vent. rate has decreased BY 77 BPM Inverted T waves have replaced nonspecific T wave abnormality in Anterior leads Referred By: Peyton Sanches Electronically Signed By:KYLEE JIMENEZ MD
[2024-02-11] MEDS: 0.9 % Sodium Chloride Flush 3 ML SYRINGE IVFLUSH ×3 (02:26→20:34)
--- NOTE | 2024-02-11 02:45 | MHC.EDTECH ---
This tech took over care of patient at 0245AM,rounded and introduced self to patient,patient appears comfortable,belongings list completed,copy placed in chart,call sarmiento in reach
[2024-02-11] MEDS: QUEtiapine Fumarate 50 MG TABLET PO ×2 (03:46→20:29)
[2024-02-11] MEDS: Buprenorphine/Naloxone 4/1 mg FILM 1 FILM SUBLINGUAL (06:13)
[2024-02-11] MEDS: Buprenorphine/Naloxone 8/2 mg FILM 1 FILM SUBLINGUAL ×2 (06:13→17:43)
[2024-02-11 07:29] LABS: MANUAL DIFF FLAG NO
[2024-02-11 07:31] LABS: Basophils Percent Auto 0.4 % (0-2); Eosinophils Absolute Auto 0.1 X10*3/uL (0.0-0.4); Eosinophils Percent Auto 2.2 % (0-4); Hematocrit 37.9 % (42.0-52.0); Hemoglobin 12.4 g/dl (14.0-18.0); Lymphocytes Absolute Auto 2.2 X10*3/uL (1.2-4.9); Lymphocytes Percent Auto 47.3 % (20-40); Mean Corpuscular HGB Conc 32.7 g/dl (31.0-36.0); Mean Corpuscular Hemoglobin 27.9 pg (27.0-33.0); Mean Corpuscular Volume 85.4 fL (80.0-98.0); Mean Platelet Volume 10.8 fL (9.4-12.4); Monocytes Absolute Auto 0.4 X10*3/uL (0.1-1.2); Monocytes Percent Auto 9.2 % (2-11); Neutrophils Absolute Auto 1.9 x10*3/uL (2.0-8.3); Neutrophils Percent Auto 40.9 % (45-73); Platelet Count 165 X10*3/uL (160-400); Red Blood Count 4.44 X10*6/uL (4.60-5.80); Red Cell Distribution Width 14.4 % (11.0-16.0); White Blood Count 4.6 X10*3/uL (4.8-10.8)
[2024-02-11 07:49] LABS: Alanine Aminotransferase 31 U/L (0-40); Albumin Level 3.3 g/dL (3.5-5.0); Alkaline Phosphatase 42 U/L (39-117); Anion Gap 13 (12-20); Aspartate Amino Transferase 34 U/L (5-37); Bilirubin Total 0.6 mg/dL (0.0-1.0); Blood Urea Nitrogen 21 mg/dL (9-16); Calcium 8.4 mg/dL (8.4-10.2); Carbon Dioxide 29 mmol/L (22-29); Chloride 103 mmol/L (96-108); Creatinine Clr Calc Pharmacy 105.4; Estimated Glomerular Filt Rate > 60; Glucose Random 107 mg/dL (60-115); Potassium 3.6 mmol/L (3.3-5.1); Sodium 141 mmol/L (135-145); Total Protein 5.2 g/dL (6.5-8.0)
[2024-02-11 07:51] LABS: Troponin-I High Sensitivity 26.8 ng/L (<3.5-35.0)
[2024-02-11] MEDS: Metoprolol Tartrate 25 MG TABLET PO ×2 (08:57→20:28)
[2024-02-11] MEDS: dilTIAZem HCL 50 MG/10 ML VIAL 15 MG IVPUSH (08:58)
[2024-02-11] MEDS: Furosemide 40 MG/4 ML VIAL IVPUSH ×2 (09:02→17:44)
[2024-02-11] MEDS: Cholecalciferol (Vitamin D3) 25 MCG TABLET PO (09:03)
[2024-02-11] MEDS: Multivitamin TABLET 1 TAB PO (09:03)
[2024-02-11] MEDS: Ferrous Sulfate 324 MG TABLET.DR PO (09:03)
[2024-02-11] MEDS: Apixaban 5 MG TABLET PO ×2 (09:13→20:28)
[2024-02-11] MEDS: dilTIAZem HCL 125 MG in 0.9 % Sodium Chloride 100 ML 10 MG IVCONT (09:26)
--- NOTE | 2024-02-11 09:26 | P.CONCA_ITS ---
History of Present Illness History of Present Illness Date of Service: 02/11/24 Requesting physician: Peyton Sanches Consult reason: atrial fibrillation and congestive heart failure Chief complaint: a fib rvr chf Narrative: I was consulted to see Mateo in cardiology consultation today for management of atrial fibrillation heart failure. Patient is 63-year-old male with prior history of recent onset atrial fibrillation which she has not been tolerating well and has had difficult control rate as an outpatient. He was started on Cardizem therapy although he said he was having side effects to Cardizem therapy in his heart was not feeling right and he was not taking it. He was subsequently started on metoprolol therapy which has been taking regularly. He was also started on Eliquis therapy initially said only on 2.5 mg b.i.d. was tolerating well but due to inadequate dosing which was appropriately increased to 5 mg b.i.d.. He said once he started taking that he started having epistaxis and was only taking Eliquis once a day. Discussed with him that this is an inadequate dosing of Eliquis. He seemed to think that the medicines are not working for him and he is quite frustrated. He said he has been getting progressively increasing shortness of breath. He has notice that his closer been getting tighter and he has gained significant amount of weight. He is noticing abdominal distension as well as gassiness. He has noted bilateral leg swelling. He is also notice shortness of breath sometimes at rest. He said this has made him not able to work. Last echocardiogram LVEF of 45-50%. He comes to the hospital as he was not feeling well and has had progressive symptoms. He was noted to be in atrial fibrillation rapid ventricular response. Got 1 dose of IV Cardizem with better rate control although with discussion his heart rate easily went up to 190 beats per minute after he was getting frustrated. He seems to be mildly short of breath. He said he has been diuresing has got 1 dose of Lasix. Going to receive another dose of Lasix right now. However he says he when his heart rates go up to 180 beats per minute he was not feeling well. He denies any chest pain. Denies any lightheadedness, syncope. Does attest to orthopnea. Review of Systems 2 Constitutional: Constitutional: Reports lethargy and Reports poor appetite Eyes: Eyes: Reports no additional eye complaints Cardiovascular: Cardiovascular: Reports Abdominal Distension, Denies chest pain, Reports rapid heart rate, Reports leg edema, Denies Loss of Consciousness, Reports palpitations, Reports dyspnea on exertion and Reports orthopnea Respiratory: Respiratory: Reports dyspnea on exertion and Denies wheezing Gastrointestinal: Gastrointestinal: Reports no additional gastrointestinal complaints Genitourinary: Genitourinary: Reports no additional male genitourinary complaints Musculoskeletal: Musculoskeletal: Reports no additional musculoskeletal complaints Integumentary/Breasts: Skin/Breast: Reports system reviewed and no additional complaints, except as docu Neurologic: Reports system reviewed and no additional complaints, except as documented Psychiatric: Psychiatric: Reports no additional psychiatric complaints Endocrine: Endocrine: Reports palpitations Allergic/Immunologic: Allergic/Immunologic: Denies wheezing PMFSH Past Medical History Medical History Asthma LUZ MARINA (obstructive sleep apnea) Obesity (BMI 30-39.9) Atrial fibrillation with RVR New onset of congestive heart failure Arthritis Hypertension History of pyloric stenosis Family History Family History Father Prostate cancer HTN (hypertension) Mother HTN (hypertension) Heart disease Arthritis Kidney disease Diabetes Stroke FH: cataracts Constipation S/P colostomy Family/Other ADHD Disc disease, degenerative, lumbar or lumbosacral Maternal Uncle Cancer S/P colostomy Surgical History Surgical History S/P LASIK surgery of both eyes History of abdominal surgery Status post total replacement of both hips S/P gastric surgery History of wisdom tooth extraction History of colonoscopy Social History Social History Household Members: None Housing: Apartment Do you presently have visiting nurse or other home services: No Alcohol intake: current Alcohol intake frequency: a few times a week Alcohol type: beer Patient Tobacco Use Status: Current everyday Tobacco user Tobacco use type: Cigarette Cigarette Packs Per Day: 0.5 Cigarettes Per Day: 8 Years Smoked: 25 Smoked in Last 30 Days: Yes e-Cigarette/Vaping Use: Never Used Second Hand Smoke Exposure: Yes Use of substances other than those prescribed or required for medical reasons: No Substance Use Type: Crack/Cocaine and Heroin Advance Directives: No Advance Directives Information Provided: Yes Nutrition Risks: No Nutritional Risk service: No Current occupational status: employed Meds Allergies Allergy/AdvReac Type Severity Reaction Status Date / Time No Known Allergies Allergy Verified 02/10/24 07:53 [No Known Allergies*] Active Medications: Current Medications Acetaminophen (Acetaminophen 325 Mg Tablet) 650 mg PO Q6H PRN PRN Reason: Pain, Mild (Pain Scale 1-3), fever or headache Apixaban (Apixaban 5 Mg Tablet) 5 mg PO BID [facility] Last Admin: 02/11/24 09:13 Dose: 5 mg Buprenorphine/Naloxone (Buprenorphine/Naloxone 4/1 Mg Film) 1 film SUBLINGUAL DAILY@0600 [facility] Last Admin: 02/11/24 06:13 Dose: 1 film Buprenorphine/Naloxone (Buprenorphine/Naloxone 8/2 Mg Film) 1 film SUBLINGUAL BID@0600,1800 [facility] Last Admin: 02/11/24 06:13 Dose: 1 film Calcium Carbonate (Calcium Carbonate 750 Mg Tab.Chew) 750 mg PO Q4H PRN PRN Reason: Heartburn Ferrous Sulfate (Ferrous Sulfate 324 Mg Tablet.Dr) 324 mg PO DAILY [facility] Last Admin: 02/11/24 09:03 Dose: 324 mg Furosemide (Furosemide 40 Mg/4 Ml Vial) 40 mg IVPUSH BID@0900,1800 [facility]; Protocol Last Admin: 02/11/24 09:02 Dose: 40 mg Diltiazem HCl 125 mg/ Sodium (Chloride) 125 mls @ 0 mls/hr IVCONT .Q0M [facility]; Protocol Magnesium Hydroxide (Milk Of Magnesia 30 Ml Oral.Susp) 30 ml PO DAILY PRN PRN Reason: Constipation Melatonin (Melatonin 3 Mg Tablet) 6 mg PO BEDTIME PRN PRN Reason: Insomnia Metoprolol Tartrate (Metoprolol Tartrate 25 Mg Tablet) 25 mg PO BID [facility]; Protocol Last Admin: 02/11/24 08:57 Dose: 25 mg Multivitamins/Vitamin C (Multivitamin Tablet) 1 tab PO DAILY [facility] Last Admin: 02/11/24 09:03 Dose: 1 tab Ondansetron HCl (Ondansetron Hcl 4 Mg/2 Ml Vial) 4 mg IVPUSH Q8H PRN PRN Reason: Nausea and Vomiting Sodium Chloride (0.9 % Sodium Chloride Flush 3 Ml Syringe) 3 ml IVFLUSH QSHIFT [facility] Last Admin: 02/11/24 08:59 Dose: 3 ml Vitamin D (Cholecalciferol (Vitamin D3) 25 Mcg Tablet) 25 mcg PO DAILY [facility] Last Admin: 02/11/24 09:03 Dose: 25 mcg Home Medications ?Medication ?Instructions ?Recorded ?Confirmed ?Last Taken ?Type buprenorphine 8 mg-naloxone 2 mg 1 strip sublingual BID 06/04/20 02/10/24 02/10/24 History sublingual film (Suboxone) ascorbate calcium (vitamin C) 500 500 mg PO DAILY 07/25/23 02/10/24 02/09/24 History mg tablet cholecalciferol (vitamin D3) 25 25 mcg PO DAILY 07/25/23 02/10/24 02/09/24 History mcg (1,000 unit) tablet lisinopril 20 1 tab PO DAILY 07/25/23 02/10/24 02/09/24 History mg-hydrochlorothiazide 12.5 mg tablet mecobalamin (vitamin B12) 500 mcg 500 mcg PO DAILY 07/25/23 02/10/24 02/09/24 History chewable tablet multivitamin 1 tab PO DAILY 07/25/23 02/10/24 02/09/24 History buprenorphine 4 mg-naloxone 1 mg 1 film sublingual DAILY 12/19/23 02/10/24 02/09/24 History sublingual film quetiapine 25 mg tablet 25 - 50 mg PO BEDTIME 12/31/23 02/10/24 02/09/24 History ferrous sulfate 325 mg (65 mg 325 mg PO DAILY 02/10/24 02/10/24 Unknown History iron) tablet (iron) Physical Exam 2 Vital Signs: Vital Signs: Last Vital Signs Temp 97.8 F 02/11/24 06:16 Pulse 125 H 02/11/24 08:58 Resp 15 02/11/24 08:00 BP 115/86 02/11/24 09:02 Pulse Ox 94 02/11/24 08:00 O2 Del Method Room Air 02/11/24 08:00 O2 Flow Rate 2 02/10/24 12:00 BMI result Body Mass Index 35.1 Const: General: cooperative, well developed, alert, awake and in distress mild and respiratory Nutritional Appearance: average body habitus and well nourished Orientation/consciousness: patient oriented x3 Limitations: no limitations HEENT: Head: Yes normocephalic and Yes atraumatic Neck: Neck: Yes trachea midline, Yes supple and Yes JVD Resp: Effort & Inspection: normal respiratory effort Auscultation: rales bilateral at the base Cardio: Jugular venous distension: JVD Rate: tachycardic Rhythm: a bnormal rhythm irregularly irregular Heart sounds: S1 normal heart sound present, S2 normal heart sound present, no click, no gallops and no murmurs GI: Inspection: Yes distended Auscultation: normal bowel sounds Skin: General skin exam: no rashes or lesions noted Neuro: General: patient oriented x3 and no focal motor deficits Extrem: General: No clubbing, No cyanosis and Yes edema Psych: Appearance: grossly normal Objective Labs and Meds 02/11/24 07:26 02/11/24 07:26 Lab results: Laboratory Results - last 24 hr 02/10/24 02/11/24 10:05 07:26 WBC 4.6 L RBC 4.44 L Hgb 12.4 L Hct 37.9 L MCV 85.4 MCH 27.9 MCHC 32.7 RDW 14.4 Plt Count 165 MPV 10.8 Immature Gran % (Auto) 0.0 Neut % (Auto) 40.9 L Lymph % (Auto) 47.3 H [place] % (Auto) 9.2 Eos % (Auto) 2.2 Baso % (Auto) 0.4 Lymph # (Auto) 2.2 [place] # (Auto) 0.4 Eos # (Auto) 0.1 Baso # (Auto) 0.0 Abs Immat Gran (auto) 0.00 Absolute Neuts (auto) 1.9 L Absolute Nucleated RBC 0.000 Nucleated RBC % (auto) 0.0 Sodium 141 Potassium 3.6 Chloride 103 Carbon Dioxide 29 Anion Gap 13 BUN 21 H Creatinine 0.89 Estim Creat Clear Calc 105.4 Estimated GFR > 60 Random Glucose 107 Calcium 8.4 Total Bilirubin 0.6 AST 34 ALT 31 Alkaline Phosphatase 42 Troponin I High Sens 61.1 H 26.8 D Total Protein 5.2 L Albumin 3.3 L Assessment and Plan (1) Decompensated heart failure: Status: Acute Decompensated congestive heart failure in this middle-aged man who has otherwise been healthy seems likely related to atrial fibrillation with slightly reduced LV EF by last echocardiogram, I suspect his LV function is further deteriorated due to tachycardia mediated cardiomyopathy. Clinically appears to be significantly fluid overloaded. Continue IV Lasix. Strict intake and output chart needs to be pursued. Management was discussed with him in details. I think he needs rate control/rhythm control for his atrial fibrillation which has been difficult to achieve as an outpatient. Continue oxygen therapy and supportive care. Add Jardiance 10 mg to his regimen. His last LV ejection fraction in the mid range and not reduced LV ejection fraction at this point in time although this may have change. Overall prognosis guarded. I had a very detailed discussion about management plan. He seems irritated and frustrated as he is not getting better, although I told him that this is probably related to inadequately treated underlying cardiac condition. (2) Atrial fibrillation with rapid ventricular response: Status: Acute Atrial fibrillation rapid ventricular response which has been difficult control as an outpatient. He has perceived side effects to Cardizem therapy question whether this was ineffective dose of Cardizem he was performing poorly due to his adequate rate control is unclear. At this point time I would start him on Cardizem drip to get a better rate control for now. I think he will benefit from VAMSI guided cardioversion. He has not been on adequate anticoagulation therefore the reason for VAMSI to rule out intracardiac thrombi in masses. This was discussed with him. The procedure was discussed in details including risks, benefits, alternatives. Will schedule for tomorrow. Please keep him NPO after midnight. Please start Eliquis 5 mg b.i.d.. I advised him to completely abstain from alcohol as it is probably increasing his bleeding diatheses. He is willing to try that. Extreme importance of using oral anticoagulation therapy after cardioversion was discussed to reduce risk of stroke. He understands. He will most likely require antiarrhythmic drug therapy post cardioversion to maintain rhythm. I think he also should get treated for sleep apnea and importance of this was discussed with him. In the long run probably benefit from ablation although we need to pursue rhythm control approach in the near future. Will follow with you. Greater than 40 minutes was spent in managing his complex care. Thank you for allowing me to partake in his care Plan Atrial Procedures Date of Service Date of Service: 02/11/24
--- NOTE | 2024-02-11 10:37 | HO.PM.IMPN ---
Subjective Subjective Date of Service: 02/11/24 Interval History: c/o dyspnea, orthopnea, leg edema, and palpitations in AF, RVR as high as 180s at times Review of Systems Review of Systems: Yes all other systems are reviewed and are negative Physical Exam Vital Signs: Vital Signs: Last Vital Signs Temp 97.8 F 02/11/24 06:16 Pulse 105 H 02/11/24 09:26 Resp 15 02/11/24 08:00 BP 125/81 02/11/24 09:26 Pulse Ox 94 02/11/24 08:00 O2 Del Method Room Air 02/11/24 08:00 O2 Flow Rate 2 02/10/24 12:00 BMI result Body Mass Index 35.1 Gen: in no acute distress HEENT: sclera anicteric, moist mucus membranes Neck: supple Lungs: clear to auscultation bilaterally Heart: rapid, irregular,, no murmurs Abd: soft, non-tender, non-distended Ext: no edema Skin: warm/well-perfused Neuro: alert and oriented x3, no focal findings Psych: appropriate affect Objective Data Active Medications Acetaminophen (Acetaminophen 325 Mg Tablet) 650 mg PO Q6H PRN PRN Reason: Pain, Mild (Pain Scale 1-3), fever or headache Apixaban (Apixaban 5 Mg Tablet) 5 mg PO BID [facility] Last Admin: 02/11/24 09:13 Dose: 5 mg Documented By: CHRIS Buprenorphine/Naloxone (Buprenorphine/Naloxone 4/1 Mg Film) 1 film SUBLINGUAL DAILY@0600 [facility] Last Admin: 02/11/24 06:13 Dose: 1 film Documented By: ZAIDA Buprenorphine/Naloxone (Buprenorphine/Naloxone 8/2 Mg Film) 1 film SUBLINGUAL BID@0600,1800 [facility] Last Admin: 02/11/24 06:13 Dose: 1 film Documented By: ZAIDA Calcium Carbonate (Calcium Carbonate 750 Mg Tab.Chew) 750 mg PO Q4H PRN PRN Reason: Heartburn Ferrous Sulfate (Ferrous Sulfate 324 Mg Tablet.) 324 mg PO DAILY [facility] Last Admin: 02/11/24 09:03 Dose: 324 mg Documented By: CHRIS Furosemide (Furosemide 40 Mg/4 Ml Vial) 40 mg IVPUSH BID@0900,1800 [facility]; Protocol Last Admin: 02/11/24 09:02 Dose: 40 mg Documented By: CHRIS Diltiazem HCl 125 mg/ Sodium (Chloride) 125 mls @ 0 mls/hr IVCONT .Q0M [facility]; Protocol Last Admin: 02/11/24 09:26 Dose: 10 mg/hr, 10 mls/hr Documented By: CHRIS Magnesium Hydroxide (Milk Of Magnesia 30 Ml Oral.Susp) 30 ml PO DAILY PRN PRN Reason: Constipation Melatonin (Melatonin 3 Mg Tablet) 6 mg PO BEDTIME PRN PRN Reason: Insomnia Metoprolol Tartrate (Metoprolol Tartrate 25 Mg Tablet) 25 mg PO BID [facility]; Protocol Last Admin: 02/11/24 08:57 Dose: 25 mg Documented By: CHRIS Multivitamins/Vitamin C (Multivitamin Tablet) 1 tab PO DAILY [facility] Last Admin: 02/11/24 09:03 Dose: 1 tab Documented By: CHRIS Ondansetron HCl (Ondansetron Hcl 4 Mg/2 Ml Vial) 4 mg IVPUSH Q8H PRN PRN Reason: Nausea and Vomiting Sodium Chloride (0.9 % Sodium Chloride Flush 3 Ml Syringe) 3 ml IVFLUSH QSHIFT [facility] Last Admin: 02/11/24 08:59 Dose: 3 ml Documented By: CHRIS Vitamin D (Cholecalciferol (Vitamin D3) 25 Mcg Tablet) 25 mcg PO DAILY [facility] Last Admin: 02/11/24 09:03 Dose: 25 mcg Documented By: CHRIS Labs 02/11/24 07:26 02/11/24 07:26 Labs: Laboratory Results - last 24 hr 02/10/24 02/11/24 10:05 07:26 MCV 85.4 MCH 27.9 MCHC 32.7 RDW 14.4 Plt Count 165 MPV 10.8 Immature Gran % (Auto) 0.0 Neut % (Auto) 40.9 L Lymph % (Auto) 47.3 H [place] % (Auto) 9.2 Eos % (Auto) 2.2 Baso % (Auto) 0.4 Lymph # (Auto) 2.2 [place] # (Auto) 0.4 Eos # (Auto) 0.1 Baso # (Auto) 0.0 Abs Immat Gran (auto) 0.00 Absolute Neuts (auto) 1.9 L Absolute Nucleated RBC 0.000 Nucleated RBC % (auto) 0.0 Anion Gap 13 Estim Creat Clear Calc 105.4 Estimated GFR > 60 Random Glucose 107 Calcium 8.4 Total Bilirubin 0.6 AST 34 ALT 31 Alkaline Phosphatase 42 Troponin I High Sens 61.1 H 26.8 D Total Protein 5.2 L Albumin 3.3 L Assessment and Plan (1) Atrial fibrillation with rapid ventricular response: Status: Acute Plan d2 for 63yo M sent in from short-stay surgery where he was to undergo outpatient colonoscopy but was found to be in AF/RVR and ADHF AF/RVR - Cardiology consulted, start diltiazem gtt, continue metoprolol tartrate, resume apixaban. Pt noncompliant with scheduled dosing as outpatient due to concern about side effects; counseled on importance of prescribed dosing. NPO for planned cardioversion tomorrow ADHF, acute/chronic HF with mildly reduced EF - Continue furosemide, monitor I/O + BNP + BMP/Mg; continue metoprolol tartrate; start empagliflozin AHRF - wean O2 as tolerated HTN - hold lisinopril + HCTZ, continue metoprolol tartrate; also on diltiazem gtt as above LUZ MARINA - CPAP at night suspected AUD - Addiction Medicine consultation, prn CIWA OUD - continue Suboxone VTE ppx - anticoagulation with apixaban dispo - eventual home In my clinical judgment, the patient requires continued inpatient hospitalization for the following reasons: IV rate control, IV diuresis Total time managing care of this patient today: 45 minutes. Quality Stroke Does the patient have a stroke diagnosis?: No VTE Prior VTE?: No VTE Risk Level:: Medical - moderate - high VTE Device Contraindication: N/A - Device Ordered VTE Drug Contraindication: Treatment Not Indicated
--- NOTE | 2024-02-11 11:19 | MHC.CM.PN ---
Pt lives alone, he is independent, no home health services, no DME. HCP discussed, Pt. unsure as to who he could name. PCP confirmed: Leticia Au. Pt. will need transport home at DC, DCP: home, self care. CM to follow for DC needs.
[2024-02-11] MEDS: Acetaminophen 325 MG TABLET 650 MG PO (23:33)
[2024-02-12] VITALS (10 sets, daily range): BP systolic 113–144; BP diastolic 63–89; PULSE 62–170; RESP 10–20; TEMP 36.1–37.2; O2SAT 94–99
--- NOTE | 2024-02-12 | ECG_ITS ---
Test Reason : chest discomfort Blood Pressure : / mmHG Vent. Rate : 090 BPM Atrial Rate : 000 BPM P-R Int : 000 ms QRS Dur : 100 ms QT Int : 362 ms P-R-T Axes : 000 030 039 degrees QTc Int : 442 ms Atrial fibrillation Low voltage QRS Septal infarct (cited on or before 10-FEB-2024) Abnormal ECG When compared with ECG of 11-FEB-2024 08:34, Nonspecific T wave abnormality has replaced inverted T waves in Anterior leads Referred By: Peyton Sanches Electronically Signed By:KYLEE JIMENEZ MD
--- NOTE | 2024-02-12 03:20 | PC.NURSE ---
Addendum entered by Dacia Menendez RN 02/12/24 04:13: ETA - When pt stands to urinate, his HR rises between 160-190. Original Note: Pt AOX4, able to make needs known. Approx 2325 pt rang call sarmiento to report cramping in BLLE. Pt has edema in BLLE, states this is not new and reported these cramps when he was in the ED. Cardizem drip had been off for approx 30 minutes when pt began c/o cramping. MD hanson, ivan back on d/t pt's HR going into 190's Pt requested Tylenol, administered. Pts labs once again reviewed, most WNL. Oralia COLMENARES asking if albumin should be replaced d/t it being low, replied no need to replace albumin. At this time, pt has not c/o the cramping since. Call sarmiento within reach, bed alarm on.
[2024-02-12] MEDS: Buprenorphine/Naloxone 4/1 mg FILM 1 FILM SUBLINGUAL (05:34)
[2024-02-12] MEDS: Buprenorphine/Naloxone 8/2 mg FILM 1 FILM SUBLINGUAL ×2 (05:34→18:32)
[2024-02-12 07:19] LABS: Anion Gap 14 (12-20); Blood Urea Nitrogen 17 mg/dL (9-16); Calcium 9.2 mg/dL (8.4-10.2); Carbon Dioxide 29 mmol/L (22-29); Chloride 101 mmol/L (96-108); Creatinine Clr Calc Pharmacy 110.8; Estimated Glomerular Filt Rate > 60; Glucose Random 111 mg/dL (60-115); Potassium 3.8 mmol/L (3.3-5.1); Sodium 140 mmol/L (135-145)
[2024-02-12 07:31] LABS: B Type Natriuretic Peptide 235 pg/mL (<100)
[2024-02-12] MEDS: 0.9 % Sodium Chloride Flush 3 ML SYRINGE IVFLUSH ×2 (08:44→23:00)
[2024-02-12] MEDS: Metoprolol Tartrate 25 MG TABLET PO ×2 (08:46→20:46)
[2024-02-12] MEDS: Apixaban 5 MG TABLET PO ×2 (08:46→20:46)
[2024-02-12] MEDS: Furosemide 40 MG/4 ML VIAL IVPUSH ×2 (08:46→18:32)
--- NOTE | 2024-02-12 09:14 | PM.PNCARD ---
Subjective Subjective Date of Service: 02/12/24 Principal diagnosis: Atrial fibrillation, congestive heart failure. Interval history: Patient says he is feeling better although he says when he gets up his heart rate shoots up. He continues to have palpitation and still short of breath but has a negative balance of 3 L. Overall improved. Two yesterday. Plan for VAMSI cardioversion later today Review of Systems Constitutional: Reports no additional constitutional complaints Cardiovascular: Reports Abdominal Distension (Improved), Denies chest pain, Reports rapid heart rate, Reports leg edema (Improved), Denies lightheadedness, Denies Loss of Consciousness and Reports dyspnea on exertion Respiratory: Reports dyspnea on exertion Gastrointestinal: Reports no additional gastrointestinal complaints Physical Exam Vital Signs: Last Vital Signs Temp 98.9 F 02/12/24 07:30 Pulse 84 02/12/24 07:30 Resp 18 02/12/24 07:30 BP 126/89 02/12/24 07:30 Pulse Ox 95 02/12/24 07:30 O2 Del Method Room Air 02/12/24 07:30 O2 Flow Rate 2 02/10/24 12:00 BMI result Body Mass Index 32.1 Const General: cooperative, comfortable, alert and awake Nutritional Appearance: overweight Orientation/consciousness: patient oriented x3 Neck Neck: Yes trachea midline, Yes supple and Yes JVD Resp Effort & Inspection: normal respiratory effort Auscultation: no rales, no wheezes and diminished lung sounds Cardio Jugular venous distension: JVD Rate: tachycardic Rhythm: abnormal rhythm irregularly irregular Heart sounds: S1 normal heart sound present, S2 normal heart sound present, no click, no gallops and no murmurs GI Auscultation: normal bowel sounds Neuro General: patient oriented x3 Extrem General: No clubbing, No cyanosis and Yes edema Objective Labs and Meds 02/11/24 07:26 02/12/24 06:14 Lab results: Laboratory Results - last 24 hr 02/12/24 06:14 Sodium 140 Potassium 3.8 Chloride 101 Carbon Dioxide 29 Anion Gap 14 BUN 17 H Creatinine 0.81 Estim Creat Clear Calc 110.8 Estimated GFR > 60 Random Glucose 111 Calcium 9.2 D Magnesium 2.0 B-Natriuretic Peptide 235 H Progress Note: A&P Assessment and plan (1) Decompensated heart failure: Status: Acute Assessment and Plan: Acute decompensated congestive heart failure improving. Continue IV diuresis. Continue Jardiance. Continue metoprolol for rate control. Add Entresto for neurohormonal modulation as well as vasodilators therapy. Strict intake and output chart needs to be pursued. Continue to pursue rate control with metoprolol as neurohormonal modulator as well as a rate control agent. Continue Cardizem for now, needs VAMSI/cardioversion, see below. Continue replace electrolytes as needed. CHF education need to be provided. (2) Atrial fibrillation with rapid ventricular response: Status: Acute Assessment and Plan: Atrial fibrillation with better rate control but still has rapid ventricular response despite IV Cardizem and metoprolol. Will need VAMSI guided cardioversion to pursue rate/rhythm control. This was discussed with him. Risks, benefits, alternatives to VAMSI and cardioversion were discussed. He said he understood completely possible outcomes were discussed. Most likely will require antiarrhythmic drug therapy. Importance of oral anticoagulation therapy was discussed. Abstinence from alcohol was discussed. Continue sleep apnea treatment. Will follow with you Time Spent With Patient Time: Total time managing care of this patient today ____ minutes. Progress Note: Quality Stroke Does the patient have a stroke diagnosis?: No Procedures Date of Service Date of Service: 02/12/24
--- NOTE | 2024-02-12 10:33 | CA_ITS ---
Transesophageal Echocardiogram Patient (Last, First, Middle): Mateo Graham R Gender: Male Date of : 1960 Age: 63 Procedure Date: 02/12/2024 Procedure Type: Transesophageal Echocardiogram Location: [facility] [place] Height: 175. cm Weight: 217. kg BSA: 2.99 m2 Heart Rate: 180 bpm BP: 132 / 93 mmHg Laminating Machine Offbearer: CLAY Hansen MD: Shimon Mac MD Administration Assistant: Shimon Mac MD Symptoms: Pre cardioversion Conclusion: ??? 1. Severely reduced LV ejection fraction 15-20% 2. Mild left atrial enlargement 3. Mild mitral regurgitation 4. No intracardiac thrombi, masses or vegetations 5. No gross pericardial effusion 6. No intracardiac shunting Findings Procedure Information Consent was obtained prior to the procedure. Pre VAMSI oral cavity was checked and revealed mild overcrowding. The adult 3D probe was passed with minimal difficulty. This was a technically good study. Left Ventricle Normal left ventricular cavity size. The left ventricular systolic function is severely decreased. The visually estimated ejection fraction is between 15-20%. Diastolic function is indeterminate on the basis of available data. Right Ventricle Normal right ventricular cavity size. There is low normal right ventricular systolic function. Atria The left atrium is mildly dilated. There is no evidence of interatrial shunt. There is no evidence of a patent foramen ovale. There is no evidence of thrombus or mass in the left atrium. Smoke formation seen within left atrial cavity as well as left atrial appendage. No clots noted on left atrial appendage in multiple different views. Left atrial appendage ejection velocity had 0.44 centimeters/second. Left upper, right upper and right lower pulmonary veins drain normally into the left atrium. The right atrium is mildly dilated. There is no evidence of thrombus or mass in the right atrium. Small formation seen within right atrium. The right atrial appendage was identified with multiple views and no thrombus seen with the right atrial appendage. The IVC and SVC drain normally into the right atrium. Aortic Valve Normal aortic valve structure and function. There is no evidence of thickening of the aortic valve. There is no aortic valve stenosis. There is no evidence of a mass on the aortic valve. There is no aortic valve regurgitation. Mitral Valve Normal mitral valve structure and function. There is no mitral valve prolapse. There is mild mitral valve regurgitation. There is no mitral valve stenosis. There is no mass noted on the mitral valve. Pulmonic Valve The pulmonic valve is normal. There is no mass noted on the pulmonic valve. There is trace pulmonic valve regurgitation. Tricuspid Valve Normal tricuspid valve structure. There is mild tricuspid valve regurgitation. There is no evidence of a mass on the tricuspid valve. Tricuspid regurgitation envelope is inadequate for calculation of right ventricular systolic pressure. Great Vessels All visible segments of the aorta are normal in size. The visualized portions of the pulmonary artery and branches are normal. Venous The inferior vena cava is mildly dilated. Pericardium/Pleural There is no evidence of pericardial effusion. Prior Study Comparison LV systolic function by VAMSI appears worse than prior study. Measurements Tricuspid Valve TR Pk Julian: 1.23 TR Pk Grad: 6.00 Updated by Shimon Mac on 04:51 PM with Status of Final Shimon Mac MD electronically signed on 02/12/2024 4:51:27 PM with status of Final
--- NOTE | 2024-02-12 10:33 | MHC.SHP ---
Pre-Procedural Eval Section A - 24 Hr Update-Section A only Date of Service: 02/12/24 The patient is an INPATIENT: Yes Changes since office visit: Yes New Medical Problems, Yes Changes in Medication and Yes Patient answered all questions; No Cold of Flu in the past 2 weeks The patient has been examined within 24 hours of the surgical procedure. The History & Physical has been completed within 30 days and I have reviewed it.: Yes Section B - Complete if H&P > 30 days Chief Complaint: a fib rvr chf Allergies: Allergies Allergy/AdvReac Type Severity Reaction Status Date / Time No Known Allergies Allergy Verified 02/10/24 07:53 [No Known Allergies*] Plan I have reviewed the history and physical and performed a pertinent physical examination on my patient. No changes have occurred unless specified. Time Spent With Patient Time: Total time managing care of this patient today ____ minutes.
--- NOTE | 2024-02-12 10:37 | P.CONAN_ITS ---
HPI - Anesthesia Eval Consult details Narrative: 63 yo male patient for VAMSI, [facility] Active Problems Active Problems: All Active Problems Decompensated heart failure (Acute) Acute on chronic clinical systolic heart failure (Acute) Hypoxia (Acute) Leg edema (Acute) Atrial fibrillation with rapid ventricular response (Acute) Atrial fibrillation with rapid ventricular response (Acute) Sleep apnea (Acute) Internal derangement of left knee (Acute) Nicotine dependence (Acute) Nocturia (Acute) Microscopic hematuria (Acute) Chronic anticoagulation (Acute) Chronic hepatitis C (Acute) Hepatitis B (Acute) Tubular adenoma of colon (Acute) Anemia (Chronic) Preoperative cardiovascular examination (Acute) Atrial fibrillation (Acute) Asthma (Acute)- uses inhaler prn LUZ MARINA (obstructive sleep apnea) (Acute) Obesity (BMI 30-39.9) (Acute) Hypertension (Acute) Urine toxicology only positive for suboxone Past Medical History Medical History Asthma LUZ MARINA (obstructive sleep apnea) Obesity (BMI 30-39.9) Atrial fibrillation with RVR New onset of congestive heart failure Arthritis Hypertension History of pyloric stenosis Family History Family History Father Prostate cancer HTN (hypertension) Mother HTN (hypertension) Heart disease Arthritis Kidney disease Diabetes Stroke FH: cataracts Constipation S/P colostomy Family/Other ADHD Disc disease, degenerative, lumbar or lumbosacral Maternal Uncle Cancer S/P colostomy Family history of problems with anesthesia: No Surgical History Surgical History S/P LASIK surgery of both eyes History of abdominal surgery Status post total replacement of both hips S/P gastric surgery History of wisdom tooth extraction History of colonoscopy History of Problems with Anesthesia: No Social History Social History Household Members: None Housing: Apartment Do you presently have visiting nurse or other home services: No Alcohol intake: current Alcohol intake frequency: a few times a week Alcohol type: beer Patient Tobacco Use Status: Current everyday Tobacco user Tobacco use type: Cigarette Cigarette Packs Per Day: 0.5 Cigarettes Per Day: 8 Years Smoked: 25 e-Cigarette/Vaping Use: Never Used Second Hand Smoke Exposure: Yes Substance Use Type: Crack/Cocaine and Heroin service: No Current occupational status: employed Meds Allergies Allergy/AdvReac Type Severity Reaction Status Date / Time No Known Allergies Allergy Verified 02/10/24 07:53 [No Known Allergies*] Active Medications: Current Medications Acetaminophen (Acetaminophen 325 Mg Tablet) 650 mg PO Q6H PRN PRN Reason: Pain, Mild (Pain Scale 1-3), fever or headache Last Admin: 02/11/24 23:33 Dose: 650 mg Apixaban (Apixaban 5 Mg Tablet) 5 mg PO BID [facility] Last Admin: 02/12/24 08:46 Dose: 5 mg Buprenorphine/Naloxone (Buprenorphine/Naloxone 4/1 Mg Film) 1 film SUBLINGUAL DAILY@0600 [facility] Last Admin: 02/12/24 05:34 Dose: 1 film Buprenorphine/Naloxone (Buprenorphine/Naloxone 8/2 Mg Film) 1 film SUBLINGUAL BID@0600,1800 [facility] Last Admin: 02/12/24 05:34 Dose: 1 film Calcium Carbonate (Calcium Carbonate 750 Mg Tab.Chew) 750 mg PO Q4H PRN PRN Reason: Heartburn Empagliflozin (Empagliflozin 10 Mg Tablet) 10 mg PO DAILY [facility] Last Admin: 02/12/24 08:50 Dose: Not Given Ferrous Sulfate (Ferrous Sulfate 324 Mg Tablet.Dr) 324 mg PO DAILY [facility] Last Admin: 02/12/24 08:50 Dose: Not Given Furosemide (Furosemide 40 Mg/4 Ml Vial) 40 mg IVPUSH BID@0900,1800 [facility]; Protocol Last Admin: 02/12/24 08:46 Dose: 40 mg Diltiazem HCl 125 mg/ Sodium (Chloride) 125 mls @ 0 mls/hr IVCONT .Q0M [facility]; Protocol Last Titration: 02/11/24 23:59 Dose: 0 mg/hr, 0 mls/hr Magnesium Hydroxide (Milk Of Magnesia 30 Ml Oral.Susp) 30 ml PO DAILY PRN PRN Reason: Constipation Melatonin (Melatonin 3 Mg Tablet) 6 mg PO BEDTIME PRN PRN Reason: Insomnia Metoprolol Tartrate (Metoprolol Tartrate 25 Mg Tablet) 25 mg PO BID [facility]; Protocol Last Admin: 02/12/24 08:46 Dose: 25 mg Multivitamins/Vitamin C (Multivitamin Tablet) 1 tab PO DAILY [facility] Last Admin: 02/12/24 08:50 Dose: Not Given Ondansetron HCl (Ondansetron Hcl 4 Mg/2 Ml Vial) 4 mg IVPUSH Q8H PRN PRN Reason: Nausea and Vomiting Quetiapine Fumarate (Quetiapine Fumarate 50 Mg Tablet) 50 mg PO BEDTIME [facility] Last Admin: 02/11/24 20:29 Dose: 50 mg Sodium Chloride (0.9 % Sodium Chloride Flush 3 Ml Syringe) 3 ml IVFLUSH QSHIFT [facility] Last Admin: 02/12/24 08:44 Dose: 3 ml Vitamin D (Cholecalciferol (Vitamin D3) 25 Mcg Tablet) 25 mcg PO DAILY [facility] Last Admin: 02/12/24 08:50 Dose: Not Given Home Medications ?Medication ?Instructions ?Recorded ?Confirmed ?Last Taken ?Type buprenorphine 8 mg-naloxone 2 mg 1 strip sublingual BID 06/04/20 02/10/24 02/10/24 History sublingual film (Suboxone) ascorbate calcium (vitamin C) 500 500 mg PO DAILY 07/25/23 02/10/24 02/09/24 History mg tablet cholecalciferol (vitamin D3) 25 25 mcg PO DAILY 07/25/23 02/10/24 02/09/24 History mcg (1,000 unit) tablet lisinopril 20 1 tab PO DAILY 07/25/23 02/10/24 02/09/24 History mg-hydrochlorothiazide 12.5 mg tablet mecobalamin (vitamin B12) 500 mcg 500 mcg PO DAILY 07/25/23 02/10/24 02/09/24 History chewable tablet multivitamin 1 tab PO DAILY 07/25/23 02/10/24 02/09/24 History buprenorphine 4 mg-naloxone 1 mg 1 film sublingual DAILY 12/19/23 02/10/24 02/09/24 History sublingual film quetiapine 25 mg tablet 25 - 50 mg PO BEDTIME 12/31/23 02/10/24 02/09/24 History ferrous sulfate 325 mg (65 mg 325 mg PO DAILY 02/10/24 02/10/24 Unknown History iron) tablet (iron) Exam Height,Weight and Vital Signs: Height 5 ft 9 in Weight 98.5 kg Last Vital Signs Temp 98.9 F 02/12/24 07:30 Pulse 84 02/12/24 07:30 Resp 18 02/12/24 07:30 BP 126/89 02/12/24 07:30 Pulse Ox 95 02/12/24 07:30 O2 Del Method Room Air 02/12/24 07:30 O2 Flow Rate 2 02/10/24 12:00 Vital Signs Temp Pulse Resp BP Pulse Ox O2 Del Method 02/12/24 11:06 94 18 02/12/24 07:30 98.9 F 84 18 126/89 95 Room Air 02/12/24 03:18 98.4 F 99 16 121/82 94 Room Air 02/11/24 23:38 97.8 F 93 16 135/100 H 97 Room Air 02/11/24 19:57 98.0 F 112 H 20 129/87 97 Room Air 02/11/24 19:03 98.4 F 122 H 18 120/91 H 97 Room Air 02/11/24 17:44 106/81 02/11/24 16:15 74 14 104/67 97 Room Air 02/11/24 12:00 98.3 F 87 16 108/80 98 Room Air 02/11/24 11:22 81 14 113/77 96 Room Air Pertinent Lab Results Pertinent Lab Results: Laboratory Tests 02/10/24 02/10/24 02/11/24 07:50 10:05 07:26 WBC 5.9 4.6 L RBC 4.75 4.44 L Hgb 13.2 L 12.4 L Hct 40.5 L 37.9 L MCV 85.3 85.4 MCH 27.8 27.9 MCHC 32.6 32.7 RDW 14.1 14.4 Plt Count 184 165 MPV 10.8 10.8 Immature Gran % (Auto) 0.2 0.0 Neut % (Auto) 41.8 L 40.9 L Lymph % (Auto) 44.9 H 47.3 H Meagher % (Auto) 11.8 H 9.2 Eos % (Auto) 0.8 2.2 Baso % (Auto) 0.5 0.4 Lymph # (Auto) 2.7 2.2 Meagher # (Auto) 0.7 0.4 Eos # (Auto) 0.1 0.1 Baso # (Auto) 0.0 0.0 Abs Immat Gran (auto) 0.01 0.00 Absolute Neuts (auto) 2.5 1.9 L Absolute Nucleated RBC 0.000 0.000 Nucleated RBC % (auto) 0.0 0.0 Hold Blue Top SEE NOTE Sodium 138 141 Potassium 3.8 3.6 Chloride 104 103 Carbon Dioxide 24 29 Anion Gap 14 13 BUN 14 21 H Creatinine 1.03 0.89 Estim Creat Clear Calc 91.0 105.4 Estimated GFR > 60 > 60 Random Glucose 112 107 Calcium 8.6 8.4 Magnesium 2.0 Total Bilirubin 1.0 0.6 Direct Bilirubin 0.4 AST 39 H 34 ALT 34 31 Alkaline Phosphatase 42 42 Troponin I High Sens 57.5 H D 61.1 H 26.8 D B-Natriuretic Peptide 851 H Total Protein 5.7 L 5.2 L Albumin 3.6 3.3 L Lipase 25 02/12/24 06:14 WBC RBC Hgb Hct MCV MCH MCHC RDW Plt Count MPV Immature Gran % (Auto) Neut % (Auto) Lymph % (Auto) Meagher % (Auto) Eos % (Auto) Baso % (Auto) Lymph # (Auto) Meagher # (Auto) Eos # (Auto) Baso # (Auto) Abs Immat Gran (auto) Absolute Neuts (auto) Absolute Nucleated RBC Nucleated RBC % (auto) Hold Blue Top Sodium 140 Potassium 3.8 Chloride 101 Carbon Dioxide 29 Anion Gap 14 BUN 17 H Creatinine 0.81 Estim Creat Clear Calc 110.8 Estimated GFR > 60 Random Glucose 111 Calcium 9.2 D Magnesium 2.0 Total Bilirubin Direct Bilirubin AST ALT Alkaline Phosphatase Troponin I High Sens B-Natriuretic Peptide 235 H Total Protein Albumin Lipase Airway Mallampati Class: II TM Dist: >3cm Neck ROM: Full Partial: Upper Loose/Missing/Broken Teeth: Yes (Partial denture top. Some teeth missing in bottom. Denies broken or loose teeth) Heart: Irregularly irregular Lungs: Bilateral expiratory wheezes vs transmitted sounds. Will order respirarory treatment. Post treatment, still with expiratory added sounds ? Related to heart failure. Pre- treatment Sats 95%, post 99% Assessment and Plan Assessment Anesthesia Assessment: Anesthesia Plan Discussed and Chart Reviewed Final Anesthetic Review Family History of Problems with Anesthesia: No History of Problems with Anesthesia: No NPO: Yes ASA Class: III Final Preanesthetic Review: No Changes in Pt Med Stat, Meds/Allgs Chart Reviewed, Consent Obtained/Reviewed and Anes Risks/Benef Reviewed Patient Risk: Intermediate Procedure Risk: Intermediate Assessment/Block/Sedation in SS: Assess/Block/Sedation- Anesthetic Plan Anesthetic Plan: TIVA Disposition: Standard PACU
[2024-02-12] MEDS: Albuterol Sulfate (0.083%) 2.5 MG/3 ML VIAL.NEB INHALE (11:01)
--- NOTE | 2024-02-12 11:29 | P.PNIM_ITS ---
Subjective Subjective Date of Service: 02/12/24 Interval History: negative 2900mL thus far dyspnea improved HR improved, still in AF Review of Systems Review of Systems: Yes all other systems are reviewed and are negative Physical Exam 2 Vital Signs: Vital Signs: Last Vital Signs Temp 98.9 F 02/12/24 07:30 Pulse 94 02/12/24 11:06 Resp 18 02/12/24 11:06 BP 126/89 02/12/24 07:30 Pulse Ox 95 02/12/24 07:30 O2 Del Method Room Air 02/12/24 07:30 O2 Flow Rate 2 02/10/24 12:00 BMI result Body Mass Index 32.1 Gen: in no acute distress HEENT: sclera anicteric, moist mucus membranes Neck: supple, JVD present Lungs: diminished bilaterally Heart: irregular, no murmurs Abd: soft, non-tender, non-distended Ext: no edema Skin: warm/well-perfused Neuro: alert and oriented x3, no focal findings Psych: appropriate affect Objective Data Active Medications Acetaminophen (Acetaminophen 325 Mg Tablet) 650 mg PO Q6H PRN PRN Reason: Pain, Mild (Pain Scale 1-3), fever or headache Last Admin: 02/11/24 23:33 Dose: 650 mg Documented By: JASON Apixaban (Apixaban 5 Mg Tablet) 5 mg PO BID [facility] Last Admin: 02/12/24 08:46 Dose: 5 mg Documented By: HENRY Buprenorphine/Naloxone (Buprenorphine/Naloxone 4/1 Mg Film) 1 film SUBLINGUAL DAILY@0600 [facility] Last Admin: 02/12/24 05:34 Dose: 1 film Documented By: JASON Buprenorphine/Naloxone (Buprenorphine/Naloxone 8/2 Mg Film) 1 film SUBLINGUAL BID@0600,1800 [facility] Last Admin: 02/12/24 05:34 Dose: 1 film Documented By: JASON Calcium Carbonate (Calcium Carbonate 750 Mg Tab.Chew) 750 mg PO Q4H PRN PRN Reason: Heartburn Empagliflozin (Empagliflozin 10 Mg Tablet) 10 mg PO DAILY [facility] Last Admin: 02/12/24 08:50 Dose: Not Given Documented By: HENRY Non-Admin Reason: NPO Ferrous Sulfate (Ferrous Sulfate 324 Mg Tablet.) 324 mg PO DAILY [facility] Last Admin: 02/12/24 08:50 Dose: Not Given Documented By: HENRY Non-Admin Reason: NPO Furosemide (Furosemide 40 Mg/4 Ml Vial) 40 mg IVPUSH BID@0900,1800 [facility]; Protocol Last Admin: 02/12/24 08:46 Dose: 40 mg Documented By: HENRY Diltiazem HCl 125 mg/ Sodium (Chloride) 125 mls @ 0 mls/hr IVCONT .Q0M [facility]; Protocol Last Titration: 02/11/24 23:59 Dose: 0 mg/hr, 0 mls/hr Documented By: JASON Lactated Ringer's (Lr) 1,000 mls @ 50 mls/hr IVCONT .Q20H [facility] Magnesium Hydroxide (Milk Of Magnesia 30 Ml Oral.Susp) 30 ml PO DAILY PRN PRN Reason: Constipation Melatonin (Melatonin 3 Mg Tablet) 6 mg PO BEDTIME PRN PRN Reason: Insomnia Metoprolol Tartrate (Metoprolol Tartrate 25 Mg Tablet) 25 mg PO BID [facility]; Protocol Last Admin: 02/12/24 08:46 Dose: 25 mg Documented By: HENRY Multivitamins/Vitamin C (Multivitamin Tablet) 1 tab PO DAILY [facility] Last Admin: 02/12/24 08:50 Dose: Not Given Documented By: HENRY Non-Admin Reason: NPO Ondansetron HCl (Ondansetron Hcl 4 Mg/2 Ml Vial) 4 mg IVPUSH Q8H PRN PRN Reason: Nausea and Vomiting Ondansetron HCl (Ondansetron Hcl 4 Mg/2 Ml Vial) 4 mg IVPUSH ONCE PRN PRN Reason: Nausea and Vomiting Stop: 02/12/24 16:51 Quetiapine Fumarate (Quetiapine Fumarate 50 Mg Tablet) 50 mg PO BEDTIME [facility] Last Admin: 02/11/24 20:29 Dose: 50 mg Documented By: JASON Sodium Chloride (0.9 % Sodium Chloride Flush 3 Ml Syringe) 3 ml IVFLUSH QSHIFT [facility] Last Admin: 02/12/24 08:44 Dose: 3 ml Documented By: HENRY Vitamin D (Cholecalciferol (Vitamin D3) 25 Mcg Tablet) 25 mcg PO DAILY [facility] Last Admin: 02/12/24 08:50 Dose: Not Given Documented By: HENRY Non-Admin Reason: NPO Labs 02/11/24 07:26 02/12/24 06:14 Labs: Laboratory Results - last 24 hr 02/12/24 06:14 Anion Gap 14 Estim Creat Clear Calc 110.8 Estimated GFR > 60 Random Glucose 111 Calcium 9.2 D Magnesium 2.0 B-Natriuretic Peptide 235 H Assessment and Plan (1) Atrial fibrillation with rapid ventricular response: Status: Acute Plan d3 for 63yo M sent in from short-stay surgery where he was to undergo outpatient colonoscopy but was found to be in AF/RVR and ADHF AF/RVR - Cardiology consulted, continued metoprolol tartrate, resumed apixaban. Pt noncompliant with scheduled dosing as outpatient due to concern about side effects; counseled on importance of prescribed dosing. NPO for planned cardioversion today. ADHF, acute/chronic HF with mildly reduced EF - continue furosemide + empagliflozin; start Entresto; monitor I/O + BNP + BMP/Mg AHRF - weaned off O2 HTN - stopped lisinopril + HCTZ, continue metoprolol tartrate and started Entresto as above LUZ MARINA - CPAP at night suspected AUD - Addiction Medicine consultation, prn CIWA OUD - continue Suboxone VTE ppx - anticoagulation with apixaban dispo - eventual home In my clinical judgment, the patient requires continued inpatient hospitalization for the following reasons: cardioversion, IV diuresis Total time managing care of this patient today: 45 minutes. Quality Stroke Does the patient have a stroke diagnosis?: No VTE Prior VTE?: No VTE Risk Level:: Medical - moderate - high VTE Device Contraindication: N/A - Device Ordered VTE Drug Contraindication: Treatment Not Indicated
--- NOTE | 2024-02-12 12:46 | HO.CARDIVERS ---
Cardioversion Procedure Note Cardioversion Date of Procedure: 02/12/2024 Ordering Provider: Mike Mac Performing Provider: Mike Mac Indication for Procedure: Persistent difficult control rate with heart failure Pre-Op Diagnosis: Same Post-Op Diagnosis: Same Performed with Transesophageal Echo: Yes VAMSI findings (if VAMSI Performed): Dictated separately History: See my progress note from today Consent: Verbal and Written consent was obtained from the patient before starting. The patient was made aware of the risk of synchronized cardioversion including benefits and alternatives Procedure: After consent obtained, cardioversion pads were attached in anteroposterior configuration and the patient was sedated by the anesthesia team. Once adequate sedation achieved, patient was delivered 200 joules of synchronized cardioversion x3 in anteroposterior configuration Complications: None Impression: Unsuccessful conversion to sinus rhythm Recommendations: 1. Start amiodarone drip 2. Continue full oral anticoagulation with Eliquis 3. Discontinue Cardizem
--- NOTE | 2024-02-12 13:26 | PC.NURSE ---
Patient back from cardioversion. This RN went to start amiodarone drip at 1315. Patient irritated and voicing he has questions about failed cardioverson. Patient states he does not want any new medications given to him until he speaks to the doctor. notified.
[2024-02-12] MEDS: Amiodarone/Dextrose 150 MG/100 ML PLAST..BAG 600 MG IV (14:46)
[2024-02-12] MEDS: Amiodarone HCL 900 MG in 0.9 % Sodium Chloride 500 ML 34.53 MG IVCONT (15:18)
--- NOTE | 2024-02-12 15:40 | MHC.RECOVRN ---
AUDIT-C Brief Intervention Pt had positive screen for unhealthy alcohol use on admission, subsequently met with t/w to discuss alcohol use and recovery supports/options. This check writer met with patient to discuss current alcohol use and concerns related to increased risk of alcohol related problems.? Pt reports drinking 2-3 beers after work, did not specify how many days a week. Pt reports he does not have a problem with alcohol and does not have concerns related to his alcohol use. Pt was accepting of written resources if needed as well as t/w contact information. Denies questions or concerns at this time.
--- NOTE | 2024-02-12 16:01 | PM.EVENT ---
Event Note Date of Service: 02/12/24 Event Note: Pt received amiodarone IV load then drip started; developed nausea and shortness of breath and felt difficulty swallowing. Demanded the drip be stopped and threatened to rip out IV. I arrived to find him in no distress with clear lungs and no oral or pharyngeal swelling. Pt in AF/RVR in 120s-130s. Will obtain EKG, cycle trops. Give metoprolol for rate control. Time Spent With Patient Time: Total time managing care of this patient today ____ minutes.
[2024-02-12 19:49] LABS: Troponin-I High Sensitivity 21.3 ng/L (<3.5-35.0)
[2024-02-12] MEDS: Sacubitril/Valsartan 24/26 1 TAB TABLET PO (20:46)
[2024-02-12] MEDS: Amiodarone HCL 900 MG in 0.9 % Sodium Chloride 500 ML 17.27 MG IVCONT (21:11)
[2024-02-12] MEDS: QUEtiapine Fumarate 50 MG TABLET PO (23:00)
[2024-02-13 01:40] VITALS: RESP 18
[2024-02-13 03:38] VITALS: BP 108/67; PULSE 107; RESP 18; TEMP 36.9; O2SAT 100
[2024-02-13] MEDS: Buprenorphine/Naloxone 4/1 mg FILM 1 FILM SUBLINGUAL (05:37)
[2024-02-13] MEDS: Buprenorphine/Naloxone 8/2 mg FILM 1 FILM SUBLINGUAL ×2 (05:37→17:13)
[2024-02-13 07:44] VITALS: BP 113/82; PULSE 77; RESP 19; TEMP 35.9; O2SAT 96
[2024-02-13 07:59] LABS: B Type Natriuretic Peptide 287 pg/mL (<100)
[2024-02-13 08:03] LABS: Anion Gap 10 (12-20); Blood Urea Nitrogen 16 mg/dL (9-16); Calcium 8.6 mg/dL (8.4-10.2); Carbon Dioxide 30 mmol/L (22-29); Chloride 102 mmol/L (96-108); Creatinine Clr Calc Pharmacy 99.7; Estimated Glomerular Filt Rate > 60; Glucose Random 108 mg/dL (60-115); Magnesium 2.2 mg/dL (1.6-2.6); Potassium 3.4 mmol/L (3.3-5.1); Sodium 139 mmol/L (135-145)
[2024-02-13] MEDS: Furosemide 40 MG/4 ML VIAL IVPUSH ×2 (08:20→17:13)
[2024-02-13] MEDS: Multivitamin TABLET 1 TAB PO (08:20)
[2024-02-13] MEDS: Sacubitril/Valsartan 24/26 1 TAB TABLET PO ×2 (08:20→20:41)
[2024-02-13] MEDS: 0.9 % Sodium Chloride Flush 3 ML SYRINGE IVFLUSH ×3 (08:20→20:42)
[2024-02-13] MEDS: Apixaban 5 MG TABLET PO ×2 (08:20→20:42)
[2024-02-13] MEDS: Cholecalciferol (Vitamin D3) 25 MCG TABLET PO (08:20)
[2024-02-13] MEDS: Metoprolol Tartrate 25 MG TABLET PO ×3 (08:21→17:13)
[2024-02-13] MEDS: Ferrous Sulfate 324 MG TABLET.DR PO (08:21)
--- NOTE | 2024-02-13 10:40 | PM.PNCARD ---
Subjective Subjective Date of Service: 02/13/24 Principal diagnosis: Atrial fibrillation, congestive heart failure. Interval history: patient was diuresed over 6 L. He says shortness of breath is much improved. His heart rate is better controlled on amiodarone drip although still with agitation his heart rate goes up to 130 beats per minute easily. He however says he feels much improved compared to when he came in his hospital. Yesterday he underwent VAMSI guided cardioversion. There were no intracardiac thrombi although he failed synchronized cardioversion with 3 attempts. His Cardizem was appropriately stopped. Review of Systems Constitutional: Reports no additional constitutional complaints Cardiovascular: Denies chest pain, Reports rapid heart rate, Reports leg edema ( Improved), Denies lightheadedness, Denies Loss of Consciousness and Reports dyspnea ( improved) Respiratory: Reports dyspnea ( improved) Gastrointestinal: Reports no additional gastrointestinal complaints Musculoskeletal: Reports no additional musculoskeletal complaints Reports system reviewed and no additional complaints, except as documented Physical Exam Vital Signs: Last Vital Signs Temp 96.7 F L 02/13/24 07:44 Pulse 77 02/13/24 07:44 Resp 19 02/13/24 07:44 BP 113/82 02/13/24 07:44 Pulse Ox 96 02/13/24 07:44 O2 Del Method Room Air 02/13/24 07:44 O2 Flow Rate 4 02/12/24 11:47 BMI result Body Mass Index 32.1 Const General: cooperative, comfortable, no acute distress, alert and awake Nutritional Appearance: average body habitus Orientation/consciousness: patient oriented x3 Neck Neck: Yes trachea midline, Yes supple and Yes JVD Resp Effort & Inspection: normal respiratory effort Auscultation: clear to auscultation bilaterally Cardio Jugular venous distension: JVD Rate: tachycardic Rhythm: abnormal rhythm irregularly irregular Heart sounds: S1 normal heart sound present, S2 normal heart sound present, no click, no gallops and no murmurs GI Auscultation: normal bowel sounds Neuro General: patient oriented x3 Extrem General: Yes no clubbing, cyanosis or edema Objective Labs and Meds 02/11/24 07:26 02/13/24 07:16 Lab results: Laboratory Results - last 24 hr 02/12/24 02/13/24 18:42 07:16 Sodium 139 Potassium 3.4 Chloride 102 Carbon Dioxide 30 H Anion Gap 10 L BUN 16 Creatinine 0.90 Estim Creat Clear Calc 99.7 Estimated GFR > 60 Random Glucose 108 Calcium 8.6 D Magnesium 2.2 Troponin I High Sens 21.3 B-Natriuretic Peptide 287 H Progress Note: A&P Assessment and plan (1) Decompensated heart failure: Status: Acute Assessment and Plan: decompensated congestive heart failure with worsening LV systolic function on VAMSI most suggestive of tachycardia mediated cardiomyopathy. Clinically congestion rangel patient is doing a lot better. In needs more aggressive rate control approach. He failed rhythm control approach with the cardioversion will require antiarrhythmic support. I would suggest to add Entresto to his regimen. Continue IV diuresis for 1 more day. Continue Jardiance and I discussed with him about the need for although medications and importance of taking medications and compliance with it. Uptitrate metoprolol to 25 mg q.6 for better rate control. Switch to p.o. amiodarone also for rate control and eventually for rhythm control, see below. Advised him to ambulate today. Continue trend BNP and BNP tomorrow. Replace electrolytes as needed. (2) Atrial fibrillation with rapid ventricular response: Status: Acute Assessment and Plan: Resistant atrial fibrillation with failure to cardioversion yesterday. There are no intracardiac thrombi so agree with amiodarone loading 400 mg b.i.d. for 2 weeks followed by synchronized cardioversion as outpatient. Rate still seems to be difficult control and will add an uptitrate metoprolol as above. Continue monitor blood pressure closely. Continue full oral anticoagulation Eliquis. Again discussed with him that if he has noncompliance with Eliquis we can not pursue rhythm control approach in him in the future. He is advised to avoid alcohol use completely continue CPAP therapy. If his rate remains difficult control will need to add digoxin to his regimen. Will follow with you Time Spent With Patient Time: Total time managing care of this patient today ____ minutes. Progress Note: Quality Stroke Does the patient have a stroke diagnosis?: No Procedures Date of Service Date of Service: 02/13/24
--- NOTE | 2024-02-13 10:45 | MHC.CM.PN ---
Per ROUNDS discussion, Patient is not yet medically cleared for dc (working on rate control); home is the goal and CM will continue to follow.
[2024-02-13 10:51] VITALS: O2SAT 96
[2024-02-13] MEDS: Amiodarone HCL 200 MG TABLET 400 MG PO ×2 (11:42→20:41)
[2024-02-13] MEDS: Empagliflozin 10 MG TABLET PO (11:46)
--- NOTE | 2024-02-13 12:55 | P.PNIM_ITS ---
Subjective Subjective Date of Service: 02/13/24 Interval History: dyspnea improved, negative 6L thus far AF, rate in 80s-90s at rest but 120s with speaking Review of Systems Review of Systems: Yes all other systems are reviewed and are negative Physical Exam 2 Vital Signs: Vital Signs: Last Vital Signs Temp 96.7 F L 02/13/24 07:44 Pulse 77 02/13/24 07:44 Resp 19 02/13/24 07:44 BP 113/82 02/13/24 07:44 Pulse Ox 96 02/13/24 10:51 O2 Del Method Room Air 02/13/24 07:44 O2 Flow Rate 4 02/12/24 11:47 Oxygen Flow Rate 19 02/13/24 10:51 BMI result Body Mass Index 32.1 Gen: in no acute distress HEENT: sclera anicteric, moist mucus membranes Neck: supple, JVD present Lungs: diminished bilaterally Heart: irregular, no murmurs Abd: soft, non-tender, non-distended Ext: no edema Skin: warm/well-perfused Neuro: alert and oriented x3, no focal findings Psych: appropriate affect Objective Data Active Medications Acetaminophen (Acetaminophen 325 Mg Tablet) 650 mg PO Q6H PRN PRN Reason: Pain, Mild (Pain Scale 1-3), fever or headache Last Admin: 02/11/24 23:33 Dose: 650 mg Documented By: JASON Amiodarone HCl (Amiodarone Hcl 200 Mg Tablet) 400 mg PO BID [facility] Last Admin: 02/13/24 11:42 Dose: 400 mg Documented By: LUIS F Apixaban (Apixaban 5 Mg Tablet) 5 mg PO BID [facility] Last Admin: 02/13/24 08:20 Dose: 5 mg Documented By: LUIS F Buprenorphine/Naloxone (Buprenorphine/Naloxone 4/1 Mg Film) 1 film SUBLINGUAL DAILY@0600 [facility] Last Admin: 02/13/24 05:37 Dose: 1 film Documented By: JASON Buprenorphine/Naloxone (Buprenorphine/Naloxone 8/2 Mg Film) 1 film SUBLINGUAL BID@0600,1800 [facility] Last Admin: 02/13/24 05:37 Dose: 1 film Documented By: JASON Calcium Carbonate (Calcium Carbonate 750 Mg Tab.Chew) 750 mg PO Q4H PRN PRN Reason: Heartburn Empagliflozin (Empagliflozin 10 Mg Tablet) 10 mg PO DAILY [facility] Last Admin: 02/13/24 11:46 Dose: 10 mg Documented By: LUIS F Ferrous Sulfate (Ferrous Sulfate 324 Mg Tablet.Dr) 324 mg PO DAILY [facility] Last Admin: 02/13/24 08:21 Dose: 324 mg Documented By: LUIS F Furosemide (Furosemide 40 Mg/4 Ml Vial) 40 mg IVPUSH BID@0900,1800 [facility]; Protocol Last Admin: 02/13/24 08:20 Dose: 40 mg Documented By: LUIS F Magnesium Hydroxide (Milk Of Magnesia 30 Ml Oral.Susp) 30 ml PO DAILY PRN PRN Reason: Constipation Melatonin (Melatonin 3 Mg Tablet) 6 mg PO BEDTIME PRN PRN Reason: Insomnia Metoprolol Tartrate (Metoprolol Tartrate 25 Mg Tablet) 25 mg PO Q6H [facility]; Protocol Last Admin: 02/13/24 11:42 Dose: 25 mg Documented By: LUIS F Multivitamins/Vitamin C (Multivitamin Tablet) 1 tab PO DAILY [facility] Last Admin: 02/13/24 08:20 Dose: 1 tab Documented By: LUIS F Ondansetron HCl (Ondansetron Hcl 4 Mg/2 Ml Vial) 4 mg IVPUSH Q8H PRN PRN Reason: Nausea and Vomiting Sacubitril/Valsartan (Sacubitril/Valsartan 1 Tab Tablet) 1 tab PO BID [facility]; Protocol Last Admin: 02/13/24 08:20 Dose: 1 tab Documented By: LUIS F Sodium Chloride (0.9 % Sodium Chloride Flush 3 Ml Syringe) 3 ml IVFLUSH QSHIFT [facility] Last Admin: 02/13/24 08:20 Dose: 3 ml Documented By: LUIS F Vitamin D (Cholecalciferol (Vitamin D3) 25 Mcg Tablet) 25 mcg PO DAILY [facility] Last Admin: 02/13/24 08:20 Dose: 25 mcg Documented By: LUIS F Labs 02/11/24 07:26 02/13/24 07:16 Labs: Laboratory Results - last 24 hr 02/12/24 02/13/24 18:42 07:16 Anion Gap 10 L Estim Creat Clear Calc 99.7 Estimated GFR > 60 Random Glucose 108 Calcium 8.6 D Magnesium 2.2 Troponin I High Sens 21.3 B-Natriuretic Peptide 287 H Assessment and Plan (1) Atrial fibrillation with rapid ventricular response: Status: Acute Plan d4 for 63yo M sent in from short-stay surgery where he was to undergo outpatient colonoscopy but was found to be in AF/RVR and ADHF AF/RVR - Cardiology following, failed cardioversion x3 attempts 02/11 - change IV to PO amiodarone 400 mg bid x14d then 200 mg daily; will increase metoprolol to 25 mg q6h; continue apixaban ADHF, acute/chronic HF with mildly reduced EF - continue furosemide + empagliflozin; started Entresto; monitor I/O + BNP + BMP/Mg AHRF - weaned off O2 HTN - stopped lisinopril + HCTZ, continue metoprolol tartrate and started Entresto as above LUZ MARINA - CPAP at night excess EtOH intake - Recovery Team consulted OUD - continue Suboxone VTE ppx - anticoagulation with apixaban dispo - eventual home In my clinical judgment, the patient requires continued inpatient hospitalization for the following reasons: cardioversion, IV diuresis Total time managing care of this patient today: 40 minutes. Quality Stroke Does the patient have a stroke diagnosis?: No VTE Prior VTE?: No VTE Risk Level:: Medical - moderate - high VTE Device Contraindication: N/A - Device Ordered VTE Drug Contraindication: Treatment Not Indicated
--- NOTE | 2024-02-13 13:43 | HO.POSTANES ---
Post Anesthesia Evaluation Post Anesthesia Evaluation Date of Service: 02/12/24 Vital Signs: Vital Signs Temp Pulse Resp BP Pulse Ox O2 Del Method 02/13/24 10:51 96 02/13/24 07:44 96.7 F L 77 19 113/82 96 Room Air 02/13/24 03:38 98.5 F 107 H 18 108/67 100 Room Air Anesthesia: Monitored Mental Status: Awake Pain Control: Satisfactory Nausea/Vomiting: None Hydration: Adequate Anesthesia-Related Issues: No Anes. Related Issues
[2024-02-13] MEDS: QUEtiapine Fumarate 50 MG TABLET PO (20:43)
[2024-02-13 21:12] VITALS: BP 102/89; PULSE 77; RESP 18; TEMP 36.4; O2SAT 96
[2024-02-14] VITALS (12 sets, daily range): BP systolic 98–115; BP diastolic 58–80; PULSE 58–95; RESP 16–20; TEMP 36.2–36.7; O2SAT 94–100; BMI 32.4
--- NOTE | 2024-02-14 | ECG_ITS ---
Test Reason : CP Blood Pressure : / mmHG Vent. Rate : 070 BPM Atrial Rate : 000 BPM P-R Int : 000 ms QRS Dur : 098 ms QT Int : 422 ms P-R-T Axes : 000 017 044 degrees QTc Int : 455 ms Atrial fibrillation T wave abnormality, consider anterior ischemia Abnormal ECG When compared with ECG of 12-FEB-2024 16:13, No significant change was found Referred By: Peyton Sanches Electronically Signed By:KYLEE JIMENEZ MD
[2024-02-14] MEDS: Metoprolol Tartrate 25 MG TABLET PO ×4 (00:34→23:58)
[2024-02-14] MEDS: Buprenorphine/Naloxone 4/1 mg FILM 1 FILM SUBLINGUAL (06:23)
[2024-02-14] MEDS: Buprenorphine/Naloxone 8/2 mg FILM 1 FILM SUBLINGUAL ×2 (06:23→17:10)
--- NOTE | 2024-02-14 09:28 | PM.PNCARD ---
Subjective Subjective Date of Service: 02/14/24 Principal diagnosis: Atrial fibrillation, congestive heart failure. Interval history: Shortness of breath has significantly improved. Heart rate also has improved although with ambulation heart rate goes up to 140. He is able to ambulate without significant shortness of breath. No chest pain. No lightheadedness, syncope. Blood pressure is stable. Review of Systems Constitutional: Reports no additional constitutional complaints Cardiovascular: Denies chest pain, Denies rapid heart rate, Denies lightheadedness, Denies palpitations, Reports dyspnea on exertion and Denies orthopnea Respiratory: Reports no additional respiratory complaints and Reports dyspnea on exertion Gastrointestinal: Reports no additional gastrointestinal complaints Genitourinary: Reports no additional male genitourinary complaints Reports system reviewed and no additional complaints, except as documented Endocrine: Denies palpitations Physical Exam Vital Signs: Last Vital Signs Temp 97.2 F 02/14/24 08:00 Pulse 62 02/14/24 08:00 Resp 20 02/14/24 08:00 BP 110/72 02/14/24 08:00 Pulse Ox 94 02/14/24 08:00 O2 Del Method Room Air 02/14/24 08:00 O2 Flow Rate 4 02/12/24 11:47 Oxygen Flow Rate 19 02/13/24 10:51 BMI result Body Mass Index 32.4 Const General: cooperative, comfortable, no acute distress, alert and awake Nutritional Appearance: average body habitus Orientation/consciousness: patient oriented x3 Neck Neck: Yes trachea midline, Yes supple and Yes JVD Resp Effort & Inspection: normal respiratory effort Auscultation: clear to auscultation bilaterally Cardio Jugular venous distension: JVD Rate: tachycardic Rhythm: abnormal rhythm irregularly irregular Heart sounds: S1 normal heart sound present, S2 normal heart sound present, no click, no gallops and no murmurs GI Auscultation: normal bowel sounds Neuro General: patient oriented x3 Extrem General: Yes no clubbing, cyanosis or edema Objective Labs and Meds 02/11/24 07:26 02/13/24 07:16 Progress Note: A&P Assessment and plan (1) Decompensated heart failure: Status: Acute Assessment and Plan: Decompensated congestive heart failure clinically euvolemic and doing a lot better now. Continue current neurohormonal modulation with Entresto, metoprolol and Jardiance. Can switch to oral diuretics 40 mg b.i.d.. Heart failure education needed provided. Most likely related to atrial fibrillation rapid ventricular response and tachycardia mediated cardiomyopathy. Outpatient ischemic workup will be pursued. Will set up for outpatient follow-up. Needs better rate control, see below. Management was discussed with him. He understands. (2) Atrial fibrillation with rapid ventricular response: Status: Acute Assessment and Plan: Atrial fibrillation with much better rate control but still remains elevated. Will increase metoprolol to 37.5 mg q.6 hours. Also give couple of dose IV digit switch to p.o. digoxin. Continue amiodarone p.o. loading for 2 weeks. Will eventually require rhythm control approach with synchronized cardioversion after he is completely loaded with amiodarone. Continue full oral anticoagulation Eliquis. Abstinence from alcohol was discussed. He is recommend to ambulate as tolerated today throughout the day. Anticipate discharge tomorrow. Time Spent With Patient Time: Total time managing care of this patient today ____ minutes. Progress Note: Quality Stroke Does the patient have a stroke diagnosis?: No Procedures Date of Service Date of Service: 02/14/24
--- NOTE | 2024-02-14 09:36 | P.PNIM_ITS ---
Subjective Subjective Date of Service: 02/14/24 Interval History: breathing improved HR 80s-90s at rest, but still up to 140s with ambulation Physical Exam 2 Vital Signs: Vital Signs: Last Vital Signs Temp 97.2 F 02/14/24 08:00 Pulse 62 02/14/24 08:00 Resp 20 02/14/24 08:00 BP 110/72 02/14/24 08:00 Pulse Ox 94 02/14/24 08:00 O2 Del Method Room Air 02/14/24 08:00 O2 Flow Rate 4 02/12/24 11:47 Oxygen Flow Rate 19 02/13/24 10:51 BMI result Body Mass Index 32.4 Gen: in no acute distress HEENT: sclera anicteric, moist mucus membranes Neck: supple Lungs: clear bilaterally Heart: irregular, no murmurs Abd: soft, non-tender, non-distended Ext: no edema Skin: warm/well-perfused Neuro: alert and oriented x3, no focal findings Psych: appropriate affect Objective Data Active Medications Acetaminophen (Acetaminophen 325 Mg Tablet) 650 mg PO Q6H PRN PRN Reason: Pain, Mild (Pain Scale 1-3), fever or headache Last Admin: 02/11/24 23:33 Dose: 650 mg Documented By: JASON Amiodarone HCl (Amiodarone Hcl 200 Mg Tablet) 400 mg PO BID [facility] Last Admin: 02/13/24 20:41 Dose: 400 mg Documented By: DYLAN Apixaban (Apixaban 5 Mg Tablet) 5 mg PO BID [facility] Last Admin: 02/13/24 20:42 Dose: 5 mg Documented By: DYLAN Buprenorphine/Naloxone (Buprenorphine/Naloxone 4/1 Mg Film) 1 film SUBLINGUAL DAILY@0600 [facility] Last Admin: 02/14/24 06:23 Dose: 1 film Documented By: NATE Buprenorphine/Naloxone (Buprenorphine/Naloxone 8/2 Mg Film) 1 film SUBLINGUAL BID@0600,1800 [facility] Last Admin: 02/14/24 06:23 Dose: 1 film Documented By: NATE Calcium Carbonate (Calcium Carbonate 750 Mg Tab.Chew) 750 mg PO Q4H PRN PRN Reason: Heartburn Digoxin (Digoxin 0.5 Mg/2 Ml Ampul) 0.25 mg IVPUSH Q6H [facility]; Protocol Stop: 02/14/24 15:46 Empagliflozin (Empagliflozin 10 Mg Tablet) 10 mg PO DAILY [facility] Last Admin: 02/13/24 11:46 Dose: 10 mg Documented By: LUIS F Ferrous Sulfate (Ferrous Sulfate 324 Mg Tablet.Dr) 324 mg PO DAILY [facility] Last Admin: 02/13/24 08:21 Dose: 324 mg Documented By: LUIS F Furosemide (Furosemide 40 Mg/4 Ml Vial) 40 mg IVPUSH BID@0900,1800 [facility]; Protocol Last Admin: 02/13/24 17:13 Dose: 40 mg Documented By: LUIS F Magnesium Hydroxide (Milk Of Magnesia 30 Ml Oral.Susp) 30 ml PO DAILY PRN PRN Reason: Constipation Melatonin (Melatonin 3 Mg Tablet) 6 mg PO BEDTIME PRN PRN Reason: Insomnia Metoprolol Tartrate (Metoprolol Tartrate 12.5 Mg Halftab) 37.5 mg PO Q6H [facility]; Protocol Multivitamins/Vitamin C (Multivitamin Tablet) 1 tab PO DAILY [facility] Last Admin: 02/13/24 08:20 Dose: 1 tab Documented By: LUIS F Ondansetron HCl (Ondansetron Hcl 4 Mg/2 Ml Vial) 4 mg IVPUSH Q8H PRN PRN Reason: Nausea and Vomiting Quetiapine Fumarate (Quetiapine Fumarate 50 Mg Tablet) 50 mg PO BEDTIME [facility] Last Admin: 02/13/24 20:43 Dose: 50 mg Documented By: DYLAN Sacubitril/Valsartan (Sacubitril/Valsartan 1 Tab Tablet) 1 tab PO BID [facility]; Protocol Last Admin: 02/13/24 20:41 Dose: 1 tab Documented By: DYLAN Sodium Chloride (0.9 % Sodium Chloride Flush 3 Ml Syringe) 3 ml IVFLUSH QSHIFT [facility] Last Admin: 02/13/24 20:42 Dose: 3 ml Documented By: DYLAN Vitamin D (Cholecalciferol (Vitamin D3) 25 Mcg Tablet) 25 mcg PO DAILY [facility] Last Admin: 02/13/24 08:20 Dose: 25 mcg Documented By: LUIS F Labs 02/11/24 07:26 02/13/24 07:16 Assessment and Plan (1) Atrial fibrillation with rapid ventricular response: Status: Acute Plan d5 for 63yo M sent in from short-stay surgery where he was to undergo outpatient colonoscopy but was found to be in AF/RVR and ADHF AF/RVR - Cardiology following, failed cardioversion x3 attempts 02/11 - amiodarone 400 mg bid x14d then 200 mg daily; will increase metoprolol tartrate to 37.5 mg q6h; will give IV digoxin today and start PO tomorrow - plan outpt cardioversion - continue apixaban ADHF, acute/chronic HFrEF - VAMSI 02/12/24: 1. Severely reduced LV ejection fraction 15-20% 2. Mild left atrial enlargement 3. Mild mitral regurgitation 4. No intracardiac thrombi, masses or vegetations 5. No gross pericardial effusion 6. No intracardiac shunting - appears euvolemic after negative 6L fluid balance; change IV to PO furosemide - continue empagliflozin and Entresto and metoprolol tartrate - plan outpt ischemic workup AHRF - weaned off O2 HTN - stopped lisinopril + HCTZ, continue metoprolol tartrate and started Entresto as above LUZ MARINA - CPAP at night excess EtOH intake - Recovery Team consulted OUD - continue Suboxone VTE ppx - anticoagulation with apixaban dispo - eventual home In my clinical judgment, the patient requires continued inpatient hospitalization for the following reasons: rate control Total time managing care of this patient today: 40 minutes. Quality Stroke Does the patient have a stroke diagnosis?: No VTE Prior VTE?: No VTE Risk Level:: Medical - moderate - high VTE Device Contraindication: N/A - Device Ordered VTE Drug Contraindication: Treatment Not Indicated
[2024-02-14] MEDS: Digoxin 0.5 MG/2 ML AMPUL 0.25 MG IVPUSH ×2 (10:22→17:10)
[2024-02-14] MEDS: Amiodarone HCL 200 MG TABLET 400 MG PO ×2 (10:23→20:26)
[2024-02-14] MEDS: Apixaban 5 MG TABLET PO ×2 (10:23→20:26)
[2024-02-14] MEDS: Metoprolol Tartrate 12.5 MG HALFTAB 37.5 MG PO (10:23)
[2024-02-14] MEDS: Sacubitril/Valsartan 24/26 1 TAB TABLET PO ×2 (10:23→20:26)
[2024-02-14] MEDS: Cholecalciferol (Vitamin D3) 25 MCG TABLET PO (10:23)
[2024-02-14] MEDS: Multivitamin TABLET 1 TAB PO (10:23)
[2024-02-14] MEDS: Ferrous Sulfate 324 MG TABLET.DR PO (10:23)
[2024-02-14] MEDS: 0.9 % Sodium Chloride Flush 3 ML SYRINGE IVFLUSH ×3 (10:24→20:27)
[2024-02-14] MEDS: Furosemide 40 MG TABLET PO (17:09)
[2024-02-14] MEDS: QUEtiapine Fumarate 50 MG TABLET PO (22:25)
[2024-02-15 04:00] VITALS: BP 101/66; PULSE 82; RESP 16; TEMP 36.1; O2SAT 98
[2024-02-15 05:48] VITALS: BMI 32.1
[2024-02-15 06:28] VITALS: BP 100/72; PULSE 71
[2024-02-15] MEDS: Buprenorphine/Naloxone 8/2 mg FILM 1 FILM SUBLINGUAL (06:28)
[2024-02-15] MEDS: Metoprolol Tartrate 25 MG TABLET PO ×2 (06:28→11:54)
[2024-02-15] MEDS: Buprenorphine/Naloxone 4/1 mg FILM 1 FILM SUBLINGUAL (06:28)
[2024-02-15 06:29] LABS: Anion Gap 13 (12-20); Blood Urea Nitrogen 20 mg/dL (9-16); Calcium 8.9 mg/dL (8.4-10.2); Carbon Dioxide 27 mmol/L (22-29); Chloride 102 mmol/L (96-108); Creatinine Clr Calc Pharmacy 89.7; Estimated Glomerular Filt Rate > 60; Glucose Random 115 mg/dL (60-115); Magnesium 2.2 mg/dL (1.6-2.6); Potassium 3.7 mmol/L (3.3-5.1); Sodium 138 mmol/L (135-145)
[2024-02-15 06:42] LABS: B Type Natriuretic Peptide 160 pg/mL (<100)
[2024-02-15 07:20] VITALS: BP 109/78; PULSE 74; RESP 16; TEMP 36.1; O2SAT 97
[2024-02-15] MEDS: Apixaban 5 MG TABLET PO (08:02)
[2024-02-15] MEDS: Amiodarone HCL 200 MG TABLET 400 MG PO (08:02)
[2024-02-15] MEDS: Sacubitril/Valsartan 24/26 1 TAB TABLET PO (08:02)
[2024-02-15] MEDS: Digoxin 0.125 MG TABLET PO (08:02)
[2024-02-15] MEDS: Multivitamin TABLET 1 TAB PO (08:02)
[2024-02-15] MEDS: Furosemide 40 MG TABLET PO (08:02)
[2024-02-15] MEDS: 0.9 % Sodium Chloride Flush 3 ML SYRINGE IVFLUSH (08:03)
[2024-02-15] MEDS: Cholecalciferol (Vitamin D3) 25 MCG TABLET PO (08:03)
[2024-02-15] MEDS: Ferrous Sulfate 324 MG TABLET.DR PO (08:03)
[2024-02-15] MEDS: Empagliflozin 10 MG TABLET PO (08:03)
[2024-02-15 08:12] VITALS: O2SAT 97
--- NOTE | 2024-02-15 09:38 | ECG_ITS ---
Test Reason : A-Fib Blood Pressure : / mmHG Vent. Rate : 085 BPM Atrial Rate : 000 BPM P-R Int : 000 ms QRS Dur : 098 ms QT Int : 402 ms P-R-T Axes : 000 052 054 degrees QTc Int : 478 ms Atrial fibrillation Anterior infarct , age undetermined Nonspecific ST and T wave abnormality Abnormal ECG When compared with ECG of 14-FEB-2024 11:14, Anterior infarct is now Present - could be related to lead placement Referred By: Peyton Sanches Electronically Signed By:HANSA DRISCOLL
--- NOTE | 2024-02-15 10:33 | PM.PNCARD ---
Subjective Subjective Date of Service: 02/15/24 Principal diagnosis: Atrial fibrillation, congestive heart failure. Interval history: Patient is doing a lot better. He said his shortness of breath is much improved. His BNP is downtrending to 160. He said he was not been taking Jardiance for 2 days because did not make him feel well. His heart rate is under better control at this point time. Blood pressure is stable. Occasional lightheadedness when he is upright. No syncopal episodes. Review of Systems Constitutional: Reports no additional constitutional complaints Physical Exam Vital Signs: Last Vital Signs Temp 96.9 F 02/15/24 07:20 Pulse 74 02/15/24 07:20 Resp 16 02/15/24 07:20 BP 109/78 02/15/24 07:20 Pulse Ox 97 02/15/24 08:12 O2 Del Method Room Air 02/15/24 08:12 O2 Flow Rate 4 02/12/24 11:47 Oxygen Flow Rate 19 02/13/24 10:51 BMI result Body Mass Index 32.1 Const General: cooperative, comfortable, no acute distress, alert and awake Nutritional Appearance: average body habitus Orientation/consciousness: patient oriented x3 Neck Neck: Yes trachea midline, Yes supple and Yes no JVD Resp Effort & Inspection: normal respiratory effort Auscultation: clear to auscultation bilaterally Cardio Jugular venous distension: no JVD Rate: regular rate Rhythm: abnormal rhythm irregularly irregular Heart sounds: S1 normal heart sound present, S2 normal heart sound present, no click, no gallops and no murmurs GI Auscultation: normal bowel sounds Neuro General: patient oriented x3 Extrem General: Yes no clubbing, cyanosis or edema Objective Labs and Meds 02/11/24 07:26 02/15/24 05:50 Lab results: Laboratory Results - last 24 hr 02/15/24 05:50 Sodium 138 Potassium 3.7 Chloride 102 Carbon Dioxide 27 Anion Gap 13 BUN 20 H Creatinine 1.00 Estim Creat Clear Calc 89.7 Estimated GFR > 60 Random Glucose 115 Calcium 8.9 Magnesium 2.2 B-Natriuretic Peptide 160 H Progress Note: A&P Assessment and plan (1) Decompensated heart failure: Status: Acute Assessment and Plan: Decompensated congestive heart failure clinically doing extremely well. BNP is downtrending significantly. He is symptomatically a lot better with his shortness of breath. Still has shortness of breath NYHA class 2 at this point time which is expected given his atrial fibrillation LV systolic dysfunction. Continue p.o. Lasix at current dose. He said he did not tolerate Jardiance and does not want to take it which is okay at this point time. Continue Entresto, and metoprolol at 50 b.i.d. for neurohormonal modulation. Continue aggressive rate control, see below. CHF education to be provided. Will set him up for outpatient follow-up and cardioversion (2) Atrial fibrillation with rapid ventricular response: Status: Acute Assessment and Plan: Atrial fibrillation with borderline rate control but much improved compared to admission. Continue amiodarone, metoprolol and digoxin for rate control for now. Will set him up for rhythm control with set up cardioversion on February 26 after 2 weeks of loading of amiodarone. Amiodarone can go down to 200 mg daily after 2 weeks of loading. Continue full oral anticoagulation Eliquis. Absolute compliance with medication with Eliquis was discussed to pursue synchronized cardioversion and rhythm control approach. Avoid alcohol at all costs was discussed. Will follow up as outpatient. Patient can be discharged home today. Time Spent With Patient Time: Total time managing care of this patient today ____ minutes. Progress Note: Quality Stroke Does the patient have a stroke diagnosis?: No Procedures Date of Service Date of Service: 02/15/24
--- NOTE | 2024-02-15 11:15 | P.DS_ITS ---
DS: Providers Provider Date of Service: 02/15/24 Date of admission: 02/10/24 12:44 Date of discharge: 02/15/24 Primary care physician: Leticia Au MD Consults: 02/10/24 12:46 Consult to Cardiology Routine Consulting Provider: [facility] [place] [facility] Reason for consultation: andrew sandoval rvr, acute chf 02/11/24 10:43 Addiction Medicine Routine Consulting Provider: Addiction Covering Reason for consultation: AUD DS: Diagnosis Discharge Diagnosis (1) Decompensated heart failure: Status: Acute (2) Atrial fibrillation with rapid ventricular response: Status: Acute (3) Acute on chronic clinical systolic heart failure: Status: Acute (4) Acute respiratory failure with hypoxia: Status: Acute DS: Summary Hospital Course Hospital Course: From the history and physical by the admitting hospitalist, 02/10/24, by Dr David Choudhary MD: The patient is a 63 year old male with a PMH of asthma, LUZ MARINA, obesity, AFib with RVR, CHF with borderline EF, alcohol use, chronic opiate therapy on Suboxone who presents to the emergency room from the preop area for tachycardia. The patient was scheduled for an outpatient colonoscopy today but was noted to have heart rates above 160-70. In the emergency room he was found to be in AFib with RVR and was treated with 2 doses of IV diltiazem with improved heart rate. Further workup revealed signs and symptoms concerning for acute CHF. The patient was treated with IV diuretics and reports no significant improvement in his symptoms. He was noted to have O2 saturations of 89% on room air which have improved to the mid 90s on 2 L. Given his AFib and suspected CHF, he will be admitted for further care. The patient is seen and examined in the emergency room around 12:30. He reports that currently he is not feeling any palpitations but does endorse shortness of breath with exertion. On further questioning, the patient reports that he is supposed to be on both metoprolol and diltiazem for his AFib. He states that he was not able to tolerate his diltiazem as he felt this worsened his heart rate and hence he has not taken it over the last 1 month. He has not taken his metoprolol today in preparation for his colonoscopy. He reports he is on Eliquis but that has been on hold for the last 48 hours again in preparation for his colonoscopy. In regards to his shortness of breath, the patient endorses exertional dyspnea. He reports easy fatigability even with ambulation within hi s own home. He is unsure if he has had orthopnea or nocturnal dyspnea but does report feeling increasingly bloated as well as bilateral lower extremity edema. He reports a weight gain of about 10-15 lb, unclear in what duration. He does not appear to be on diuretic therapy other than HCTZ. In regards to compliance with his medication, the patient reports that he has been compliant with his meds with the exception of Cardizem. Does endorse alcohol use on a near daily basis. States that he was previously drinking about 10 beers daily and now has cut that in about half. He denies any withdrawal symptoms. He states ?I am not an alcoholic.? He does report minor epistaxis several weeks ago and reports 2 episodes of blood in his stool while completing his prep. 63yo M sent in from short-stay surgery where he was to undergo outpatient colonoscopy but was found to be in AF/RVR and ADHF. He was admitted to the telemetry unit with Cardiology consultation. Hospital course by problem: AF/RVR - Initially placed on diltiazem infusion and metoprolol was titrated up. He failed cardioversion x3 attempts 02/11 and was switched to IV amiodarone load/drip, then PO amiodarone load. He remained in rate-controlled AF and was discharged on amiodarone 400 mg bid x 12d then 200 mg daily with plan for outpatient cardioversion. Metoprolol was increased to 50 mg bid and changed from tartrate to succinate. He was also loaded with IV digoxin and discharged on maintenance digoxin 125 mcg daily. Should check digoxin level [and BMP] in 1 week. Apixaban was continued for anticoagulation. He will follow up with [facility] [place] Cardiology as an outpatient. AHRF due to ADHF, acute/chronic HFrEF - VAMSI 02/12/24: 1. Severely reduced LV ejection fraction 15-20% 2. Mild left atrial enlargement 3. Mild mitral regurgitation 4. No intracardiac thrombi, masses or vegetations 5. No gross pericardial effusion 6. No intracardiac shunting - Diltiazem was discontinued and he was switched to amiodarone and digoxin and higher dose of metoprolol as above. He was diuresed net negative 6L with IV furosemide and weaned off oxygen. He was started on maintenance furosemide. He declined empagliflozin. Lisinopril-HCTZ was changed to Entresto. He underwent CHF education. He will need outpatient ischemic workup to be arranged by [facility] [place] Cardiology. Time Attestation Discharge Coordination Time (in mins): 45 Quality: Safe Use of Opioids Does Pt have an Active Cancer Diagnosis on the Problem List?: No Quality: Stroke Does the patient have a stroke diagnosis?: No Physical Exam Vital Signs: Vital Signs: Last Vital Signs Temp 96.9 F 02/15/24 07:20 Pulse 74 02/15/24 07:20 Resp 16 02/15/24 07:20 BP 109/78 02/15/24 07:20 Pulse Ox 97 02/15/24 08:12 O2 Del Method Room Air 02/15/24 08:12 O2 Flow Rate 4 02/12/24 11:47 Oxygen Flow Rate 19 02/13/24 10:51 BMI result Body Mass Index 32.1 Gen: in no acute distress HEENT: sclera anicteric, moist mucus membranes Neck: supple Lungs: clear to auscultation bilaterally Heart: irregular, no murmurs Abd: soft, non-tender Ext: no edema Skin: warm/well-perfused Neuro: alert and oriented x3, no focal findings Psych: appropriate affect DS: Data Data Completed and Pending Completed studies during hospitalization [Text1]: Laboratory Results WBC 4.6 X10*3/uL (4.8-10.8) L 02/11/24 07:26 RBC 4.44 X10*6/uL (4.60-5.80) L 02/11/24 07:26 Hgb 12.4 g/dl (14.0-18.0) L 02/11/24 07:26 Hct 37.9 % (42.0-52.0) L 02/11/24 07:26 MCV 85.4 fL (80.0-98.0) 02/11/24 07:26 MCH 27.9 pg (27.0-33.0) 02/11/24 07:26 MCHC 32.7 g/dl (31.0-36.0) 02/11/24 07:26 RDW 14.4 % (11.0-16.0) 02/11/24 07:26 Plt Count 165 X10*3/uL (160-400) 02/11/24 07:26 MPV 10.8 fL (9.4-12.4) 02/11/24 07:26 Immature Gran % (Auto) 0.0 % (0.0-0.4) 02/11/24 07: Neut % (Auto) 40.9 % (45-73) L 02/11/24 07: Lymph % (Auto) 47.3 % (20-40) H 02/11/24 07:26 Mora % (Auto) 9.2 % (2-11) 02/11/24 07: Eos % (Auto) 2.2 % (0-4) 02/11/24 07: Baso % (Auto) 0.4 % (0-2) 02/11/24 07: Lymph # (Auto) 2.2 X10*3/uL (1.2-4.9) 02/11/24 07:26 Mora # (Auto) 0.4 X10*3/uL (0.1-1.2) 02/11/24 07:26 Eos # (Auto) 0.1 X10*3/uL (0.0-0.4) 02/11/24 07:26 Baso # (Auto) 0.0 X10*3/uL (0.0-0.2) 02/11/24 07:26 Abs Immat Gran (auto) 0.00 X10*3/uL (0.00-0.03) 02/11/24 07:26 Absolute Neuts (auto) 1.9 x10*3/uL (2.0-8.3) L 02/11/24 07:26 Absolute Nucleated RBC 0.000 X10*3/uL (0.0-0.012) 02/11/24 07:26 Nucleated RBC % (auto) 0.0 /100WBC (0.0-0.2) 02/11/24 07:26 Hold Blue Top SEE NOTE 02/10/24 07:50 Sodium 138 mmol/L (135-145) 02/15/24 05:50 Potassium 3.7 mmol/L (3.3-5.1) 02/15/24 05:50 Chloride 102 mmol/L (96-108) 02/15/24 05:50 Carbon Dioxide 27 mmol/L (22-29) 02/15/24 05:50 Anion Gap 13 (12-20) 02/15/24 05:50 BUN 20 mg/dL (9-16) H 02/15/24 05:50 Creatinine 1.00 mg/dL (0.5-1.4) 02/15/24 05:50 Estim Creat Clear Calc 89.7 02/15/24 05:50 Estimated GFR > 60 02/15/24 05:50 Random Glucose 115 mg/dL (60-115) 02/15/24 05:50 Calcium 8.9 mg/dL (8.4-10.2) 02/15/24 05:50 Magnesium 2.2 mg/dL (1.6-2.6) 02/15/24 05:50 Total Bilirubin 0.6 mg/dL (0.0-1.0) 02/11/24 07:26 Direct Bilirubin 0.4 mg/dL (0.0-0.5) 02/10/24 07:50 AST 34 U/L (5-37) 02/11/24 07:26 ALT 31 U/L (0-40) 02/11/24 07:26 Alkaline Phosphatase 42 U/L (39-117) 02/11/24 07:26 Troponin I High Sens 21.3 ng/L (<3.5-35.0) 02/12/24 18:42 B-Natriuretic Peptide 160 pg/mL (<100) H 02/15/24 05:50 Total Protein 5.2 g/dL (6.5-8.0) L 02/11/24 07:26 Albumin 3.3 g/dL (3.5-5.0) L 02/11/24 07:26 Lipase 25 U/L (8-78) 02/10/24 07:50 Impressions Chest X-Ray 02/10/24 07:54 IMPRESSION: Grossly clear and unchanged single view chest x-ray. Electronically signed by: Jose Pete MD 02/10/2024 08:33 AM [facility] Discharge Plan Discharge Anticipated Discharge Date/Time: 02/15/24 11:07 Patient Disposition: Home, Self-Care Discharge Diagnosis: atrial fibrillation cardiomyopathy, CHF Referrals: Leticia Au MD [Primary Care Provider] - 1 Week Shimon Mac MD [Physician] - 2 Weeks Discharge Medications: New amiodarone 200 mg Tablet See Rx Instructions .ROUTE .COMPLEX Qty: 66 0RF Rx Instructions: 400 mg [2 tabs] twice daily for 12 days, then 200 mg [1 tab] once daily furosemide 40 mg Tablet 40 mg PO BID@0900,1800 Qty: 60 0RF Protocol: Hold for SBP< HOLD for SBP < : 90 digoxin 125 mcg (0.125 mg) Tablet 0.125 mg PO DAILY Qty: 30 0RF Protocol: Hold for HR <: HOLD for HR < : 60 Entresto 24-26 mg Tablet 1 tab PO BID Qty: 60 0RF Protocol: Hold for SBP< HOLD for SBP < : 90 metoprolol succinate 50 mg tablet extended release 24 hr 50 mg PO BID Qty: 60 0RF Continued buprenorphine-naloxone [Suboxone] 8-2 mg film 1 strip sublingual BID albuterol sulfate 90 mcg/actuation HFA aerosol inhaler 2 puff inhalation QID PRN (Reason: shortness of breath or wheezing) Qty: 6.7 0RF buprenorphine-naloxone 4-1 mg film 1 film sublingual DAILY Eliquis 5 mg Tablet 5 mg PO BID Qty: 180 0RF ferrous sulfate [iron] 325 mg (65 mg iron) Tablet 325 mg PO DAILY cholecalciferol (vitamin D3) 25 mcg (1,000 unit) tablet 25 mcg PO DAILY multivitamin Tablet 1 tab PO DAILY mecobalamin (vitamin B12) 500 mcg tablet,chewable 500 mcg PO DAILY ascorbate calcium (vitamin C) 500 mg tablet 500 mg PO DAILY Discontinued quetiapine 25 mg tablet 25 - 50 mg PO BEDTIME metoprolol tartrate 25 mg tablet 25 mg PO BID Qty: 60 4RF lisinopril-hydrochlorothiazide 20-12.5 mg tablet 1 tab PO DAILY Discharge Orders: Discharge Order (Routine); Ordered 02/15/24 Ordered By: Peyton Sanches Diet: Low salt diet Activity on Discharge: As tolerated Stand Alone Forms: Patient Portal Discharge page Print Language: Italian Other Ambulatory Orders: Basic Metabolic Panel (Routine) Timeframe: 1 Week Facility: [facility] - Location: Laboratory Ordered By: Peyton Sanches Digoxin (Routine) Timeframe: 1 Week Facility: [facility] - Location: Laboratory Ordered By: Peyton Sanches Care Plan Goals: cardiac health Health Concerns: atrial fibrillation cardiomyopathy, CHF Plan of Treatment: change metoprolol tartrate 25 mg twice daily to metoprolol succinate 50 mg twice daily start digoxin 0.125 mg once daily; check level with BMP in 1 week start amiodarone 400 mg twice daily for 12 days, then 200 mg once daily continue apixaban 5 mg twice daily stop lisinopril-HCTZ; instead, take Entresto 24-26 mg twice daily take furosemide 40 mg twice daily Low-sodium diet: less than 2000 mg of sodium daily. Weigh yourself daily and call your doctor if your weight goes up by more than 3 lb/day or 5 lb/week. avoid alcohol completely follow up with [facility] [place] Cardiology in 2 weeks Please follow up with your primary care doctor within 1 week. Return to the hospital if you experience recurrent or worsening symptoms. Assessment: See Discharge Summary.
[2024-02-15 11:31] VITALS: BP 104/58; PULSE 88; TEMP 36; O2SAT 99
--- NOTE | 2024-02-15 11:41 | MHC.CM.PN ---
Pt has been medically cleared for DC, he will go home via private transport, plan is: Self care.
== END 2024-02-15 13:13 | disposition home or self-care (01) | DRG 194 ==
LOC: HO.ED 10:29 → HO.EDOVER 12:49 → HO.IMC 02-11 17:40
PROVIDERS: Internal Medicine Cardiovascular Disease; Student in an Organized Health Care Education/Training Program; Admitting Provider Family Medicine; Emergency Provider Emergency Medicine; PCP Internal Medicine; Visit Provider Family Medicine
PROC: 5A2204Z Restoration of Cardiac Rhythm, Single (ICD-10-PCS; CPT 93312; principal; 2024-02-12 11:00)
PROC: 5A2204Z Restoration of Cardiac Rhythm, Single (ICD-10-PCS; 2024-02-12 11:00)
DX: I11.0 Hypertensive heart disease with heart failure (principal); J96.01 Acute respiratory failure with hypoxia; Z79.01 Long term (current) use of anticoagulants; I24.89 Other forms of acute ischemic heart disease; F10.90 Alcohol use, unspecified, uncomplicated; I50.23 Acute on chronic systolic (congestive) heart failure; I34.0 Nonrheumatic mitral (valve) insufficiency; I48.91 Unspecified atrial fibrillation; G47.33 Obstructive sleep apnea (adult) (pediatric); F17.210 Nicotine dependence, cigarettes, uncomplicated; Z71.6 Tobacco abuse counseling; F11.20 Opioid dependence, uncomplicated; Z79.899 Other long term (current) drug therapy
CPT/HCPCS: 36415; 71045; 80048; 80053; 80076; 83690; 83735; 83880; 84484; 85025; 92960; 93005; 94660; 99285; J0282; J0283; J1160; J1940; J2003; J2250; J2704; J3010

== ENCOUNTER 2024-02-10 12:44 | Outpatient (BNV) | payer OTHER, SELFPAY | END 2024-02-12 10:33 | PROVIDERS: Admitting Provider Family Medicine; Emergency Provider Emergency Medicine; PCP Internal Medicine; Visit Provider Internal Medicine Cardiovascular Disease | DX: I50.20 Unspecified systolic (congestive) heart failure (principal); I34.0 Nonrheumatic mitral (valve) insufficiency; I36.1 Nonrheumatic tricuspid (valve) insufficiency | CPT/HCPCS: 76376; 93010; 93312; 93325 ==

== ENCOUNTER 2024-02-10 12:44 | Outpatient (BNV) | payer OTHER, SELFPAY | END 2024-02-11 08:34 | PROVIDERS: Admitting Provider Family Medicine; Emergency Provider Emergency Medicine; PCP Internal Medicine; Visit Provider Internal Medicine Cardiovascular Disease | DX: I48.91 Unspecified atrial fibrillation (principal); R94.31 Abnormal electrocardiogram [ECG] [EKG] | CPT/HCPCS: 93010 ==

== ENCOUNTER 2024-02-10 12:44 | Outpatient (BNV) | payer OTHER, SELFPAY | END 2024-02-15 09:38 | PROVIDERS: Admitting Provider Family Medicine; Emergency Provider Emergency Medicine; PCP Internal Medicine; Visit Provider Internal Medicine | DX: I48.91 Unspecified atrial fibrillation (principal) | CPT/HCPCS: 93010 ==

== ENCOUNTER 2024-02-10 12:44 | Outpatient (BNV) | payer OTHER, SELFPAY | END 2024-02-14 11:14 | PROVIDERS: Admitting Provider Family Medicine; Emergency Provider Emergency Medicine; PCP Internal Medicine; Visit Provider Internal Medicine Cardiovascular Disease | DX: R07.9 Chest pain, unspecified (principal) | CPT/HCPCS: 93010 ==

== ENCOUNTER → 2024-02-10 12:44 | Outpatient (BNV) | payer OTHER, SELFPAY | PROVIDERS: Admitting Provider Family Medicine; Emergency Provider Emergency Medicine; PCP Internal Medicine; Visit Provider Family Medicine | DX: I50.23 Acute on chronic systolic (congestive) heart failure (principal); I48.91 Unspecified atrial fibrillation; J96.01 Acute respiratory failure with hypoxia | CPT/HCPCS: 99223; 99232; 99239; 99499 ==

== ENCOUNTER → 2024-02-10 12:44 | Outpatient (BNV) | payer OTHER, SELFPAY | PROVIDERS: Admitting Provider Family Medicine; Emergency Provider Emergency Medicine; PCP Internal Medicine; Visit Provider Internal Medicine Cardiovascular Disease | DX: I50.9 Heart failure, unspecified (principal); I48.91 Unspecified atrial fibrillation | CPT/HCPCS: 92960; 99223; 99233 ==

== ENCOUNTER 2024-02-24 14:42 | Outpatient (AMB) | payer OTHER, SELFPAY ==
[2024-02-24 14:49] VITALS: BP 110/74; PULSE 76; O2SAT 98; BMI 31.9
--- NOTE | 2024-02-24 14:49 | A.OFFVIS_ITS ---
Vital Signs 02/24/24 14:49 Height 5 ft 9 in Weight 216 lb BMI 31.9 BP 110/74 Blood Pressure Location Lt brachial Position Sitting Pulse 76 Pulse Source Pulse Oximeter Pulse Oximetry (%) 98 Oxygen Delivery Method Room Air Intake Visit Reasons: Obstructive sleep apnea Intake Note: pt is here for follow up of LUZ MARINA and for starting of cpap. 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: No Allergies No Known Allergies [No Known Allergies*] Allergy (Verified 02/24/24 15:07) Medication List - Last Reconciled 02/24/24 by Carlene Guardado MD albuterol sulfate 90 mcg/actuation 2 puffs inhalation QID PRN amiodarone 400 mg [2 tabs] twice daily for 12 days, then 200 mg [1 tab] once daily apixaban (Eliquis) 5 mg PO BID ascorbate calcium (vitamin C) 500 mg PO DAILY buprenorphine-naloxone 4-1 mg 1 film sublingual DAILY buprenorphine-naloxone 8-2 mg (Suboxone) 1 strip sublingual BID cholecalciferol (vitamin D3) 25 mcg PO DAILY digoxin 0.125 mg See Protocol PO DAILY ferrous sulfate (iron) 325 mg PO DAILY furosemide 40 mg See Protocol PO BID@0900,1800 mecobalamin (vitamin B12) 500 mcg PO DAILY metoprolol succinate ER 50 mg PO BID multivitamin 1 tab PO DAILY sacubitril-valsartan 24-26 mg (Entresto) 1 tab See Protocol PO BID Do you need a note to return to daycare/school/sports/work: No HPI HPI Obstructive sleep apnea: Details: THIS 63 YEARS OLD GENTLEMAN COMES FOR FOLLOW-UP AFTER STARTING ON THE CPAP THERAPY. HE STARTED USING THE CPAP AROUND JANUARY 11, THEN FROM FEBRUARY 09 TO HE WAS IN HOSPITAL BEING TREATED FOR CARDIAC ARRHYTHMIAS, AND HE MISSED USING HIS CPAP DURING THOSE 4 DAYS. AFTERWARDS HE IS USING IT EVERY NIGHT AND IS BENEFITING. ONLY PROBLEM IS THAT HIS CURRENT LARGE FULLFACE MASK IS UNCOMFORTABLE PRESSING ON HIS NASAL BRIDGE. HE IS HAVING SIGNIFICANT AMOUNT OF AIR LEAK. BREATHING ARCE HE IS STABLE EXCEPT INTERMITTENT BOUTS OF COUGH AND WHEEZING. [facility] Medical History Asthma LUZ MARINA (obstructive sleep apnea) Obesity (BMI 30-39.9) Atrial fibrillation with RVR New onset of congestive heart failure Arthritis Hypertension History of pyloric stenosis Surgical History S/P LASIK surgery of both eyes History of abdominal surgery Status post total replacement of both hips S/P gastric surgery History of wisdom tooth extraction History of colonoscopy Family History Father Prostate cancer HTN (hypertension) Mother HTN (hypertension) Heart disease Arthritis Kidney disease Diabetes Stroke FH: cataracts Constipation S/P colostomy Family/Other ADHD Disc disease, degenerative, lumbar or lumbosacral Maternal Uncle Cancer S/P colostomy Social History Household Members: None Housing: Apartment Do you presently have visiting nurse or other home services: No Alcohol intake: current Alcohol intake frequency: a few times a week Alcohol t ype: beer Patient Tobacco Use Status: Current everyday Tobacco user Tobacco use type: Cigarette Cigarette Packs Per Day: 0.5 Cigarettes Per Day: 6 Years Smoked: 25 e-Cigarette/Vaping Use: Never Used Second Hand Smoke Exposure: Yes Substance Use Type: Crack/Cocaine and Heroin service: No Current occupational status: employed Review of Systems Const All systems reviewed & are unremarkable except as noted in HPI and below Reports snoring Eyes Reports no additional complaints ENT Reports no additional complaints Card Denies chest pain, Denies irregular heart rhythm and Denies leg edema Resp Reports cough, Reports snoring and Reports wheezing GI Reports constipation Reports other (HISTORY OF FREQUENT URINARY TRACT INFECTION) Skin/Breast Reports system reviewed and no additional complaints, except as documented Neuro Reports no additional complaints Psych Reports no additional complaints Endo Reports no additional complaints Robby/Lymph Reports no additional complaints Aller/Immun Reports no additional complaints and Reports wheezing Physical Exam Vital Signs: Last Vital Signs Pulse 76 02/24/24 14:49 BP 110/74 02/24/24 14:49 Pulse Ox 98 02/24/24 14:49 Oxygen Delivery Method Room Air 02/24/24 14:49 BMI result Body Mass Index 31.9 HE IS MODERATELY OBESE WITH THE ROUND FACE, SHORT NECK. Const General: healthy appearing (EXCEPT FOR BEING OVERWEIGHT), comfortable, no acute distress, alert and awake Orientation/consciousness: patient oriented x3 HEENT Head: Yes normal to inspection General nose exam: No nasal polyps present and No nasal discharge present Face and sinus: Yes sinuses nontender Mouth: oropharynx abnormals (NARROW AND SOMEWHAT CROWDED, MALLAMPATI CLASS 3) Throat: Yes posterior oropharynx normal Eyes General: appearance normal, both eyes and all related structures Neck Neck: Yes normal visual inspection, Yes no lymphadenopathy, Yes trachea midline, Yes no JVD and Yes other (NECK SIZE 16 IN) Thyroid: Thyroid normal Chest Chest palpation & inspection: normal inspection of the chest, normal palpation of entire chest wall and no tenderness Resp Effort & Inspection: normal respiratory effort Auscultation: clear to auscultation bilaterally, no crackles and no wheezes Cardio Palpation: normal PMI Rate: regular rate Rhythm: regular rhythm Heart sounds: no gallops and no murmurs Peripheral pulses: Peripheral pulses 2+ throughout GI Palpation (GI): Soft to palpation, nontender, No hepatosplenomegaly present and no masses Auscultation: normal bowel sounds Back/Spine/Pelvis Thoracic/Lumbar Spine: thoracic and lumbar spine normal to inspection Skin General skin exam: no rashes or lesions noted Neuro General: patient oriented x3 and no focal motor deficits Cranial nerves: Yes CN's II-XII intact bilaterally Extrem General: Yes normal to inspection, Yes no clubbing, cyanosis or edema and Yes no calf tenderness Psych Appearance: grossly normal and well kempt Mental Status: mental status grossly normal Speech and movement: Normal speech and movement present Results Reviewed Results Reviewed: COMPLIANCE REPORT IS REVIEWED. IT SHOWS THAT IN THE LAST 90 DAYS HE USED ONLY FOR 39 DAYS. HOWEVER WHEN TAKEN INTO ACCOUNT WHEN HE STARTED USING THE MASK SINCE THEN HE HAS MISSED ONLY 4 NIGHTS WHEN THE WHEN IN THE HOSPITAL. I THINK HIS COMPLIANCE IS GOOD , AVERAGE USE IT PER NIGHT 4 HOURS 19 MINUTES. THERE IS SIGNIFICANT AIR LEAK AND RESIDUAL AHI IS STILL 19.2 Assessment & Plan Assessment & Plan (1) LUZ MARINA (obstructive sleep apnea): Comment: HE IS A KNOWN CASE OF OBSTRUCTIVE SLEEP APNEA SINCE 2020. UNFORTUNATELY HE HAD LOST FOLLOW-UP AFTER HIS INITIAL STUDY IN 2020. RECENT STUDY IN SEPTEMBER 2023 IS POSITIVE FOR MODERATELY SEVERE OBSTRUCTIVE SLEEP APNEA. HE HAS MINIMAL NOCTURNAL HYPOXEMIA WHICH SHOULD IMPROVE AFTER TREATMENT OF HIS LUZ MARINA. HE WAS PRESCRIBED CPAP THERAPY WITH AUTO PAP MODE AND FULLFACE MASK OF LARGE SIZE. HE HAS BEEN COMPLIANT SINCE THE START OF USING CPAP. Code(s): G47.33 - Obstructive sleep apnea (adult) (pediatric) Category: Medical Plan: HIS FULLFACE MASK NEEDS TO BE CHANGED TO AIRFIT-F40 , AND HOPEFULLY WITH THIS THE AIR LEAK WOULD BE MINIMIZED. HE IS MOTIVATED TO USE THE CPAP EVERY NIGHT. (2) Obesity (BMI 30-39.9): Comment: THIS GENTLEMAN IS MODERATELY OBESE WITH CURRENT BMI 31.9 HE DOES HAVE A SHORT OBESE NECK. ENCOURAGED TO LOSE WEIGHT. Code(s): E66.9 - Obesity, unspecified Category: Medical Plan: EXPLAINED ABOUT DIET AND ALSO IMPORTANCE OF DOING EXERCISE SUCH WALKING DAILY. CONTINUE TO LOSE WEIGHT SLOWLY . (3) Asthma: Comment: HE HAS HISTORY OF INTERMITTENT BRONCHIAL ASTHMA SINCE MANY YEARS. PULMONARY FUNCTION TEST IN JULY 2020 SHOWED SEVERE OBSTRUCTIVE AIRWAY DISORDER WITH ALMOST COMPLETE REVERSIBILITY. C/W BRONCHIAL ASTHMA, HE HAS BEEN USING ALBUTEROL HFA 2 PUFFS Q 4-6 HOURS P.R.N.. Code(s): J45.909 - Unspecified asthma, uncomplicated Category: Medical Plan: CONTINUE USING ALBUTEROL HFA 2 PUFFS Q 4-6 HOURS P.R.N.. IF HIS SHORTNESS OF BREATH OR WHEEZING GETS ANY WORSE HE WOULD NEED TO BE TREATED WITH LONG-ACTING BRONCHODILATOR, INHALERS. Coding Level of Care Code Est Pt Level 3 (17933) Diagnoses LUZ MARINA (obstructive sleep apnea) G47.33 Obesity (BMI 30-39.9) E66.9 Asthma J45.909
== END 2024-02-24 15:06 | disposition home or self-care (01) ==
PROVIDERS: PCP Internal Medicine; Visit Provider Internal Medicine
DX: G47.33 Obstructive sleep apnea (adult) (pediatric) (principal); E66.9 Obesity, unspecified; J45.909 Unspecified asthma, uncomplicated
CPT/HCPCS: 99213

== ENCOUNTER 2024-02-27 10:01 | Day surgery (SDC) | payer OTHER, SELFPAY ==
--- NOTE | 2024-02-26 10:23 | P.CONAN_ITS ---
Documented by User: Yee Joiner NP 02/26/24 10:25 HPI - Anesthesia Eval Consult details Narrative: 63yo M for Cardioversion Suboxone daily, +cocaine last 2023 Eliquis for afib PMFSH Active Problems Active Problems: All Active Problems Acute respiratory failure with hypoxia (Acute) Decompensated heart failure (Acute) Acute on chronic clinical systolic heart failure (Acute) Atrial fibrillation with rapid ventricular response (Acute) Atrial fibrillation with rapid ventricular response (Acute) Sleep apnea (Acute) Internal derangement of left knee (Acute) Nicotine dependence (Acute) Nocturia (Acute) Microscopic hematuria (Acute) Chronic anticoagulation (Acute) Chronic hepatitis C (Acute) Hepatitis B (Acute) Tubular adenoma of colon (Acute) Anemia (Chronic) Preoperative cardiovascular examination (Acute) Atrial fibrillation (Acute) Asthma (Acute) LUZ MARINA (obstructive sleep apnea) (Acute) Obesity (BMI 30-39.9) (Acute) Hypertension (Acute) Past Medical History Medical History Asthma LUZ MARINA (obstructive sleep apnea) Obesity (BMI 30-39.9) Atrial fibrillation with RVR New onset of congestive heart failure Arthritis Hypertension History of pyloric stenosis Family History Family History Father Prostate cancer HTN (hypertension) Mother HTN (hypertension) Heart disease Arthritis Kidney disease Diabetes Stroke FH: cataracts Constipation S/P colostomy Family/Other ADHD Disc disease, degenerative, lumbar or lumbosacral Maternal Uncle Cancer S/P colostomy Family history of problems with anesthesia: No Surgical History Surgical History S/P LASIK surgery of both eyes History of abdominal surgery Status post total replacement of both hips S/P gastric surgery History of wisdom tooth extraction History of colonoscopy History of Problems with Anesthesia: No Social History Social History Household Members: None Housing: Apartment Are you a primary child care associate teacher to a significant other at home: No Do you presently have visiting nurse or other home services: No Alcohol intake: current Alcohol intake frequency: former alcohol drinker Alcohol type: beer Patient Tobacco Use Status: Current everyday Tobacco user Tobacco use type: Cigarette Cigarette Packs Per Day: 0.5 Cigarettes Per Day: 8 Years Smoked: 30 Smoked in Last 30 Days: Yes e-Cigarette/Vaping Use: Never Used Second Hand Smoke Exposure: Yes Use of substances other than those prescribed or required for medical reasons: Yes Substance Use Type: Crack/Cocaine and Heroin Have you been hit, kicked, punched, or otherwise hurt by someone within the past year? If so, by whom?: No Are you DNR?: No Advance Directives: No Advance Directives Information Provided: No Advance Directives on File: No Recently lost weight without trying: No How much weight loss: Not applicable Eating poorly because of decreased appetite: No Nutrition screen score: 0 Nutrition Risks: No Nutritional Risk Poor oral hygiene: Yes (full upper denture) service: No Current occupational status: employed Meds Allergies Allergy/AdvReac Type Severity Reaction Status Date / Time No Known Allergies Allergy Verified 02/27/24 11:14 [No Known Allergies*] Home Medications ?Medication ?Instructions ?Recorded ?Confirmed ?Last Taken ?Type buprenorphine 8 mg-naloxone 2 mg 1 strip sublingual BID 06/04/20 02/27/24 02/27/24 History sublingual film (Suboxone) ascorbate calcium (vitamin C) 500 500 mg PO DAILY 07/25/23 02/27/24 02/09/24 History mg tablet cholecalciferol (vitamin D3) 25 25 mcg PO DAILY 07/25/23 02/27/24 02/09/24 History mcg (1,000 unit) tablet mecobalamin (vitamin B12) 500 mcg 500 mcg PO DAILY 07/25/23 02/27/24 02/09/24 History chewable tablet multivitamin 1 tab PO DAILY 07/25/23 02/27/24 02/09/24 History buprenorphine 4 mg-naloxone 1 mg 1 film sublingual DAILY 12/19/23 02/27/24 02/27/24 History sublingual film ferrous sulfate 325 mg (65 mg 325 mg PO DAILY 02/10/24 02/27/24 Unknown History iron) tablet (iron) tamsulosin 0.4 mg capsule 0.4 mg PO QAM 02/26/24 02/27/24 Unknown History Assessment and Plan Assessment Anesthesia Assessment: Chart Reviewed Final Anesthetic Review Family History of Problems with Anesthesia: No History of Problems with Anesthesia: No Documented by User: Mariana Delgado MD 02/27/24 11:44 PMFSH Past Medical History Medical History Asthma LUZ MARINA (obstructive sleep apnea) Obesity (BMI 30-39.9) Atrial fibrillation with RVR New onset of congestive heart failure Arthritis Hypertension History of pyloric stenosis Family History Family History Father Prostate cancer HTN (hypertension) Mother HTN (hypertension) Heart disease Arthritis Kidney disease Diabetes Stroke FH: cataracts Constipation S/P colostomy Family/Other ADHD Disc disease, degenerative, lumbar or lumbosacral Maternal Uncle Cancer S/P colostomy Surgical History Surgical History S/P LASIK surgery of both eyes History of abdominal surgery Status post total replacement of both hips S/P gastric surgery History of wisdom tooth extraction History of colonoscopy Social History Social History Household Members: None Housing: Apartment Are you a primary child care associate teacher to a significant other at home: No Do you presently have visiting nurse or other home services: No Alcohol intake: current Alcohol intake frequency: former alcohol drinker Alcohol type: beer Patient Tobacco Use Status: Current everyday Tobacco user Tobacco use type: Cigarette Cigarette Packs Per Day: 0.5 Cigarettes Per Day: 8 Years Smoked: 30 Smoked in Last 30 Days: Yes e-Cigarette/Vaping Use: Never Used Second Hand Smoke Exposure: Yes Use of substances other than those prescribed or required for medical reasons: Yes Substance Use Type: Crack/Cocaine and Heroin Have you been hit, kicked, punched, or otherwise hurt by someone within the past year? If so, by whom?: No Are you DNR?: No Advance Directives: No Advance Directives Information Provided: No Advance Directives on File: No Recently lost weight without trying: No How much weight loss: Not applicable Eating poorly because of decreased appetite: No Nutrition screen score: 0 Nutrition Risks: No Nutritional Risk Poor oral hygiene: Yes (full upper denture) service: No Current occupational status: employed Meds Allergies Allergy/AdvReac Type Severity Reaction Status Date / Time No Known Allergies Allergy Verified 02/27/24 11:14 [No Known Allergies*] Home Medications ?Medication ?Instructions ?Recorded ?Confirmed ?Last Taken ?Type buprenorphine 8 mg-naloxone 2 mg 1 strip sublingual BID 06/04/20 02/27/24 02/27/24 History sublingual film (Suboxone) ascorbate calcium (vitamin C) 500 500 mg PO DAILY 07/25/23 02/27/24 02/09/24 History mg tablet cholecalciferol (vitamin D3) 25 25 mcg PO DAILY 07/25/23 02/27/24 02/09/24 History mcg (1,000 unit) tablet mecobalamin (vitamin B12) 500 mcg 500 mcg PO DAILY 07/25/23 02/27/24 02/09/24 History chewable tablet multivitamin 1 tab PO DAILY 07/25/23 02/27/24 02/09/24 History buprenorphine 4 mg-naloxone 1 mg 1 film sublingual DAILY 12/19/23 02/27/24 02/27/24 History sublingual film ferrous sulfate 325 mg (65 mg 325 mg PO DAILY 02/10/24 02/27/24 Unknown History iron) tablet (iron) tamsulosin 0.4 mg capsule 0.4 mg PO QAM 02/26/24 02/27/24 Unknown History Exam Airway Mallampati Class: III TM Dist: >3cm Neck ROM: Full Heart: afib Lungs: cta Assessment and Plan Assessment Anesthesia Assessment: Anesthesia Plan Discussed Final Anesthetic Review NPO: Yes ASA Class: III Final Preanesthetic Review: No Changes in Pt Med Stat, Meds/Allgs Chart Reviewed, Consent Obtained/Reviewed and Anes Risks/Benef Reviewed Patient Risk: Intermediate Procedure Risk: Low Anesthetic Plan Anesthetic Plan: MAC: Disposition: Standard PACU
[2024-02-27 10:59] VITALS: BP 106/79; PULSE 94; RESP 16; TEMP 36.4; O2SAT 98; BMI 31.7
--- NOTE | 2024-02-27 11:09 | MHC.SHP ---
Pre-Procedural Eval Section A - 24 Hr Update-Section A only Date of Service: 02/27/24 The patient is an INPATIENT: No Changes since office visit: Yes Patient answered all questions; No Cold of Flu in the past 2 weeks, No New Medical Problems and No Changes in Medication The patient has been examined within 24 hours of the surgical procedure. The History & Physical has been completed within 30 days and I have reviewed it.: Yes Section B - Complete if H&P > 30 days Chief Complaint: Paroxysmal atrial fibrillation Allergies: Allergies Allergy/AdvReac Type Severity Reaction Status Date / Time No Known Allergies Allergy Verified 02/24/24 15:07 [No Known Allergies*] Plan I have reviewed the history and physical and performed a pertinent physical examination on my patient. No changes have occurred unless specified. Time Spent With Patient Time: Total time managing care of this patient today ____ minutes.
[2024-02-27 11:22] LABS: Amphetamine Screen Urine Not Detected (Not Detect); Barbiturates, Urine Not Detected (Not Detect); Benzodiazepines Screen Urine Not Detected (Not Detect); Buprenorphine Scr Positive (Not Detect); Cannabinoid Screen Urine Not Detected (Not Detect); Cocaine Screen Urine Not Detected (Not Detect); Fentanyl, urine Not Detected (Not Detect); Methadone Screen, Urine Not Detected (Not Detect); Opiate Screen Urine Not Detected (Not Detect); Oxycodone Screen Urine Not Detected (Not Detect); Phencyclidine Screen Urine Not Detected (Not Detect)
[2024-02-27] MEDS: Lactated Ringers 1,000 ML 100 ML IVCONT (11:35)
[2024-02-27 11:41] VITALS: PULSE 83; RESP 85; O2SAT 95
[2024-02-27] MEDS: Albuterol Sulfate (0.083%) 2.5 MG/3 ML VIAL.NEB INHALE (11:41)
[2024-02-27 12:05] VITALS: BP 102/52; PULSE 59; RESP 16; TEMP 36.6; O2SAT 98
--- NOTE | 2024-02-27 12:07 | ECG_ITS ---
Test Reason : post cardo Blood Pressure : / mmHG Vent. Rate : 056 BPM Atrial Rate : 056 BPM P-R Int : 228 ms QRS Dur : 102 ms QT Int : 398 ms P-R-T Axes : 065 021 048 degrees QTc Int : 384 ms Sinus bradycardia with 1st degree A-V block Low voltage QRS Septal infarct (cited on or before 15-FEB-2024) Abnormal ECG When compared with ECG of 15-FEB-2024 09:38, Sinus rhythm has replaced Atrial fibrillation Vent. rate has decreased BY 29 BPM Nonspecific T wave abnormality has replaced inverted T waves in Anterior leads QT has shortened Referred By: Shimon Mac Electronically Signed By:Thomas Ruffin
--- NOTE | 2024-02-27 12:07 | HO.CARDIVERS ---
Cardioversion Procedure Note Cardioversion Date of Procedure: 02/27/2024 Ordering Provider: Lisa Performing Provider: Mike Mac Indication for Procedure: Persistent atrial fibrillation with systolic heart failure Pre-Op Diagnosis: Same Post-Op Diagnosis: Normal sinus rhythm Performed with Transesophageal Echo: No History: See my last inpatient note Consent: Verbal and Written consent was obtained from the patient before starting and after confirming oral anticoagulation use. The patient was made aware of the risk of synchronized cardioversion including benefits and alternatives Procedure: After consent obtained, cardioversion pads were attached in anteroposterior configuration and the patient was sedated by the anesthesia team. Once adequate sedation achieved, 200 joules of biphasic synchronized energy in anteroposterior configuration Complications: None Impression: Successful conversion to sinus rhythm Recommendations: 1. 12 lead EKG 2. Continue amiodarone and full oral anticoagulation with Eliquis uninterrupted 3. Follow up in the office in 2-4 weeks
[2024-02-27 12:20] VITALS: BP 100/62; PULSE 56; RESP 16; TEMP 36.6; O2SAT 95
[2024-02-27 12:35] VITALS: BP 113/65; PULSE 60; RESP 16; TEMP 36.6; O2SAT 97
[2024-02-27 12:50] VITALS: BP 119/78; PULSE 60; RESP 16; TEMP 36.6; O2SAT 95
== END 2024-02-27 14:05 | disposition home or self-care (01) ==
PROVIDERS: Nurse Practitioner; PCP Internal Medicine; Visit Provider Internal Medicine Cardiovascular Disease
PROC: 5A2204Z Restoration of Cardiac Rhythm, Single (ICD-10-PCS; principal; 2024-02-27 12:00)
DX: I48.19 Other persistent atrial fibrillation (principal); I48.0 Paroxysmal atrial fibrillation; I11.0 Hypertensive heart disease with heart failure; I50.9 Heart failure, unspecified; Z79.01 Long term (current) use of anticoagulants; Z79.899 Other long term (current) drug therapy; F17.210 Nicotine dependence, cigarettes, uncomplicated
CPT/HCPCS: 80307; 92960; 93005; 94640; J2003; J2250; J2704

== ENCOUNTER → 2024-02-27 10:01 | Outpatient (BNV) | payer OTHER, SELFPAY | PROVIDERS: PCP Internal Medicine; Visit Provider Internal Medicine Cardiovascular Disease | DX: I48.19 Other persistent atrial fibrillation (principal); I50.20 Unspecified systolic (congestive) heart failure; I44.0 Atrioventricular block, first degree | CPT/HCPCS: 92960; 93010 ==

== ENCOUNTER 2024-03-29 14:40 | Outpatient (AMB) | payer OTHER, SELFPAY ==
[2024-03-29 15:03] VITALS: BP 120/70; PULSE 57; BMI 33.1
--- NOTE | 2024-03-29 15:03 | A.OFFVIS_ITS ---
Vital Signs 03/29/24 15:03 Height 5 ft 9 in Weight 223 lb 15.834 oz BMI 33.1 BP 120/70 Blood Pressure Location Lt brachial Position Sitting Pulse 57 Pulse Source Monitor Intake Visit Reasons: 3 mth f/up Intake Note: 3 mth f/up Technology Lab Teacher Required: No Accompanied by: Self / Same As Patient Allergies No Known Allergies [No Known Allergies*] Allergy (Verified 02/27/24 11:14) Medication List - Last Reconciled 03/29/24 by Thomas Ruffin MD albuterol sulfate 90 mcg/actuation 2 puffs inhalation QID PRN amiodarone 200 mg PO DAILY apixaban (Eliquis) 5 mg PO BID ascorbate calcium (vitamin C) 500 mg PO DAILY buprenorphine-naloxone 4-1 mg 1 film sublingual DAILY buprenorphine-naloxone 8-2 mg (Suboxone) 1 strip sublingual BID cholecalciferol (vitamin D3) 25 mcg PO DAILY ferrous sulfate (iron) 325 mg PO DAILY furosemide 40 mg See Protocol PO BID mecobalamin (vitamin B12) 500 mcg PO DAILY metoprolol succinate ER 50 mg PO BID multivitamin 1 tab PO DAILY sacubitril-valsartan 24-26 mg (Entresto) 1 tab See Protocol PO BID tamsulosin 0.4 mg PO QAM HPI Comments Details: 63-year-old male returning for office visit after 3 years. He was seen in 2020 for atrial fibrillation. He was in [place] and was drinking alcohol when he developed atrial fibrillation. He was started on anticoagulation with CHADS- VASc score of 2. Subsequent to that he stopped following up with us and recently got admitted to [facility] with palpitations and AFib with RVR. Apparently he was in [place] and again was drinking beer every day and developed palpitations. He also ran out of his Eliquis while he was in [place] and did not take it for some time. He was started on Cardizem drip in the hospital and eventually transitioned to oral Cardizem. He was started on Eliquis 5 mg twice a day. ECHO showed borderline reduced EF and previously had low normal ejection fraction. He is complaining of some fatigue. Denying any chest discomfort. Overall not complaining of any significant shortness of breath or symptoms of heart failure. Blood pressure control is good. He is drinking around 5 beers daily. No hard liquor. 03/29/2024: He is here for follow-up. He got admitted to [facility] in 02/11/2024 with AFib with RVR and congestive heart failure. He underwent which showed severe LV dysfunction and eventually had cardioversion performed. He is on amiodarone 200 mg daily along with Eliquis 5 mg twice a day. He is saying that his Entresto was not filled by pharmacy. We will check into that. Denying any chest pain or shortness of breath. Overall appears fairly euvolemic. [facility] Medical History Asthma LUZ MARINA (obstructive sleep apnea) Obesity (BMI 30-39.9) Atrial fibrillation with RVR New onset of congestive heart failure Arthritis Hypertension History of pyloric stenosis Surgical History S/P LASIK surgery of both eyes History of abdominal surgery Status post total replacement of both hips S/P gastric surgery History of wisdom tooth extraction History of colonoscopy Family History Father Prostate cancer HTN (hypertension) Mother HTN (hypertension) Heart disease Arthritis Kidney disease Diabetes Stroke FH: cataracts Constipation S/P colostomy Family/Other ADHD Disc disease, degenerative, lumbar or lumbosacral Maternal Uncle Cancer S/P colostomy Social History Household Members: None Housing: Apartment Are you a primary career portals teacher to a significant other at home: No Do you presently have visiting nurse or other home services: No Alcohol intake: current Alcohol intake frequency: former alcohol drinker Alcohol type: beer Patient Tobacco Use Status: Current everyday Tobacco user Tobacco use type: Cigarette Cigarette Packs Per Day: 0.5 Cigarettes Per Day: 6 Years Smoked: 30 e-Cigarette/Vaping Use: Never Used Second Hand Smoke Exposure: Yes Substance Use Type: Crack/Cocaine and Heroin service: No Current occupational status: employed Review of Systems Const Denies chills, Denies fatigue, Denies fever(s), Denies frequent falls, Denies weakness, Denies weight gain and Denies weight loss ENT Denies dizziness Card Denies chest pain, Denies leg edema, Denies lightheadedness, Denies p alpitations, Denies dyspnea and Denies dyspnea on exertion Resp Denies cough, Denies dyspnea and Denies dyspnea on exertion GI Denies hematochezia Musc Denies abnormal gait, Denies muscle weakness, Denies numbness, Denies radiating pain into limb and Denies tingling Neuro Denies abnormal gait, Denies dizziness, Denies frequent falls, Denies numbness, Denies tingling and Denies weakness Endo Denies fatigue and Denies palpitations Physical Exam Vital Signs: Last Vital Signs Pulse 57 03/29/24 15:03 BP 120/70 03/29/24 15:03 BMI result Body Mass Index 33.1 GENERAL APPEARANCE: in no acute distress, pleasant. NECK: no carotid bruit, no jugular venous distention. SKIN: no suspicious lesions, warm and dry. HEART: no murmurs, regular rate and rhythm. LUNGS: clear to auscultation bilaterally. ABDOMEN: soft, nontender. EXTREMITIES: no edema. PERIPHERAL PULSES: equal. NEUROLOGIC: No gross deficits, AAO X 3 Office Procedures EKG Details: Sinus bradycardia 57 beats per minute, nonspecific T-wave changes, QTC 438 milliseconds. [id number], Complete Assessment & Plan Assessment & Plan (1) Atrial fibrillation: Code(s): I48.91 - Unspecified atrial fibrillation Category: Medical Qualifiers: Atrial fibrillation type: paroxysmal Qualified Code(s): I48.0 - Paroxysmal atrial fibrillation (2) Chronic systolic heart failure: Code(s): I50.22 - Chronic systolic (congestive) heart failure Category: Medical Plan Pleasant 63 year gentleman who was recently admitted to [facility] with acute systolic heart failure in setting of AFib with RVR. He was cardioverted with VAMSI. Severe LV dysfunction. In sinus rhythm at this stage on amiodarone 200 mg daily and apixaban 5 mg twice a day. He is on metoprolol succinate 50 mg twice a day, Lasix 40 mg twice a day and is supposed to be on Entresto. He is saying that pharmacy did not fill the Entresto prescription. We will check into this to see if this is due to requirement for prior authorization. If he can not afford it then would change him to losartan 50 mg daily. Same medications otherwise. We will arrange repeat echocardiography on next visit in 3 months. Thank you for allowing me to participate in the care of your patient. Please feel free to contact me if you have any questions. Medications: New sacubitril-valsartan 49-51 mg (Entresto) 1 tab PO BID 60 tabs 6RF Discontinued sacubitril-valsartan 24-26 mg (Entresto) Discontinued Reason: Doctor's Order 1 tab See Protocol PO BID 120 tabs 3RF Coding Level of Care Code Est Pt Level 4 (81699) Diagnoses Atrial fibrillation I48.0 Atrial fibrillation type: paroxysmal Chronic systolic heart failure I50.22 CPT Codes EKG - CPT: 18545-[id number], Complete ([id number])
== END 2024-03-29 15:37 | disposition home or self-care (01) ==
PROVIDERS: PCP Internal Medicine; Visit Provider Internal Medicine Cardiovascular Disease
DX: I48.0 Paroxysmal atrial fibrillation (principal); I50.22 Chronic systolic (congestive) heart failure
CPT/HCPCS: 93010; 99214

== ENCOUNTER → 2024-03-29 14:40 | Outpatient (BNVA) | payer OTHER, SELFPAY | PROVIDERS: PCP Internal Medicine; Visit Provider Internal Medicine Cardiovascular Disease | DX: I48.0 Paroxysmal atrial fibrillation (principal); I50.22 Chronic systolic (congestive) heart failure; Z79.01 Long term (current) use of anticoagulants; Z79.899 Other long term (current) drug therapy | CPT/HCPCS: 93005 ==

== ENCOUNTER 2024-04-13 14:16 | Outpatient (AMB) | payer OTHER, SELFPAY ==
--- NOTE | 2024-04-13 14:40 | A.OFFVIS_ITS ---
Intake Visit Reasons: 3 month follow up w/pvr Intake Note: Patient presents today for follow up visit on: nocturia Urology Medications: none (stopped tamsulosin after 1 dose) Blood Thinner: Eliquis PVR: 52ml's Business Process Representative Required: No Accompanied by: Self / Same As Patient Allergies No Known Allergies [No Known Allergies*] Allergy (Verified 04/13/24 17:18) Medication List - Last Reconciled 04/13/24 by AGUILAR Aguiar albuterol sulfate 90 mcg/actuation 2 puffs inhalation QID PRN amiodarone 200 mg PO DAILY apixaban (Eliquis) 5 mg PO BID ascorbate calcium (vitamin C) 500 mg PO DAILY buprenorphine-naloxone 4-1 mg 1 film sublingual DAILY buprenorphine-naloxone 8-2 mg (Suboxone) 1 strip sublingual BID cholecalciferol (vitamin D3) 25 mcg PO DAILY ferrous sulfate (iron) 325 mg PO DAILY furosemide 40 mg See Protocol PO BID mecobalamin (vitamin B12) 500 mcg PO DAILY metoprolol succinate ER 50 mg PO BID multivitamin 1 tab PO DAILY sacubitril-valsartan 49-51 mg (Entresto) 1 tab PO BID HPI Comments Details: Mateo is a very pleasant 63-year-old male patient of Dr. Au. He has a past medical history of AFib with RVR, congestive heart failure, arthritis, hypertension, pyloric stenosis, substance abuse, and hep C. He presents to the office today for follow-up of his nocturia. In discussion with the patient today he reports feeling episodes of nocturia have significantly improved with compliance since CPAP. Of note, patient with a history of microscopic hematuria in the setting of nicotine dependence and has underwent in office cystoscopy with Dr. Mcgowan 10/14 that noted a normal prostate. He has previously trialed low-dose Cialis for bladder stability, Flomax, and alfuzosin however did not take them as prescribed as he discusses reluctancy in taking medications. He also discusses having had a recent cardioversion due to atrial fibrillation. He currently denies any bothersome urinary issues or concerns. In office urinalysis results reviewed with the patient today. PVR 52 mL. He would like to continue with surveillance monitoring of nocturia. Previous workup has also included at CT urogram 10/14 that noted symmetrical nephrograms, no ureteral abnormality, no renal masses or hydronephrosis noted bilaterally there are bilateral renal cysts simple and classifications of Bosniak 2. The urinary bladder post inferior aspect is obscured by artifact. There are no definite bladder calculi or bladder masses. Urine cytology 08/14 Negative for high-grade urothelial carcinoma. When asked denies incontinence, hematuria, dysuria, foul smelling urine, changes to urinary stream, flank pain, fever, and or chills. PSAs are as follows: PSA: 09/09 0.1, 06/14 0.1 We discussed at length potential causes of nocturia. We discussed correlation of sleep apnea and nocturia. He discusses his recent sobriety from alcohol in reports to be sober free for the last 2-3 months. He otherwise offers no other issues or concerns at this time. [facility] Medical History Asthma LUZ MARINA (obstructive sleep apnea) Obesity (BMI 30-39.9) Atrial fibrillation with RVR New onset of congestive heart failure Arthritis Hypertension History of pyloric stenosis Surgical History S/P LASIK surgery of both eyes History of abdominal surgery Status post total replacement of both hips S/P gastric surgery History of wisdom tooth extraction History of colonoscopy Family History Father Prostate cancer HTN (hypertension) Mother HTN (hypertension) Heart disease Arthritis Kidney disease Diabetes Stroke FH: cataracts Constipation S/P colostomy Family/Other ADHD Disc disease, degenerative, lumbar or lumbosacral Maternal Uncle Cancer S/P colostomy Social History Household Members: None Housing: Apartment Are you a primary healthcare network consultant to a significant other at home: No Do you presently have visiting nurse or other home services: No Alcohol intake: current Alcohol intake frequency: former alcohol drinker Alcohol type: beer Patient Tobacco Use Status: Current everyday Tobacco user Tobacco use type: Cigarette Cigarette Packs Per Day: 0.5 Cigarettes Per Day: 6 Years Smoked: 30 e-Cigarette/Vaping Use: Never Used Second Hand Smoke Exposure: Yes Substance Use Type: Crack/Cocaine and Heroin service: No Current occupational status: employed Review of Systems Const Reports no additional complaints Eyes Reports no additional complaints ENT Reports no additional complaints Card Reports as per HPI Resp Reports no additional complaints GI Reports as per HPI Reports as per HPI Musc Reports as per HPI Neuro Reports no additional complaints Psych Reports no additional complaints Endo Reports no additional complaints Robby/Lymph Reports no additional complaints Aller/Immun Reports no additional complaints Physical Exam Const General: cooperative, healthy appearing, comfortable, no acute distress, well developed, alert and awake Nutritional Appearance: overweight Orientation/consciousness: patient oriented x3 Limitations: no limitations HEENT Head: Yes normal to inspection, Yes normocephalic and Yes atraumatic Ears: hearing grossly normal bilaterally Eyes General: appearance normal, both eyes and all related structures Neck Neck: Yes normal visual inspection and Yes trachea midline Chest Chest palpation & inspection: normal inspection of the chest Resp Effort & Inspection: normal respiratory effort and able to speak in complete sentences Cardio Rate: regular rate GI Inspection: Yes normal to inspection General: Yes no CVA tenderness Back/Spine/Pelvis Back: no CVA tenderness Skin General skin exam: no rashes or lesions noted Neuro General: patient oriented x3 Extrem General: Yes normal to inspection Psych Appearance: grossly normal and well kempt Mental Status: mental status grossly normal Speech and movement: Normal speech and movement present and Clear speech present Affect: normal affect Attitude: cooperative Thought process: Normal thought process present Thought content: Normal thought content present Insight: Fair insight present (Psych) Judgement: Fair judgement present (Psych) Office Procedures Post Void Residual Post Residual Void Post Void Residual (PVR): 52 [id number] Void Residual by ultrasound Results AMB Urinalysis, Automated UA Leukoctes 0 Raven/uL Last Edit by [employer]S [employer]eticsjovana on 04/13/24 15:46 UA Nitrite Last Edit by [employer] on 04/13/24 15:46 UA Urobilinogen 0.2 mg/dL Last Edit by [employer] on 04/13/24 15:46 UA Protein 0 mg/dL Last Edit by [employer] on 04/13/24 15:46 UA pH 6.0 Last Edit by Raquel Bailey on 04/13/24 15:46 UA Blood 10 Aldair/uL Last Edit by Raquel Bailey on 04/13/24 15:46 UA Specific [place] 1.010 Last Edit by Raquel Bailey on 04/13/24 15:46 UA Ketone Last Edit by Raquel Bailey on 04/13/24 15:46 UA Bilirubin 0 mg/dL Last Edit by Raquel Bailey on 04/13/24 15:46 UA Glucose 0 mg/dL Last Edit by Raquel Bailey on 04/13/24 15:46 Results Reviewed Results Reviewed: Laboratory Last Values Urine pH (Auto) 6.0 04/13/24 15:45 Specific [place] (Auto) 1.010 04/13/24 15:45 Urine Protein (Auto) 0 mg/dL 04/13/24 15:45 Glucose (UA)(Auto) 0 mg/dL 04/13/24 15:45 Urine Blood (Auto) 10 Aldair/uL 04/13/24 15:45 Urine Bilirubin (Auto) 0 mg/dL 04/13/24 15:45 Urine Urobilinogen (Auto) 0.2 mg/dL 04/13/24 15:45 Leukocyte Esterase (Auto) 0 Raven/uL 04/13/24 15:45 Assessment & Plan Assessment & Plan (1) Nicotine dependence: Code(s): F17.200 - Nicotine dependence, unspecified, uncomplicated Category: Medical (2) Nocturia: Code(s): R35.1 - Nocturia Category: Medical (3) Microscopic hematuria: Code(s): R31.29 - Other microscopic hematuria Category: Medical Plan In office urinalysis results reviewed the patient today; as noted above; will send for urine cytology. Will continue with surveillance monitoring We discussed importance of compliance with CPAP machine for improvement in nocturia as well as overall health and well-being. Patient currently denies any bothersome urinary issues. He reports be happy with current voiding parameters. Will obtain PSA in 6 months. Encouraged to continue with sobriety. Discussed, educated, and stressed the importance of quitting/limiting nicotine dependence for overall health and well-being. Follow-up in 6 months with PSA and PVR; or sooner with any issues, concerns, and or questions. Orders: Orders Prostate Specific Antigen 6 Months N40.0 - Benign prostatic hyperplasia without lower urinary tract symptoms AMB Urinalysis Automated Today Z13.9 - Encounter for screening, unspecified AMB Post Void Residual by ultrasound Today R35.1 - Nocturia Urine Cytology Today R31.29 - Other microscopic hematuria Patient Instructions: The patient had an opportunity to ask questions regarding the treatment plan. All questions were answered. Physical exam, labs, and imaging were discussed and reviewed in detail. As well as risks, benefits, and discussion of treatment choices. No major barriers to understanding were identified. The patient expressed understanding and agreement with the above treatment plan. The patient was made aware they should contact our office by phone for worsening of their current condition, the appearance of new symptoms, or with any questions or concerns. Compliance is encouraged with any medications and follow up testing that is ordered. It is a privilege to be allowed the opportunity to participate in? your urological care.? Again, if you have any questions or concerns If you have any questions or concerns please do not hesitate to contact me. The office is [phone]. This note is constructed using voice recognition software. While every effort has been made to ensure accuracy performing arts technicians errors may have been included. Yours sincerely, JUANA Aguiar Coding Level of Care Code Est Pt Level 3 (15702) Complex EM visit Add On G2211 Diagnoses Nicotine dependence F17.200 Nocturia R35.1 Microscopic hematuria R31.29 CPT Codes Post Residual Void - PVR CPT Code: 95415-Nbzx Void Residual by ultrasound ([id number])
== END 2024-04-13 15:14 | disposition home or self-care (01) ==
PROVIDERS: PCP Internal Medicine; Visit Provider Nurse Practitioner Family
DX: F17.200 Nicotine dependence, unspecified, uncomplicated (principal); R35.1 Nocturia; R31.29 Other microscopic hematuria; Z13.9 Encounter for screening, unspecified
CPT/HCPCS: 99213

== ENCOUNTER 2024-04-13 14:16 | Outpatient (REF) | payer OTHER, SELFPAY ==
[2024-04-13 17:48] LABS: Urine Cytology See Pathology rpt
--- OUTSIDE RECORDS SUMMARY | 2024-04-13 17:55 | XMS_ITS | Encounter Summary ---
Author Organization [employer] Address [address] [facility] 7[address] [place] [address] Care Team Providers Care Courier Delivery Driver Name Role Phone Leticia Au MD Primary Care Provider [phone] Encounter Details Date Type Department Care Team (Late Contact Info) Description 11/18/2023 Orders Only [facility] [address] [place] [address] [phone] Andreas Roldan MD [address] [place] [address] [phone] Social History Tobacco Use Types Packs/Day Years Used Date Smoking Tobacco: Every Day Cigarettes Passive Smoke Exposure: Current Smokeless Tobacco: Never Alcohol Use Standard Drinks/Week Comments Yes 0 (1 standard drink = 0.6 oz pur e alcohol) Sex and Gender Information Value Date Recorded Sex Assigned at Male 01/21/2022 10:20 AM EDT Legal Sex Male 10:20 AM EDT Gender Identity Male 01/21/2022 10:20 AM EDT Sexual Orientation Straight 01/21/2022 10 :20 AM EDT documented as of this encounter Plan of Treatment Upcoming Encounters Date Type Department Care Team (Late st Contact Info) Description 04/20/2024 3:00 PM EST Office Visit [facility] [address] [place] [address] [phone] Andreas Roldan MD [address] [place] [address] [phone] documented as of this encounter Visit Diagnoses Not on filedocumented in this encounter Care Teams Courier Delivery Driver Relationship Specialty Start Date End Date Leticia Au MD [address] [place] [phone] PCP - General Internal Medicine 01/13/14 documented as of this encounter
--- OUTSIDE RECORDS SUMMARY | 2024-04-13 17:55 | XMS_ITS | Encounter Summary ---
Author Organization [employer] Address [address] [place] [address] [address] [place] [address] Care Team Providers Care Computing Tutor Name Role Phone Leticia Au MD Primary Care Provider [phone] Encounter Details Date Type Department Care Team (Late Contact Info) Description 12/11/2023 Orders Only [facility] [address] [place], [place] [phone] ProviderJoe MD Social History Tobacco Use Types Packs/Day Years [...] Encounters Date Type Department Care Team (Late Contact Info) Description 04/20/2024 3:00 PM EST Office Visit [facility] [address] [place], [place] [phone] Andreas Roldan MD [address] [place], [place] [phone] documented as of this encounter Procedures Procedure Name Priority Date/Time Associated Diagnosis Comments ECG 12-LEAD Routine 07/13/2020 2:31 PM EDT documented in this encounter Results * ECG 12 lead (07/13/2020 2:31 PM EDT) us Historical Provider ECG ORDERABLES Final Res ult documented in this encounter Visit Diagnoses Not on filedocumented in this encounter Care Teams Computing Tutor Relationship Specialty Start Date End Date Leticia Au MD [address] [place] [address] [phone] PCP - General Internal Medicine 01/13/14 documented as of this encounter
--- OUTSIDE RECORDS SUMMARY | 2024-04-13 17:55 | XMS_ITS | Clinical Summary ---
Author Organization [employer] [facility] ity Address [address] [place] [address] Care Team Providers Care Water Taxi Captain Name Role Phone Leticia Au MD Primary Care Provider [phone] Social History Tobacco Use Types Packs/Day Years Used Date Smoking Tobacco: Never Assessed Sex and Gender Information Value Date Recorded Sex Assigned at Not on file Gender Identity Not on file Sexual Orientation Not on file Last Filed Vital Signs Vital Sign Reading Time Taken Comments Blood Pressure - - Pulse - - Temperature - - Respiratory Rate - - Oxygen Saturation - - Inhaled Oxygen Concentration - - Weight 100 kg (221 lb) 07/24/2023 2:36 PM EDT Height 174.6 cm (5' 8.75 ) 07/24/2023 2:36 PM ED T Body Mass Index 32.87 07/24/2023 2:36 PM EDT Plan of Treatment Health Maintenance Due Date Last Done Comments DTaP,Tdap,and Td Vaccines (1 - Tdap) 1981 Zoster Vaccines (1 of 2) 2012 COVID-19 Vaccine ( - 2023-2 5 season) 2023 Influenza Vaccine (#1) 2023 Cholesterol Screening (Lipid Panel) 02/17/2024 Colorectal Cancer Screening: Colonoscopy 02/17/2024 Depression Screening 02/17/2024 HIV Screening 02/17/2024 Hepatitis C Screening 02/17/2024 Social Influencers of Health Screening 02/17/2024 RSV Immunization Patients 60 + Years Old (1 - 1-dose 75+ series) 2037 HIB Vaccines Aged Out No longer eligi ble based on patient's age to complete this topic HPV Vaccines Aged Out No longer eligi ble based on patient's age to complete this topic Hepatitis A Vaccines Aged Out No long er eligible based on patient's age to complete this topic Hepatitis B Vaccines Aged Out No long er eligible based on patient's age to complete this topic IPV Vaccines Aged Out No longer eligi ble based on patient's age to complete this topic MMR Vaccines Aged Out No longer eligi ble based on patient's age to complete this topic Meningococcal ACWY Vaccine Aged Out N o longer eligible based on patient's age to complete this topic Pneumococcal Vaccine: Pediat rics (0 to 5 Years) and At-Risk Patients (6 to 64 Years) Aged Out No longer eligible b ased on patient's age to complete this topic RSV Immunization Patients Un vickie 20 months Aged Out No longer eligible b ased on patient's age to complete this topic Varicella Vaccines Aged Out No longer eligible based on patient's age to complete this topic Care Teams Water Taxi Captain Relationship Specialty Start Date End Date Leticia Au MD [address] [place] [address] PCP - General 06/02/23
--- OUTSIDE RECORDS SUMMARY | 2024-04-13 17:55 | XMS_ITS | Encounter Summary ---
Author Organization [employer] [facility] Address [address] [place] [address] [place], [place] [address] Care Team Providers Care Coverage Analyst Name Role Phone Leticia Au MD Primary Care Provider [phone] Reason for Visit * Reason Comments Med Refill Encounter Details Date Type Department Care Team (Late st Contact Info) Description 06/11/2023 Refill [facility] [address] [place] [address] [phone] Andreas Roldan MD [address] [place] [phone] Uncomplicated opioid dependence (CMS/HCC) Social History Tobacco Use Types Packs/Day Years Used Date Smoking Tobacco: Every Day Cigarettes Passive Smoke Exposure: Current Smokeless Tobacco: Never Alcohol Use Standard Drinks/Week Comments Defer 0 (1 standard drink = 0.6 oz [...] 04/20/2024 3:00 PM EST Office Visit [facility] [address] [place] [address] [phone] Andreas Roldan MD [address] [place] [address] [phone] documented as of this encounter Visit Diagnoses Diagnosis Uncomplicated opioid dependence (CMS/HCC) documented in this encounter Care Teams Coverage Analyst Relationship Specialty Start Date End Date Leticia Au MD [address] [place] [phone] PCP - General Internal Medicine 01/13/14 documented as of this encounter
--- OUTSIDE RECORDS SUMMARY | 2024-04-13 17:55 | XMS_ITS | Encounter Summary ---
Author Organization [employer] Address [address] [facility] 7 [place] [address] Care Team Providers Care Director Digital Sales Name Role Phone Leticia Au MD Primary Care Provider [phone] Reason for Visit * Reason Onset Date Comments Nurse Triage 12/10/2023 Encounter Details Date Type Department Care Team (Late st Contact Info) Description 12/10/2023 Telephone [facility] [address] [place], [place] [phone] Leticia Au MD [address] [place] [address] Nurse Triage Social History Tobacco Use Types Packs/Day Years [...] AM EDT documented as of this encounter Miscellaneous Notes * Telephone Encounter - Wing Franklin RN - 12/12/2023 3:23 PM EDT Tc to pt regarding follow-up. Pt did not elect to go to ED for now. Reports he feels tired and has some arrhythmia. Denies chest pain, N/V/D. Pt has been taking his Eliquis daily though admits that while he needs to take it twice a day he has sometimes misses a dose. Reports feeling better though also has some spells of dizziness and shortness of breath last night but not as severe as two days ago. Also denies any injury while in [place]. Pt reports being able to return to work yesterday and today. Advised pt to continue to take Eliquisand to go seek ED care if shortness of breath, or severe dizziness return. Pt verbalized understanding and agreement with plan. * Telephone Encounter - Karen Porter LPN - 12/10/2023 11:52 AM EDT Triage call returned to patient who reports that he was in [place] from 11/22-. Returned yesterday.While in [place] patient began with fast heartbeat and dizziness and accompanied shortness of breath. Happened off and on and then again last night. Did not go to work today due to symptoms. Did not seek ED care in [place] as he was concerned with Insurance being out of state. Patient when asked confirms that he missed Eliquis doses for approx 10 days. Disposition reviewed with patient and advised to seek ED treatment now. Rationale explained and patient verbalized understanding. Will go to [facility] ED and will call 911 as needed. Team tasked to update PCP. Reviewed with pt to contact PCP office after ER evaluation for follow up appt. Pt verbalized understanding and agrees. Protocol Used: Breathing Difficulty (Adult) Protocol-Based Disposition: Go to ED Now Positive Triage Questions: * Long-distance travel in past month (e.g., car, bus, train, plane; with trip lasting 6 or more hours) * Extra heartbeats, irregular heart beating, or heart is beating very fast (i.e., palpitations ) * All higher-acuity triage questions were negative Care Advice Discussed: * Reasons To Call Back - You become worse * Telephone Encounter - Maria Alejandra Villegas - 12/10/2023 11:33 AM EDT Symptoms: Breathing Trouble, dizziness and fast heart beat Outcome: Schedule an urgent appointment (within 1 hour) or talk to a nurse or provider soon Reason: Caller denied all higher acuity questions The caller accepted this outcome. documented in this encounter Plan of Treatment Upcoming Encounters Date Type Department Care Team (Late st Contact Info) Description 04/20/2024 3:00 PM EST Office Visit [facility] MEDICINE [address] [place] [address] [phone] Andreas Roldan MD [address] [place], [place] [phone] documented as of this encounter Visit Diagnoses Not on filedocumented in this encounter Care Teams Director Digital Sales Relationship Specialty Start Date End Date Leticia Au MD [address] [place] [phone] PCP - General Internal Medicine 01/13/14 documented as of this encounter
--- OUTSIDE RECORDS SUMMARY | 2024-04-13 17:55 | XMS_ITS | Encounter Summary ---
Author Organization [employer] [facility] Address [address] [place] [address] [place] [address] Care Team Providers Care Foot Miter Operator Name Role Phone Leticia Au MD Primary Care Provider [phone] Reason for Visit * Reason Comments Med Refill Encounter Details Date Type Department Care Team (Late st Contact Info) Description 04/15/2023 Refill [facility] [address] [place] [address] [phone] Andreas Roldan MD [address] [place] [phone] Uncomplicated opioid dependence (CMS/HCC) Social History Tobacco [...] Description 04/20/2024 3:00 PM EST Office Visit [facility] [address] [place] [address] [phone] Andreas Roldan MD [address] [place] [address] [phone] documented as of this encounter Visit Diagnoses Diagnosis Uncomplicated opioid dependence (CMS/HCC) documented in this encounter Care Teams Foot Miter Operator Relationship Specialty Start Date End Date Leticia Au MD [address] [place] [address] [phone] PCP - General Internal Medicine 01/13/14 documented as of this encounter
--- OUTSIDE RECORDS SUMMARY | 2024-04-13 17:55 | XMS_ITS | Clinical Summary ---
Author Organization [employer] Address [address] [facility] [address] [place] [address] Care Team Providers Care Cut Off Saw Set Up Operator Name Role Phone Leticia Au MD Primary Care Provider [phone] Allergies No known active allergies Medications Eliquis 5 MG tablet Take 1 tablet by mouth 2 times daily. 12/22/2023 Active Buprenorphine HCl-Naloxone HCl (Suboxone) 8-2 MG SL filmIndications :Uncomplicated opioid dependence (CMS/HCC) Place 1 Film under the tongue 2 times daily. 56 Film 2 01/15/2024 Active buprenorphine-n aloxone (Suboxone) 4-1 MG per sublingual filmIndications :Uncomplicated opioid dependence (CMS/HCC) Place 1 Film under the tongue Once daily. 28 Film 2 01/15/2024 Active Ventolin HFA 108 (90 Base) MCG/ACT inhalerIndicati ons:SOB (shortness of breath) INHALE 2 PUFFS BY MOUTH EVERY 4 TO 6 HOURS NEEDED 18 g 1 01/22/2024 Active amiodarone (Pacerone) 200 MG tablet Take 1 tablet by mouth Once per day. 02/16/2024 Active digoxin (Lanoxin) 125 MCG tablet Take 1 tablet by mouth Once per day. 02/16/2024 Active furosemide (Lasix) 40 MG tablet Take 1 tablet by mouth 2 times daily. 9 in the morning and 6 in the evening 02/16/2024 Active metoprolol succinate XL (Toprol-XL) 50 MG 24 hr tablet Take 1 tablet by mouth 2 times daily. 02/16/2024 Active Entresto 24-26 MG tablet Take 1 tablet by mouth 2 times daily. 02/16/2024 Active ferrous sulfate 325 (65 Fe) MG tablet Take 1 tablet by mouth Once per day. OTC Active Multiple Vitamin (multivitamin) capsule Take 1 capsule by mouth Once per day. OTC Active cyanocobalamin (Vitamin B-12) 500 MCG tablet Take 500 mcg by mouth Once per day. OTC Active QUEtiapine (SEROquel) 25 MG tabletIndicatio ns:Primary insomnia TAKE 1 TO 2 TABLETS BY MOUTH AT BEDTIME 60 tablet 1 03/09/2024 Active cholecalciferol (Vitamin D-3) 25 MCG tabletIndicatio ns:Low vitamin D level Take 1 tablet (25 mcg) by mouth Once per day. 30 tablet 5 03/09/2024 Active Active Problems Problem Noted Date Diagnosed Date Sleep apnea 03/09/2024 Acute systolic heart failure 02/26/2024 Partially edentulous mandible 08/11/2023 Edentulous maxilla 07/03/2023 Open fracture of tooth 04/09/2023 Dental caries 02/26/2023 Non-restorable tooth 02/26/2023 Tobacco dependence syndrome 04/16/2022 Hypertensive disorder 09/11/2021 Microcytic anemia 01/13/2021 Atrial fibrillation 06/23/2020 Chronic bilateral low back pain without sciatica 09/06/2019 Obesity 05/01/2016 Impacted cerumen 05/01/2016 Opioid dependence 01/04/2015 Benign prostatic hyperplasia 04/14/2014 Hemorrhoids 04/06/2013 Back problem 03/08/2013 Hepatitis C 03/08/2013 Wears glasses 03/08/2013 Arthropathy 06/11/2011 Viral disease 06/11/2011 Chest pain 06/11/2011 Encounters Date Type Department Care Team Description 03/09/2024 2:15 PM EST Office Visit [facility] [address] [place] [address] Leticia Au MD Primary hypertension (Primary Dx); Longstanding persistent atrial fibrillation (CMS/HCC); Acute systolic heart failure (CMS/HCC); Primary insomnia; Obstructive sleep apnea syndrome; Low vitamin D level 03/09/2024 Travel 02/27/2024 Orders Only GENERIC EXTERNAL DATA DEPARTMENT Provider, Generic External Data 02/26/2024 2:30 PM EST Office Visit [facility] [address] [place] [address] Leticia Au MD Acute systolic heart failure (CMS/HCC) (Primary Dx); Longstanding persistent atrial fibrillation (CMS/HCC); Primary hypertension 02/26/2024 Travel 02/18/2024 Telephone [facility] [address] [place] [address] Leticia Au MD Hospital Follow-up 02/12/2024 Patient Outreach [facility] [address] [place] [address] Leticia Au MD Pre-visit Planning (SDOH will need to be completed in office. ) 02/10/2024 Orders Only GENERIC EXTERNAL DATA DEPARTMENT Provider, Generic External Data 02/04/2024 Refill [facility] [address] [place] [address] Leticia Au MD Primary insomnia 01/27/2024 3:00 PM EST Clinical Support [facility] [address] [place] [phone] Marsha Hendrickson, RN Uncomplicated opioid dependence (CMS/HCC) (Primary Dx) 01/27/2024 Telephone [facility] [address] [place] [address] [phone] Marsha Hendrickson, RN Nurse Triage 01/27/2024 Travel 01/22/2024 Refill [facility] [address] [place] [address] [phone] Leticia Au MD SOB (shortness of breath) 01/15/2024 Refill [facility] [address] [place] [address] [phone] Caryl Lunsford, ADEBAYO Uncomplicated opioid dependence (CMS/HCC) from Last 3 Months Immunizations Name Administration Dates Next Due Influenza, Split (incl. purified surface antigen ) 01/20/2013 TD (adult), 2 Lf tetanus tox oid, preservative free, adsorbed 11/27/2007 Tdap 08/24/2022 Social History Tobacco Use Types Packs/Day Years Used Date Smoking Tobacco: Every Day Cigarettes Passive Smoke Exposure: Current Smokeless Tobacco: Never Tobacco Cessation:Ready to Q uit: Not Asked; Counseling Given: Not Answered Alcohol Use Standard Drinks/Week Comments Yes 0 (1 standard drink = 0.6 oz pur e alcohol) Sex and Gender Information Value Date Recorded Sex Assigned at Male 01/21/2022 10:20 AM EDT Legal Sex Male 10:20 AM EDT Gender Identity Male 01/21/2022 10:20 AM EDT Sexual Orientation Straight 01/21/2022 10 :20 AM EDT Last Filed Vital Signs Vital Sign Reading Time Taken Comments Blood Pressure 110/67 03/09/2024 2:40 PM EST Pulse 54 03/09/2024 2:40 PM EST Temperature 37.1 ??C (98.8 ??F) 03/09/2024 2:40 PM ES T Respiratory Rate 20 03/09/2024 2:40 PM EST Oxygen Saturation 95% 03/09/2024 2:40 PM EST Inhaled Oxygen Concentration - - Weight 99.3 kg (219 lb) 03/09/2024 2:40 PM EST Height 174.6 cm (5' 8.75 ) 03/09/2024 2:40 PM ES T Body Mass Index 32.58 03/09/2024 2:40 PM EST Plan of Treatment Upcoming Encounters Date Type Department Care Team (Late st Contact Info) Description 04/20/2024 3:00 PM EST Office Visit [facility] [address] [place] [address] Andreas Roldan MD [address] [place] [address] Health Maintenance Due Date Last Done Comments CT Colonography 1960 Colonoscopy 1960 Colorectal Cancer Screening 1960 Depression Screening 1960 FIT DNA/Cologuard 1960 FIT 1960 FOBT 1960 SDOH Screening 1960 Sigmoidoscopy 1960 Pneumococcal Vaccine: Pediatrics (0 to 5 Years) and At-Risk Patients (6 to 64 Years) (1 of 2 - PCV) 1968 Alcohol/Substance Use Screening 1974 Hepatitis A Vaccines (1 of 2 - Risk 2-dose series) 1981 Zoster Vaccines (1 of 2) 2012 Hepatitis B Vaccines (1 of 3 - Risk 3-dose series) 2022 RSV Patients and Patients Aged 60 years or older (1 - Risk 60-74 years 1-dose series) 2022 Dental Oral Exam 08/21/2023 02/19/2023, , 10/15/2017, Additional history exists COVID-19 Vaccine ( - season) 2023 10/09/2020, 09/11/2020 Influenza Vaccine (#1) 2023 01/20/2013 Dental Prophylaxis 01/17/2024 07/17/2023, 0 10/09/2017, 06/28/2016, Additional history exists Dental X-Ray: Bitewings 02/21/2024 02/20/20, 01/10/2021, 10/09/2017, Additional history exists Tobacco Screening 02/25/2025 02/26/2024 Lipid Panel 01/13/2026 01/13/2021 Dental X-Ray: Full Mouth 02/27/2026 023, 02/19/2023, 01/10/2021, Additional history exists DTaP/Tdap/Td Vaccines (2 - Td or Tdap) 08/24/2032 08/24/2022, 11/27/2007 HIV Screening Completed 01/13/2021 HIB Vaccines Aged Out No longer eligi ble based on patient's age to complete this topic HPV Vaccines Aged Out No longer eligi ble based on patient's age to complete this topic IPV Vaccines Aged Out No longer eligi ble based on patient's age to complete this topic Meningococcal Vaccine Aged Out No zonia rios eligible based on patient's age to complete this topic RSV under 20 months Aged Out No longe r eligible based on patient's age to complete this topic Rotavirus Vaccines Aged Out No longer eligible based on patient's age to complete this topic Procedures Procedure Name Priority Date/Time Associated Diagnosis Comments DRUG MONITOR, PANEL 1, SCREEN, URINE Routine 02/27/2024 10:42 AM EST HIGH SENSITIVITY TROPONIN I Routine 02/10/2024 10:05 AM EST XR CHEST 1 VIEW Routine 02/10/2024 7:54 AM EST DRUG MONITOR, PANEL 1, SCREEN, URINE Routine 02/10/2024 6:39 AM EST POCT ORTIZ-14 URINE DRUG SCREEN Routine 01/27/2024 2:56 PM EST Uncomplicated opioid dependence (CMS/HCC) PROPHYLAXIS - ADULT Routine 07/17/2023 3 :00 PM EDT PANORAMIC RADIOGRAPHIC IMAGE Routine 02/26/2023 8:00 AM EST DIAGNOSTIC - DIAGNOSTIC IMAGING - INTRAORAL - COMPREHENSIVE SERIES OF RADIOGRAPHIC IMAGES Routine 02/19/2023 3:00 PM EST PERIODIC ORAL EVALUATION - ESTABLISHED PATIENT Routine 02/19/2023 3:00 PM EST ZZZ HISTORICAL HIV AB/AG Routine 01/13/2021 11:11 AM EDT ZZZ HISTORICAL LIPID PANEL Routine 01/13/2021 11:11 AM EDT from Last 3 Months or Most Recently Relevant to Health Maintenance Results * (ABNORMAL) Drug Monitoring, Panel 1, Screen, Urine (02/27/2024 10:42 AM EST) Only the most recent of2 resultswithin the time period is included. Opiate Screen Urine Not Detected Not Detect [facility] Comment:Opiate cut-off is 30 0 ng/mL.Positive results are unconfirmed and should not be used fornon-medical purposes. Barbiturates, Urine Not Detected Not Detect [facility] Comment:Barbiturate cut-off is 200 ng/mL.Positive results are unconfirmed and should not be used fornon-medical purposes. Phencyclidine Screen Urine Not Detected Not Detect [facility] Comment:Phencyclidine cut-of f is 25 ng/mL.Positive results are unconfirmed and should not be used fornon-medical purposes. Amphetamine Screen Urine Not Detected Not Detect [facility] Comment:Amphetamine cut-off is 1000 ng/mL.Positive results are unconfirmed and should not be used fornon-medical purposes. Benzodiazepines Screen Urine Not Detected Not Detect [facility] Comment:Benzodiazepine cut-o ff is 200 ng/mL.Positive results are unconfirmed and should not be used fornon-medical purposes. Cocaine Screen Urine Not Detected Not Detect [facility] Comment:Cocaine cut-off is 3 00 ng/mL.Positive results are unconfirmed and should not be used fornon-medical purposes. Cannabinoid Screen Urine Not Detected Not Detect [facility] Comment:Cannabinoid cut-off is 50 ng/mL.Positive results are unconfirmed and should not be used fornon-medical purposes. Methadone Screen, Urine Not Detected Not Detect ng/mL [facility] Comment:Methadone cut-off is 300 ng/mL.Positive results are unconfirmed and should not be used fornon-medical purposes. FENTANYL URINE Not Detected Not Detect [facility] Comment:Fentanyl cut-off is 1 ng/mL.Positive results are unconfirmed and should not be used fornon-medical purposes. Oxycodone Urine Screen Not Detected Not Detect ng/mL [facility] Comment:Oxycodone cut-off is 100 ng/mL.Positive results are unconfirmed and should not be used fornon-medical purposes. Buprenorphine Screen Positive(A) Not Detect ng/mL [facility] Comment:Buprenorphine cut-of f is 5 ng/mL.Positive results are unconfirmed and should not be used fornon-medical purposes. 02/27/2024 10:4 2 AM EST 02/27/2024 11:07 AM EST us Generic External Data Provider LAB URINE ORDERAB LES Final Result [facility] [address] [place] [phone] * (ABNORMAL) High Sensitivity Troponin I (02/10/2024 10:05 AM EST) TROPONIN I HIGH SENSITIVITY 61.1(H) <3.5 - 35.0 ng/L [facility] Comment:The [place] high sens itivity Troponin-I results should beused in conjunction with other diagnostic information suchas ECG, clinical observations and information, and patientsymptoms to aid in the diagnosis of [place]. 02/10/2024 10:0 5 AM EST 02/10/2024 10:07 AM EST us Generic External Data Provider LAB BLOOD ORDERAB LES Final Result [facility] [address] [facility] [place] [address] [phone] * XR Chest 1 View (02/10/2024 7:54 AM EST) Anatomical Region Laterality Modality Chest Radiographic Celi ging 02/10/2024 7:54 AM EST Narrative 02/10/2024 8:36 AM EST ? [facility] ?[address] ?[place] [address] ?XRay Report ? Signed ? Patient: Gladys,Tomas ?MR#: [id number] ?? [id number] ? : 1960 ?Acct:[id number] ? Age/Sex: 63 / M ?ADM Date: 02/10/24 ? Loc: HO.ED ? Attending Dr: ? Ordering Physician: Gifty Rodriguez DO ?? Date of Service: 02/10/24 ?? Procedure(s): XR chest 1V ?? Accession Number(s): [id number] ? cc: Leticia Au MD; Gifty Rodriguez DO ? EXAMINATION: ?? XR CHEST 8:15 AM ? CLINICAL INFORMATION: ?? dyspnea ? COMPARISON: ?? 12/18/2023 ? TECHNIQUE: ?? Frontal view of the chest was obtained. ? FINDINGS: ?? The lungs are grossly clear and unchanged since 12/18/2023. The ?? cardiomediastinal silhouette is magnified by the AP position. ? XR/XR chest 1V ?? IMPRESSION: ?? Grossly clear and unchanged single view chest x-ray. ? Electronically signed by: ??Jose Pete MD ??02/10/2024 08:33 AM EST RP ? Dictated By: ?Jose Pete MD ? Signed By: ?<Electronically signed by Jose Pete MD in OV> ?02/10/24 0833 ? DD/ 0754 ? TD/TT: 02/10/24 0815 ? Cvor Nurse: ? Procedure Note Donotuseinterpreter, Image - 02/10/[address] [address] XRay Report Signed Patient: Mateo Graham RMR#: [id number] : 1960Acct:[id number] Age/Sex: 63 / MADM Date: 02/10/24 Loc: HO.ED Attending Dr: Ordering Physician: Gifty Rodriguez DO Date of Service: 02/10/24 Procedure(s): XR chest 1V Accession Number(s): [id number] cc: Leticia Au MD; Gifty Rodriguez DO EXAMINATION: XR CHEST 8:15 AM CLINICAL INFORMATION: dyspnea COMPARISON: 12/18/2023 TECHNIQUE: Frontal view of the chest was obtained. FINDINGS: The lungs are grossly clear and unchanged since 12/18/2023. The cardiomediastinal silhouette is magnified by the AP position. XR/XR chest 1V IMPRESSION: Grossly clear and unchanged single view chest x-ray. Electronically signed by: Jose Pete MD 02/10/2024 08:33 AM EST Dictated By: Jose Pete MD Signed By: <Electronically signed by Jose Pete MD in OV> 02/10/24 0833 DD/ 0754 TD/TT: 02/10/24 0815 Cvor Nurse: [facility] External Provider IMG XR PROCEDURES Final Result * POCT ORTIZ-14 Urine Drug Screen (01/27/2024 2:56 PM EST) THC Negative Cocaine Screen, Urine Negative Opiate Screen, Urine Negative Methamphetamine Screen Urine Negative Amphetamine Screen, Urine Negative Benzodiazepines Screen, Urine Negative Barbiturate Screen, Urine Negative Methadone Screen, Urine Negative Buprenophine Screen, Urine Positive TCA, Urine Negative MDMA Urine Negative ng/mL Oxycodone Screen, Urine Negative Phencyclidine (PCP), Urine Negative Propoxyphene, Urine Negative Urine Urine specimen obtained by clean catch procedure / Unknown 01/27/2024 2:56 PM EST us Pipo Cha MD POINT OF CARE TEST ENTER/EDIT ORDERABLES Final Result * HIV AB/AG (01/13/2021 11:11 AM EDT) Pathologist [facility] HIV AB/AG Nonreactive Nonreactive [facility] Comment: HIV-1 p24 Ag and/or HIV-1/HIV-2 Ab not detected. ?? A test result that is nonreactive does not exclude the possibility of exposure to or infection with HIV-1 and/or HIV-2. Nonreactive results in this assay for individuals with prior exposure to HIV-1 and/or HIV-2 may be due to antigen and antibody levels that are below the limit of detection of this assay. ?? The [facility] HIV Ag/Ab Combo assay result and supplemental assay results should be interpreted in conjunction with the patient's clinical presentation, history and other laboratory results. ??If the results are inconsistent with clinical evidence, additional testing is suggested to confirm the result. 01/13/2021 11:1 1 AM EDT us Leticia Au MD HISTORICAL/NON ORDERABLE LA BS Final Result [facility] [address] * (ABNORMAL) LIPID PANEL (01/13/2021 11:11 AM EDT) Cholesterol 132 mg/dL [facility] Comment: Desirable Cholesterol: ?less than 200 mg/dL Borderline High Cholesterol: ??200-239 mg/dL High Cholesterol: ? greater than 239 mg/dL HDL Cholesterol 64 mg/dL [facility] Comment: Desirable HDL: ??greater than 40 mg/dL ?? Note: This HDL assay may give artificially ? low results in patients with liver disease. LDL Cholesterol Calculated 63 mg/dl [facility] Comment: Desirable LDL: ? less than 100 mg/dL Near Optimal/Above Optimal LDL: ??110-129 mg/dL Borderline High LDL: ? 130-159 mg/dL High LDL: ?160-189 mg/dL Very High LDL: ? greater than or equal to ?190 mg/dL Triglycerides 28 mg/dL [facility] Comment: Desirable Triglyceride: ? less than 150 mg/dL Borderline High Triglyceride ??150-199 mg/dL High Triglyceride: ?200-499 mg/dL Very High Triglyceride: ? greater than or equal to ? 5OO mg/dL Alanine Aminotransferase 19 0 - 40 U/L [facility] Albumin Level 4.6 3.5 - 5.0 g/dL [facility] Alkaline Phosphatase 57 39 - 117 U/L [facility] Anion Gap 11(L) 12 - 20 [facility] Aspartate Amino Transferase 27 5 - 37 U/L [facility] Bilirubin Total 0.5 0.0 - 1.0 mg/dL [facility] Blood Urea Nitrogen 18(H) 9 - 16 mg/dL [facility] Calcium 9.5 8.4 - 10.2 mg/dL [facility] Carbon Dioxide 30(H) 22 - 29 mmol/L [facility] Chloride 98 96 - 108 mmol/L [facility] Creatinine, Serum 0.90 0.5 - 1.4 mg/dL [facility] Estimated Glomerular Filt Rate >60 [facility] Comment: NOTE: ??For -[place] individuals, multiply the result ?by 210. ?? Chronic Kidney Disease: ??Estimated GFR < 60 mL/min/1.73m2 Severe Kidney Disease: ??Estimated GFR < 15 mL/min/1.73m2 Glucose Random 112 60 - 115 mg/dL [facility] Potassium 4.7 3.3 - 5.1 mmol/L [facility] Sodium 134(L) 135 - 145 mmol/L [facility] Total Protein 7.6 6.5 - 8.0 g/dL [facility] Bilirubin Direct 0.2 0.0 - 0.5 mg/dL [facility] 01/13/2021 11:1 1 AM EDT us Leticia Au MD HISTORICAL/NON ORDERABLE LA BS Final Result [facility] [address] [place] [address], from Last 3 Months or Most Recently Relevant to Health Maintenance Insurance [facility] DENTAL - HSN PARTIAL (MEDICAID) DENTAL - METLIFE Care Teams Cut Off Saw Set Up Operator Relationship Specialty Start Date End Date Leticia Au MD [address] [place] [phone] PCP - General Internal Medicine 01/13/14
--- OUTSIDE RECORDS SUMMARY | 2024-04-13 17:56 | XMS_ITS | Encounter Summary ---
Author Organization [facility] Address [address] [place] [address] [address], [place] [address] Care Team Providers Care Glassine Machine Tender Name Role Phone Leticia Au MD Primary Care Provider [phone] Reason for Visit * Reason Comments Med Refill Encounter Details Date Type Department Care Team (Late st Contact Info) Description 06/29/2022 Refill [facility] [address] [place] [phone] Andreas Roldan MD [address] [place] [address] [phone] Opioid dependence, uncomplicated (CMS/HCC) Social History Tobacco Use Types Packs/Day Years Used Date Smoking Tobacco: Every Day Cigarettes Smokeless Tobacco: Never Sex and Gender Information Value Date Recorded Sex Assigned at Male 01/21/2022 10:20 AM EDT Legal Sex Male 10:20 AM EDT Gender Identity Male 01/21/2022 10:20 AM EDT Sexual Orientation Straight 01/21/2022 10 :20 AM EDT documented as of this encounter Plan of Treatment Upcoming Encounters Date Type Department Care Team (Late st Contact Info) Description 04/20/2024 3:00 PM EST Office Visit [facility] [address] [place] [address] [phone] Andreas Roldan MD [address] [place] [address] [phone] documented as of this encounter Visit Diagnoses Diagnosis Opioid dependence, uncomplicated (CMS/HCC) documented in this encounter Care Teams Glassine Machine Tender Relationship Specialty Start Date End Date Leticia Au MD [address] [place] [phone] PCP - General Internal Medicine 01/13/14 documented as of this encounter
--- OUTSIDE RECORDS SUMMARY | 2024-04-13 17:56 | XMS_ITS | Encounter Summary ---
Author Organization [employer] Address [address] [facility] 7t [place] [address] Care Team Providers Care Column Precaster Name Role Phone Leticia Au MD Primary Care Provider +1 [phone] Encounter Details Date Type Department Care Team (Late st Contact Info) Description 05/22/2022 Orders Only [facility] CHC MED & PEDS [address] [place], [place] [phone] Lizz Garland LPN Social History Tobacco Use Types Packs/Day Years [...] 04/20/2024 3:00 PM EST Office Visit [facility] MEDICINE [address] [place] [address] Andreas Roldan MD [address] [place] [address] documented as of this encounter Procedures Procedure Name Priority Date/Time Associated Diagnosis Comments CBC WITH AUTO DIFFERENTIAL Routine 06/29/2022 9:42 AM EDT COMPREHENSIVE METABOLIC PANEL Routine 06/29/2022 9:42 AM EDT documented in this encounter Results * (ABNORMAL) Comprehensive Metabolic Panel (06/29/2022 9:42 AM EDT) Sodium 144 135 - 145 mmol/L [facility] Potassium 5.4(H) 3.3 - 5.1 mmol/L [facility] Chloride 104 96 - 108 mmol/L [facility] Carbon Dioxide 34(H) 22 - 29 mmol/L [facility] Anion Gap 11(L) 12 - 20 [facility] Urea Nitrogen (BUN) 17(H) 9 - 16 mg/dL [facility] Creatinine, Serum 0.79 0.5 - 1.4 mg/dL [facility] Estimated Glomerular Filt Rate >60 [facility] Comment:NOTE: For -Am erican individuals, multiply the result by 1.210.Chronic Kidney Disease: Estimated GFR < 60 mL/min/1.38w0Sdqfvr Kidney Disease: Estimated GFR < 15 mL/min/1.73m2 Glucose 103 60 - 115 mg/dL [facility] Calcium 9.4 8.4 - 10.2 mg/dL [facility] Bilirubin, Total 0.6 0.0 - 1.0 mg/dL [facility] Aspartate Amino Transferase 17 5 - 37 U/L [facility] Alanine Aminotransferase 12 0 - 40 U/L [facility] Total Protein 6.8 6.5 - 8.0 g/dL [facility] Albumin Level 4.2 3.5 - 5.0 g/dL [facility] Alkaline Phosphatase 53 39 - 117 U/L [facility] 06/29/2022 9:42 AM EDT 06/29/2022 9:42 AM EDT us [facility] External Provider LAB BLO OD ORDERABLES Final Result [facility] [address] [place] [address] [phone] * (ABNORMAL) CBC auto differential (06/29/2022 9:42 AM EDT) White Blood Count 5.1 4.8 - 10.8 X10*3/uL [facility] Red Blood Count 4.74 4.60 - 5.80 X10*6/uL [facility] Hemoglobin 13.1(L) 14.0 - 18.0 g/dl [facility] Hematocrit 42.0 42.0 - 52.0 % [facility] Mean Corpuscular Volume 88.6 80.0 - 98.0 fL [facility] Mean Corpuscular Hemoglobin 27.6 27.0 - 33.0 pg [facility] Mean Corpuscular HGB Conc 31.2 31.0 - 36.0 g/dl [facility] Red Cell Distribution Width 13.6 11.0 - 16.0 % [facility] Platelet Count 205 160 - 400 X10*3/uL [facility] Mean Platelet Volume 10.2 9.4 - 12.4 fL [facility] Neutrophils Percent Auto 28.6(L) 45 - 73 % [facility] Imm Gran Pct Auto 0.0 0.0 - 0.4 % [facility] Lymphocytes Percent Auto 56.4(H) 20 - 40 % [facility] Monocytes Percent Auto 11.0 2 - 11 % [facility] Eosinophils Percent Auto 3.6 0 - 4 % [facility] Basophils Percent Auto 0.4 0 - 2 % [facility] NRBC Pct Auto 0.0 0.0 - 0.2 /100WBC [facility] Neutrophils Absolute Auto 1.5(L) 2.0 - 8.3 x10*3/uL [facility] Imm Gran Abs Auto 0.00 0.00 - 0.03 X10*3/uL [facility] Lymphocytes Absolute Auto 2.9 1.2 - 4.9 X10*3/uL [facility] Monocytes Absolute Auto 0.6 0.1 - 1.2 X10*3/uL [facility] Eosinophils Absolute Auto 0.2 0.0 - 0.4 X10*3/uL [facility] Basophils Absolute Auto 0.0 0.0 - 0.2 X10*3/uL [facility] NRBC Abs Auto 0.000 0.0 - 0.012 X10*3/uL [facility] 06/29/2022 9:42 AM EDT 06/29/2022 9:42 AM EDT us [facility] External Provider LAB BLO OD ORDERABLES Final Result Performing Organization Address City/State/[facility] Co de Phone Number [facility] [address] [place] [address] [phone] documented in this encounter Visit Diagnoses Not on filedocumented in this encounter Care Teams Column Precaster Relationship Specialty Start Date End Date Leticia Au MD [address] [place] [phone] PCP - General Internal Medicine 01/13/14 documented as of this encounter
--- OUTSIDE RECORDS SUMMARY | 2024-04-13 17:56 | XMS_ITS | Encounter Summary ---
Author Organization [employer] Address [address] [place] [address] Care Team Providers Care Framing Mill Supervisor Name Role Phone Leticia Au MD Primary Care Provider [phone]- [phone] Encounter Details Date Type Department Care Team (Late Contact Info) Description 11/14/2022 Orders Only [facility] CHC MED & PEDS [address] [place], [place] [phone] Leticia Au MD [address] [place], [place] [phone] Pancytopenia (CMS/HCC) (Primary Dx); Aregenerative anemia (CMS/HCC) Social History Tobacco Use Types Packs/Day Years Used Date Smoking Tobacco: Every Day Cigarettes Passive Smoke Exposure: Current Smokeless Tobacco: Never Sex and Gender Information [...] Description 04/20/2024 3:00 PM EST Office Visit [facility] MEDICINE [address] [place], [place] [phone] Andreas Roldan MD [address] [place], [place] [phone] documented as of this encounter Visit Diagnoses Diagnosis Pancytopenia (CMS/HCC)- Primary Aregenerative anemia (CMS/HCC) Unspecified aplastic anemia documented in this encounter Care Teams Framing Mill Supervisor Relationship Specialty Start Date End Date Leticia Au MD [address] [place] [phone] PCP - General Internal Medicine 01/13/14 documented as of this encounter
--- OUTSIDE RECORDS SUMMARY | 2024-04-13 17:56 | XMS_ITS | Encounter Summary ---
Author Organization [employer] Address [address] [facility] [address], [place] [address] Care Team Providers Care Medical Aide Name Role Phone Leticia Au MD Primary Care Provider [phone]- [phone] Encounter Details Date Type Department Care Team (Late Contact Info) Description 01/14/2023 Orders Only [facility] CHC MED & PEDS [address] [place], [place] [phone] Leticia Au MD [address] [place] [address] Excessive daytime sleepiness (Primary Dx); Snoring; Microcytic anemia Social History Tobacco Use Types Packs/Day Years [...] Description 04/20/2024 3:00 PM EST Office Visit [facility] MEDICINE [address] [place], [place] [phone] Andreas Roldan MD [address] [place], [place] [phone] documented as of this encounter Visit Diagnoses Diagnosis Excessive daytime sleepiness- Primary Snoring Other dyspnea and respiratory abnormality Microcytic anemia Unspecified iron deficiency anemia documented in this encounter Care Teams Medical Aide Relationship Specialty Start Date End Date Leticia Au MD [address] [place] [address] PCP - General Internal Medicine 01/13/14 documented as of this encounter
--- OUTSIDE RECORDS SUMMARY | 2024-04-13 17:56 | XMS_ITS | Encounter Summary ---
Author Organization [employer] Address [address] [facility] 7 [place] [address] Care Team Providers Care Rattling Machine Tender Name Role Phone Leticia Au MD Primary Care Provider +1 [phone] Encounter Details Date Type Department Care Team (Late Contact Info) Description 11/20/2022 Orders Only [facility] MEDICINE [address] [place] [phone] Caryl Lunsford RN Opioid type dependence, continuous (CMS/HCC) (Primary Dx) Social History Tobacco Use Types Packs/Day Years [...] Upcoming Encounters Date Type Department Care Team ([facility] Contact Info) Description 04/20/2024 3:00 PM EST Office Visit [facility] MEDICINE [address] [place] [address] Andreas Roldan MD [address] [place] [address] [phone] Scheduled Orders Name Type Priority Associated Diagnoses Orde r Schedule Hepatitis A Antibody IgG Lab Routine Opioid type dependence, continuous (CMS/HCC) Expected: 11/20/2022 (Approximate), Expires: 11/21/2023 Hepatitis C Antibody with Reflex to HCV, RNA, Quantitative, Real-Time PCR Lab Routine Opioid type dependence, continuous (CMS/HCC) Expected: 11/20/2022 (Approximate), Expires: 11/21/2023 HIV-1/2 Antigen and Antibodies, Fourth Generation, with Reflexes Lab Routine Opioid type dependence, continuous (CMS/HCC) Expected: 11/20/2022 (Approximate), Expires: 11/21/2023 QuantiFERON TB Gold Lab Routine Opioid type dependence, continuous (CMS/HCC) Expected: 11/20/2022 (Approximate), Expires: 11/21/2023 Syphilis Screen Lab Routine Opioid type dependence, continuous (CMS/HCC) Expected: 11/20/2022 (Approximate), Expires: 11/21/2023 T-SPOT??.TB Lab Routine Opioid type dependence, continuous (CMS/[facility]) Expected: 11/20/2022 (Approximate), Expires: 11/21/2023 documented as of this encounter Visit Diagnoses Diagnosis Opioid type dependence, continuous (CMS/HCC)- Primary Opioid type dependence, continuous documented in this encounter Care Teams Rattling Machine Tender Relationship Specialty Start Date End Date Leticia Au MD [address] [place] [phone] PCP - General Internal Medicine 01/13/14 documented as of this encounter
--- OUTSIDE RECORDS SUMMARY | 2024-04-13 17:56 | XMS_ITS | Encounter Summary ---
Author Organization [employer] Address [address] [place] [address] 7 [place] [address] Care Team Providers Care Sustainable Communities Designer Name Role Phone Leticia Au MD Primary Care Provider [phone]- [phone] Encounter Details Date Type Department Care Team (Late Contact Info) Description 09/16/2022 Orders Only [facility] CHC MED & PEDS [address] [place], [place] [phone] Leticia Au MD 505 [place] [address] Normocytic anemia (Primary Dx) Social History Tobacco Use Types Packs/Day Years Used Date Smoking Tobacco: Every Day Cigarettes Smokeless Tobacco: Never Sex and Gender Information Value Date Recorded Sex Assigned at Male 01/21/2022 10:20 AM EDT Legal Sex Male 10:20 AM EDT Gender Identity Male 01/21/2022 10:20 AM EDT Sexual Orientation Straight 01/21/2022 10 :20 AM EDT COVID-19 Exposure Response Date Recorded In the last 10 days, have yo u been in contact with someone who was confirmed or suspected to have Coronavirus/COVID-19? No / Unsure 09/11/2022 2:47 PM EDT documented as of this encounter Plan of Treatment Upcoming Encounters Date Type Department Care Team (Late Contact Info) Description 04/20/2024 3:00 PM EST Office Visit [facility] MEDICINE [address] [place], [place] [phone] Andreas Roldan MD [address] [place], [place] [phone] Scheduled Orders Name Type Priority Associated Diagnoses Orde r Schedule Iron, TIBC And Ferritin Panel Lab Routine Normocytic anemia Expected: 09/16/2022 (Approximate), Expires: 09/17/2023 documented as of this encounter Procedures Procedure Name Priority Date/Time Associated Diagnosis Comments IRON, TIBC AND FERRITIN PANEL Routine 09/17/2022 10:32 AM EDT RETICULOCYTE COUNT Routine 09/17/2022 10 :32 AM EDT Normocytic anemia documented in this encounter Results * Iron, TIBC And Ferritin Panel (09/17/2022 10:32 AM EDT) Iron, Total 98 50 - 180 mcg/dL [employer] Iron Binding Capacity 298 250 - 425 mcg/dL (calc) [employer] % Saturation 33 20 - 48 % (calc) [employer] [place] [facility] Ferritin 58 24 - 380 ng/mL [employer] [place] [facility] 09/17/2022 10:3 2 AM EDT 09/17/2022 10:32 AM EDT Leticia Au MD LAB BLOOD ORDERABLES Final Result [facility] [address], [place] [address] [employer] [address] [place] [phone] * Reticulocyte Count (09/17/2022 10:32 AM EDT) Reticulocyte Count, Automated 1.1 % [facility] [place] [employer] Reticulocyte, Absolute 49,170 25,000 - 90,000 cells/uL [employer] Blood Venous blood specimen / Unknown 09/17/2022 10:32 AM EDT 09/17/2022 10:32 AM EDT Leticia Au MD LAB BLOOD ORDERABLES Final Result [facility] [address] [facility], [place] [address] [employer] [facility] [address] [place] [phone] documented in this encounter Visit Diagnoses Diagnosis Normocytic anemia- Primary Unspecified anemia documented in this encounter Care Teams Sustainable Communities Designer Relationship Specialty Start Date End Date Leticia Au MD [address] [place] [address] PCP - General Internal Medicine 01/13/14 documented as of this encounter
--- OUTSIDE RECORDS SUMMARY | 2024-04-13 17:56 | XMS_ITS | Encounter Summary ---
Author Organization [employer] [facility] Address [address] [place] [address] [address], [place] [address] Care Team Providers Care Cell Preparer Name Role Phone Leticia Au MD Primary Care Provider +1- [phone] Reason for Visit * Reason Comments Med Refill Encounter Details Date Type Department Care Team (Late st Contact Info) Description 02/19/2023 Refill [facility] MEDICINE [address] [place] [phone] Andreas Roldan MD [address] [place] [phone] Uncomplicated opioid dependence (CMS/HCC) Social History Tobacco [...] 04/20/2024 3:00 PM EST Office Visit [facility] MEDICINE [address] [place] [address] [phone] Andreas Roldan MD [address] [place] [address] [phone] documented as of this encounter Visit Diagnoses Diagnosis Uncomplicated opioid dependence (CMS/HCC) documented in this encounter Care Teams Cell Preparer Relationship Specialty Start Date End Date Leticia Au MD [address] [place] [phone] PCP - General Internal Medicine 01/13/14 documented as of this encounter
--- OUTSIDE RECORDS SUMMARY | 2024-04-13 17:56 | XMS_ITS | Encounter Summary ---
Author Organization [employer] [facility] Address [address] [place] [address] 7[place], [place] [address] Care Team Providers Care Manager Labor Relations Name Role Phone Leticia Au MD Primary Care Provider +1 [phone] Reason for Visit * Reason Comments Med Refill Encounter Details Date Type Department Care Team (Late st Contact Info) Description 08/24/2022 Refill [facility] MEDICINE [address] [place] [phone] Pipo Cha MD [address] [place] [address] [phone] Opioid dependence, uncomplicated (CMS/HCC) Social History Tobacco [...] 3:00 PM EST Office Visit [facility] MEDICINE [address] [place] [address] [phone] Andreas Roldan MD [address] [place] [address] [phone] documented as of this encounter Visit Diagnoses Diagnosis Opioid dependence, uncomplicated (CMS/HCC) documented in this encounter Care Teams Manager Labor Relations Relationship Specialty Start Date End Date Leticia Au MD [address] [place] [phone] PCP - General Internal Medicine 01/13/14 documented as of this encounter
--- OUTSIDE RECORDS SUMMARY | 2024-04-13 17:56 | XMS_ITS | Encounter Summary ---
Author Organization [email or web address] Address [address] [facility] 7t [place] [address] Care Team Providers Care Collar Sewer Name Role Phone Leticia Au MD Primary Care Provider +1- [phone] Encounter Details Date Type Department Care Team (Late Contact Info) Description 04/09/2023 Telephone [facility] CHC ADULT DENTAL [address] [place] [address] Sky Ferro DDS [address] [place] [address] Social History Tobacco Use Types Packs/Day Years [...] encounter Miscellaneous Notes * Telephone Encounter - Anne Marie Silver - 04/09/2023 3:34 PM EST Patient was seen today with DR PADRON . Patient is calling for medication for pain his in a lot of pain. Can we help the patient thank u doc . documented in this encounter Plan of Treatment Upcoming Encounters Date Type Department Care Team (Late Contact Info) Description 04/20/2024 3:00 PM EST Office Visit [facility] MEDICINE [address] [place] [address] Andreas Roldan MD [address] [place] [address] documented as of this encounter Visit Diagnoses Not on filedocumented in this encounter Care Teams Collar Sewer Relationship Specialty Start Date End Date Leticia Au MD [address] [place] [phone] PCP - General Internal Medicine 01/13/14 documented as of this encounter
--- OUTSIDE RECORDS SUMMARY | 2024-04-13 17:56 | XMS_ITS | Encounter Summary ---
Author Organization [employer] Address [address] [place] [address] Care Team Providers Care Helper Steel Fabrication Name Role Phone Leticia Au MD Primary Care Provider +1- [phone] Encounter Details Date Type Department Care Team (Late Contact Info) Description 03/31/2023 Orders Only [facility] CHC MED & PEDS [address] [place], [place] [phone] Leticia Au MD 505 [place] [address] Anxiety (Primary Dx) Social History Tobacco Use Types [...] Description 04/20/2024 3:00 PM EST Office Visit [facility] MEDICINE [address] [place], [place] [phone] Andreas Roldan MD [address] [place], [place] [phone] documented as of this encounter Visit Diagnoses Diagnosis Anxiety- Primary Anxiety state, unspecified documented in this encounter Care Teams Helper Steel Fabrication Relationship Specialty Start Date End Date Leticia Au MD [address] [place] [phone] PCP - General Internal Medicine 01/13/14 documented as of this encounter
== END 2024-04-13 14:17 | disposition home or self-care (01) ==
LOC: HO.LNP 14:16
PROVIDERS: PCP Internal Medicine; Visit Provider Nurse Practitioner Family
DX: R31.29 Other microscopic hematuria (principal); R35.1 Nocturia; F17.200 Nicotine dependence, unspecified, uncomplicated; Z13.9 Encounter for screening, unspecified
CPT/HCPCS: 51798; 81003; 88112

== ENCOUNTER 2024-04-15 14:11 | Outpatient (AMB) | payer OTHER, SELFPAY ==
--- NOTE | 2024-04-15 14:31 | A.OFFVIS_ITS ---
Vital Signs 04/15/24 14:32 Height 5 ft 9 in Weight 227 lb 1.218 oz BMI 33.5 BP 120/80 Blood Pressure Location Lt brachial Position Sitting Pulse 53 Pulse Source Pulse Oximeter Pulse Oximetry (%) 97 Oxygen Delivery Method Room Air Intake Visit Reasons: Obstructive sleep apnea Intake Note: pt is using his cpap but at times feels like he cannot breath with it on. Allergies No Known Allergies [No Known Allergies*] Allergy (Verified 04/15/24 15:01) Medication List - Last Reconciled 04/15/24 by Carlene Guardado MD albuterol sulfate 90 mcg/actuation 2 puffs inhalation QID PRN amiodarone 200 mg PO DAILY apixaban (Eliquis) 5 mg PO BID ascorbate calcium (vitamin C) 500 mg PO DAILY buprenorphine-naloxone 4-1 mg 1 film sublingual DAILY buprenorphine-naloxone 8-2 mg (Suboxone) 1 strip sublingual BID cholecalciferol (vitamin D3) 25 mcg PO DAILY ferrous sulfate (iron) 325 mg PO DAILY furosemide 40 mg See Protocol PO BID mecobalamin (vitamin B12) 500 mcg PO DAILY metoprolol succinate ER 50 mg PO BID multivitamin 1 tab PO DAILY sacubitril-valsartan 49-51 mg (Entresto) 1 tab PO BID Do you need a note to return to daycare/school/sports/work: No HPI HPI Obstructive sleep apnea: Details: THIS 63 YEARS OLD GENTLEMAN IS GROSSLY OBESE AND HAS DIAGNOSIS OF OBSTRUCTIVE SLEEP APNEA, AND MILD INTERMITTENT BRONCHIAL ASTHMA. HE IS HERE. FOR FOLLOW-UP FOR THE SLEEP APNEA IN THE LAST 2 MONTHS HE HAS TRY TO USE THE CPAP EVERY NIGHT. HOWEVER DURING THE NIGHT HE FEELS THERE IS SOME AIR LEAK AND HE PULLS OFF THE MASK. SO ENDS UP USING CPAP ONLY ABOUT 2 TO 2-1/2 HOURS PER NIGHT. HE STILL FEELS SLEEPY DURING THE DAYTIME. TODAY IN THE OFFICE WHEN HE WAS WAITING IN THE EXAM ROOM HE COMPLAINS THAT HE FEELS LIKE FALLING ASLEEP. THIS INDICATES AN INSUFFICIENT AMOUNT OF SLEEP AT NIGHT. PATIENT HAS HISTORY OF ATRIAL FIBRILLATION AND CHRONIC SYSTOLIC HEART FAILURE, BEING TREATED WITH MEDS . AND HOLDING STABLE. BREATHING HAS BEEN GOOD AND HE HAS NOT NEEDED TO USE THE BRONCHODILATOR INHALER.. HE ALSO HAS HISTORY OF OPIOIDS ABUSE, AND NOW BEING TREATED WITH SUBOXONE. [facility] Medical History Asthma LUZ MARINA (obstructive sleep apnea) Obesity (BMI 30-39.9) Atrial fibrillation with RVR New onset of congestive heart failure Arthritis Hypertension History of pyloric stenosis Surgical History S/P LASIK surgery of both eyes History of abdominal surgery Status post total replacement of both hips S/P gastric surgery History of wisdom tooth extraction History of colonoscopy Family History Father Prostate cancer HTN (hypertension) Mother HTN (hypertension) Heart disease Arthritis Kidney disease Diabetes Stroke FH: cataracts Constipation S/P colostomy Family/Other ADHD Disc disease, degenerative, lumbar or lumbosacral Maternal Uncle Cancer S/P colostomy Social History Household Members: None Housing: Apartment Are you a primary home health care worker to a significant other at home: No Do you presently have visiting nurse or other home services: No Alcohol intake: current Alcohol intake frequency: former alcohol drinker Alcohol type: beer Patient Tobacco Use Status: Current everyday Tobacco user Tobacco use type: Cigarette Cigarette Packs Per Day: 0.5 Cigarettes Per Day: 6 Years Smoked: 30 e-Cigarette/Vaping Use: Never Used Second Hand Smoke Exposure: Yes Substance Use Type: Crack/Cocaine and Heroin service: No Current occupational status: employed Review of Systems Const All systems reviewed & are unremarkable except as noted in HPI and below Reports snoring Eyes Reports no additional complaints ENT Reports no additional complaints Card Denies chest pain, Denies irregular heart rhythm and Denies leg edema Resp Reports cough, Reports snoring and Reports wheezing GI Reports constipation Reports other (HISTORY OF FREQUENT URINARY TRACT INFECTION) Skin/Breast Reports system reviewed and no additional complaints, except as documented Neuro Reports no additional complaints Psych Reports no additional complaints Endo Reports no additional complaints Robby/Lymph Reports no additional complaints Aller/Immun Reports no additional complaints and Reports wheezing Physical Exam Vital Signs: Last Vital Signs Pulse 53 04/15/24 14:32 BP 120/80 04/15/24 14:32 Pulse Ox 97 04/15/24 14:32 Oxygen Delivery Method Room Air 04/15/24 14:32 BMI result Body Mass Index 33.5 HE IS MODERATELY OBESE WITH THE ROUND FACE, SHORT NECK. Const General: healthy appearing (EXCEPT FOR BEING OVERWEIGHT), comfortable, no acute distress, alert and awake Orientation/consciousness: patient oriented x3 HEENT Head: Yes normal to inspection General nose exam: No nasal polyps present and No nasal discharge present Face and sinus: Yes sinuses nontender Mouth: oropharynx abnormals (NARROW AND SOMEWHAT CROWDED, MALLAMPATI CLASS 3) Throat: Yes posterior oropharynx normal Eyes General: appearance normal, both eyes and all related structures Neck Neck: Yes normal visual inspection, Yes no lymphadenopathy, Yes trachea midline, Yes no JVD and Yes other (NECK SIZE 16 IN) Thyroid: Thyroid normal Chest Chest palpation & inspection: normal inspection of the chest, normal palpation of entire chest wall and no tenderness Resp Effort & Inspection: normal respiratory effort Auscultation: clear to auscultation bilaterally, no crackles and no wheezes Cardio Palpation: normal PMI Rate: regular rate Rhythm: regular rhythm Heart sounds: no gallops and no murmurs Peripheral pulses: Peripheral pulses 2+ throughout GI Palpation (GI): Soft to palpation, nontender, No hepatosplenomegaly present and no masses Auscultation: normal bowel sounds Back/Spine/Pelvis Thoracic/Lumbar Spine: thoracic and lumbar spine normal to inspection Skin General skin exam: no rashes or lesions noted Neuro General: patient oriented x3 and no focal motor deficits Cranial nerves: Yes CN's II-XII intact bilaterally Extrem General: Yes normal to inspection, Yes no clubbing, cyanosis or edema and Yes no calf tenderness Psych Appearance: grossly normal and well kempt Mental Status: mental status grossly normal Speech and movement: Normal speech and movement present Results Reviewed Results Reviewed: COMPLIANCE REPORT FOR THE LAST 30 NIGHTS IS REVIEWED. PATIENT HAS USED CPAP 27 OUT OF 30 NIGHTS, 90%. AVERAGE USE IT PER NIGHT HAS REMAINED 2 HOURS 46 MINUTES. THERE IS MODERATE AMOUNT OF AIR LEAK WITH MAXIMUM 65 L. RESIDUAL AHI IS STILL 9.8 Assessment & Plan Assessment & Plan (1) Obesity (BMI 30-39.9): Comment: THIS GENTLEMAN IS MODERATELY OBESE WITH CURRENT BMI 33.5 HE DOES HAVE A SHORT AND OBESE NECK. Code(s): E66.9 - Obesity, unspecified Category: Medical Plan: ENCOURAGED TO LOSE WEIGHT. DOES NOT SEEM TO UNDERSTAND AND DOES NOT SEEM TO BE WELL MOTIVATED. (2) LUZ MARINA (obstructive sleep apnea): Comment: HE IS A KNOWN CASE OF OBSTRUCTIVE SLEEP APNEA SINCE 2020. UNFORTUNATELY HE HAD LOST FOLLOW-UP AFTER HIS INITIAL STUDY IN 2020. RECENT STUDY IN SEPTEMBER 2023 WAS POSITIVE FOR MODERATELY SEVERE OBSTRUCTIVE SLEEP APNEA. WITH MINIMAL NOCTURNAL HYPOXEMIA WHICH SHOULD IMPROVE AFTER TREATMENT OF HIS LUZ MARINA. HE WAS PRESCRIBED CPAP THERAPY WITH AUTO PAP MODE AND FULLFACE MASK OF LARGE SIZE. HE HAS BEEN COMPLIANT SINCE THE START OF USING CPAP. BUT HIS OVER AVERAGE USAGE PER NIGHT IS SUBOPTIMAL. THAT IS WHY HE STILL HAS RESIDUAL AHI OF 9.8 AND HAS DAYTIME SLEEPINESS. Code(s): G47.33 - Obstructive sleep apnea (adult) (pediatric) Category: Medical Plan: HAD A GOOD TALK WITH HIM. TRY TO MAKE HIM UNDERSTAND THE IMPORTANCE OF USING CPAP EVERY NIGHT AND FOR AT LEAST 4-5 HOURS PER NIGHT. HE NEEDS LOT OF ONGOING EDUCATION AND CLOSE MONITORING. (3) Asthma: Comment: HE HAS HISTORY OF INTERMITTENT BRONCHIAL ASTHMA SINCE MANY YEARS. PULMONARY FUNCTION TEST IN JULY 2020 SHOWED SEVERE OBSTRUCTIVE AIRWAY DISORDER WITH ALMOST COMPLETE REVERSIBILITY. C/W BRONCHIAL ASTHMA, HE HAS BEEN USING ALBUTEROL HFA 2 PUFFS Q 4-6 HOURS P.R.N.. BUT NOT OFTEN. Code(s): J45.909 - Unspecified asthma, uncomplicated Category: Medical Plan: AGAIN ADVISED TO USE ALBUTEROL HFA Q 6 HOURS P.R.N. IF HE HAS SHORTNESS OF BREATH OR WHEEZING Coding Level of Care Code Est Pt Level 3 (01063) Diagnoses Obesity (BMI 30-39.9) E66.9 LUZ MARINA (obstructive sleep apnea) G47.33 Asthma J45.909
[2024-04-15 14:32] VITALS: BP 120/80; PULSE 53; O2SAT 97; BMI 33.5
== END 2024-04-15 15:02 | disposition home or self-care (01) ==
PROVIDERS: PCP Internal Medicine; Visit Provider Internal Medicine
DX: E66.9 Obesity, unspecified (principal); G47.33 Obstructive sleep apnea (adult) (pediatric); J45.909 Unspecified asthma, uncomplicated
CPT/HCPCS: 99213

== ENCOUNTER → 2024-04-15 14:11 | Outpatient (BNVA) | payer OTHER, SELFPAY | PROVIDERS: PCP Internal Medicine; Visit Provider Internal Medicine ==

== ENCOUNTER 2024-06-14 15:08 | Outpatient (REF) | payer SELFPAY ==
[2024-06-14 16:56] LABS: Alanine Aminotransferase 17 U/L (0-40); Albumin Level 4.3 g/dL (3.5-5.0); Alkaline Phosphatase 61 U/L (39-117); Anion Gap 10 (12-20); Aspartate Amino Transferase 24 U/L (5-37); Bilirubin Direct 0.1 mg/dL (0.0-0.5); Bilirubin Total 0.4 mg/dL (0.0-1.0); Blood Urea Nitrogen 23 mg/dL (9-16); Calcium 9.3 mg/dL (8.4-10.2); Carbon Dioxide 32 mmol/L (22-29); Chloride 102 mmol/L (96-108); Digoxin < 0.2 ng/mL (0.8-2.0); Estimated Glomerular Filt Rate 60; Glucose Random 95 mg/dL (60-115); Potassium 4.3 mmol/L (3.3-5.1); Sodium 140 mmol/L (135-145); Total Protein 7.2 g/dL (6.5-8.0)
[2024-06-15 05:18] LABS: Syphilis Screen Nonreactive (Nonreactive)
[2024-06-15 05:32] LABS: HIV AB/AG Nonreactive (Nonreactive); HIV Num 1 0.08 S/CO (0.00-0.99); ~HepC Num1 14.86 S/CO (0.00-0.79); ~Hepatitis C Antibody Reactive (Nonreactive)
[2024-06-17 16:38] LABS: HCV Log PCR <1.18 NOT DETECTED Log IU/mL (NOT DETECTED); HepC Viral Load <15 NOT DETECTED IU/mL (NOT DETECTED)
== END 2024-06-14 15:09 | disposition home or self-care (01) ==
LOC: HO.HHCL 15:08
PROVIDERS: Family Medicine; Visit Provider Emergency Medicine
DX: I50.23 Acute on chronic systolic (congestive) heart failure (principal); I48.91 Unspecified atrial fibrillation; F11.20 Opioid dependence, uncomplicated
CPT/HCPCS: 36415; 80048; 80076; 80162; 86481; 86780; 86803; 87389; 87522

== ENCOUNTER 2024-09-13 15:35 | Outpatient (AMB) | payer OTHER, MEDICAID, SELFPAY ==
--- NOTE | 2024-09-13 15:38 | A.OFFVIS_ITS ---
Vital Signs 09/13/24 15:41 Height 5 ft 9 in Weight 235 lb 14.314 oz BMI 34.8 BP 110/70 Blood Pressure Location Lt brachial Position Sitting Pulse 57 Pulse Source Monitor Intake Visit Reasons: 3m follow up r/s Intake Note: 3 mth f/up Station Cashier Required: No Accompanied by: Self / Same As Patient Allergies No Known Allergies (No Known Allergies*) Allergy (Verified 04/15/24 15:01) Medication List - Last Reconciled 09/13/24 by Thomas Ruffin MD albuterol sulfate 90 mcg/actuation 2 puffs inhalation QID PRN amiodarone 200 mg PO DAILY apixaban (Eliquis) 5 mg PO BID ascorbate calcium (vitamin C) 500 mg PO DAILY buprenorphine-naloxone 4-1 mg 1 film sublingual DAILY buprenorphine-naloxone 8-2 mg (Suboxone) 1 strip sublingual BID cholecalciferol (vitamin D3) 25 mcg PO DAILY ferrous sulfate (iron) 325 mg PO DAILY furosemide 40 mg See Protocol PO BID losartan 50 mg PO DAILY mecobalamin (vitamin B12) 500 mcg PO DAILY metoprolol succinate ER 50 mg PO BID multivitamin 1 tab PO DAILY HPI Comments Details: [age] year gentleman who is here for follow-up. He was admitted at [facility] in February 2024 with AFib with RVR and congestive heart failure. He was noticed to have severe cardiomyopathy underwent VAMSI cardioversion. He was started on amiodarone and guideline directed medical therapy. Since then he has been clinically stable. He is denying any chest pain or significant shortness of breath. He said he missed his metoprolol for few days and had some dyspnea but once he has started taking it his breathing improved. He is also concerned then he has been gaining weight. [facility] Medical History Asthma LUZ MARINA (obstructive sleep apnea) Obesity (BMI 30-39.9) Atrial fibrillation with RVR New onset of congestive heart failure Arthritis Hypertension History of pyloric stenosis Surgical History S/P LASIK surgery of both eyes History of abdominal surgery Status post total replacement of both hips S/P gastric surgery History of wisdom tooth extraction History of colonoscopy Family History Father Prostate cancer HTN (hypertension) Mother HTN (hypertension) Heart disease Arthritis Kidney disease Diabetes Stroke FH: cataracts Constipation S/P colostomy Family/Other ADHD Disc disease, degenerative, lumbar or lumbosacral Maternal Uncle Cancer S/P colostomy Social History Household Members: None Housing: Apartment Are you a primary care taker to a significant other at home: No Do you presently have visiting nurse or other home services: No Alcohol intake: current Alcohol intake frequency: former alcohol drinker Alcohol type: beer Patient Tobacco Use Status: Current everyday Tobacco user Tobacco use type: Cigarette Cigarette Packs Per Day: 0.5 Cigarettes Per Day: 6 Years Smoked: 30 e-Cigarette/Vaping Use: Never Used Second Hand Smoke Exposure: Yes Substance Use Type: Crack/Cocaine and Heroin service: No Current occupational status: employed Review of Systems Const Denies chills, Denies fatigue, Denies fever(s), Denies frequent falls, Denies weakness, Denies weight gain and Denies weight loss ENT Denies dizziness Card Denies chest pain, Denies leg edema, Denies lightheadedness, Denies palpita tions, Denies dyspnea and Denies dyspnea on exertion Resp Denies cough, Denies dyspnea and Denies dyspnea on exertion GI Denies hematochezia Musc Denies abnormal gait, Denies muscle weakness, Denies numbness, Denies radiating pain into limb and Denies tingling Neuro Denies abnormal gait, Denies dizziness, Denies frequent falls, Denies numbness, Denies tingling and Denies weakness Endo Denies fatigue and Denies palpitations Physical Exam Vital Signs: Last Vital Signs Pulse 57 09/13/24 15:41 BP 110/70 09/13/24 15:41 BMI result Body Mass Index 34.8 GENERAL APPEARANCE: in no acute distress, pleasant. NECK: no carotid bruit, no jugular venous distention. SKIN: no suspicious lesions, warm and dry. HEART: no murmurs, regular rate and rhythm. LUNGS: clear to auscultation bilaterally. ABDOMEN: soft, nontender. EXTREMITIES: no edema. PERIPHERAL PULSES: equal. NEUROLOGIC: No gross deficits, AAO X 3 Office Procedures EKG Details: Sinus bradycardia 57 beats per minute, normal ECG otherwise, QTC 438 milliseconds. [id number], Complete Assessment & Plan Assessment & Plan (1) Hypertension: Code(s): I10 - Essential (primary) hypertension Category: Medical (2) Chronic systolic heart failure: Code(s): I50.22 - Chronic systolic (congestive) heart failure Category: Medical (3) Atrial fibrillation: Code(s): I48.91 - Unspecified atrial fibrillation Category: Medical Qualifiers: Atrial fibrillation type: paroxysmal Qualified Code(s): I48.0 - Parox ysmal atrial fibrillation Plan [age] year gentleman with background history of atrial fibrillation with admission in February with AFib with RVR and systolic heart failure status post cardioversion and on amiodarone. He continues to be in sinus rhythm. Clinically euvolemic. We will arrange echocardiogram to reassess ejection fraction. Monitoring labs for amiodarone. In particular TSH to make sure he does not have hypothyroidism and that is why he is gaining weight. Referring him to electrophysiology for ablation. Once he is successfully abla jaspal we will stop the amiodarone. Follow-up in few months. Thank you for allowing me to participate in the care of your patient. Please feel free to contact me if you have any questions. Orders: Orders CA echo transthoracic complete Today I50.22 - Chronic systolic (congestive) heart failure B Type Natriuretic Peptide Today I48.0 - Paroxysmal atrial fibrillation TSH reflex Free T4 Today I48.0 - Paroxysmal atrial fibrillation Liver Panel Today I48.0 - Paroxysmal atrial fibrillation Referrals Cardiac Electrophysiology Referral I48.0 - Paroxysmal atrial fibrillation Coding Level of Care Code Est Pt Level 4 (70649) Diagnoses Hypertension I10 Chronic systolic heart failure I50.22 Atrial fibrillation I48.0 Atrial fibrillation type: paroxysmal CPT Codes EKG - CPT: [id number], Complete ([id number])
[2024-09-13 15:41] VITALS: BP 110/70; PULSE 57; BMI 34.8
--- OUTSIDE RECORDS SUMMARY | 2024-09-13 17:04 | XMS_ITS | Encounter Summary ---
Author Organization [employer] Address [address] [place] [address] Care Team Providers Care Bellperson Name Role Phone Leticia Au MD Primary Care Provider [phone] Encounter Details Date Type Department Care Team ([facility] Contact Info) Description 03/31/2023 Orders Only [facility] [address] [place], [place] [phone] Leticia Au MD [address] [place] [address] Anxiety (Primary Dx) Social History Tobacco Use [...] Department Care Team (Late Contact Info) Description 10/05/2024 2:00 PM EDT Office Visit [facility] [address] [place] [address] Andreas Roldan MD [address] [place] [address] documented as of this encounter Visit Diagnoses Diagnosis Anxiety- Primary Anxiety state, unspecified documented in this encounter Care Teams Bellperson Relationship Specialty Start Date End Date Leticia Au MD [address] [place] [id number] PCP - General Internal Medicine 01/13/14 documented as of this encounter
== END 2024-09-13 15:58 | disposition home or self-care (01) ==
PROVIDERS: PCP Internal Medicine; Visit Provider Internal Medicine Cardiovascular Disease
DX: I10 Essential (primary) hypertension (principal); I50.22 Chronic systolic (congestive) heart failure; I48.0 Paroxysmal atrial fibrillation
CPT/HCPCS: 93010; 99214

== ENCOUNTER → 2024-09-13 15:35 | Outpatient (BNVA) | payer SELFPAY | PROVIDERS: PCP Internal Medicine; Visit Provider Internal Medicine Cardiovascular Disease | DX: I48.0 Paroxysmal atrial fibrillation (principal); I11.0 Hypertensive heart disease with heart failure; I50.22 Chronic systolic (congestive) heart failure | CPT/HCPCS: 93005 ==

== ENCOUNTER 2024-09-19 22:48 | Emergency (ER) | payer OTHER, SELFPAY ==
--- NOTE | ~2024-09-19 | XR_ITS ---
CLINICAL HISTORY: pain difficulty walking Lumbar spine three views Comparison: None provided Findings: No acute fracture or dislocation. Severe L3-4 degenerative change. Slight L3-4 anterolisthesis, likely chronic. Remaining alignment is unremarkable. Moderate degenerative change throughout. Bilateral hip prostheses partially visualized. Impression: No acute processes This document has been electronically signed by: Dagoberto Mcdaniels MD on 09/20/2024 00:34:20
--- NOTE | ~2024-09-19 | XR_ITS ---
CLINICAL HISTORY: pain difficulty walking Pelvis and left hip two views Comparison: None provided Findings: No acute fracture or dislocation identified. Bilateral hip prostheses demonstrate normal alignment. There is no evidence for prosthesis component loosening. Impression: No acute bony abnormality This document has been electronically signed by: Dagoberto Mcdaniels MD on 09/20/2024 00:33:42
[2024-09-19 22:54] VITALS: BP 173/71; PULSE 59; RESP 16; TEMP 36.7; O2SAT 99; BMI 34.7
--- NOTE | 2024-09-20 01:05 | ED.GENADULT ---
HPI - General Adult General Chief complaint: Back Pain/Injury Stated complaint: swelling on left hip to back swollen left foot Time Seen by Provider: 09/20/24 01:05 History of Present Illness ED Provider: Janelle SANCHEZ narrative: The patient is a 64-year-old male who says that he has been having problems with pain in his left lower back radiating down his left leg for the last 2 days. He says that his pain began after he was helping a friend work on his car. He denies doing any heavy lifting but he says he was in some unusual positions while he was helping his friend and he thinks this might have triggered his back pain. He indicates that he feels the pain primarily in the left lower back and in the back of the left hip area and the pain then radiates down the back of the left leg towards the foot. He says that he drove himself to the hospital today but he is having a lot of difficulty walking because of the pain. He has no bowel or bladder control complaints. The patient has a history of atrial fibrillation and is on apixaban Related Data Home Medications ?Medication ?Instructions ?Recorded ?Confirmed buprenorphine 8 mg-naloxone 2 mg 1 strip sublingual BID 06/04/20 09/13/24 sublingual film (Suboxone) ascorbate calcium (vitamin C) 500 500 mg PO DAILY 07/25/23 09/13/24 mg tablet cholecalciferol (vitamin D3) 25 25 mcg PO DAILY 07/25/23 09/13/24 mcg (1,000 unit) tablet mecobalamin (vitamin B12) 500 mcg 500 mcg PO DAILY 07/25/23 09/13/24 chewable tablet multivitamin 1 tab PO DAILY 07/25/23 09/13/24 buprenorphine 4 mg-naloxone 1 mg 1 film sublingual DAILY 12/19/23 09/13/24 sublingual film ferrous sulfate 325 mg (65 mg 325 mg PO DAILY 02/10/24 09/13/24 iron) tablet (iron) Previous Rx's ?Medication ?Instructions ?Recorded albuterol sulfate 90 mcg/actuation 2 puff inhalation QID PRN 07/22/21 aerosol inhaler shortness of breath or wheezing #6.7 grams amiodarone 200 mg tablet 200 mg PO DAILY #90 tabs 03/15/24 furosemide 40 mg tablet 40 mg PO BID #120 tabs 03/15/24 metoprolol succinate 50 mg 50 mg PO BID #120 tabs 03/15/24 tablet,extended release 24 hr losartan 50 mg tablet 50 mg PO DAILY #90 tabs 04/21/24 apixaban 5 mg tablet (Eliquis) 5 mg PO BID #180 tabs 06/22/24 acetaminophen 500 mg capsule 1,000 mg (2 x 500 mg) PO Q8H PRN 09/20/24 fever or pain #16 caps cyclobenzaprine 10 mg tablet 10 mg PO TID PRN muscle spasm #14 09/20/24 tabs Allergies Allergy/AdvReac Type Severity Reaction Status Date / Time No Known Allergies (No Known Allergy Verified 09/19/24 22:58 Allergies*) Review of Systems Review of Systems: Yes all other systems are reviewed and are negative [facility] Past Medical History Medical History Asthma LUZ MARINA (obstructive sleep apnea) Obesity (BMI 30-39.9) Atrial fibrillation with RVR New onset of congestive heart failure Arthritis Hypertension History of pyloric stenosis Surgical History S/P LASIK surgery of both eyes History of abdominal surgery Status post total replacement of both hips S/P gastric surgery History of wisdom tooth extraction History of colonoscopy Family History Family History Father Prostate cancer HTN (hypertension) Mother HTN (hypertension) Heart disease Arthritis Kidney disease Diabetes Stroke FH: cataracts Constipation S/P colostomy Family/Other ADHD Disc disease, degenerative, lumbar or lumbosacral Maternal Uncle Cancer S/P colostomy Social History Social History Household Members: None Housing: Apartment Are you a primary care partner to a significant other at home: No Do you presently have visiting nurse or other home services: No Alcohol intake: current Alcohol intake frequency: holidays/special occasions only Alcohol type: beer Patient Tobacco Use Status: Current everyday Tobacco user Tobacco use type: Cigarette Cigarette Packs Per Day: 0.5 Cigarettes Per Day: 6 Years Smoked: 30 Smoked in Last 30 Days: Yes e-Cigarette/Vaping Use: Never Used Second Hand Smoke Exposure: Yes Use of substances other than those prescribed or required for medical reasons: No Substance Use Type: Crack/Cocaine and Heroin Advance Directives: No Advance Directives Information Provided: No Do you have a plan to hurt others: No Plan service: No Current occupational status: employed Physical Exam ED Vital Signs: Vital Signs - 24 hr 09/19/24 22:54 09/20/24 03:39 Temperature 98.1 F 98.1 F Pulse Rate 59 59 Respiratory Rate 16 16 Blood Pressure 173/71 H 173/71 H Pulse Oximetry 99 99 Oxygen Delivery Method Room Air Room Air BMI result Body Mass Index 34.7 Const Other: the patient is a 64-year-old male who looks mildly uncomfortable but not toxic. HENMT Other: The face is symmetrical. Mucous membranes moist. Eyes Other: Pupils are round equal, conjunctivae are clear, extraocular movements intact Neck Neck: Yes normal visual inspection, Yes full ROM and Yes no JVD Resp Effort & Inspection: normal respiratory effort Auscultation: clear to auscultation bilaterally Cardio Rate: regular rate Rhythm: regular rhythm Heart sounds: S1 normal heart sound present and S2 normal heart sound present GI Other: Abdomen is soft and nontender Back/Spine/Pelvis Other: the patient has tenderness in the region of the left posterior superior iliac spine. Skin Other: The skin is dry and unremarkable Neuro Other: The patient is awake and alert with a normal mental status. Cranial nerves are grossly intact. He seems to move stiffly but seems to have intact strength in his legs. He has 2+ reflexes at the knees and ankles. Intact sensation. Extrem Other: The patient has some tenderness in the region of the left hip but he can put the hip through a decent range of motion. No deformity. the lower legs are somewhat thick but no pitting edema. The calves seems symmetrical. No calf tenderness. Medications Administered Discontinued Medications Generic Name Dose Route Start Last Admin Trade Name Freq PRN Reason Stop Dose Admin Acetaminophen 975 mg 09/20/24 01:18 09/20/24 01:58 Acetaminophen 325 Mg Tablet PO 09/20/24 01:19 975 mg ONCE ONE Administration Ketorolac Tromethamine 30 mg 09/20/24 01:18 09/20/24 01:58 Ketorolac Tromethamine 30 Mg/Ml Vial IM 09/20/24 01:19 30 mg ONCE ONE Administration Medical Decision Making Medical Decision Making [facility] Narrative: The patient is a 64-year-old male with a history of atrial fibrillation and congestive heart failure who presents with 2 days of left lower back pain radiating down the back of his left leg. This suggests a sciatica syndrome. He has no bowel or bladder complaints. No saddle anesthesia. He does not seem toxic. No fever. the patient drove himself to the hospital tonight. Based on his physical exam, his history, in his vital signs, and lab results, I do not think he has any kind of a neurosurgical emergency. The patient Is on Suboxone. He apparently takes Suboxone 3 times a day currently, he takes an 8 mg film, later another 8 mg film, and ultimately a 4 mg film. The patient was given an IM injection of ketorolac. Also oral acetaminophen. He seemed to have some improvement in his pain. He will be prescribed cyclobenzaprine. He was also advised to change how he takes his Suboxone. He should come his 8 mg doses in half so that he takes a total of 5 doses throughout the day, 4 mg each dose. Reportedly Suboxone is more effective in pain control when taken in smaller more frequent doses. He was given a work note because of this pain. He is advised to call his regular doctor in the morning for follow up. Lab Data 09/20/24 01:42 09/20/24 01:42 Labs: Lab Results 09/20/24 Range/Units 01:42 WBC 4.5 L (4.8-10.8) X10*3/uL RBC 4.07 L (4.60-5.80) X10*6/uL Hgb 11.8 L (14.0-18.0) g/dl Hct 35.8 L (42.0-52.0) % MCV 88.0 (80.0-98.0) fL MCH 29.0 (27.0-33.0) pg MCHC 33.0 (31.0-36.0) g/dl RDW 13.3 (11.0-16.0) % Plt Count 166 (160-400) X10*3/uL MPV 10.6 (9.4-12.4) fL Immature Gran % (Auto) 0.2 (0.0-0.4) % Neut % (Auto) 37.5 L (45-73) % Lymph % (Auto) 46.0 H (20-40) % Tift % (Auto) 10.6 (2-11) % Eos % (Auto) 5.3 H (0-4) % Baso % (Auto) 0.4 (0-2) % Lymph # (Auto) 2.1 (1.2-4.9) X10*3/uL Tift # (Auto) 0.5 (0.1-1.2) X10*3/uL Eos # (Auto) 0.2 (0.0-0.4) X10*3/uL Baso # (Auto) 0.0 (0.0-0.2) X10*3/uL Abs Immat Gran (auto) 0.01 (0.00-0.03) X10*3/uL Absolute Neuts (auto) 1.7 L (2.0-8.3) x10*3/uL Absolute Nucleated RBC 0.000 (0.0-0.012) X10*3/uL Nucleated RBC % (auto) 0.0 (0.0-0.2) /100WBC Sodium 140 (135-145) mmol/L Potassium 4.1 (3.3-5.1) mmol/L Chloride 103 (96-108) mmol/L Carbon Dioxide 28 (22-29) mmol/L Anion Gap 13 (12-20) BUN 16 (9-16) mg/dL Creatinine 1.02 (0.5-1.4) mg/dL Estim Creat Clear Calc 90.3 Estimated GFR > 60 Random Glucose 107 (60-115) mg/dL Calcium 8.9 (8.4-10.2) mg/dL Total Bilirubin 0.3 (0.0-1.0) mg/dL Direct Bilirubin 0.1 (0.0-0.5) mg/dL AST 28 (5-37) U/L ALT 21 (0-40) U/L Alkaline Phosphatase 61 (39-117) U/L Total Protein 7.1 (6.5-8.0) g/dL Albumin 4.4 (3.5-5.0) g/dL Ethyl Alcohol < 10 mg/dL Discharge Plan Discharge Clinical Impression: Acute left-sided low back pain with left-sided sciatica Patient Disposition: Home, Self-Care Instructions: Acute Low Back Pain (ED) Additional Instructions: Cyclobenzaprine is a muscle relaxant which has been sent to your pharmacy for use for your back pain. You may take this up to 3 times a day. No driving on this medication as it can make you drowsy. Another strategy for pain management this to change the dosing of your Suboxone. I would recommend cutting your 8mg films of Suboxone and half and take the doses of Suboxone more frequently throughout the day. Therefore, instead of taking 8 mg, 8 mg, and 4 mg per day take 4 mg each film for a total of 5 doses spread throughout the day. Also take the prescribed acetaminophen 3 times a day. Avoid bending and lifting and straining and any other activities that exacerbate your pain. Please follow up soon with your regular doctor. Please call your regular doctor's office in the morning for a follow up appointment. Return to the emergency room if you are significantly worse. Prescriptions: New cyclobenzaprine 10 mg tablet 10 mg PO TID PRN (Reason: muscle spasm) Qty: 14 0RF acetaminophen 500 mg capsule 1,000 mg PO Q8H PRN (Reason: fever or pain) Qty: 16 0RF No Action metoprolol succinate 50 mg tablet extended release 24 hr 50 mg PO BID Qty: 120 3RF furosemide 40 mg tablet 40 mg PO BID Qty: 120 3RF Protocol: Hold for SBP< HOLD for SBP < : 90 amiodarone 200 mg tablet 200 mg PO DAILY Qty: 90 3RF losartan 50 mg tablet 50 mg PO DAILY Qty: 90 3RF Eliquis 5 mg tablet 5 mg PO BID Qty: 180 3RF buprenorphine-naloxone [Suboxone] 8-2 mg film 1 strip sublingual BID albuterol sulfate 90 mcg/actuation HFA aerosol inhaler 2 puff inhalation QID PRN (Reason: shortness of breath or wheezing) Qty: 6.7 0RF buprenorphine-naloxone 4-1 mg film 1 film sublingual DAILY ferrous sulfate [iron] 325 mg (65 mg iron) Tablet 325 mg PO DAILY cholecalciferol (vitamin D3) 25 mcg (1,000 unit) tablet 25 mcg PO DAILY multivitamin Tablet 1 tab PO DAILY mecobalamin (vitamin B12) 500 mcg tablet,chewable 500 mcg PO DAILY ascorbate calcium (vitamin C) 500 mg tablet 500 mg PO DAILY Referrals: Leticia Au MD [Primary Care Provider, Medical] Referral Note: sciatica Stand Alone Forms: Work/School Release Interventions: ED Discharge Assessment Last Done: 09/20/24 03:39 Discharge Date/Time: 09/20/24 03:41 Print Language: Swedish
[2024-09-20 01:46] LABS: MANUAL DIFF FLAG NO
[2024-09-20 01:55] LABS: Basophils Percent Auto 0.4 % (0-2); Eosinophils Absolute Auto 0.2 X10*3/uL (0.0-0.4); Eosinophils Percent Auto 5.3 % (0-4); Hematocrit 35.8 % (42.0-52.0); Hemoglobin 11.8 g/dl (14.0-18.0); Imm Gran Abs Auto 0.01 X10*3/uL (0.00-0.03); Imm Gran Pct Auto 0.2 % (0.0-0.4); Lymphocytes Absolute Auto 2.1 X10*3/uL (1.2-4.9); Mean Platelet Volume 10.6 fL (9.4-12.4); Monocytes Absolute Auto 0.5 X10*3/uL (0.1-1.2); Monocytes Percent Auto 10.6 % (2-11); Neutrophils Absolute Auto 1.7 x10*3/uL (2.0-8.3); Neutrophils Percent Auto 37.5 % (45-73); Platelet Count 166 X10*3/uL (160-400); Red Blood Count 4.07 X10*6/uL (4.60-5.80); Red Cell Distribution Width 13.3 % (11.0-16.0); White Blood Count 4.5 X10*3/uL (4.8-10.8)
[2024-09-20] MEDS: Acetaminophen 325 MG TABLET 975 MG PO (01:58)
[2024-09-20] MEDS: Ketorolac Tromethamine 30 MG/ML VIAL IM (01:58)
[2024-09-20 02:01] LABS: Alanine Aminotransferase 21 U/L (0-40); Albumin Level 4.4 g/dL (3.5-5.0); Alkaline Phosphatase 61 U/L (39-117); Anion Gap 13 (12-20); Aspartate Amino Transferase 28 U/L (5-37); Bilirubin Direct 0.1 mg/dL (0.0-0.5); Bilirubin Total 0.3 mg/dL (0.0-1.0); Blood Urea Nitrogen 16 mg/dL (9-16); Calcium 8.9 mg/dL (8.4-10.2); Carbon Dioxide 28 mmol/L (22-29); Chloride 103 mmol/L (96-108); Creatinine Clr Calc Pharmacy 90.3; Estimated Glomerular Filt Rate > 60; Ethanol < 10 mg/dL; Glucose Random 107 mg/dL (60-115); Potassium 4.1 mmol/L (3.3-5.1); Sodium 140 mmol/L (135-145); Total Protein 7.1 g/dL (6.5-8.0)
[2024-09-20 03:39] VITALS: BP 173/71; PULSE 59; RESP 16; TEMP 36.7; O2SAT 99
== END 2024-09-20 03:41 | disposition home or self-care (01) ==
PROVIDERS: Emergency Provider Emergency Medicine; PCP Internal Medicine
DX: M54.42 Lumbago with sciatica, left side (principal); I48.91 Unspecified atrial fibrillation; Z79.01 Long term (current) use of anticoagulants; Z79.899 Other long term (current) drug therapy; F11.20 Opioid dependence, uncomplicated; F17.210 Nicotine dependence, cigarettes, uncomplicated
CPT/HCPCS: 36415; 72100; 73502; 80048; 80076; 80307; 85025; 96372; 99284; J1885

== ENCOUNTER → 2024-09-19 23:35 | Outpatient (BNV) | payer OTHER, SELFPAY | PROVIDERS: PCP Internal Medicine; Visit Provider Radiology Diagnostic Radiology | DX: M25.552 Pain in left hip (principal); R26.2 Difficulty in walking, not elsewhere classified; M54.50 Low back pain, unspecified | CPT/HCPCS: 72100; 73502 ==

== ENCOUNTER 2024-09-30 08:40 | Emergency (ER) | payer OTHER, SELFPAY ==
--- NOTE | ~2024-09-30 | XR_ITS ---
EXAMINATION: XR KNEE, LEFT CLINICAL INFORMATION: Pain COMPARISON: 09/11/2023, 09/04/2023. MRI left knee 10/18/2023. TECHNIQUE: Four views of the left knee. FINDINGS: No fracture, dislocation, or suspicious bone lesion. Normal alignment. Evidence of prior MCL injury is present. There is early tricompartmental osteoarthritis present. There is mild spurring of the tibial spines. There is no evidence of joint effusion. Normal soft tissues. XR/XR knee LT 4V IMPRESSION: No acute findings left knee. Electronically signed by: Johnny Hurley MD 09/30/2024 01:16 PM EDT
--- NOTE | ~2024-09-30 | XR_ITS ---
EXAMINATION: XR HIP, LEFT CLINICAL INFORMATION: Pain COMPARISON: 09/19/2024. TECHNIQUE: AP pelvis, and 2 views of the left hip. FINDINGS: Total left hip arthroplasty in place. Femoral, acetabular components intact, well seated, in anatomic alignment. No periprosthetic lucency or complication. No fractures. No subsidence. Right hip arthroplasty also in place without complication evident. Mild heterotopic bone formation present right greater than left. No soft tissue abnormalities. XR/XR hip LT w PEL1V IMPRESSION: Bilateral total hip arthroplasties without complications. No fractures. Electronically signed by: Johnny Hurley MD 09/30/2024 01:17 PM EDT
--- NOTE | ~2024-09-30 | US_ITS ---
EXAMINATION: US LOWER EXTREMITY VEINS LIMITED FOLLOW UP LEFT HISTORY: Pain COMPARISON: Comparison is made with the prior examination dated 12/19/2023. TECHNIQUE: Duplex and color Doppler sonographic examination of the deep venous system of the left lower extremity was performed. FINDINGS: The common femoral, superficial femoral, and popliteal veins are patent demonstrating normal compressibility, spontaneous flow, and augmentation. There is a normal color and spectral Doppler waveform appearance of the visualized deep venous system above the knee. The posterior tibial and peroneal veins are patent. There is fluid seen lateral to the knee. US/US venous duplex LE LT IMPRESSION: No evidence of acute DVT in the left lower extremity. Electronically signed by: Ray Batres MD 09/30/2024 12:49 PM EDT
[2024-09-30 08:50] VITALS: BP 129/80; PULSE 75; RESP 16; TEMP 36; O2SAT 97; BMI 34.8
[2024-09-30] MEDS: oxyCODONE HCl Immed Release 5 MG TABLET PO ×2 (11:56→14:58)
--- OUTSIDE RECORDS SUMMARY | 2024-09-30 12:12 | XMS_ITS | Encounter Summary ---
Author Organization [employer] Address [address] [place] [address] Care Team Providers Care Associate Quality Engineer Name Role Phone Leticia Au MD Primary Care Provider [phone] Encounter Details Date Type Department Care Team (Late Contact Info) Description 03/31/2023 Orders Only [facility] [address] [place], [place] [phone] Leticia Au MD [address] [place] [address] Anxiety (Primary Dx) Social History Tobacco Use [...] Description 10/05/2024 2:00 PM EDT Office Visit [facility] [address] [place] [phone] Andreas Roldan MD [address] [place] [phone] 12/28/2024 1:30 PM EDT Office Visit [facility] [address] [place] [address] [phone] Andreas Roldan MD [address] [place] [phone] documented as of this encounter Visit Diagnoses Diagnosis Anxiety- Primary Anxiety state, unspecified documented in this encounter Care Teams Associate Quality Engineer Relationship Specialty Start Date End Date Leticia Au MD [address] [place] [phone] PCP - General Internal Medicine 01/13/14 documented as of this encounter
--- OUTSIDE RECORDS SUMMARY | 2024-09-30 12:12 | XMS_ITS | Clinical Summary ---
Author Organization [employer] [facility] ity Address [address] [place] [address] Care Team Providers Care Senior Electrical Estimator Name Role Phone Leticia Au MD Primary Care Provider [phone] Social History Tobacco Use Types Packs/Day Years Used Date Smoking Tobacco: Never Assessed Sex and Gender Information Value Date Recorded Sex Assigned at Not on file Legal Sex Male 4:54 PM EST Gender Identity Not on file Sexual Orientation [...] DTaP,Tdap,and Td Vaccines (1 - Tdap) 1981 Pneumococcal Vaccine: 50+ Ye ars (1 of 1 - PCV) 2012 Zoster Vaccines (1 of 2) 2012 COVID-19 Vaccine (1 - 2023-2 5 season) 2023 Cholesterol Screening (Lipid Panel) 02/17/2024 Colorectal Cancer Screening: Colonoscopy 02/17/2024 Depression Screening 02/17/2024 HIV Screening 02/17/2024 Hepatitis C Screening 02/17/2024 Social Influencers of Health Screening 02/17/2024 Influenza Vaccine (#1) 2024 RSV Immunization Adult Patie nts (1 - 1-dose 75+ series) 2037 HIB [...] patient's age to complete this topic Meningococcal B Vaccine Aged Out No l onger eligible based on patient's age to complete this topic RSV Immunization Patients Un vickie 20 months Aged Out No longer eligible b ased on patient's age to complete this topic Varicella Vaccines Aged Out No longer eligible based on patient's age to complete this topic Care Teams Senior Electrical Estimator Relationship Specialty Start Date End Date Leticia Au MD [address] [place] [address] PCP - General 06/02/23
--- NOTE | 2024-09-30 12:49 | ED_ITS ---
HPI - Extremity Injury (Lower) General Chief Complaint: Extremity Injury, Lower Stated Complaint: leg pain Time Seen by Provider: 09/30/24 11:23 Source: patient Mode of arrival: ambulatory Limitations: no limitations History of Present Illness ED Provider: DR. Santiago HPI Narrative: 64-year-old male PMH significant for asthma, LUZ MARINA, obesity, AFib with RVR, CHF, ETOH use, chronic opiate therapy is on Suboxone came in for evaluation of persistent left lower extremity pain for over 2 weeks, pain started in the lower back and radiates down to his left leg pain started after the patient had some physical work helping his friend to fix his car, patient was evaluated here on 09/20 and was diagnosed with left lumbar radiculopathy and returned today for persistent of the pain. No fever, no chills, no weakness, no numbness, no urinary or stool incontinence. Related Data Home Medications ?Medication ?Instructions ?Recorded ?Confirmed buprenorphine 8 mg-naloxone 2 mg 1 strip sublingual BI D 06/04/20 09/13/24 sublingual film (Suboxone) ascorbate calcium (vitamin C) 500 500 mg PO DAILY 06/1409/13/24 mg tablet cholecalciferol (vitamin D3) 25 25 mcg PO DAILY 09/13/24 mcg (1,000 unit) tablet mecobalamin (vitamin B12) 500 mcg 500 mcg PO DAILY 06/1409/13/24 chewable tablet multivitamin 1 tab PO DAILY 07/25/2308/23 buprenorphine 4 mg-naloxone 1 mg 1 film sublingual KRISTINA LY 12/19/23 09/13/24 sublingual film ferrous sulfate 325 mg (65 mg 325 mg PO DAILY 02/10/24 09/13/24 iron) tablet (iron) Previous Rx's ?Medication ?Instructions ?Recorded albuterol sulfate 90 mcg/actuation 2 puff inhalation Q ID PRN 07/22/21 aerosol inhaler shortness of breath or wheez ing #6.7 grams amiodarone 200 mg tablet 200 mg PO DAILY #90 tabs furosemide 40 mg tablet 40 mg PO BID #120 tabs 03/15 metoprolol succinate 50 mg 50 mg PO BID #120 tabs 02/22 06/14 tablet,extended release 24 hr losartan 50 mg tablet 50 mg PO DAILY #90 tabs 03/25 12/16 apixaban 5 mg tablet (Eliquis) 5 mg PO BID #180 tabs 0 06/22/24 acetaminophen 500 mg capsule 1,000 mg (2 x 500 mg) PO Q8H PRN 09/20/24 fever or pain #16 caps cyclobenzaprine 10 mg tablet 10 mg PO TID PRN muscle s pasm #14 09/20/24 tabs gabapentin 300 mg tablet,extended 300 mg PO QPM #10 ta bs 09/30/24 release 24 hr Allergies Allergy/AdvReac Type Severity Reaction Status Date / Time No Known Allergies (No Known Allergy Verified 09/30/24 08:51 Allergies*) Review of Systems 2 Review of Systems: All other systems are reviewed and are negative Constitutional: Reports as per HPI and Reports no additional constitutional complaints Eyes: Reports as per HPI and Reports no additional eye complaints Reports system reviewed and no additional complaints, except as documented Cardiovascular: Reports as per HPI and Reports no additional cardiovascular complaints Respiratory: Reports as per HPI and Reports no additional respiratory complaints Gastrointestinal: Reports as per HPI and Reports no additional gastrointestinal complaints Genitourinary: Reports no additional female genitourinary complaints Musculoskeletal: Reports no additional musculoskeletal complaints Skin/Breast: Reports system reviewed and no additional complaints, except as docu Psychiatric: Reports no additional psychiatric complaints Endocrine: Reports no additional endocrine complaints Hematologic/Lymphatic: Reports no additional hematologic/lymphatic complaints Allergic/Immunologic: Reports no additional allergic/immunologic complaints Reports system reviewed and no additional complaints, except as documented and Reports Abnormal speech present [facility] Past Medical History Medical History Asthma LUZ MARINA (obstructive sleep apnea) Obesity (BMI 30-39.9) Atrial fibrillation with RVR New onset of congestive heart failure Arthritis Hypertension History of pyloric stenosis Surgical History S/P LASIK surgery of both eyes History of abdominal surgery Status post total replacement of both hips S/P gastric surgery History of wisdom tooth extraction History of colonoscopy Family History Family History Father Prostate cancer HTN (hypertension) Mother HTN (hypertension) Heart disease Arthritis Kidney disease Diabetes Stroke FH: cataracts Constipation S/P colostomy Family/Other ADHD Disc disease, degenerative, lumbar or lumbosacral Maternal Uncle Cancer S/P colostomy Social History Social History Household Members: None Housing: Apartment Are you a primary youth care worker to a significant other at home: No Do you presently have visiting nurse or other home services: No Alcohol intake: current Alcohol intake frequency: holidays/special occasions only Alcohol type: beer Patient Tobacco Use Status: Current everyday Tobacco user Tobacco use type: Cigarette Cigarette Packs Per Day: 0.5 Cigarettes Per Day: 6 Years Smoked: 30 e-Cigarette/Vaping Use: Never Used Second Hand Smoke Exposure: Yes Substance Use Type: Crack/Cocaine and Heroin Advance Directives: No Advance Directives Information Provided: Yes service: No Current occupational status: employed Physical Exam 2 Vital Signs: Vital Signs: Last Vital Signs Temp 96.8 F 09/30/24 08:50 Pulse 75 09/30/24 08:50 Resp 16 09/30/24 08:50 BP 129/80 09/30/24 08:50 Pulse Ox 97 09/30/24 08:50 O2 Del Method Room Air 09/30/24 08:50 BMI result Body Mass Index 34.8 Vital signs have been reviewed and appear to be correct. Blood pressure elevated. Heart rate normal. Respiratory rate normal. Temperature normal. Oxygen saturation normal. Appearance: Alert. Oriented X3. No acute distress. Head: Normal external exam. Normocephalic. Atraumatic. No Oliver signs noted. No raccoon eyes noted Eyes: PERRLA. EOMI. Conjunctiva and sclera normal. Eyelids normal. ENT: TM's Normal. Pharynx normal. Uvula midline. Moist mucous membranes. No trismus noted. No drooling noted. No muffled voice noted. Neck: Normal inspection. Neck supple. FROM. No adenopathy. Thyroid Normal. No meningeal signs. No neck mass noted. CVS: Normal heart rate and rhythm. Heart sound normal. No murmurs noted. Pulses normal throughout. Respiratory: No respiratory distress. Painless inspiration. Breath sounds normal. No wheezes/rales/rhonchi noted. Chest nontender. No accessory muscle usage noted or decreased air movement noted. Abdomen: Soft and nontender. Bowel sounds normal in all 4 quadrants. No distention noted. No organomegaly noted. No visible injury noted. Back: No CVA tenderness. Full range of motion noted. Skin: Skin warm and dry. Normal skin color. Normal skin turgor. No rashes/lesions/lacerations noted. Extremities: No lower extremity edema. Extremities exhibit normal range of motion. Extremities nontender. Neuro: Mental status: Normal attention, orientation, memory, and affect. Cranial nerves: Pupils are equal, round and reactive to light, EOMI, visual green are fall, face is symmetric, facial sensations are normal. Motor examination normal muscle tone, strength to 4 extremities. DTR are +2, planter's are flexor. Sensory exam; normal coordination, no ataxia, gait stable. Cerebellar exam: [id number] and vbiz-[id number]-xffx is normal. Extrapyramidal system: No tremors, no rigidity with normal facial expressions. Pronator drift not present. Perianal sensation is intact. Course Reevaluation(s) Reevaluation #1: Physical exam is consistent with left lumbar radiculopathy, unremarkable workup in the ED. patient feels improvement with oxycodone in the ED. Will discharge the patient with follow-up with a spine surgeon clinic, prescribe gabapentin for pain control. Time: 16:00 Medications Administered Discontinued Medications Generic Name Dose Route Start Last Admin Trade Name Freq PRN Reason Stop Dose Admin Oxycodone HCl 5 mg 09/30/24 11:41 09/30/24 11:56 Oxycodone Hcl Immed Release 5 Mg Tablet PO 09/30/24 11:42 5 mg ONCE ONE Administration Oxycodone HCl 5 mg 09/30/24 14:18 09/30/24 14:58 Oxycodone Hcl Immed Release 5 Mg Tablet PO 09/30/24 14:19 5 mg ONCE ONE Administration Medical Decision Making Differential Diagnosis Differential Diagnoses: The differential diagnosis associated with the presentation includes (Left lumbar radiculopathy, left hip pathology, left knee pathology, DVT, inflammatory process, severe anemia.) Admission/Observation Consideration of admission/observation: Escalation of care including admission/observation considered Lab Data MDM Lab Attestation statement: I reviewed the patient's lab results. 09/30/24 15:24 09/30/24 15:24 Independent Interpretation I performed an independent interpretation of an: Ultrasound (Left lower extremity: No DVT) Radiology Impression Discussion of test interpretation with radiology: I have reviewed the radiologist's reading. Discharge Plan Discharge Clinical Impression: Left lumbar radiculopathy Patient Disposition: Home, Self-Care Instructions: Lumbar Radiculopathy (ED) Prescriptions: New gabapentin 300 mg tablet extended release 24 hr 300 mg PO QPM Qty: 10 0RF No Action metoprolol succinate 50 mg tablet extended release 24 hr 50 mg PO BID Qty: 120 3RF furosemide 40 mg tablet 40 mg PO BID Qty: 120 3RF Protocol: Hold for SBP< HOLD for SBP < : 90 amiodarone 200 mg tablet 200 mg PO DAILY Qty: 90 3RF losartan 50 mg tablet 50 mg PO DAILY Qty: 90 3RF Eliquis 5 mg tablet 5 mg PO BID Qty: 180 3RF buprenorphine-naloxone [Suboxone] 8-2 mg film 1 strip sublingual BID albuterol sulfate 90 mcg/actuation HFA aerosol inhaler 2 puff inhalation QID PRN (Reason: shortness of breath or wheezing) Qty: 6.7 0RF cyclobenzaprine 10 mg tablet 10 mg PO TID PRN (Reason: muscle spasm) Qty: 14 0RF acetaminophen 500 mg capsule 1,000 mg PO Q8H PRN (Reason: fever or pain) Qty: 16 0RF buprenorphine-naloxone 4-1 mg film 1 film sublingual DAILY ferrous sulfate [iron] 325 mg (65 mg iron) Tablet 325 mg PO DAILY cholecalciferol (vitamin D3) 25 mcg (1,000 unit) tablet 25 mcg PO DAILY multivitamin Tablet 1 tab PO DAILY mecobalamin (vitamin B12) 500 mcg tablet,chewable 500 mcg PO DAILY ascorbate calcium (vitamin C) 500 mg tablet 500 mg PO DAILY Referrals: Leticia Au MD [Primary Care Provider, Medical] Augie Gee MD, PhD [Physician, Neuro Spine] Print Language: Wolof
[2024-09-30 15:29] LABS: MANUAL DIFF FLAG NO
[2024-09-30 15:32] LABS: Hematocrit 40.6 % (42.0-52.0); Hemoglobin 13.5 g/dl (14.0-18.0); Imm Gran Abs Auto 0.02 X10*3/uL (0.00-0.03); Imm Gran Pct Auto 0.3 % (0.0-0.4); Lymphocytes Absolute Auto 2.9 X10*3/uL (1.2-4.9); Mean Corpuscular HGB Conc 33.3 g/dl (31.0-36.0); Mean Corpuscular Hemoglobin 28.7 pg (27.0-33.0); Mean Corpuscular Volume 86.4 fL (80.0-98.0); NRBC Abs Auto 0.000 X10*3/uL (0.0-0.012); NRBC Pct Auto 0.0 /100WBC (0.0-0.2); Platelet Count 183 X10*3/uL (160-400); Red Blood Count 4.70 X10*6/uL (4.60-5.80); White Blood Count 6.5 X10*3/uL (4.8-10.8)
[2024-09-30 15:42] LABS: Anion Gap 10 (12-20); Blood Urea Nitrogen 18 mg/dL (9-16); Calcium 9.2 mg/dL (8.4-10.2); Carbon Dioxide 32 mmol/L (22-29); Chloride 97 mmol/L (96-108); Creatinine Clr Calc Pharmacy 89.6; Estimated Glomerular Filt Rate > 60; Potassium 4.2 mmol/L (3.3-5.1); Sodium 135 mmol/L (135-145)
[2024-09-30 16:29] VITALS: BP 129/80; PULSE 75; RESP 16; TEMP 36; O2SAT 97
== END 2024-09-30 16:29 | disposition home or self-care (01) ==
PROVIDERS: Emergency Provider Emergency Medicine; PCP Internal Medicine
DX: M54.16 Radiculopathy, lumbar region (principal); J45.909 Unspecified asthma, uncomplicated; G47.33 Obstructive sleep apnea (adult) (pediatric); I48.91 Unspecified atrial fibrillation; I50.9 Heart failure, unspecified
CPT/HCPCS: 36415; 73502; 73564; 80048; 82550; 85025; 85652; 86140; 93971; 99283; 99284

== ENCOUNTER → 2024-09-30 11:41 | Outpatient (BNV) | payer OTHER, SELFPAY | PROVIDERS: Emergency Provider Emergency Medicine; PCP Internal Medicine; Visit Provider Radiology Diagnostic Radiology | DX: M25.462 Effusion, left knee (principal); M17.12 Unilateral primary osteoarthritis, left knee; Z96.642 Presence of left artificial hip joint | CPT/HCPCS: 73502; 73564; 93971 ==

== ENCOUNTER 2024-10-07 15:22 | Outpatient (REF) | payer OTHER, SELFPAY ==
--- OUTSIDE RECORDS SUMMARY | 2024-10-07 16:01 | XMS_ITS | Encounter Summary ---
Author Organization [employer] Address [address] [facility] 7 [place] [address] Care Team Providers Care Elementary [employer] Reading Teacher Name Role Phone Leticia Au MD Primary Care Provider [phone] Encounter Details Date Type Department Care Team ([facility] Contact Info) Description 03/31/2023 Orders Only [facility] MED & PEDS [address] [place], [place] [phone] Leticia Au MD [address] [place] [address] Anxiety (Primary Dx) Social History Tobacco Use [...] Department Care Team (Late Contact Info) Description 12/28/2024 1:30 PM EDT Office Visit [facility] MEDICINE [address] [place] [address] Andreas Roldan MD [address] [place] [address] documented as of this encounter Visit Diagnoses Diagnosis Anxiety- Primary Anxiety state, unspecified documented in this encounter Care Teams Elementary [employer] Reading Teacher Relationship Specialty Start Date End Date Leticia Au MD [address] [place] [id number] PCP - General Internal Medicine 01/13/14 documented as of this encounter
--- OUTSIDE RECORDS SUMMARY | 2024-10-07 16:01 | XMS_ITS | Clinical Summary ---
Author Organization [employer] [facility] ity Address [address] [place] [address] Care Team Providers Care Gantry Crane Operator Name Role Phone Leticia Au MD Primary Care Provider [phone] Social History Tobacco Use Types Packs/Day Years [...] Panel) 02/17/2024 Colorectal Cancer Screening: Colonoscopy 02/17/2024 HIV Screening 02/17/2024 Hepatitis C Screening 02/17/2024 Social Influencers of Health Screening 02/17/2024 Depression Screening 03/24/2024 Influenza Vaccine (#1) 2024 RSV Immunization Adult [...] age to complete this topic Care Teams Gantry Crane Operator Relationship Specialty Start Date End Date Leticia Au MD [address] [place] [address] PCP - General 06/02/23
[2024-10-07 16:52] LABS: Prostate Specific Antigen < 0.10 ng/mL (<0.05-4.0)
== END 2024-10-07 15:23 | disposition home or self-care (01) ==
LOC: HO.LAB 15:22
PROVIDERS: Absent Provider Internal Medicine Cardiovascular Disease; PCP Internal Medicine; Visit Provider Nurse Practitioner Family
DX: N40.0 Benign prostatic hyperplasia without lower urinary tract symptoms (principal)
CPT/HCPCS: 36415; 84153

== ENCOUNTER 2024-10-11 15:04 | Outpatient (REF) | payer OTHER, SELFPAY | END 2024-10-11 15:05 | disposition home or self-care (01) | LOC: HO.LAB 15:04 | PROVIDERS: PCP Internal Medicine; Visit Provider Nurse Practitioner Family | DX: R31.29 Other microscopic hematuria (principal); F17.200 Nicotine dependence, unspecified, uncomplicated; Z13.9 Encounter for screening, unspecified | CPT/HCPCS: 51798; 81003; 88112 ==

== ENCOUNTER 2024-10-11 15:04 | Outpatient (AMB) | payer OTHER, SELFPAY ==
--- NOTE | 2024-10-11 15:12 | MHC.OFFVIS ---
Intake Visit Reasons: 6 month follow up/ PSA/PVR Intake Note: Patient is present for 6M/PSA/PVR Urology Medication:NONE Antibiotic Allergy:NONE Blood Thinner:APIXABAN TODAY'S PVR: 0ML'S District Plant Supervisor Required: No Allergies No Known Allergies (No Known Allergies*) Allergy (Verified 10/11/24 15:13) HPI Comments Details: Mateo is a very pleasant 64-year-old male patient of Dr. Au. He has a past medical history of AFib with RVR, congestive heart failure, arthritis, hypertension, pyloric stenosis, substance abuse, and hep C. He presents to the office today for follow-up of his nocturia. In discussion with the patient today he reports feeling episodes of nocturia have significantly improved with compliance since CPAP. However he discusses more recently he has not been compliant with CPAP as he has been experiencing issues with leaks in the machine. He reports he was scheduled to follow-up with pulmonology sometime in May however this appointment had been canceled in does not recall another follow-up at this time. Patient with a history of microscopic hematuria in the setting of nicotine dependence previous workup has included in office cystoscopy with Dr. Mcgowan 10/14 that noted a normal prostate. He has previously trialed low-dose Cialis for bladder stability, Flomax, and alfuzosin however did not take them as prescribed as he discusses reluctancy in taking medications. He continues to follow-up with cardiology for his history of atrial fibrillation. We discussed the importance of compliance in CPAP for overall health and well-being. Previous workup has also included at CT urogram 10/14 that noted symmetrical nephrograms, no ureteral abnormality, no renal masses or hydronephrosis noted bilaterally there are bilateral renal cysts simple and classifications of Bosniak 2. The urinary bladder post inferior aspect is obscured by artifact. There are no definite bladder calculi or bladder masses. Urine cytology 08/14 Negative for high-grade urothelial carcinoma. When asked denies incontinence, hematuria, dysuria, foul smelling urine, changes to urinary stream, flank pain, fever, and or chills. PSAs are as follows: PSA: 09/09 0.1, 06/14 0.1, 10/15 < 0.10 We discussed at length potential causes of nocturia. We discussed correlation of sleep apnea and nocturia. He discusses his sobriety from alcohol in reports to be sober free for the last 8 months. He otherwise offers no other issues or concerns at this time. [facility] Medical History Asthma LUZ MARINA (obstructive sleep apnea) Obesity (BMI 30-39.9) Atrial fibrillation with RVR New onset of congestive heart failure Arthritis Hypertension History of pyloric stenosis Surgical History S/P LASIK surgery of both eyes History of abdominal surgery Status post total replacement of both hips S/P gastric surgery History of wisdom tooth extraction History of colonoscopy Family History Father Prostate cancer HTN (hypertension) Mother HTN (hypertension) Heart disease Arthritis Kidney disease Diabetes Stroke FH: cataracts Constipation S/P colostomy Family/Other ADHD Disc disease, degenerative, lumbar or lumbosacral Maternal Uncle Cancer S/P colostomy Social History Household Members: None Housing: Apartment Are you a primary healthcare consulting manager to a significant other at home: No Do you presently have visiting nurse or other home services: No Alcohol intake: current Alcohol intake frequency: holidays/special occasions only Alcohol type: beer Patient Tobacco Use Status: Current everyday Tobacco user Tobacco use type: Cigarette Cigarette Packs Per Day: 0.5 Cigarettes Per Day: 6 Years Smoked: 30 e-Cigarette/Vaping Use: Never Used Second Hand Smoke Exposure: Yes Substance Use Type: Crack/Cocaine and Heroin service: No Current occupational status: employed Review of Systems Const Reports no additional complaints Eyes Reports no additional complaints ENT Reports no additional complaints Card Reports as per HPI Resp Reports no additional complaints GI Reports as per HPI Reports as per HPI Musc Reports as per HPI Neuro Reports no additional complaints Psych Reports no additional complaints Endo Reports no additional complaints Robby/Lymph Reports no additional complaints Aller/Immun Reports no additional complaints Physical Exam Const General: cooperative, comfortable, no acute distress, well developed, alert and awake Nutritional Appearance: overweight Orientation/consciousness: patient oriented x3 Limitations: no limitations HEENT Head: Yes normal to inspection, Yes normocephalic and Yes atraumatic Ears: hearing grossly normal bilaterally Eyes General: appearance normal, both eyes and all related structures Neck Neck: Yes normal visual inspection and Yes trachea midline Chest Chest palpation & inspection: normal inspection of the chest Resp Effort & Inspection: normal respiratory effort and able to speak in complete sentences Cardio Rate: regular rate GI Inspection: Yes normal to inspection General: Yes no CVA tenderness Back/Spine/Pelvis Back: no CVA tenderness Skin General skin exam: no rashes or lesions noted Neuro General: patient oriented x3 Extrem General: Yes normal to inspection Psych Appearance: grossly normal and well kempt Mental Status: mental status grossly normal Speech and movement: Normal speech and movement present and Clear speech present Affect: normal affect Attitude: cooperative Thought process: Normal thought process present Thought content: Normal thought content present Insight: Fair insight present (Psych) Judgement: Fair judgement present (Psych) Office Procedures Post Void Residual Post Residual Void Post Void Residual (PVR): 0 [id number]-[id number] Void Residual by ultrasound Results AMB Urinalysis, Automated UA Leukoctes 0 Raven/uL Last Edit by OLEG Moore on 10/11/24 15:31 UA Nitrite Negative Last Edit by Kati Acevedo CCM on 10/11/24 15:31 UA Urobilinogen 0.2 mg/dL Last Edit by OLEG Moore on 10/11/24 15:31 UA Protein 15 mg/dL Last Edit by OLEG Moore on 10/11/24 15:31 UA pH 6.5 Last Edit by Kati Acevedo CCM on 10/11/24 15:31 UA Blood 10 Aldair/uL Last Edit by OLEG Moore on 10/11/24 15:31 UA Specific [place] 1.015 Last Edit by OLEG Moore on 10/11/24 15:31 UA Ketone Negative Last Edit by OLEG Moore on 10/11/24 15:31 UA Bilirubin 0 mg/dL Last Edit by OLEG Moore on 10/11/24 15:31 UA Glucose 0 mg/dL Last Edit by Kati Acevedo CCM on 10/11/24 15:31 Assessment & Plan Assessment & Plan (1) Microscopic hematuria: Code(s): R31.29 - Other microscopic hematuria Category: Medical (2) Nicotine dependence: Code(s): F17.200 - Nicotine dependence, unspecified, uncomplicated Category: Medical (3) Nocturia: Code(s): R35.1 - Nocturia Category: Medical Plan In office urinalysis results reviewed with the patient today; as noted above; will send for urine cytology. PVR 0 mL We discussed the importance of following up with pulmonology to discuss further treatment options of sleep apnea. Recent PSA results reviewed with the patient today; as noted above. We discussed the importance of limiting/quitting nicotine dependence for overall health and well-being. He currently denies any bothersome urinary issues; although he experiences episodes of nocturia he feels these are manageable and does not wish to further undergo treatment options. Will continue with surveillance monitoring. Follow-up in 6 months; or sooner with any issues, concerns, and or questions. Orders: Orders Urine Cytology Today F17.200 - Nicotine dependence, unspecified, uncomplicated, R31.29 - Other microscopic hematuria AMB Urinalysis Automated Today Z13.9 - Encounter for screening, unspecified Coding Level of Care Code Est Pt Level 3 (71656) Complex EM visit Add On G2211 Diagnoses Microscopic hematuria R31.29 Nicotine dependence F17.200 Nocturia R35.1 CPT Codes Post Residual Void - PVR CPT Code: 70984-Coav Void Residual by ultrasound ([id number])
--- OUTSIDE RECORDS SUMMARY | 2024-10-11 15:45 | XMS_ITS | Encounter Summary ---
Author Organization [employer] Address [address] [facility] [address] [place] [address] Care Team Providers Care Road Machine Runner Name Role Phone Leticia Au MD Primary Care Provider [phone] Encounter Details Date Type Department Care Team ([facility] Contact Info) Description 03/31/2023 Orders Only [facility] CHC MED & PEDS [address] [place], [place] [phone] Leticia Au MD [address] [place] [address] Anxiety (Primary Dx) Social History Tobacco Use [...] Description 12/28/2024 1:30 PM EDT Office Visit [facility] MEDICINE [address] [place] [address] Andreas Roldan MD [address] [place] [address] documented as of this encounter Visit Diagnoses Diagnosis Anxiety- Primary Anxiety state, unspecified documented in this encounter Care Teams Road Machine Runner Relationship Specialty Start Date End Date Leticia Au MD [address] [place] [id number] PCP - General Internal Medicine 01/13/14 documented as of this encounter
--- OUTSIDE RECORDS SUMMARY | 2024-10-11 15:46 | XMS_ITS | Clinical Summary ---
Author Organization [email or web address] [facility] ity Address [address] [place] [address] Care Team Providers Care Manager Company Name Role Phone Leticia Au MD Primary Care Provider [phone] Social History Tobacco Use Types Packs/Day Years [...] age to complete this topic Care Teams Manager Company Relationship Specialty Start Date End Date Leticia Au MD [address] [place] [address] PCP - General 06/02/23
== END 2024-10-11 15:44 | disposition home or self-care (01) ==
LOC: HO.HUSH 15:05
PROVIDERS: PCP Internal Medicine; Visit Provider Nurse Practitioner Family
DX: R31.29 Other microscopic hematuria (principal); F17.200 Nicotine dependence, unspecified, uncomplicated; R35.1 Nocturia; Z13.9 Encounter for screening, unspecified
CPT/HCPCS: 99213; G2211

== ENCOUNTER → 2024-11-04 14:40 | Outpatient (REF) | payer OTHER, SELFPAY ==
--- NOTE | 2024-11-04 14:43 | CA_ITS ---
Transthoracic Echocardiogram Patient (Last, First, Middle): Mateo Zapata R Gender: Male Date of : 1960 Age: 64 Procedure Date: 11/04/2024 Procedure Type: Transthoracic Echocardiogram Location: OP Height: 175.26 cm Weight: 106.6 kg BSA: 2.21 m2 Heart Rate: 55 bpm BP: 110 / 70 mmHg Sand Mixer Operator: CATALINA Referring MD: Thomas Ruffin MD Mash Filter Operator: Thomas Ruffin MD Symptoms: I50.22 - Chronic systolic (congestive) heart failure Study Quality: Fair ECG Rhythm: Bradycardia Conclusions: - Normal left ventricular size, thickness, systolic function, and wall motion. The visually estimated ejection fraction is between 60-65%. - Elevated filling pressures. - Mildly increased right ventricular cavity size. There is normal right ventricular systolic function. - There is mild dilatation of the ascending aorta measuring 4.10 cm. Findings Procedure Information The quality of the study was technically difficult. The study quality is limited by the patients inability to tolerate the test, patients body habitus, and lung artifact. Left Ventricle Normal left ventricular size, thickness, systolic function, and wall motion. The visually estimated ejection fraction is between 60-65%. Abnormal diastolic function is noted. Spectral Doppler is indicative of a pseudonormal filling pattern. Elevated filling pressures. Right Ventricle Mildly increased right ventricular cavity size. There is normal right ventricular systolic function. Atria The left atrium is mildly dilated. The right atrium is likely dilated. Aortic Valve Normal aortic valve structure and function. There is no aortic valve stenosis. There is trace (trivial) aortic valve regurgitation. Mitral Valve The mitral valve appears normal. There is no mitral valve regurgitation. There is no mitral valve stenosis. Pulmonic Valve The pulmonic valve is likely normal. Tricuspid Valve Normal tricuspid valve structure. There is trace tricuspid valve regurgitation. Tricuspid regurgitation envelope is inadequate for calculation of right ventricular systolic pressure. Normal right atrial pressure. Great Vessels There is mild dilatation of the ascending aorta measuring 4.10 cm. The visualized portions of the pulmonary artery and branches are normal. Venous The inferior vena cava is normal in size and collapses greater than 50% with inspiration. Pericardium/Pleural There is no evidence of pericardial effusion. Prior Study Comparison Changes noted compared to prior study dated: 12/19/2023. EF improved 60-65% Measurements 2D Linear Measurements IVSd: 1.06 0.6-0.9/0.6-1.0 cm LVIDd: 5.57 3.9-5.3/4.2-5.9 cm LVIDd Index: 2.52 2.4-3.2/2.2-3.1 cm/m2 LVIDs: 3.04 2.0-3.6 cm LVPWd: 0.95 0.7-1.1 cm LA Diam: 4.60 2.7-3.8/3.0-4.0 cm LAIDs Index: 2.08 1.5-2.3 cm/m2 LV Mass: 272.86 67-162/88-224 g LV Mass Index: 123.47 43-95/49-115 g/m2 LVOT Diam: 2.40 3.0+(-)1.3 cm 2D Systolic Function EF 2C: 70.80 >55% Mitral Valve MV Pk E: 0.75 MV PK A: 0.62 MV Decel Time: 269.00 E/A: 1.20 E'Lateral: 5.00 E'Medial: 5.33 E/E' Med: 14.10 E/E' Lat: 15.00 PHT: 79.00 MVA PHT: 2.78 Decel [place]: 2.79 Aortic Valve AoV Pk Jluian: 1.48 AoV Pk Grad: 9.00 MIGUE: 4.90 LVOT LVOT Pk Julian: 1.46 LVOT Mn Julian: 1.05 LVOT VTI: 0.34 LVOT Pk Grad: 9.00 LVOT Mn Grad: 5.00 LVOT Diam: 2.40 LVOT Area: 4.52 Diastolic Function MV Pk E: 0.75 MV Pk A: 0.62 E/A: 1.20 E'Medial: 5.33 E/E' Med: 14.10 E' Laterial: 5.00 E/E' Lat: 15.00 Right Ventricle TAPSE (mm): 29.10 TVS' Julian: 11.90 Tricuspid Valve RA Press: 3.00 Great Vessels Aorta Sinus of Valsalva: 3.40 2.0-3.5 cm Ao Asc: 4.10 2.1-3.4 cm Pulmonary Veins Pulm Vein S/D 1.00 Pulmonary Valve PV Pk Julian: 0.97 Peak PV Grad: 4.00 Updated in Other Vendor System with Status of Final Thomas Ruffin MD electronically signed on 11/06/2024 9:38:30 PM with status of Final
--- OUTSIDE RECORDS SUMMARY | 2024-11-04 15:20 | XMS_ITS | Clinical Summary ---
Author Organization [facility] Address [address] [place] [address] Phone Care Team Providers Care Leather Belt Loop Cutter Name Role Phone Leticia Au MD Primary Care Pr ovider Encounters Date Type Department Care Team Description 11/04/2024 Transcribe [facility] [address] [place] [address] 3rd Floor, [address] [place], [place] [id number] Apolonia Escamilla Paroxysmal atrial fibrillation (Primary Dx) from Last 3 Months Social History Tobacco Use Types Packs/Day Years Used Date Smoking Tobacco: Never Assessed Sex and Gender Information Value Date Recorded Sex Assigned at Not on file Legal Sex Male 10:46 AM EDT Gender Identity Not on file Sexual Orientation Not on file Plan of Treatment Not on file Medical Devices Not on file Insurance [facility] HMO NET PARTIAL O Member Subscriber Plan / Payer (Ef fective 2024-Present) Name:Mateo Graham Relation to Subscriber:Self Name:Mateo Graham Payer ID:Not on file Type:O Address: [address] PARTIAL [facility] HMO Member Subscriber Plan / Payer (Ef fective 2024-Present) Name:NaomiMateo dill Relation to Subscriber:Self Name:Mateo Graham Payer ID:Not on file Type:HMO Address: [address] NET PARTIAL O Member Subscriber Plan / Payer (Ef fective 2024-Present) Name:Mateo Graham Relation to Subscriber:Self Name:Mateo Graham Payer ID:Not on file Type:O Address: [address] PARTIAL [facility] HMO Member Subscriber Plan / Payer (Ef fective 2024-Present) Name:NaomiMateo dill Relation to Subscriber:Self Name:Mateo Graham Payer ID:Not on file Type:HMO Address: [address] NET PARTIAL [facility] HMO [facility] NET PARTIAL Care Teams Leather Belt Loop Cutter Relationship Specialty Start Date End Date Leticia Au MD [address] [facility] [address] [place] [address] PCP - General Internal Medicine 11/04/24 Additional Source Comments The information contained in this document represents components of the legal health record. It is not the complete legal health record.[facility]
--- OUTSIDE RECORDS SUMMARY | 2024-11-04 15:20 | XMS_ITS | Clinical Summary ---
Author Organization [facility] ity Address [address] [place] [address] Care Team Providers Care Marking Clerk Name Role Phone Leticia Au MD Primary Care Provider [phone] Social History Tobacco Use Types Packs/Day Years [...] age to complete this topic Care Teams Marking Clerk Relationship Specialty Start Date End Date Leticia Au MD [address] [place] [address] PCP - General 06/02/23
== END ==
LOC: HO.CARD 14:40
PROVIDERS: PCP Internal Medicine; Visit Provider Internal Medicine Cardiovascular Disease
DX: I50.22 Chronic systolic (congestive) heart failure (principal)
CPT/HCPCS: 93306

== ENCOUNTER → 2024-11-04 14:43 | Outpatient (BNV) | payer OTHER, SELFPAY | PROVIDERS: PCP Internal Medicine; Visit Provider Internal Medicine Cardiovascular Disease | DX: I50.22 Chronic systolic (congestive) heart failure (principal); I51.7 Cardiomegaly | CPT/HCPCS: 93306 ==

== ENCOUNTER 2025-01-28 08:39 | Outpatient (REF) | payer OTHER, SELFPAY ==
[2025-01-28 09:03] LABS: MANUAL DIFF FLAG NO
--- OUTSIDE RECORDS SUMMARY | 2025-01-28 09:17 | XMS_ITS | Clinical Summary ---
Author Organization [facility] ity Address [address] [place] [address] Care Team Providers Care Hay Stacker Operator Name Role Phone Leticia Au MD Primary Care Provider [phone] Social History Tobacco Use Types Packs/Day Years [...] Health Maintenance Due Date Last Done Comments Colorectal Cancer Screening: Colonoscopy 1960 DTaP,Tdap,and Td Vaccines (1 - Tdap) 1981 Pneumococcal Vaccine: 50+ Ye ars (1 of 1 - PCV) 2012 Zoster Vaccines (1 of 2) 2012 Cholesterol Screening (Lipid Panel) 02/17/2024 HIV Screening 02/17/2024 Hepatitis C Screening 02/17/2024 Social Influencers of Health Screening 02/17/2024 Depression Screening 03/24/2024 COVID-19 Vaccine (1 - 2023-2 5 season) 2024 Influenza Vaccine (#1) 2024 RSV Immunization Adult [...] age to complete this topic Care Teams Hay Stacker Operator Relationship Specialty Start Date End Date Leticia Au MD [address] [place] [address] PCP - General 06/02/23
--- OUTSIDE RECORDS SUMMARY | 2025-01-28 09:17 | XMS_ITS | Clinical Summary ---
Author Organization [facility] Address [address] [facility] [facility] [address] [place] [address] Phone Care Team Providers Care Front Clerk Name Role Phone Leticia Au MD Primary Care Pr ovider Encounters Date Type Department Care Team Description 11/04/2024 Transcribe [facility] [address] [place] [address] 3rd Floor, [address] [place], [place] [id number] Apolonia Escamilla Paroxysmal atrial fibrillation (Primary Dx) [...] file Medical Devices Not on file Insurance [facility] HMO NET PARTIAL O Member Subscriber Plan / Payer (Ef fective 2024-Present) Name:Mateo Graham Relation to Subscriber:Self Name:Mateo Graham Payer ID:Not on file Type:O Address: [address] PARTIAL [facility] HMO Member Subscriber Plan / Payer (Ef fective 2024-Present) Name:NaomiMateo dill Relation to Subscriber:Self Name:Mateo Graham Payer ID:Not on file Type:HMO Address: [address] NET PARTIAL O Member Subscriber Plan / Payer (Ef fective 2024-Present) Name:Mateo Graham Relation to Subscriber:Self Name:Mateo Graham Payer ID:Not on file Type:O Address: [address] PARTIAL [facility] HMO Member Subscriber Plan / Payer (Ef fective 2024-Present) Name:NaomiMateo dill Relation to Subscriber:Self Name:Mateo Graham Payer ID:Not on file Type:HMO Address: [address] NET PARTIAL [facility] HMO [facility] NET PARTIAL Care Teams Front Clerk Relationship Specialty Start Date End Date Leticia Au MD [address] [facility] 1 [place] [address] PCP - General Internal Medicine 11/04/24 Additional Source Comments The information contained in this document represents components of the legal health record. It is not the complete legal health record.[facility]
[2025-01-28 09:41] LABS: Hematocrit 38.1 % (42.0-52.0); Hemoglobin 11.8 g/dl (14.0-18.0); Imm Gran Abs Auto 0.00 X10*3/uL (0.00-0.03); Imm Gran Pct Auto 0.0 % (0.0-0.4); Lymphocytes Absolute Auto 2.0 X10*3/uL (1.2-4.9); Mean Corpuscular HGB Conc 31.0 g/dl (31.0-36.0); Mean Corpuscular Hemoglobin 27.9 pg (27.0-33.0); Mean Corpuscular Volume 90.1 fL (80.0-98.0); NRBC Abs Auto 0.000 X10*3/uL (0.0-0.012); NRBC Pct Auto 0.0 /100WBC (0.0-0.2); Platelet Count 183 X10*3/uL (160-400); Red Blood Count 4.23 X10*6/uL (4.60-5.80); White Blood Count 4.2 X10*3/uL (4.8-10.8)
[2025-01-28 09:55] LABS: INTERNATIONAL NORM RATIO 1.2 (0.9-1.1); Prothrombin Time 14.6 SEC (11.2-13.5)
[2025-01-28 10:11] LABS: Anion Gap 13 (12-20); Blood Urea Nitrogen 21 mg/dL (9-16); Calcium 9.0 mg/dL (8.4-10.2); Carbon Dioxide 29 mmol/L (22-29); Chloride 103 mmol/L (96-108); Estimated Glomerular Filt Rate > 60; Potassium 4.9 mmol/L (3.3-5.1); Sodium 140 mmol/L (135-145)
== END 2025-01-28 08:40 | disposition home or self-care (01) ==
LOC: HO.LAB 08:39
PROVIDERS: PCP Internal Medicine; Visit Provider Student in an Organized Health Care Education/Training Program
DX: Z01.818 Encounter for other preprocedural examination (principal); I48.91 Unspecified atrial fibrillation
CPT/HCPCS: 36415; 80048; 85025; 85610

== ENCOUNTER 2025-03-15 14:30 | Outpatient (REF) | payer OTHER, SELFPAY ==
[2025-03-15 16:58] LABS: Alanine Aminotransferase 28 U/L (0-40); Albumin Level 4.8 g/dL (3.5-5.0); Alkaline Phosphatase 63 U/L (39-117); Anion Gap 14 (12-20); Aspartate Amino Transferase 40 U/L (5-37); Blood Urea Nitrogen 21 mg/dL (9-16); Calcium 9.5 mg/dL (8.4-10.2); Carbon Dioxide 29 mmol/L (22-29); Chloride 103 mmol/L (96-108); Estimated Glomerular Filt Rate > 60; Potassium 4.9 mmol/L (3.3-5.1); Sodium 141 mmol/L (135-145); Total Protein 7.7 g/dL (6.5-8.0)
[2025-03-15 17:01] LABS: NT Pro B Type Natriuretic Pept 204.4 pg/mL (<300)
[2025-03-15 17:50] LABS: Free T4 (Free Thyroxine) 0.84 ng/dL (0.71-1.85)
== END 2025-03-15 14:31 | disposition home or self-care (01) ==
LOC: HO.LAB 14:30
PROVIDERS: Internal Medicine Cardiovascular Disease; PCP Internal Medicine
DX: I11.0 Hypertensive heart disease with heart failure (principal); I50.22 Chronic systolic (congestive) heart failure; I48.0 Paroxysmal atrial fibrillation; R60.0 Localized edema; F17.210 Nicotine dependence, cigarettes, uncomplicated; Z79.01 Long term (current) use of anticoagulants; Z79.899 Other long term (current) drug therapy
CPT/HCPCS: 36415; 80048; 80076; 83880; 84439; 84443; 93005

== ENCOUNTER 2025-03-15 14:30 | Outpatient (AMB) | payer OTHER, SELFPAY ==
[2025-03-15 14:33] VITALS: BP 138/70; PULSE 55; BMI 36.0
--- NOTE | 2025-03-15 14:33 | MHC.OFFVIS ---
Vital Signs 03/15/25 14:33 Height 5 ft 9 in Weight 243 lb 13.3 oz BMI 36.0 BP 138/70 Blood Pressure Location Lt brachial Position Sitting Pulse 55 Pulse Source Monitor Intake Visit Reasons: f/up- overdue Syrup Shed Supervisor Required: No Accompanied by: Self / Same As Patient Allergies No Known Allergies (No Known Allergies*) Allergy (Verified 03/15/25 14:41) Medication List - Last Reconciled 03/15/25 by Sam Link NP amiodarone 200 mg PO DAILY 30 days apixaban (Eliquis) 5 mg PO BID ascorbate calcium (vitamin C) 500 mg PO DAILY buprenorphine-naloxone 8-2 mg (Suboxone) 1 strip sublingual BID cholecalciferol (vitamin D3) 25 mcg PO DAILY ferrous sulfate (iron) 325 mg PO DAILY furosemide 40 mg PO BID losartan 50 mg PO DAILY mecobalamin (vitamin B12) 500 mcg PO DAILY metoprolol succinate ER 50 mg PO BID multivitamin 1 tab PO DAILY HPI Comments Details: This is a 64-year-old male patient coming in for a follow-up visit status post catheter ablation for AFib. Patient with a history of heart failure and AFib status post cardioversions and recently underwent catheter ablation with Dr. Aranda. Patient reports that his shortness of breath has improved however patient is noticing more leg swelling and weight gain since the ablation. Patient is reporting compliance with all his medication and has met with EP office since the procedure. Patient is otherwise denying any exertional chest discomfort, palpitations, dizziness, orthopnea, PND, presyncope, or syncope. [facility] Medical History Asthma LUZ MARINA (obstructive sleep apnea) Obesity (BMI 30-39.9) Atrial fibrillation with RVR New onset of congestive heart failure Arthritis Hypertension History of pyloric stenosis Surgical History S/P LASIK surgery of both eyes History of abdominal surgery Status post total replacement of both hips S/P gastric surgery History of wisdom tooth extraction History of colonoscopy Family History Father Prostate cancer HTN (hypertension) Mother HTN (hypertension) Heart disease Arthritis Kidney disease Diabetes Stroke FH: cataracts Constipation S/P colostomy Family/Other ADHD Disc disease, degenerative, lumbar or lumbosacral Maternal Uncle Cancer S/P colostomy Social History Household Members: None Housing: Apartment Are you a primary senior care provider to a significant other at home: No Do you presently have visiting nurse or other home services: No Alcohol intake: current Alcohol intake frequency: holidays/special occasions only Alcohol type: beer Patient Tobacco Use Status: Current everyday Tobacco user Tobacco use type: Cigarette Cigarette Packs Per Day: 0.5 Cigarettes Per Day: 6 Years Smoked: 30 e-Cigarette/Vaping Use: Never Used Second Hand Smoke Exposure: Yes Substance Use Type: Crack/Cocaine and Heroin service: No Current occupational status: employed Review of Systems Const Denies daytime sleepiness, Denies difficulty sleeping, Reports fatigue, Denies snoring, Denies stops breathing during sleep, Denies weakness and Reports weight gain Card Denies chest pain, Denies rapid heart rate, Denies irregular heart rhythm, Denies claudication, Reports leg edema, Denies lightheadedness, Reports palpitations, Denies dyspnea, Reports dyspnea on exertion, Denies orthopnea, Denies paroxysmal nocturnal dyspnea and Denies slow heart rate Resp Denies cough, Denies dyspnea, Reports dyspnea on exertion and Denies snoring GI Reports no additional complaints, Denies hematochezia, Denies change in stool character and Denies dyspepsia Musc Denies abnormal gait, Denies muscle weakness and Denies numbness Neuro Denies abnormal gait, Denies numbness and Denies weakness Endo Reports fatigue and Reports palpitations Physical Exam Vital Signs: Last Vital Signs Pulse 55 03/15/25 14:33 BP 138/70 03/15/25 14:33 BMI result Body Mass Index 36.0 Const General: cooperative, healthy appearing, comfortable and no acute distress Orientation/consciousness: patient oriented x3 HEENT Head: Yes normal to inspection Eyes Other: Mild yellowing of bilateral sclera Neck Neck: Yes normal visual inspection, Yes trachea midline and Yes supple Chest Chest palpation & inspection: normal inspection of the chest Resp Effort & Inspection: normal respiratory effort Auscultation: clear to auscultation bilaterally, no crackles, no rales, no rhonchi and no wheezes Cardio Jugular venous distension: no JVD Palpation: normal PMI Rate: bradycardic Rhythm: regular rhythm Heart sounds: S1 normal heart sound present, S2 normal heart sound present, no click, no gallops, no murmurs and no rubs Peripheral pulses: Peripheral pulses 2+ throughout GI Inspection: Yes normal to inspection Palpation (GI): Soft to palpation Auscultation: normal bowel sounds Skin General skin exam: no rashes or lesions noted Neuro General: patient oriented x3 Extrem Other: Trace edema to bilateral lower legs Psych Appearance: grossly normal Mental Status: mental status grossly normal Speech and movement: Normal speech and movement present Office Procedures EKG Details: EKG today showed sinus bradycardia, rate 55 beats per minute, can not exclude septal infarct, nonspecific ST, [place], [place]. [address]-[id number], Complete Assessment & Plan Assessment & Plan (1) Chronic systolic heart failure: Code(s): I50.22 - Chronic systolic (congestive) heart failure Category: Medical Plan: 11/04/2024-echo study showed a normal LV systolic function with the ejection fraction between 60-65% with mild dilation of the ascending aorta at 4.10 cm, and elevated filling pressures. On exam today patient with trace edema to his bilateral lower legs. Patient states that he is continuing to gain a lot of weight but is also mostly sedentary. Patient is reporting compliance with his medications and reports good urine output on the furosemide. Patient also has mild scleral icterus on exam. We will plan for labs and a repeat echo. Further interventions basal finding. Advised on low-salt diet, daily weight monitoring, regular exercise, med compliance, and compression socks to the legs/elevation of legs at rest. (2) Atrial fibrillation: Code(s): I48.91 - Unspecified atrial fibrillation Category: Medical Qualifiers: Atrial fibrillation type: paroxysmal Qualified Code(s): I48.0 - Paroxysmal atrial fibrillation Plan: Status post catheter ablation with Dr. Aranda at end of January. Patient has had a follow up with them. EKG today showed sinus rhythm. Continue Eliquis for full anticoagulation. Patient can stop taking amiodarone at this time per plan. Advised on smoking cessation and avoiding stimulants such as alcohol. Patient verbalizes understanding. (3) Hypertension: Code(s): I10 - Essential (primary) hypertension Category: Medical Plan: Blood pressure today is well-controlled. Continue current regimen with a blood pressure goal less than 130/80. Advised monitoring blood pressures at home. Advised on heart healthy diet, regular exercise, losing weight, med compliance, and aggressive management of vascular risk factors. Follow up in 1 month. In the interim, patient will call the office with any concerns or change in symptoms. This note was generated using voice recognition software. While every effort has been made to ensure accuracy and proper back up machine operator, there may be occasional errors that could affect the content or meaning of the described symptoms. Orders: Orders Basic Metabolic Panel Today I50.22 - Chronic systolic (congestive) heart failure NT Pro B Type Natriuretic Pept Today I50.22 - Chronic systolic (congestive) heart failure CA echo transthoracic complete Today I50.22 - Chronic systolic (congestive) heart failure AMB EKG-In Office Today I48.0 - Paroxysmal atrial fibrillation Liver Panel Today I50.22 - Chronic systolic (congestive) heart failure Medications: Discontinued amiodarone Discontinued Reason: Doctor's Order 200 mg PO DAILY 30 days 30 tabs 0RF Coding Level of Care Code Est Pt Level 4 (06115) Add On Problem Visit Only Diagnoses Chronic systolic heart failure I50.22 Atrial fibrillation I48.0 Atrial fibrillation type: paroxysmal Hypertension I10 CPT Codes EKG - CPT: 95490-[id number], Complete ([id number]) Time Spent (min) 33 Comment Time spent in reviewing the chart, test results, assessment, counseling and documentation.
--- OUTSIDE RECORDS SUMMARY | 2025-03-15 15:47 | XMS_ITS | Encounter Summary ---
Author Organization [employer] [facility] Address [address] [place] [address] 7 [place] [address] Care Team Providers Care Nursery Attendant Name Role Phone Leticia Au MD Primary Care Provider [phone] Reason for Visit * Reason Comments Med Refill Encounter Details Date Type Department Care Team (Late st Contact Info) Description 06/11/2023 Refill [facility] [address] [place] [phone] Andreas Roldan MD [address] [place] [phone] Uncomplicated opioid dependence (CMS/HCC) Social History Tobacco [...] Department Care Team (Late Contact Info) Description 03/22/2025 1:15 PM EST Office Visit [facility] [address] [place] [address] Andreas Roldan MD [address] [place] [address] 04/25/2025 1:30 PM EST Office Visit [facility] [address] [place] [address] Ana Roa documented as of this encounter Visit Diagnoses Diagnosis Uncomplicated opioid dependence (CMS/HCC) (HCC) documented in this encounter Care Teams Nursery Attendant Relationship Specialty Start Date End Date Leticia Au MD [address] [place] [address] PCP - General Internal Medicine 01/13/14 documented as of this encounter
--- OUTSIDE RECORDS SUMMARY | 2025-03-15 15:47 | XMS_ITS | Encounter Summary ---
Author Organization [employer] [facility] Address [address] [facility] 7t [place] [address] Care Team Providers Care Director Day Care Center Name Role Phone Leticia Au MD Primary Care Provider [phone] Reason for Visit * Reason Comments Med Refill Encounter Details Date Type Department Care Team ([facility] st Contact Info) Description 09/28/2024 Refill [facility] [address] [place] [address] Andreas Roldan MD [address] [place] [address] Uncomplicated opioid dependence (CMS/HCC) Social History Tobacco Use Types Packs/Day Years Used Date Smoking Tobacco: Every Day Cigarettes Passive Smoke Exposure: Current Smokeless Tobacco: Never Alcohol Use Standard Drinks/Week Comments Yes 0 (1 standard drink = 0.6 oz pur e alcohol) Housing Stability Answer Date Recorded What is your housing situation today? I have elizabeth sinclair 05/26/[address] you li ve. Do you have problems with any of the following? None of the above 05/26/2024 Food Insecurity Answer Date Recorded Within the past 12 months, y ou worried that your food would run out before you got money to buy more: Never True 05/26/2024 Within the past 12 months,th e food you bought just didn't last and you didn't have enough money to get more: Never True 07/2024 Transportation Answer Date Recorded In the past 12 months, has l ack of transportation kept you from medical appts, meetings, work or from getting things needed for daily living? No 05/26/2024 Utilities Answer Date Recorded In the past 12 months, has t he electric, gas, oil or water company threatened to shut off services in your home? No 05/26/2024 Internet Access Answer Date Recorded Internet Access Q1 Yes 05/26/2024 Internet Access Q2 Not on file 05/26/2024 Sex and Gender Information Value Date Recorded Sex Assigned at Male 01/21/2022 10:20 AM EDT Legal Sex Male 10:20 AM EDT Gender Identity Male 01/21/2022 10:20 AM EDT Sexual Orientation Straight 01/21/2022 10 :20 AM EDT documented as of this encounter Plan of Treatment Upcoming Encounters Date Type Department Care Team (Late st Contact Info) Description 03/22/2025 1:15 PM EST Office Visit [facility] [address] [place] [address] Andreas Roldan MD [address] [place] [address] 04/25/2025 1:30 PM EST Office Visit [facility] [address] [place] [phone] Ana Roa documented as of this encounter Visit Diagnoses Diagnosis Uncomplicated opioid dependence (CMS/HCC) (HCC) documented in this encounter Care Teams Director Day Care Center Relationship Specialty Start Date End Date Leticia Au MD [address] [place] [address] PCP - General Internal Medicine 01/13/14 documented as of this encounter
--- OUTSIDE RECORDS SUMMARY | 2025-03-15 15:47 | XMS_ITS | Encounter Summary ---
Author Organization [employer] [facility] Address [address] [place] [address] 7 [place] [address] Care Team Providers Care Pinked Edge Sewing Machine Operator Name Role Phone Leticia Au MD Primary Care Provider [phone] Reason for Visit * Reason Comments Med Refill Encounter Details Date Type Department Care Team (Late st Contact Info) Description 04/15/2023 Refill [facility] [address] [place] [address] Andreas Roldan MD [address] [place] [address] Uncomplicated opioid dependence (CMS/HCC) Social History Tobacco [...] Description 03/22/2025 1:15 PM EST Office Visit [facility] [address] [place] [address] Andreas Roldan MD [address] [place] [address] 04/25/2025 1:30 PM EST Office Visit [facility] [address] [place] [address] Ana Roa documented as of this encounter Visit Diagnoses Diagnosis Uncomplicated opioid dependence (CMS/HCC) (HCC) documented in this encounter Care Teams Pinked Edge Sewing Machine Operator Relationship Specialty Start Date End Date Leticia Au MD [address] [place] [address] PCP - General Internal Medicine 01/13/14 documented as of this encounter
--- OUTSIDE RECORDS SUMMARY | 2025-03-15 15:47 | XMS_ITS | Encounter Summary ---
Author Organization [employer] Address [address] [facility] [address] 7t [place] [address] Care Team Providers Care Turbine Attendant Name Role Phone Leticia Au MD Primary Care Provider [phone]- [phone] Encounter Details Date Type Department Care Team (Late Contact Info) Description 04/09/[address] [facility] CHC ADULT DENTAL [address] [place] [address] Sky Ferro, LUCRETIAS [address] [place] [address] Social History Tobacco Use Types Packs/Day Years [...] Description 03/22/2025 1:15 PM EST Office Visit [facility] MEDICINE [address] [place] [address] Andreas Roldan MD 230 [place] [address] 04/25/2025 1:30 PM EST Office Visit [facility] ADULT DENTAL [address] [place] [address] Ana Roa documented as of this encounter Visit Diagnoses Not on filedocumented in this encounter Care Teams Turbine Attendant Relationship Specialty Start Date End Date Leticia Au MD [address] [place] [address] PCP - General Internal Medicine 01/13/14 documented as of this encounter
--- OUTSIDE RECORDS SUMMARY | 2025-03-15 15:47 | XMS_ITS | Encounter Summary ---
Author Organization [employer] Address 75 [facility] 7 [place] [address] Care Team Providers Care Qual Field Manager Name Role Phone Leticia Au MD Primary Care Provider [phone]- [phone] Encounter Details Date Type Department Care Team (Late Contact Info) Description 03/31/2023 Orders Only [facility] CHC MED & PEDS [address] [place], [place] [phone] Leticia Au MD 505 [place], [place] [phone] Anxiety (Primary Dx) Social History Tobacco Use [...] Description 03/22/2025 1:15 PM EST Office Visit [facility] MEDICINE 230 [place] [address] Andreas Roldan MD 230 [place], [place] [phone] 04/25/2025 1:30 PM EST Office Visit [facility] ADULT DENTAL [address] [place], [place] [phone] Roa, Ana documented as of this encounter Visit Diagnoses Diagnosis Anxiety- Primary Anxiety state, unspecified documented in this encounter Care Teams Qual Field Manager Relationship Specialty Start Date End Date Leticia Au MD 505 [place] [address] PCP - General Internal Medicine 01/13/14 documented as of this encounter
--- OUTSIDE RECORDS SUMMARY | 2025-03-15 15:47 | XMS_ITS | Encounter Summary ---
Author Organization [employer] Address 75 [facility] 7t [place] [address] Care Team Providers Care Taxi Servicer Name Role Phone Leticia Au MD Primary Care Provider [phone] Reason for Visit * Reason Comments Med Refill Encounter Details Date Type Department Care Team ([facility] st Contact Info) Description 12/10/2024 Refill [facility] MEDICINE [address] [place] [address] Andreas Roldan MD 230 [place] [address] Uncomplicated opioid dependence (CMS/HCC) Social History Tobacco [...] Description 03/22/2025 1:15 PM EST Office Visit [facility] MEDICINE [address] [place] [address] Andreas Roldan MD [address] [place] [address] 04/25/2025 1:30 PM EST Office Visit [facility] ADULT DENTAL [address] [place] [address] Ana Roa documented as of this encounter Visit Diagnoses Diagnosis Uncomplicated opioid dependence (CMS/HCC) (HCC) documented in this encounter Care Teams Taxi Servicer Relationship Specialty Start Date End Date Leticia Au MD 505 [place] [address] PCP - General Internal Medicine 01/13/14 documented as of this encounter
--- OUTSIDE RECORDS SUMMARY | 2025-03-15 15:47 | XMS_ITS | Encounter Summary ---
Author Organization [employer] Address [address] [place] [address] 7 [place] [address] Care Team Providers Care Clinical Trials Specialist Name Role Phone Leticia Au MD Primary Care Provider [phone] Encounter Details Date Type Department Care Team (Late Contact Info) Description 12/11/2023 Orders Only [facility] 230 [place] [address] ProviderJoe MD Social History Tobacco Use Types [...] Description 03/22/2025 1:15 PM EST Office Visit [facility] MEDICINE [address] [place] [address] Andreas Roldan MD 230 [place], [place] [phone] 04/25/2025 1:30 PM EST Office Visit [facility] ADULT DENTAL [address] [place] [address] Ana Roa documented as of this encounter Procedures Procedure Name Priority Date/Time Associated Diagnosis Comments ECG 12-LEAD Routine 07/13/2020 2:31 PM EDT documented in this encounter Results * ECG 12 lead (07/13/2020 2:31 PM EDT) us Historical Provider ECG ORDERABLES Final Res ult documented in this encounter Visit Diagnoses Not on filedocumented in this encounter Care Teams Clinical Trials Specialist Relationship Specialty Start Date End Date Leticia Au MD [address] [place] [address] PCP - General Internal Medicine 01/13/14 documented as of this encounter
--- OUTSIDE RECORDS SUMMARY | 2025-03-15 15:47 | XMS_ITS | Encounter Summary ---
Author Organization [employer] Address 75 [facility] 7 [place] [address] Care Team Providers Care Armored Machine Operator Name Role Phone Leticia Au MD Primary Care Provider [phone]- [phone] Encounter Details Date Type Department Care Team ([facility] Contact Info) Description 11/14/2022 Orders Only [facility] CHC MED & PEDS 505 [place], [place] [phone] Leticia Au MD 505 [place] [address] Pancytopenia (CMS/HCC) (Primary Dx); Aregenerative anemia (CMS/HCC) [...] Description 03/22/2025 1:15 PM EST Office Visit [facility] MEDICINE [address] [place] [address] Andreas Roldan MD 230 [place] [address] 04/25/2025 1:30 PM EST Office Visit [facility] ADULT DENTAL [address] [place] [address] Ana Roa documented as of this encounter Visit Diagnoses Diagnosis Pancytopenia (HCC)- Primary Aregenerative anemia (CMS/HCC) (HCC) Unspecified aplastic anemia documented in this encounter Care Teams Armored Machine Operator Relationship Specialty Start Date End Date Leticia Au MD [address] [place] [address] PCP - General Internal Medicine 01/13/14 documented as of this encounter
--- OUTSIDE RECORDS SUMMARY | 2025-03-15 15:47 | XMS_ITS | Encounter Summary ---
Author Organization [employer] Address [address] [facility] 7t [place] [address] Care Team Providers Care Consumer Banker Name Role Phone Leticia Au MD Primary Care Provider [phone]- [phone] Encounter Details Date Type Department Care Team ([facility] Contact Info) Description 09/16/2022 Orders Only [facility] CHC MED & PEDS 505 [place], [place] [phone] Leticia Au MD 505 [place] [address] Normocytic anemia (Primary Dx) Social History Tobacco [...] Upcoming Encounters Date Type Department Care Team ([facility] Contact Info) Description 03/22/2025 1:15 PM EST Office Visit [facility] MEDICINE 230 [place] [address] Andreas Roldan MD 230 [place], [place] [phone] 04/25/2025 1:30 PM EST Office Visit [facility] ADULT DENTAL 230 [place] [address] Ana Roa Scheduled Orders Name Type Priority Associated Diagnoses [...] Iron, Total 98 50 - 180 mcg/dL [facility] Iron Binding Capacity 298 250 - 425 mcg/dL (calc) [facility] % Saturation 33 20 - 48 % (calc) [facility] Ferritin 58 24 - 380 ng/mL [facility] 09/17/2022 10:3 2 AM EDT 09/17/2022 10:32 AM EDT Leticia Au MD LAB BLOOD ORDERABLES Final Result [facility] [address], [place] [address] [facility] [address] [place] [address] * Reticulocyte Count (09/17/2022 10:32 AM EDT) Reticulocyte Count, Automated 1.1 % [facility] Reticulocyte, Absolute 49,170 25,000 - 90,000 cells/uL [facility] Blood Venous blood specimen / Unknown 09/17/2022 10:32 AM EDT 09/17/2022 10:32 AM EDT Leticia Au MD LAB BLOOD ORDERABLES Final Result [facility] [address], [place] [address] [facility] 200 [place] [address] documented in this encounter Visit Diagnoses Diagnosis Normocytic anemia- Primary Unspecified anemia documented in this encounter Care Teams Consumer Banker Relationship Specialty Start Date End Date Leticia Au MD [address] [place] [address] PCP - General Internal Medicine 01/13/14 documented as of this encounter
--- OUTSIDE RECORDS SUMMARY | 2025-03-15 15:47 | XMS_ITS | Encounter Summary ---
Author Organization [employer] Address 75 [facility] 7 [place] [address] Care Team Providers Care Measurer Name Role Phone Leticia Au MD Primary Care Provider +- [phone] Reason for Visit * Reason Onset Date Comments Nurse Triage 12/10/2023 Encounter Details Date Type Department Care Team (Late st Contact Info) Description 12/10/[address] [facility] CHC MED & PEDS [address] [place], [place] [phone] Leticia Au MD 505 [place], [place] [phone] Nurse Triage Social History Tobacco Use Types [...] ago. Also denies any injury while in [place]. Pt reports being able to return to work yesterday and today. Advised pt to continue to take Eliquisand to go seek ED care if shortness of breath, or severe dizziness return. Pt verbalized understanding and agreement with plan. * Telephone Encounter - Karen Porter LPN - 12/10/2023 11:52 AM EDT Triage call returned to patient who reports that he was in [place] from 11/22-. Returned yesterday.While in [place] patient began with fast heartbeat and dizziness and accompanied shortness of breath. Happened off and on and then again last night. Did not go to work today due to symptoms. Did not seek ED care in [place] as he was concerned with Insurance being out of state. Patient when asked confirms that he missed Eliquis doses for approx 10 days. Disposition reviewed with patient and advised to seek ED treatment now. Rationale explained and patient verbalized understanding. Will go to [place] ED and will call 911 as needed. [...] Description 03/22/2025 1:15 PM EST Office Visit [facility] MEDICINE [address] [place] [address] [phone] Andreas Roldan MD [address] [place], [place] [phone] 04/25/2025 1:30 PM EST Office Visit [facility] ADULT DENTAL 230 [place], [place] [phone] Ana Roa documented as of this encounter Visit Diagnoses Not on filedocumented in this encounter Care Teams Measurer Relationship Specialty Start Date End Date Leticia Au MD [address] [place] [address] PCP - General Internal Medicine 01/13/14 documented as of this encounter
--- OUTSIDE RECORDS SUMMARY | 2025-03-15 15:47 | XMS_ITS | Clinical Summary ---
Author Organization [facility] Address [address] [place] [address] Phone Care Team Providers Care Mineral Surveying Technician Name Role Phone Leticia Au MD Primary Care Pr ovider Social History Tobacco Use Types Packs/Day Years Used Date Smoking Tobacco: Never Assessed Sex and Gender Information Value Date Recorded Sex Assigned at Not on file Legal Sex Male 10:46 AM EDT Gender Identity Not on file Sexual Orientation Not on file Plan of Treatment Not on file Medical Devices Not on file Insurance [facility] [employer] PARTIAL [facility] [employer] Member Subscriber Plan / Payer (Ef fective 2024-Present) Name:Mateo Graham Relation to Subscriber:Self Name:Mateo Graham Payer ID:Not on file Type:HMO Address: [address] NET PARTIAL [facility] Member Subscriber Plan / Payer (Ef fective 2024-Present) Name:Mateo Graham Relation to Subscriber:Self Name:Mateo Graham Payer ID:Not on file Type:HMO Address: [address] NET PARTIAL [facility] [employer] Member Subscriber Plan / Payer (Ef fective 2024-Present) Name:Mateo Graham Relation to Subscriber:Self Name:Mateo Graham Payer ID:Not on file Type:HMO Address: [address] NET PARTIAL [facility] Member Subscriber Plan / Payer (Ef fective 2024-Present) Name:Mateo Graham Relation to Subscriber:Self Name:Mateo Graham Payer ID:Not on file Type:HMO Address: [address] NET PARTIAL [facility] NET PARTIAL Care Teams Mineral Surveying Technician Relationship Specialty Start Date End Date Leticia Au MD 230 [facility] 1 [place] [address] PCP - General Internal Medicine 11/04/24 Additional Source Comments The information contained in this document represents components of the legal health record. It is not the complete legal health record.[facility]
--- OUTSIDE RECORDS SUMMARY | 2025-03-15 15:47 | XMS_ITS | Clinical Summary ---
Author Organization [employer] Address 75 [facility] 7t [place] [address] Care Team Providers Care Office Services Representative Name Role Phone Leticia Au MD Primary Care Provider [phone]- [phone] Allergies No known active allergies Medications Eliquis 5 MG tablet Take 1 tablet by mouth 2 times daily. 12/22/2023 Active Ventolin HFA 108 (90 Base) MCG/ACT [...] by mouth Once per day. OTC Active cholecalciferol (Vitamin D-3) 25 MCG tabletIndicatio ns:Low vitamin D level TAKE 1 TABLET BY MOUTH EVERY DAY 30 tablet 5 09/01/2024 Active buprenorphine-n aloxone (Suboxone) 4-1 MG per sublingual filmIndications :Uncomplicated opioid dependence (CMS/HCC) (HCC) Place 1 Film under the tongue in the morning. 28 Film 2 09/30/2024 Active gabapentin (Neurontin) 300 MG capsuleIndicati ons:Chronic bilateral low back pain without sciatica Take 1 capsule (300 mg) by mouth 2 times daily. 60 capsule 10/06/2024 Active Buprenorphine HCl-Naloxone HCl (Suboxone) 8-2 MG SL filmIndications :Uncomplicated opioid dependence (CMS/HCC) (HCC) Place 1 Film under the tongue 3 times daily. 84 Film 2 02/24/2025 5:11 PM EST 12/21/2024 Active QUEtiapine (SEROquel) 25 MG tabletIndicatio ns:Primary insomnia TAKE 1 TO 2 TABLETS BY MOUTH AT BEDTIME 60 tablet 1 03/07/2025 3:51 PM EST 01/20/2025 Active losartan (Cozaar) 50 MG tablet Take 50 mg by mouth Once per day. 04/21/2024 Active Calcium Ascorbate 500 MG tablet Take 500 mg by mouth. 07/25/2023 Active Acetaminophen 500 MG capsule Take 1,000 mg by mouth. 09/20/2024 Active Methylcobalamin 500 MCG chewable tablet Chew 500 mcg. 07/25/2023 Active Active Problems Problem Noted Date Diagnosed Date Sleep apnea 03/09/2024 Acute systolic heart failure 02/26/2024 Partially edentulous mandible 08/11/2023 Edentulous maxilla 07/03/2023 Open fracture of tooth 04/09/2023 Dental caries 02/26/2023 Non-restorable tooth 02/26/2023 Tobacco dependence syndrome 04/16/2022 Hypertensive disorder 09/11/2021 Microcytic anemia 01/13/2021 Atrial fibrillation (CMS/HCC) 06/23/2020 Chronic bilateral low back pain without sciatica 09/06/2019 Obesity 05/01/2016 Impacted cerumen 05/01/2016 Opioid dependence 01/04/2015 Benign prostatic hyperplasia 04/14/2014 Hemorrhoids 04/06/2013 Back problem 03/08/2013 Hepatitis C 03/08/2013 Wears glasses 03/08/2013 Arthropathy 06/11/2011 Viral disease 06/11/2011 Chest pain 06/11/2011 Encounters Date Type Department Care Team Description 03/14/2025 Refill [facility] MEDICINE [address] [place] [address] Caryl Lunsford RN Uncomplicated opioid dependence (CMS/HCC) (HCC) 02/15/2025 2:15 PM EST Office Visit [facility] ADULT DENTAL [address] [place] [address] Jj Roasa 01/20/2025 Refill [facility] CHC MED & PEDS [address] [place], [place] [phone] Leticia Au MD Primary insomnia 12/28/2024 1:30 PM EDT Office Visit [facility] MEDICINE [address] [place] [address] Andreas Roldan MD Uncomplicated opioid dependence (CMS/HCC) (HCC) (Primary Dx) 12/28/2024 Travel 12/21/2024 Refill [facility] MEDICINE [address] [place] [address] Caryl Lunsford RN Uncomplicated opioid dependence (CMS/HCC) from Last 3 Months Immunizations Immunization Administration Dates Next Due Influenza, Split (incl. [...] your housing situation today? I have elizabeth yahir 05/26/[address] you li [...] Sign Reading Time Taken Comments Blood Pressure 128/72 10/06/2024 2:40 PM EDT Pulse 64 10/06/2024 2:40 PM EDT Temperature 36.3 C (97.3 F) 10/06/2024 2:40 PM EDT Respiratory Rate 16 10/06/2024 2:40 PM EDT Oxygen Saturation 95% 03/09/2024 2:40 PM EST Inhaled Oxygen Concentration - - Weight 105 kg (232 lb) 10/06/2024 2:40 PM EDT Height 174.6 cm (5' 8.75 ) 10/06/2024 2:40 PM ED T Body Mass Index 34.51 10/06/2024 2:40 PM EDT Plan of Treatment Upcoming Encounters Date Type Department Care Team (Late st Contact Info) Description 03/22/2025 1:15 PM EST Office Visit [facility] MEDICINE [address] [place] [address] Andreas Roldan MD [address] [place] [address] 04/25/2025 1:30 PM EST Office Visit [facility] ADULT DENTAL [address] [place] [address] Ana Roa Health Maintenance Due Date Last Done Comments CT Colonography 1962 Colonoscopy 1962 Colorectal Cancer Screening 1962 Depression Screening 1962 FIT DNA/Cologuard 1962 FIT 1962 FOBT 1962 Sigmoidoscopy 1962 Disability Screening 1962 Alcohol/Substance Use Screening 1974 Hepatitis A Vaccines (1 of 2 - Risk 2-dose series) 1981 Pneumococcal Vaccine: 50+ Years (1 of 2 - PCV) 1981 RSV Patients and Patients Aged 60 years or older (1 - Risk 50-74 years 1-dose series) 2012 Zoster Vaccines (1 of 2) 2012 Hepatitis B Vaccines (1 of 3 - Risk 3-dose series) 2022 Dental Oral Exam 08/21/2023 02/19/2023, , 10/15/2017, Additional history exists Dental Prophylaxis 01/17/2024 07/17/2023, 0 10/09/2017, 06/28/2016, Additional history exists Dental X-Ray: Bitewings 02/21/2024 02/20/20, 01/10/2021, 10/09/2017, Additional history exists COVID-19 Vaccine ( season) 2024 10/09/2020, 09/11/2020 Influenza Vaccine (#1) 2024 01/20/2013 SDOH Screening 05/26/2025 05/26/2024 Tobacco Screening 12/28/2025 12/28/2024 Lipid Panel 01/13/2026 01/13/2021 Dental X-Ray: Full Mouth 02/27/2026 023, 02/19/2023, 01/10/2021, Additional history exists DTaP/Tdap/Td Vaccines (2 - Td or Tdap) 08/24/2032 08/24/2022, 11/27/2007 HIV Screening Completed 06/14/2024, 01/13/2021 HIB Vaccines Aged Out No longer [...] Procedure Name Priority Date/Time Associated Diagnosis Comments NO CHARGE VISIT Routine 02/15/2025 2:15 PM EST HIV 1/2 ANTIGEN/ANTIBODY, FOURTH GENERATION W/RFL Routine 06/14/2024 3:13 PM EDT PROPHYLAXIS - ADULT Routine 07/17/2023 3 :00 PM EDT PANORAMIC RADIOGRAPHIC IMAGE Routine 02/26/2023 8:00 AM EST INTRAORAL - COMPLETE SERIES OF RADIOGRAPHIC IMAGES Routine 02/19/2023 3:00 PM EST PERIODIC ORAL EVALUATION - ESTABLISHED PATIENT Routine 02/19/2023 3:00 PM EST ZZZ HISTORICAL LIPID PANEL Routine 01/13/2021 11:11 AM EDT from Last 3 Months or Most Recently Relevant to Health Maintenance Results * HIV-1/2 Antigen and Antibodies, Fourth Generation, with Reflexes (06/14/2024 3:13 PM EDT) [facility] HIV AB/AG Nonreactive Nonreactive [facility] Comment:HIV-1 p24 Ag and/or HIV-1/HIV-2 Ab not detected.A test result that is nonreactive does not exclude thepossibility of exposure to or infection with HIV-1 and/orHIV-2. Nonreactive results in this assay for individualswith prior exposure to HIV-1 and/or HIV-2 may be due toantigen and antibody levels that are below the limit ofdetection of this assay.[employer] HIV Ag/Ab Combo assay result andsupplemental assay results should be interpreted inconjunction with the patient's clinical presentation,history and other laboratory results. If the results areinconsistent with clinical evidence, additional testing issuggested to confirm the result. 06/14/2024 3:13 PM EDT 06/14/2024 4:11 PM EDT Andreas Roldan MD LAB BLOOD ORDERABLES Final Resul t [facility] [address] [place] [address] [phone] * (ABNORMAL) LIPID PANEL (01/13/2021 11:11 AM EDT) Cholesterol 132 mg/dL [facility] Comment: Desirable Cholesterol: less than 200 mg/dL Borderline High Cholesterol: 200-239 mg/dL High Cholesterol: greater than 239 mg/dL HDL Cholesterol 64 mg/dL [facility] Comment: Desirable HDL: greater than 40 mg/dL Note: This HDL assay may give artificially low results in patients with liver disease. LDL Cholesterol Calculated 63 mg/dl [facility] Comment: Desirable LDL: less than 100 mg/dL Near Optimal/Above Optimal LDL: 110-129 mg/dL Borderline High LDL: 130-159 mg/dL High LDL: 160-189 mg/dL Very High LDL: greater than or equal to 190 mg/dL Triglycerides 28 mg/dL [facility] Comment: Desirable Triglyceride: less than 150 mg/dL Borderline High Triglyceride 150-199 mg/dL High Triglyceride: 200-499 mg/dL Very High Triglyceride: greater than or equal to 5OO mg/dL Alanine Aminotransferase 19 0 - [...] Rate >60 [facility] Comment: NOTE: For -[place] individuals, multiply the result by 1.210. Chronic Kidney Disease: Estimated GFR < 60 mL/min/1.73m2 Severe Kidney Disease: Estimated GFR < 15 mL/min/1.73m2 Glucose Random 112 60 - 115 mg/dL [facility] Potassium 4.7 3.3 - 5.1 mmol/L [facility] Sodium 134(L) 135 - 145 mmol/L [facility] Total Protein 7.6 6.5 - 8.0 g/dL [facility] Bilirubin Direct 0.2 0.0 - 0.5 mg/dL [facility] 01/13/2021 11:1 1 AM EDT us Leticia Au MD HISTORICAL/NON ORDERABLE [place] Final Result [facility] [address] from Last 3 Months or Most Recently Relevant to Health Maintenance Insurance [facility] PARTIAL DENTAL - [facility] PARTIAL (MEDICAID) Care Teams Office Services Representative Relationship Specialty Start Date End Date Leticia Au MD [address] [place] [phone] PCP - General Internal Medicine 01/13/14
--- OUTSIDE RECORDS SUMMARY | 2025-03-15 15:47 | XMS_ITS | Encounter Summary ---
Author Organization [employer] Address [address] [place] [address] 7 [place] [address] Care Team Providers Care Motorcoach Driver Name Role Phone Leticia Au MD Primary Care Provider [phone]- [phone] Reason for Visit * Reason Comments Med Refill Encounter Details Date Type Department Care Team (Late st Contact Info) Description 02/19/2023 Refill [facility] MEDICINE [address] [place] [address] Andreas Roldan MD [address] [place] [phone] Uncomplicated opioid dependence (CMS/HCC) Social History Tobacco [...] 1:15 PM EST Office Visit [facility] MEDICINE [address] [place] [address] [phone] Andreas Roldan MD [address] [place] [address] [phone] 04/25/2025 1:30 PM EST Office Visit [facility] ADULT DENTAL [address] [place] [phone] Ana Brandon documented as of this encounter Visit Diagnoses Diagnosis Uncomplicated opioid dependence (CMS/HCC) (HCC) documented in this encounter Care Teams Motorcoach Driver Relationship Specialty Start Date End Date Leticia Au MD [address] [place] [address] [place] [address] PCP - General Internal Medicine 01/13/14 documented as of this encounter
--- OUTSIDE RECORDS SUMMARY | 2025-03-15 15:47 | XMS_ITS | Encounter Summary ---
Author Organization [employer] Address [address] [facility] 7t [place] [address] Care Team Providers Care Gravity Prospector Name Role Phone Leticia Au MD Primary Care Provider [phone] Encounter Details Date Type Department Care Team (Late st Contact Info) Description 05/22/2022 Orders Only [facility] MED & PEDS [address] [place], [place] [phone] Lizz Garland LPN Social History Tobacco Use [...] Description 03/22/2025 1:15 PM EST Office Visit [facility] MEDICINE [address] [place] [address] Andreas Roldan MD [address] [place] [address] 04/25/2025 1:30 PM EST Office Visit [facility] ADULT DENTAL [address] [place] [address] Ana Roa documented as of this encounter Procedures Procedure Name Priority Date/Time Associated Diagnosis Comments CBC WITH AUTO DIFFERENTIAL Routine 06/29/2022 9:42 AM EDT COMPREHENSIVE METABOLIC PANEL Routine 06/29/2022 9:42 AM EDT documented in this encounter Results * (ABNORMAL) Comprehensive Metabolic Panel (06/29/2022 9:42 AM EDT) Sodium 144 135 - 145 mmol/L [facility] Potassium 5.4(H) 3.3 - 5.1 mmol/L [facility] Chloride 104 96 - 108 mmol/L [facility] Carbon Dioxide 34(H) 22 - 29 mmol/L [facility] Anion Gap 11(L) 12 - 20 [facility] Urea Nitrogen (BUN) 17(H) 9 - 16 mg/dL [facility] Creatinine, Serum 0.79 0.5 - 1.4 mg/dL [facility] Estimated Glomerular Filt Rate >60 [facility] Comment:NOTE: For -Am erican individuals, multiply the result by 1.210.Chronic Kidney Disease: Estimated GFR < 60 mL/min/1.83q8Xsyidn Kidney Disease: Estimated GFR < 15 mL/min/1.73m2 Glucose 103 60 - 115 mg/dL [facility] Calcium 9.4 8.4 - 10.2 mg/dL [facility] Bilirubin, Total 0.6 0.0 - 1.0 mg/dL [facility] Aspartate Amino Transferase 17 5 - 37 U/L [facility] Alanine Aminotransferase 12 0 - 40 U/L [facility] Total Protein 6.8 6.5 - 8.0 g/dL [facility] Albumin Level 4.2 3.5 - 5.0 g/dL [facility] Alkaline Phosphatase 53 39 - 117 U/L [facility] 06/29/2022 9:42 AM EDT 06/29/2022 9:42 AM EDT [facility] External Provider LAB BLO OD ORDERABLES Final Result [facility] [address] [place] [address] [phone] * (ABNORMAL) CBC auto differential (06/29/2022 9:42 AM EDT) White Blood Count 5.1 4.8 - 10.8 X10*3/uL [facility] Red Blood Count 4.74 4.60 - 5.80 X10*6/uL [facility] Hemoglobin 13.1(L) 14.0 - 18.0 g/dl [facility] Hematocrit 42.0 42.0 - 52.0 % [facility] Mean Corpuscular Volume 88.6 80.0 - 98.0 fL [facility] Mean Corpuscular Hemoglobin 27.6 27.0 - 33.0 pg [facility] Mean Corpuscular HGB Conc 31.2 31.0 - 36.0 g/dl [facility] Red Cell Distribution Width 13.6 11.0 - 16.0 % [facility] Platelet Count 205 160 - 400 X10*3/uL [facility] Mean Platelet Volume 10.2 9.4 - 12.4 fL [facility] Neutrophils Percent Auto 28.6(L) 45 - 73 % [facility] Imm Gran Pct Auto 0.0 0.0 - 0.4 % [facility] Lymphocytes Percent Auto 56.4(H) 20 - 40 % [facility] Monocytes Percent Auto 11.0 2 - 11 % [facility] Eosinophils Percent Auto 3.6 0 - 4 % [facility] Basophils Percent Auto 0.4 0 - 2 % [facility] NRBC Pct Auto 0.0 0.0 - 0.2 /100WBC [facility] Neutrophils Absolute Auto 1.5(L) 2.0 - 8.3 x10*3/uL [facility] Imm Gran Abs Auto 0.00 0.00 - 0.03 X10*3/uL [facility] Lymphocytes Absolute Auto 2.9 1.2 - 4.9 X10*3/uL [facility] Monocytes Absolute Auto 0.6 0.1 - 1.2 X10*3/uL [facility] Eosinophils Absolute Auto 0.2 0.0 - 0.4 X10*3/uL [facility] Basophils Absolute Auto 0.0 0.0 - 0.2 X10*3/uL [facility] NRBC Abs Auto 0.000 0.0 - 0.012 X10*3/uL [facility] 06/29/2022 9:42 AM EDT 06/29/2022 9:42 AM EDT us [facility] External Provider LAB BLO OD ORDERABLES Final Result [facility] [address] [place] [address] [phone] documented in this encounter Visit Diagnoses Not on filedocumented in this encounter Care Teams Gravity Prospector Relationship Specialty Start Date End Date Leticia Au MD [address] [place] [address] PCP - General Internal Medicine 01/13/14 documented as of this encounter
--- OUTSIDE RECORDS SUMMARY | 2025-03-15 15:47 | XMS_ITS | Encounter Summary ---
Author Organization [employer] Address [address] [facility] [address] 7t [place] [address] Care Team Providers Care Wirer Passenger Car Name Role Phone Leticia Au MD Primary Care Provider [phone] Reason for Visit * Reason Onset Date Comments Med Refill 03/14/2025 Encounter Details Date Type Department Care Team (Late st Contact Info) Description 03/14/2025 Refill [facility] [address] [place] [address] Caryl Lunsford RN Uncomplicated opioid dependence (CMS/HCC) (HCC) Social History Tobacco Use Types Packs/Day Years [...] Description 03/22/2025 1:15 PM EST Office Visit [facility] [address] [place] [address] Andreas Roldan MD [address] [place] [address] 04/25/2025 1:30 PM EST Office Visit [facility] ADULT DENTAL [address] [place] [address] Ana Roa documented as of this encounter Visit Diagnoses Diagnosis Uncomplicated opioid dependence (CMS/HCC) (HCC) documented in this encounter Care Teams Wirer Passenger Car Relationship Specialty Start Date End Date Leticia Au MD [address] [place] [address] PCP - General Internal Medicine 01/13/14 documented as of this encounter
--- OUTSIDE RECORDS SUMMARY | 2025-03-15 15:47 | XMS_ITS | Encounter Summary ---
Author Organization [employer] Address [address] [place] [address] 7 [place] [address] Care Team Providers Care Cadastral Surveyor Name Role Phone Leticia Au MD Primary Care Provider [phone] Reason for Visit * Reason Comments Med Refill Encounter Details Date Type Department Care Team (Late st Contact Info) Description 08/24/2022 Refill [facility] [address] [place] [address] Pipo Cha MD [address] [place] [phone] Opioid dependence, uncomplicated (CMS/HCC) Social History Tobacco [...] Description 03/22/2025 1:15 PM EST Office Visit [facility] [address] [place] [address] Andreas Roldan MD [address] [place] [address] 04/25/2025 1:30 PM EST Office Visit [facility] ADULT DENTAL [address] [place] [address] Ana Roa documented as of this encounter Visit Diagnoses Diagnosis Opioid dependence, uncomplicated (CMS/HCC) (HCC) documented in this encounter Care Teams Cadastral Surveyor Relationship Specialty Start Date End Date Leticia Au MD [address] [place] [address] [place] [address] PCP - General Internal Medicine 01/13/14 documented as of this encounter
--- OUTSIDE RECORDS SUMMARY | 2025-03-15 15:47 | XMS_ITS | Encounter Summary ---
Author Organization [employer] Address 75 [facility] 7t [place] [address] Care Team Providers Care Side Framer Name Role Phone Leticia Au MD Primary Care Provider [phone] Encounter Details Date Type Department Care Team (Late Contact Info) Description 11/18/2023 Orders Only [facility] [address] [place] [address] Andreas Roldan MD [address] [place] [address] Social History Tobacco Use Types Packs/Day Years [...] Description 03/22/2025 1:15 PM EST Office Visit [facility] MEDICINE [address] [place] [address] Andreas Roldan MD [address] [place] [address] 04/25/2025 1:30 PM EST Office Visit [facility] ADULT DENTAL [address] [place] [address] Ana Roa documented as of this encounter Visit Diagnoses Not on filedocumented in this encounter Care Teams Side Framer Relationship Specialty Start Date End Date Leticia Au MD [address] [place] [address] BAIRON Mosley [address] PCP - General Internal Medicine 01/13/14 documented as of this encounter
--- OUTSIDE RECORDS SUMMARY | 2025-03-15 15:47 | XMS_ITS | Encounter Summary ---
Author Organization [employer] [facility] Address 75 [facility] 7t [place] [address] Care Team Providers Care Power Generation Equipment Repairer Name Role Phone Leticia Au MD Primary Care Provider [phone] Encounter Details Date Type Department Care Team (Late Contact Info) Description 11/20/2022 Orders Only [facility] MEDICINE [address] [place] [phone] Caryl Lunsford RN Opioid type dependence, continuous [...] Description 03/22/2025 1:15 PM EST Office Visit [facility] MEDICINE [address] [place] [address] Andreas Roldan MD [address] [place] [address] [phone] 04/25/2025 1:30 PM EST Office Visit [facility] ADULT DENTAL [address] [place] [address] [phone] Ana Roa Scheduled Orders Name Type Priority [...] continuous (CMS/HCC) Expected: 11/20/2022 (Approximate), Expires: 11/21/2023 [facility]-SPOT .TB Lab Routine Opioid type dependence, continuous (CMS/HCC) Expected: 11/20/2022 (Approximate), Expires: 11/21/2023 documented as of this encounter Visit Diagnoses Diagnosis Opioid type dependence, continuous (CMS/HCC) (HCC)- Primary Opioid type dependence, continuous documented in this encounter Care Teams Power Generation Equipment Repairer Relationship Specialty Start Date End Date Leticia Au MD [address] [place] [address] PCP - General Internal Medicine 01/13/14 documented as of this encounter
--- OUTSIDE RECORDS SUMMARY | 2025-03-15 15:47 | XMS_ITS | Encounter Summary ---
Author Organization [employer] Address [address] [place] [address] 7 [place] [address] Care Team Providers Care Church Supervisor Name Role Phone Leticia Au MD Primary Care Provider [phone] Reason for Visit * Reason Comments Med Refill Encounter Details Date Type Department Care Team (Late st Contact Info) Description 06/29/2022 Refill [facility] [address] [place] [address] Andreas Roldan MD [address] [place] [address] [phone] Opioid dependence, uncomplicated (CMS/HCC) Social History Tobacco [...] Description 03/22/2025 1:15 PM EST Office Visit [facility] [address] [place] [address] [phone] Andreas Roldan MD [address] [place] [address] [phone] 04/25/2025 1:30 PM EST Office Visit [facility] ADULT DENTAL [address] [place] [address] [phone] Roa, Ana documented as of this encounter Visit Diagnoses Diagnosis Opioid dependence, uncomplicated (CMS/HCC) (HCC) documented in this encounter Care Teams Church Supervisor Relationship Specialty Start Date End Date Leticia Au MD [address] [place] [address] PCP - General Internal Medicine 01/13/14 documented as of this encounter
--- OUTSIDE RECORDS SUMMARY | 2025-03-15 15:47 | XMS_ITS | Clinical Summary ---
Author Organization [employer] [facility] Address [address] [place] [address] Care Team Providers Care Manager Fine Dining Name Role Phone Leticia Au MD Primary Care Provider [phone] Social History Tobacco Use Types Packs/Day Years [...] Depression Screening 03/24/2024 COVID-19 Vaccine (1 - 2024-2 6 season) 2024 Influenza Vaccine (#1) 2024 RSV [...] to complete this topic Care Teams Manager Fine Dining Relationship Specialty Start Date End Date Leticia Au MD [address] [place] [address] PCP - General 06/02/23
--- OUTSIDE RECORDS SUMMARY | 2025-03-15 15:48 | XMS_ITS | Encounter Summary ---
Author Organization [employer] Address 75 [facility] 7 [place] [address] Care Team Providers Care Orthopedic Nurse Practitioner Name Role Phone Leticia Au MD Primary Care Provider [phone] Encounter Details Date Type Department Care Team ([facility] Contact Info) Description 01/14/2023 Orders Only [facility] CHC MED & PEDS [address] [place], [place] [phone] Leticia Au MD [address] [place] [address] Excessive daytime sleepiness (Primary Dx); Snoring; Microcytic [...] Description 03/22/2025 1:15 PM EST Office Visit [facility] MEDICINE [address] [place] [address] [phone] Andreas Roldan MD [address] [place], [place] [phone] 04/25/2025 1:30 PM EST Office Visit [facility] ADULT DENTAL [address] [place] [address] [phone] Ana Roa documented as of this encounter Visit Diagnoses Diagnosis Excessive daytime sleepiness- Primary Snoring Other dyspnea and respiratory abnormality Microcytic anemia Unspecified iron deficiency anemia documented in this encounter Care Teams Orthopedic Nurse Practitioner Relationship Specialty Start Date End Date Leticia Au MD [address] [place] [address] PCP - General Internal Medicine 01/13/14 documented as of this encounter
== END 2025-03-15 15:18 | disposition home or self-care (01) ==
LOC: HO.HCS 14:30
PROVIDERS: PCP Internal Medicine
DX: I50.22 Chronic systolic (congestive) heart failure (principal); I48.0 Paroxysmal atrial fibrillation; I10 Essential (primary) hypertension
CPT/HCPCS: 93010; 99214; G2211

== ENCOUNTER → 2025-03-22 08:46 | Outpatient (REF) | payer OTHER, SELFPAY ==
--- NOTE | 2025-03-22 08:48 | CA_ITS ---
Transthoracic Echocardiogram Patient (Last, First, Middle): Mateo Zapata R Gender: Male Date of : 1960 Age: 64 Procedure Date: 03/22/2025 Procedure Type: Transthoracic Echocardiogram Location: OP Height: 172.72 cm Weight: 107.96 kg BSA: 2.20 m2 Heart Rate: bpm BP: 110 / 76 mmHg Floral Design Teacher: TO Referring MD: Sam Link PATIENT TRANSPORTER Symptoms: I50.22 - Chronic systolic (congestive) heart failure Study Quality: Fair/Contrast ECG Rhythm: Sinus Conclusions: - The left ventricular systolic function is normal. The calculated ejection fraction is 63% by biplane method. - No obvious valvular pathology seen on this study. - There is mild dilatation of the ascending aorta measuring 4.00 cm. Findings Procedure Information Contrast agent, definity, is being given per protocol without apparent complications. Left Ventricle Normal left ventricular cavity size. There is normal left ventricular wall thickness. The left ventricular systolic function is normal. The calculated ejection fraction is 63% by biplane method. There is no evidence of regional wall motion abnormalities. Diastolic function is normal for age. Right Ventricle Mildly increased right ventricular cavity size. There is normal right ventricular systolic function. Atria The left atrium is moderately dilated. The right atrium is mildly dilated. Aortic Valve There is a normal trileaflet aortic valve. There is no aortic valve stenosis. There is trace (trivial) aortic valve regurgitation. Mitral Valve The mitral valve appears normal. There is trace mitral valve regurgitation. There is no mitral valve stenosis. Pulmonic Valve The pulmonic valve is likely normal. Tricuspid Valve Normal tricuspid valve structure. There is mild tricuspid valve regurgitation. There is no evidence of pulmonary hypertension. Great Vessels There is mild dilatation of the ascending aorta measuring 4.00 cm. Small plaque is seen in the sino tubular ridge. Venous The inferior vena cava is normal in size and collapses greater than 50% with inspiration. Pericardium/Pleural There is no evidence of pericardial effusion. Prior Study Comparison No significant change compared to prior study dated: 11/04/2024. Recommendations, Care & Conclusions No obvious valvular pathology seen on this study. Measurements 2D Linear Measurements IVSd: 0.79 0.6-0.9/0.6-1.0 cm LVIDd: 6.06 3.9-5.3/4.2-5.9 cm LVIDd Index: 2.75 2.4-3.2/2.2-3.1 cm/m2 LVIDs: 3.61 2.0-3.6 cm LVPWd: 0.97 0.7-1.1 cm LA Diam: 4.80 2.7-3.8/3.0-4.0 cm LAIDs Index: 2.18 1.5-2.3 cm/m2 LV Mass: 266.66 67-162/88-224 g LV Mass Index: 121.21 43-95/49-115 g/m2 LVOT Diam: 2.30 3.0+(-)1.3 cm 2D Systolic Function EF 4C: 61.40 >55% EF 2C: 63.80 >55% EF BiP: 63.00 >55% Mitral Valve MV Pk E: 0.57 MV PK A: 0.24 MV Decel Time: 301.00 E/A: 2.40 E'Lateral: 9.25 E'Medial: 6.85 E/E' Med: 8.30 E/E' Lat: 6.20 PHT: 88.00 MVA PHT: 2.50 Decel Shasta: 1.89 Aortic Valve AoV Pk Julian: 1.55 AoV Mn Julian: 1.08 AoV VTI: 0.37 AoV Pk Grad: 10.00 Aov Mn Grad: 5.00 MIGUE Cont.VTI: 3.26 LVOT LVOT Pk Julian: 1.27 LVOT Mn Julian: 0.82 LVOT VTI: 0.29 LVOT Pk Grad: 6.00 LVOT Mn Grad: 3.00 LVOT Diam: 2.30 LVOT Area: 4.15 Diastolic Function MV Pk E: 0.57 MV Pk A: 0.24 E/A: 2.40 E'Medial: 6.85 E/E' Med: 8.30 E' Laterial: 9.25 E/E' Lat: 6.20 Right Ventricle TAPSE (mm): 25.50 TVS' Julian: 10.60 Tricuspid Valve TR Pk Julian: 2.26 TR Pk Grad: 20.00 RA Press: 3.00 RVSP: 23.00 Great Vessels Aorta Sinus of Valsalva: 3.64 2.0-3.[address] Ridge: 2.61 1.7-3.4 cm Ao Asc: 4.00 2.1-3.4 cm Updated in Other Vendor System with Status of Final Logan Teixeira MD electronically signed on 03/24/2025 11:38:16 AM with status of Final
--- OUTSIDE RECORDS SUMMARY | 2025-03-22 10:37 | XMS_ITS | Encounter Summary ---
Author Organization [employer] Address 75 [facility] 7 [place] [address] Care Team Providers Care Otr Driver Name Role Phone Leticia Au MD Primary Care Provider [phone]- [phone] Reason for Visit * Reason Onset Date Comments Nurse Triage 03/21/2025 Encounter Details Date Type Department Care Team ([facility] st Contact Info) Description 03/21/2025 Telephone [facility] CHC MED & PEDS [address] [place], [place] [phone] Leticia Au MD [address] [place] [address] Nurse Triage Social History Tobacco Use Types [...] encounter Miscellaneous Notes * Telephone Encounter - Ruth Ace RN - 03/21/2025 4:31 PM EST TC placed to pt for triage. Pt reports right leg pain, swelling, numbness, intermittent warmth fromthe knee up x 3 months. Pt reports leg will get hot at times but denies at time of call. Pt denies redness, hard areas to the touch on leg, fever, chest pain, difficulty breathing, leg discoloration.Pt reports sometimes they get shortness of breath but is baseline for them. Pt reports they have been getting episodes of nausea. Pt endorses 4/10 leg pain at time of call. Pt reports pain is worse when touching leg. Advised pt to come to [facility] [place] now for evaluation. Pt agreeable to plan and denies questions at this time. Protocol Used: Leg Pain (Adult) Protocol-Based Disposition: Go to Office or Video Visit Now Positive Triage Questions: * Thigh, calf, or ankle swelling in only one leg * Numbness in a leg or foot (i.e., loss of sensation) * All higher-acuity triage questions were negative. Care Advice Discussed: * Reasons To Call Back - Moderate pain (such as limping) lasts more than 3 days - Mild pain lasts more than 7 days - Signs of infection occur (such as spreading redness, warmth, fever) - You become worse * Telephone Encounter - Zaheer Acosta - 03/21/2025 3:16 PM EST Symptom: Leg Pain - Not From Injury Outcome: Schedule an urgent appointment (within 1 hour) or talk to a nurse or provider soon Reason: Severe pain now The caller accepted this outcome. Pt was explaining pain when call disconnected. This is all the information the service writer took down. Contact pt at [phone] documented in this encounter Plan of Treatment Upcoming Encounters Date Type Department Care Team (Late st Contact Info) Description 03/22/2025 1:15 PM EST Office Visit [facility] MEDICINE [address] [place] [address] Andreas Roldan MD [address] [place] [phone] 04/25/2025 1:30 PM EST Office Visit [facility] ADULT DENTAL [address] [place] [address] Ana Roa 06/14/2025 1:15 PM EDT Office Visit [facility] MEDICINE [address] [place] [address] Andreas Roldan MD [address] [place] [address] documented as of this encounter Visit Diagnoses Not on filedocumented in this encounter Care Teams Otr Driver Relationship Specialty Start Date End Date Leticai Au MD [address] [place] [phone] PCP - General Internal Medicine 01/13/14 documented as of this encounter
--- OUTSIDE RECORDS SUMMARY | 2025-03-22 10:37 | XMS_ITS | Encounter Summary ---
Author Organization [employer] Address 75 [facility] 7t [place] [address] Care Team Providers Care Md Do [facility]ident [facility] Name Role Phone Leticia Au MD Primary Care Provider [phone] Encounter Details Date Type Department Care Team (Late Contact Info) Description 11/18/2023 Orders Only [facility] [address] [place] [address] Andreas Roldan MD [address] [place] [address] Social History Tobacco Use Types Packs/Day Years [...] Description 03/22/2025 1:15 PM EST Office Visit [facility] MEDICINE [address] [place] [address] Andreas Roldan MD [address] [place] [address] 04/25/2025 1:30 PM EST Office Visit [facility] ADULT DENTAL [address] [place] [address] Ana Roa 06/14/2025 1:15 PM EDT Office Visit [facility] MEDICINE [address] [place], [place] [phone] Andreas Roldan MD [address] [place] [address] documented as of this encounter Visit Diagnoses Not on filedocumented in this encounter Care Teams Md Do [facility] Relationship Specialty Start Date End Date Leticia Au MD [address] [place] [address] PCP - General Internal Medicine 01/13/14 documented as of this encounter
--- OUTSIDE RECORDS SUMMARY | 2025-03-22 10:37 | XMS_ITS | Encounter Summary ---
Author Organization [employer] Address [address] [place] [address] 7 [place] [address] Care Team Providers Care Track Fitter Name Role Phone Leticia Au MD Primary Care Provider [phone] Reason for Visit * Reason Comments Med Refill Encounter Details Date Type Department Care Team (Late st Contact Info) Description 06/11/2023 Refill [facility] [address] [place] [phone] Andreas Roldan MD [address] [place] [address] Uncomplicated opioid dependence (CMS/HCC) Social History Tobacco [...] Description 03/22/2025 1:15 PM EST Office Visit [facility] MED[facility]INE [address] [place] [address] Andreas Roldan MD [address] [place] [address] 04/25/2025 1:30 PM EST Office Visit [facility] ADULT DENTAL [address] [place] [address] Ana Roa 06/14/2025 1:15 PM EDT Office Visit [facility] [address] [place] [address] Andreas Roldan MD [address] [place] [address] documented as of this encounter Visit Diagnoses Diagnosis Uncomplicated opioid dependence (CMS/HCC) (HCC) documented in this encounter Care Teams Track Fitter Relationship Specialty Start Date End Date Leticia Au MD [address] [place] [phone] PCP - General Internal Medicine 01/13/14 documented as of this encounter
--- OUTSIDE RECORDS SUMMARY | 2025-03-22 10:37 | XMS_ITS | Encounter Summary ---
Author Organization [employer] Address [address] [place] [address] 7 [place] [address] Care Team Providers Care Software Security Architect Name Role Phone Leticia Au MD Primary Care Provider [phone] Reason for Visit * Reason Comments Med Refill Encounter Details Date Type Department Care Team (Late st Contact Info) Description 04/15/2023 Refill [facility] MEDICINE [address] [place] [address] Andreas Roldan MD [address] [place] [address] Uncomplicated opioid dependence (CMS/HCC) Social History Tobacco [...] Description 03/22/2025 1:15 PM EST Office Visit [facility] MEDICINE [address] [place] [address] Andreas Roldan MD [address] [place] [address] 04/25/2025 1:30 PM EST Office Visit [facility] ADULT DENTAL [address] [place] [address] Ana Roa 06/14/2025 1:15 PM EDT Office Visit [facility] MEDICINE [address] [place] [address] Andreas Roldan MD 230 [place] [address] documented as of this encounter Visit Diagnoses Diagnosis Uncomplicated opioid dependence (CMS/HCC) (HCC) documented in this encounter Care Teams Software Security Architect Relationship Specialty Start Date End Date Leticia Au MD [address] [place] [address] PCP - General Internal Medicine 01/13/14 documented as of this encounter
--- OUTSIDE RECORDS SUMMARY | 2025-03-22 10:37 | XMS_ITS | Encounter Summary ---
Author Organization [employer] Address [address] [facility] 7t [place] [address] Care Team Providers Care Motor Vehicle Dispatcher Name Role Phone Leticia Au MD Primary Care Provider [phone] Encounter Details Date Type Department Care Team ([facility] Contact Info) Description 09/16/2022 Orders Only [facility] CHC MED & PEDS [address] [place], [place] [phone] Leticia Au MD 505 [place] [address] Normocytic anemia (Primary Dx) Social History Tobacco [...] Upcoming Encounters Date Type Department Care Team ([facility] Contact Info) Description 03/22/2025 1:15 PM EST Office Visit [facility] MEDICINE [address] [place] [address] Andreas Roldan MD [address] [place], [place] [phone] 04/25/2025 1:30 PM EST Office Visit [facility] ADULT DENTAL [address] [place] [address] Ana Roa 06/14/2025 1:15 PM EDT Office Visit [facility] MEDICINE [address] [place] [address] Andreas Roldan MD [address] [place], [place] [phone] Scheduled Orders Name Type Priority Associated Diagnoses [...] And Ferritin Panel (09/17/2022 10:32 AM EDT) [facility] Iron, Total 98 50 - 180 mcg/dL [facility] [facility] [place] [facility] [facility] Iron Binding Capacity 298 250 - 425 mcg/dL (calc) [facility] [place] [facility] % Saturation 33 20 - 48 % (calc) [facility] [facility] [place] [facility] [facility] Ferritin 58 24 - 380 ng/mL [facility] 09/17/2022 10:3 2 AM EDT 09/17/2022 10:32 AM EDT us Leticia Au MD LAB BLOOD ORDERABLES Final Result [facility] [address], [place] [address] [facility] [address] [place] [address] * Reticulocyte Count (09/17/2022 10:32 AM EDT) Reticulocyte Count, Automated 1.1 % [facility] [place] [facility] Reticulocyte, Absolute 49,170 25,000 - 90,000 cells/uL [facility] [place] [facility] [facility] Blood Venous blood specimen / Unknown 09/17/2022 10:32 AM EDT 09/17/2022 10:32 AM EDT Leticia Au MD LAB BLOOD ORDERABLES Final Result [facility] [address], [place] [address] [facility] [employer] [address] [place] [address] documented in this encounter Visit Diagnoses Diagnosis Normocytic anemia- Primary Unspecified anemia documented in this encounter Care Teams Motor Vehicle Dispatcher Relationship Specialty Start Date End Date Leticia Au MD [address] [place] [address] PCP - General Internal Medicine 01/13/14 documented as of this encounter
--- OUTSIDE RECORDS SUMMARY | 2025-03-22 10:37 | XMS_ITS | Clinical Summary ---
Author Organization [employer] Address [address] [facility] 7t [place] [address] Care Team Providers Care Fishing Vessel Captain Name Role Phone Leticia Au MD Primary Care Provider [phone] Allergies No known active allergies Medications Eliquis 5 MG tablet Take 1 tablet by mouth 2 times daily. 12/22/19 24 Active Ventolin HFA 108 (90 Base) MCG/ACT inhalerIndicat ions:SOB (shortness of breath) INHALE 2 PUFFS BY MOUTH EVERY 4 TO 6 HOURS NEEDED 18 g 1 01/22/20 24 Active amiodarone (Pacerone) 200 MG tablet Take 1 tablet by mouth Once per day. 02/16/20 24 Active digoxin (Lanoxin) 125 MCG tablet Take 1 tablet by mouth Once per day. 02/16/20 24 Active furosemide (Lasix) 40 MG tablet Take 1 tablet by mouth 2 times daily. 9 in the morning and 6 in the evening 02/16/20 24 Active metoprolol succinate XL (Toprol-XL) 50 MG 24 hr tablet Take 1 tablet by mouth 2 times daily. 02/16/20 24 Active Entresto 24-26 MG tablet Take 1 tablet by mouth 2 times daily. 02/16/20 24 Active ferrous sulfate 325 (65 Fe) MG tablet Take 1 tablet by mouth Once per day. OTC Active Multiple Vitamin (multivitamin) capsule Take 1 capsule by mouth Once per day. OTC Active cyanocobalamin (Vitamin B-12) 500 MCG tablet Take 500 mcg by mouth Once per day. OTC Active cholecalcifero l (Vitamin D-3) 25 MCG tabletIndicati ons:Low vitamin D level TAKE 1 TABLET BY MOUTH EVERY DAY 30 tablet 5 09/02/19 25 Active buprenorphine- naloxone (Suboxone) 4-1 MG per sublingual filmIndication s:Uncomplicate d opioid dependence (CMS/HCC) (HCC) Place 1 Film under the tongue in the morning. 28 Film 2 10/01/19 25 Active gabapentin (Neurontin) 300 MG capsuleIndicat ions:Chronic bilateral low back pain without sciatica Take 1 capsule (300 mg) by mouth 2 times daily. 60 capsule 10/07/19 25 Active QUEtiapine (SEROquel) 25 MG tabletIndicati ons:Primary insomnia TAKE 1 TO 2 TABLETS BY MOUTH AT BEDTIME 60 tablet 1 03/07/2025 3:51 PM EST 01/21/20 25 Active losartan (Cozaar) 50 MG tablet Take 50 mg by mouth Once per day. 04/21/19 25 Active Calcium Ascorbate 500 MG tablet Take 500 mg by mouth. 07/25/19 24 Active Acetaminophen 500 MG capsule Take 1,000 mg by mouth. 09/21/19 25 Active Methylcobalami n 500 MCG chewable tablet Chew 500 mcg. 07/25/19 24 Active Buprenorphine HCl-Naloxone HCl (Suboxone) 8-2 MG SL filmIndication s:Uncomplicate d opioid dependence (CMS/HCC) (HCC) Place 1 Film under the tongue 3 times daily. 84 Film 2 03/16/20 25 026 Active Buprenorphine HCl-Naloxone HCl (Suboxone) 8-2 MG SL filmIndication s:Uncomplicate d opioid dependence (CMS/HCC) (HCC) Place 1 Film under the tongue 3 times daily. 84 Film 2 02/24/2025 5:11 PM EST 12/22/19 25 025 Discontinued(Re order (will not trigger notification to Pharmacy)) Active Problems Problem Noted Date Diagnosed Date [...] Encounters Date Type Department Care Team Description 03/21/2025 Telephone [facility] MED & PEDS [address] [place] [address] Leticia Au MD Nurse Triage 03/15/2025 Orders Only GENERIC EXTERNAL DATA DEPARTMENT Provider, Generic External Data 03/14/2025 Refill [facility] MEDICINE [address] [place] [address] Caryl Lunsford RN Uncomplicated opioid dependence (CMS/HCC) (HCC) 02/15/2025 2:15 PM EST Office Visit [facility] ADULT DENTAL [address] [place] [address] Ana Roa 01/20/2025 Refill [facility] MED & PEDS [address] [place] [address] Leticia Au MD Primary insomnia 12/28/2024 1:30 PM EDT Office Visit [facility] MED[facility]INE [address] [place] [address] Andreas Roldan MD Uncomplicated opioid dependence (CMS/HCC) (HCC) (Primary Dx) 12/28/2024 Travel 12/21/2024 Refill [facility] MED[facility]INE [address] [place] [address] Caryl Lunsford RN Uncomplicated opioid dependence (CMS/HCC) [...] 03/22/2025 1:15 PM EST Office Visit [facility] MEDICINE [address] [place] [address] Andreas Roldan MD [address] [place] [address] 04/25/2025 1:30 PM EST Office Visit [facility] ADULT DENTAL [address] [place] [address] Ana Roa 06/14/2025 1:15 PM EDT Office Visit [facility] MEDICINE [address] [place] [address] Andreas Roldan MD [address] [place], [place] [phone] Health Maintenance Due Date Last Done Comments [...] Additional history exists Dental X-Ray: [facility] 02/21/2024 02/20/20 23, 01/10/2021, 10/09/2017, Additional history exists COVID-19 Vaccine ( - season) 2024 10/09/2020, 09/11/2020 Influenza Vaccine (#1) [...] Procedure Name Priority Date/Time Associated Diagnosis Comments T4, FREE Routine 03/15/2025 3:45 PM EST TSH W/REFLEX TO FT4 Routine 03/15/2025 3 :45 PM EST NT-PROBNP Routine 03/15/2025 3:45 PM EST BASIC METABOLIC PANEL Routine 03/15/2025 3:45 PM EST HEPATIC FUNCTION PANEL Routine 03/15/2025 3:45 PM EST NO CHARGE VISIT Routine 02/15/2025 2:15 PM [...] Relevant to Health Maintenance Results * (ABNORMAL) TSH with Reflex to Free T4 (03/15/2025 3:45 PM EST) TSH reflex Free T4 9.95(H) 0.32 - 4.0 uIU/mL [facility] 03/15/2025 3:45 PM EST 03/15/2025 3:45 PM EST us Generic External Data Provider LAB BLOOD ORDERAB LES Final Result Performing Organization Address [facility] Co de Phone Number [facility] [address] [place] [phone] * NT-proBNP (03/15/2025 3:45 PM EST) NT-proBNP 204.4 <300 pg/mL [facility] Comment:Reference Range:Age Group (years) NT-proBNP (pg/ml) InterpretationAll <300 Negative: HF unlikelyFor patients presenting to the ED with clinical suspicion ofnew onset or worsening HF, see below:18 to <50 >299.9 to <450.0 Grayzone: [id number] to 75 >299.9 to <900.0 other causes of>75 >299.9 to <1800.0 NT-proBNP [id number] to <50 >449.9 Positive: HF [id number] >899.9>75 >1799.9Note: Elevated NT-proBNP levels should be interpreted inthe context of other clinical information. 03/15/2025 3:45 PM EST 03/15/2025 3:45 PM EST us Generic External Data Provider LAB BLOOD ORDERAB LES Final Result Performing Organization Address City/[facility]/ZIP Co de Phone Number [facility] [address] [place] [address] [phone] * T4, Free (03/15/2025 3:45 PM EST) Pathologist [facility] Free T4 (Free Thyroxine) 0.84 0.71 - 1.85 ng/dL [facility] 03/15/2025 3:45 PM EST 03/15/2025 3:45 PM EST Generic External Data Provider LAB BLOOD ORDERAB LES Final Result Performing Organization Address [facility] Co de Phone Number [facility] [address] [place] [phone] * (ABNORMAL) Hepatic Function Panel (03/15/2025 3:45 PM EST) [facility] Bilirubin, Total 0.3 0.0 - 1.0 mg/dL [facility] Bilirubin, Direct 0.1 0.0 - 0.5 mg/dL [facility] Aspartate Amino Transferase 40(H) 5 - 37 U/L [facility] Comment:Slight Hemolysis.Int erpret result with caution. Alanine Aminotransferase 28 0 - 40 U/L [facility] Total Protein 7.7 6.5 - 8.0 g/dL [facility] Albumin Level 4.8 3.5 - 5.0 g/dL [facility] Alkaline Phosphatase 63 39 - 117 U/L [facility] 03/15/2025 3:45 PM EST 03/15/2025 3:45 PM EST Generic External Data Provider LAB BLOOD ORDERAB LES Final Result Performing Organization Address [facility] Co de Phone Number [facility] [address] [place] [phone] * (ABNORMAL) Basic Metabolic Panel (03/15/2025 3:45 PM EST) [facility] Sodium 141 135 - 145 mmol/L [facility] Potassium 4.9 3.3 - 5.1 mmol/L [facility] Comment:Slight Hemolysis.Int erpret result with caution. Chloride 103 96 - 108 mmol/L [facility] Carbon Dioxide 29 22 - 29 mmol/L [facility] Anion Gap 14 12 - 20 [facility] Urea Nitrogen (BUN) 21(H) 9 - 16 mg/dL [facility] Creatinine, Serum 1.11 0.5 - 1.4 mg/dL [facility] Estimated Glomerular Filt Rate >60 [facility] Comment:Chronic Kidney Disea se: Estimated GFR < 60 mL/min/1.23w1Jovlfq Kidney Disease: Estimated GFR < 15 mL/min/1.73m2 Glucose 99 60 - 115 mg/dL [facility] Calcium 9.5 8.4 - 10.2 mg/dL [facility] 03/15/2025 3:45 PM EST 03/15/2025 3:45 PM EST us Generic External Data Provider LAB BLOOD ORDERAB LES Final Result [facility] [address] [place] [address] [phone] * HIV-1/2 Antigen and Antibodies, Fourth Generation, with Reflexes (06/14/2024 3:13 PM EDT) HIV AB/AG Nonreactive Nonreactive [facility] Comment:HIV-1 p24 Ag and/or HIV-1/HIV-2 Ab not detected.A test result that is nonreactive does not exclude thepossibility of exposure to or infection with HIV-1 and/orHIV-2. Nonreactive results in this assay for individualswith prior exposure to HIV-1 and/or HIV-2 may be due toantigen and antibody levels that are below the limit ofdetection of this assay.[employer] HIV Ag/Ab Combo assay result andsupplemental assay results should be interpreted inconjunction with the patient's clinical presentation,history and other laboratory results. If the results areinconsistent with clinical evidence, additional testing issuggested to confirm the result. 06/14/2024 3:13 PM EDT 06/14/2024 4:11 PM EDT us Andreas Roldan MD LAB BLOOD ORDERABLES Final Resul t [facility] [address] [place] [address] [phone] * (ABNORMAL) LIPID PANEL (01/13/2021 11:11 [...] liver disease. LDL Cholesterol Calculated 63 mg/dl [facility] Comment: Desirable LDL: less than [...] >60 [facility] Comment: NOTE: For -Vincentian individuals, multiply the result by 1.210. Chronic Kidney Disease: Estimated GFR < 60 mL/min/1.73m2 Severe Kidney Disease: Estimated GFR < 15 mL/min/1.73m2 Glucose Random 112 60 - 115 mg/dL [facility] Potassium 4.7 3.3 - 5.1 mmol/L [facility] Sodium 134(L) 135 - 145 mmol/L [facility] Total Protein 7.6 6.5 - 8.0 g/dL [facility] Bilirubin Direct 0.2 0.0 - 0.5 mg/dL [facility] 01/13/2021 11:1 1 AM EDT us Leticia Au MD HISTORICAL/NON ORDERABLE [place] Final Result [facility] [address] [place] [address], from Last 3 Months or Most Recently Relevant to Health Maintenance Insurance [facility] PARTIAL DENTAL - HSN PARTIAL (MEDICAID) Care Teams Fishing Vessel Captain Relationship Specialty Start Date End Date Leticia Au MD [address] [place] [address] PCP - General Internal Medicine 01/13/14
--- OUTSIDE RECORDS SUMMARY | 2025-03-22 10:37 | XMS_ITS | Encounter Summary ---
Author Organization [employer] Address [address] [place] [address] 7 [place] [address] Care Team Providers Care Executor Of Estate Name Role Phone Leticia Au MD Primary Care Provider [phone] Reason for Visit * Reason Comments Med Refill Encounter Details Date Type Department Care Team (Late st Contact Info) Description 02/19/2023 Refill [facility] [address] [place] [phone] Andreas Roldan MD [address] [place] [address] Uncomplicated opioid dependence (CMS/HCC) Social History Tobacco [...] Description 03/22/2025 1:15 PM EST Office Visit [facility] [address] [place] [address] [phone] Andreas Roldan MD [address] [place] [address] [phone] 04/25/2025 1:30 PM EST Office Visit [facility] ADULT DENTAL [address] [place] [address] [phone] Ana Roa 06/14/2025 1:15 PM EDT Office Visit [facility] MEDICINE [address] [place] [address] Andreas Roldan MD [address] [place] [address] documented as of this encounter Visit Diagnoses Diagnosis Uncomplicated opioid dependence (CMS/HCC) (HCC) documented in this encounter Care Teams Executor Of Estate Relationship Specialty Start Date End Date Leticia Au MD [address] [place] [address] PCP - General Internal Medicine 01/13/14 documented as of this encounter
--- OUTSIDE RECORDS SUMMARY | 2025-03-22 10:37 | XMS_ITS | Encounter Summary ---
Author Organization [employer] Address [address] [facility] 7 [place] [address] Care Team Providers Care Solar Applications Development Engineer Name Role Phone Leticia Au MD Primary Care Provider [phone] Encounter Details Date Type Department Care Team (Late Contact Info) Description 11/14/2022 Orders Only [facility] CHC MED & PEDS [address] [place], [place] [phone] Leticia Au MD 505 [place] [address] Pancytopenia (CMS/HCC) (Primary Dx); Aregenerative anemia (CMS/HCC) [...] Description 03/22/2025 1:15 PM EST Office Visit [facility] MEDICINE [address] [place] [address] Andreas Roldan MD [address] [place] [address] 04/25/2025 1:30 PM EST Office Visit [facility] ADULT DENTAL [address] [place] [address] [phone] Roa Ana 06/14/2025 1:15 PM EDT Office Visit [facility] MEDICINE [address] [place], [place] [phone] Andreas Roldan MD [address] [place] [address] documented as of this encounter Visit Diagnoses Diagnosis Pancytopenia (HCC)- Primary Aregenerative anemia (CMS/HCC) (HCC) Unspecified aplastic anemia documented in this encounter Care Teams Solar Applications Development Engineer Relationship Specialty Start Date End Date Leticia Au MD [address] [place] [address] PCP - General Internal Medicine 01/13/14 documented as of this encounter
--- OUTSIDE RECORDS SUMMARY | 2025-03-22 10:37 | XMS_ITS | Clinical Summary ---
Author Organization [employer] [facility] Address [address] [place] [address] Care Team Providers Care Graphics Manager Name Role Phone Leticia Au MD Primary Care Provider [phone] Social History Tobacco Use Types Packs/Day Years [...] age to complete this topic Care Teams Graphics Manager Relationship Specialty Start Date End Date Leticia Au MD [address] [place] [address] PCP - General 06/02/23
--- OUTSIDE RECORDS SUMMARY | 2025-03-22 10:37 | XMS_ITS | Encounter Summary ---
Author Organization [employer] Address [address] [facility] 7 [place] [address] Care Team Providers Care Transportation Supervisor Name Role Phone Leticia Au MD Primary Care Provider [phone] Encounter Details Date Type Department Care Team ([facility] Contact Info) Description 01/14/2023 Orders Only [facility] CHC MED & PEDS [address] [place], [place] [phone] Leticia Au MD [address] [place] [address] Excessive daytime sleepiness (Primary Dx); Snoring; Microcytic [...] Description 03/22/2025 1:15 PM EST Office Visit [facility] MEDICINE [address] [place] [address] [phone] Andreas Roldan MD [address] [place], [place] [phone] 04/25/2025 1:30 PM EST Office Visit [facility] ADULT DENTAL [address] [place] [address] [phone] Ana Roa 06/14/2025 1:15 PM EDT Office Visit [facility] MEDICINE [address] [place], [place] [phone] Andreas Roldan MD [address] [place], [place] [phone] documented as of this encounter Visit Diagnoses Diagnosis Excessive daytime sleepiness- Primary Snoring Other dyspnea and respiratory abnormality Microcytic anemia Unspecified iron deficiency anemia documented in this encounter Care Teams Transportation Supervisor Relationship Specialty Start Date End Date Leticia Au MD [address] [place] [address] PCP - General Internal Medicine 01/13/14 documented as of this encounter
--- OUTSIDE RECORDS SUMMARY | 2025-03-22 10:37 | XMS_ITS | Encounter Summary ---
Author Organization [employer] Address 75 [facility] 7t [place] [address] Care Team Providers Care Outreach Manager Name Role Phone Leticia Au MD Primary Care Provider [phone] Reason for Visit * Reason Comments Med Refill Encounter Details Date Type Department Care Team ([facility] st Contact Info) Description 12/10/2024 Refill [facility] MEDICINE [address] [place] [address] Andreas Roldan MD [address] [place] [address] Uncomplicated opioid dependence (CMS/HCC) Social History Tobacco [...] Description 03/22/2025 1:15 PM EST Office Visit [facility] MEDICINE [address] [place] [address] Andreas Roldan MD [address] [place] [phone] 04/25/2025 1:30 PM EST Office Visit [facility] ADULT DENTAL [address] [place] [address] Ana Roa 06/14/2025 1:15 PM EDT Office Visit [facility] MEDICINE [address] [place] [address] Andreas Roldan MD [address] [place] [phone] documented as of this encounter Visit Diagnoses Diagnosis Uncomplicated opioid dependence (CMS/HCC) (HCC) documented in this encounter Care Teams Outreach Manager Relationship Specialty Start Date End Date Leticia Au MD [address] [place] [address] PCP - General Internal Medicine 01/13/14 documented as of this encounter
--- OUTSIDE RECORDS SUMMARY | 2025-03-22 10:37 | XMS_ITS | Encounter Summary ---
Author Organization [employer] Address [address] [place] [address] 7t [place] [address] Care Team Providers Care Guide Setter Name Role Phone Leticia Au MD Primary Care Provider [phone] Encounter Details Date Type Department Care Team (Late Contact Info) Description 12/11/2023 Orders Only [facility] [address] [place] [address] [phone] ProviderJoe MD Social History Tobacco Use Types [...] Description 03/22/2025 1:15 PM EST Office Visit [facility] MEDICINE [address] [place] [phone] Andreas Roldan MD [address] [place] [address] [phone] 04/25/2025 1:30 PM EST Office Visit [facility] ADULT DENTAL [address] [place] [address] [phone] Ana Roa 06/14/2025 1:15 PM EDT Office Visit [facility] MEDICINE [address] [place] [address] Andreas Roldan MD 230 [place], [place] [phone] documented as of this encounter Procedures Procedure Name Priority Date/Time Associated Diagnosis Comments ECG 12-LEAD Routine 07/13/2020 2:31 PM EDT documented in this encounter Results * ECG 12 lead (07/13/2020 2:31 PM EDT) us Historical Provider ECG ORDERABLES Final Res ult documented in this encounter Visit Diagnoses Not on filedocumented in this encounter Care Teams Guide Setter Relationship Specialty Start Date End Date Leticia Au MD [address] [place] [address] PCP - General Internal Medicine 01/13/14 documented as of this encounter
--- OUTSIDE RECORDS SUMMARY | 2025-03-22 10:37 | XMS_ITS | Encounter Summary ---
Author Organization [employer] Address [address] [place] [address] 7 [place] [address] Care Team Providers Care Embossed Or Impressed Lettering Painter Name Role Phone Leticia Au MD Primary Care Provider [phone]- [phone] Reason for Visit * Reason Comments Med Refill Encounter Details Date Type Department Care Team (Late st Contact Info) Description 06/29/2022 Refill [facility] [address] [place] [phone] Andreas Roldan MD [address] [place] [address] [phone] Opioid dependence, uncomplicated (CMS/HCC) Social History Tobacco [...] Description 03/22/2025 1:15 PM EST Office Visit [facility] MEDICINE [address] [place] [address] [phone] Andreas Roldan MD [address] [place] [address] [phone] 04/25/2025 1:30 PM EST Office Visit [facility] ADULT DENTAL [address] [place] [address] [phone] Ana Roa 06/14/2025 1:15 PM EDT Office Visit [facility] MEDICINE [address] [place] [address] Andreas Roldan MD [address] [place], [place] [phone] documented as of this encounter Visit Diagnoses Diagnosis Opioid dependence, uncomplicated (CMS/HCC) (HCC) documented in this encounter Care Teams Embossed Or Impressed Lettering Painter Relationship Specialty Start Date End Date Leticia Au MD [address] [place] [address] [phone] PCP - General Internal Medicine 01/13/14 documented as of this encounter
--- OUTSIDE RECORDS SUMMARY | 2025-03-22 10:37 | XMS_ITS | Encounter Summary ---
Author Organization [employer] Address [address] [place] [address] 7 [place] [address] Care Team Providers Care Land Examiner Name Role Phone Leticia Au MD Primary Care Provider [phone] Reason for Visit * Reason Comments Med Refill Encounter Details Date Type Department Care Team (Late st Contact Info) Description 08/24/2022 Refill [facility] MED[facility]INE [address] [place] [address] [phone] Pipo Cha MD [address] [place] [address] [phone] Opioid dependence, uncomplicated (CMS/HCC) Social History Tobacco [...] Description 03/22/2025 1:15 PM EST Office Visit [facility] MEDICINE [address] [place] [address] [phone] Andreas Roldan MD [address] [place] [address] [phone] 04/25/2025 1:30 PM EST Office Visit [facility] ADULT DENTAL [address] [place] [address] [phone] Ana Roa 06/14/2025 1:15 PM EDT Office Visit [facility] MEDICINE [address] [place], [place] [phone] Andreas Roldan MD [address] [place], [place] [phone] documented as of this encounter Visit Diagnoses Diagnosis Opioid dependence, uncomplicated (CMS/HCC) (HCC) documented in this encounter Care Teams Land Examiner Relationship Specialty Start Date End Date Leticia Au MD [address] [place] [address] [phone] PCP - General Internal Medicine 01/13/14 documented as of this encounter
--- OUTSIDE RECORDS SUMMARY | 2025-03-22 10:37 | XMS_ITS | Encounter Summary ---
Author Organization [employer] Address [address] [facility] 7t [place] [address] Care Team Providers Care Melting Furnace Skimmer Name Role Phone Leticia Au MD Primary Care Provider [phone] Encounter Details Date Type Department Care Team (Late st Contact Info) Description 05/22/2022 Orders Only [facility] CHC MED & PEDS [address] [place], [place] [phone] Lizz Garland LPN Social History Tobacco Use [...] 03/22/2025 1:15 PM EST Office Visit [facility] MEDICINE [address] [place] [phone] Andreas Roldan MD [address] [place] [address] 9[address] 04/25/2025 1:30 PM EST Office Visit [facility] ADULT DENTAL [address] [place] [address] [phone] Ana Roa 06/14/2025 1:15 PM EDT Office Visit [facility] MEDICINE [address] [place] [address] [phone] Andreas Roldan MD [address] [place] [address] [phone] documented as of this encounter Procedures Procedure Name Priority Date/Time Associated Diagnosis Comments CBC WITH AUTO DIFFERENTIAL Routine 06/29/2022 9:42 AM EDT COMPREHENSIVE METABOLIC PANEL Routine 06/29/2022 9:42 AM EDT documented in this encounter Results * (ABNORMAL) Comprehensive Metabolic Panel (06/29/2022 9:42 AM EDT) Sodium 144 135 - 145 mmol/L [facility] Potassium 5.4(H) 3.3 - 5.1 mmol/L [facility] Chloride 104 96 - 108 mmol/L [facility] Carbon Dioxide 34(H) 22 - 29 mmol/L [facility] Anion Gap 11(L) 12 - 20 [facility] Urea Nitrogen (BUN) 17(H) 9 - 16 mg/dL [facility] Creatinine, Serum 0.79 0.5 - 1.4 mg/dL [facility] Estimated Glomerular Filt Rate >60 [facility] Comment:NOTE: For -Am erican individuals, multiply the result by 1.210.Chronic Kidney Disease: Estimated GFR < 60 mL/min/[id number] Kidney Disease: Estimated GFR < 15 mL/min/1.73m2 Glucose 103 60 - 115 mg/dL [facility] Calcium 9.4 8.4 - 10.2 mg/dL [facility] Bilirubin, Total 0.6 0.0 - 1.0 mg/dL [facility] Aspartate Amino Transferase 17 5 - 37 U/L [facility] Alanine Aminotransferase 12 0 - 40 U/L [facility] Total Protein 6.8 6.5 - 8.0 g/dL [facility] Albumin Level 4.2 3.5 - 5.0 g/dL [facility] Alkaline Phosphatase 53 39 - 117 U/L [facility] 06/29/2022 9:42 AM EDT 06/29/2022 9:42 AM EDT [facility] External Provider LAB BLO OD ORDERABLES Final Result [facility] [address] [place] [address] [phone] * (ABNORMAL) CBC auto differential (06/29/2022 9:42 AM EDT) White Blood Count 5.1 4.8 - 10.8 X10*3/uL [facility] Red Blood Count 4.74 4.60 - 5.80 X10*6/uL [facility] Hemoglobin 13.1(L) 14.0 - 18.0 g/dl [facility] Hematocrit 42.0 42.0 - 52.0 % [facility] Mean Corpuscular Volume 88.6 80.0 - 98.0 fL [facility] Mean Corpuscular Hemoglobin 27.6 27.0 - 33.0 pg [facility] Mean Corpuscular HGB Conc 31.2 31.0 - 36.0 g/dl [facility] Red Cell Distribution Width 13.6 11.0 - 16.0 % [facility] Platelet Count 205 160 - 400 X10*3/uL [facility] Mean Platelet Volume 10.2 9.4 - 12.4 fL [facility] Neutrophils Percent Auto 28.6(L) 45 - 73 % [facility] Imm Gran Pct Auto 0.0 0.0 - 0.4 % [facility] Lymphocytes Percent Auto 56.4(H) 20 - 40 % [facility] Monocytes Percent Auto 11.0 2 - 11 % [facility] Eosinophils Percent Auto 3.6 0 - 4 % [facility] Basophils Percent Auto 0.4 0 - 2 % [facility] NRBC Pct Auto 0.0 0.0 - 0.2 /100WBC [facility] Neutrophils Absolute Auto 1.5(L) 2.0 - 8.3 x10*3/uL [facility] Imm Gran Abs Auto 0.00 0.00 - 0.03 X10*3/uL [facility] Lymphocytes Absolute Auto 2.9 1.2 - 4.9 X10*3/uL [facility] Monocytes Absolute Auto 0.6 0.1 - 1.2 X10*3/uL [facility] Eosinophils Absolute Auto 0.2 0.0 - 0.4 X10*3/uL [facility] Basophils Absolute Auto 0.0 0.0 - 0.2 X10*3/uL [facility] NRBC Abs Auto 0.000 0.0 - 0.012 X10*3/uL [facility] 06/29/2022 9:42 AM EDT 06/29/2022 9:42 AM EDT us [facility] External Provider LAB BLO OD ORDERABLES Final Result Performing Organization Address City/State/[facility] Co de Phone Number [facility] [address] [place] [address] [phone] documented in this encounter Visit Diagnoses Not on filedocumented in this encounter Care Teams Melting Furnace Skimmer Relationship Specialty Start Date End Date Leticia Au MD [address] [place] [address] [phone] PCP - General Internal Medicine 01/13/14 documented as of this encounter
--- OUTSIDE RECORDS SUMMARY | 2025-03-22 10:37 | XMS_ITS | Encounter Summary ---
Author Organization [employer] Address [address] [facility] [address] 7t [place] [address] Care Team Providers Care Shank Paperer Name Role Phone Leticia Au MD Primary Care Provider [phone] Encounter Details Date Type Department Care Team (Late Contact Info) Description 04/09/2023 Telephone [facility] ADULT DENTAL [address] [place] [address] Sky Ferro, LUCRETIAS [address] [place] [address] Social History Tobacco Use Types Packs/Day Years [...] 1:15 PM EST Office Visit [facility] MEDICINE [address] [place] [address] [phone] Andreas Rlodan MD [address] [place] [address] 04/25/2025 1:30 PM EST Office Visit [facility] ADULT DENTAL [address] [place], [place] [phone] Ana Roa 06/14/2025 1:15 PM EDT Office Visit [facility] MEDICINE [address] [place] [address] [phone] Andreas Roldan MD [address] [place] [address] [phone] documented as of this encounter Visit Diagnoses Not on filedocumented in this encounter Care Teams Shank Paperer Relationship Specialty Start Date End Date Leticia Au MD [address] [place] [address] [phone] PCP - General Internal Medicine 01/13/14 documented as of this encounter
--- OUTSIDE RECORDS SUMMARY | 2025-03-22 10:37 | XMS_ITS | Clinical Summary ---
Author Organization [facility] Address [address] [place] [phone] Phone Care Team Providers Care Cottage Supervisor Name Role Phone Leticia Au MD [...] Devices Not on file Insurance [facility] HMO PARTIAL [facility] HMO Member Subscriber Plan / Payer (Ef fective 2024-Present) Name:Mateo Graham Relation to Subscriber:Self Name:Mateo Graham Payer ID:Not on file Type:HMO Address: [address] NET PARTIAL [facility] Member Subscriber Plan / Payer (Ef fective 2024-Present) Name:Mateo Graham Relation to Subscriber:Self Name:Mateo Graham Payer ID:Not on file Type:HMO Address: [address] NET PARTIAL [facility] HMO Member Subscriber Plan / Payer (Ef fective 2024-Present) Name:Mateo Graham Relation to Subscriber:Self Name:Mateo Graham Payer ID:Not on file Type:HMO Address: [address] [facility] PARTIAL [facility] Member Subscriber Plan / Payer (Ef fective 2024-Present) Name:Mateo Graham Relation to Subscriber:Self Name:Mateo Graham Payer ID:Not on file Type:HMO Address: [address] NET PARTIAL [facility] HMO [facility] NET PARTIAL Care Teams Cottage Supervisor Relationship Specialty Start Date End Date Leticia Au MD 230 [facility] [address] [place] [address] PCP - General Internal Medicine 11/04/24 Additional Source Comments The information contained in this document represents components of the legal health record. It is not the complete legal health record.[facility]
--- OUTSIDE RECORDS SUMMARY | 2025-03-22 10:37 | XMS_ITS | Encounter Summary ---
Author Organization [employer] Address [address] [facility] 7t [place] [address] Care Team Providers Care Fish Conservationist Name Role Phone Leticia Au MD Primary Care Provider [phone] Reason for Visit * Reason Comments Med Refill Encounter Details Date Type Department Care Team ([facility] st Contact Info) Description 09/28/2024 Refill [facility]INE [address] [place] [address] Andreas Roldan MD [address] [place] [address] Uncomplicated opioid dependence (CMS/HCC) Social History Tobacco [...] 03/22/2025 1:15 PM EST Office Visit [facility] MEDICINE [address] [place] [address] [phone] Andreas Roldan MD [address] [place] [address] 48[address] 04/25/2025 1:30 PM EST Office Visit [facility] ADULT DENTAL [address] [place] [address] [phone] Ana Roa 06/14/2025 1:15 PM EDT Office Visit [facility] MEDICINE [address] [place] [address] [phone] Andreas Roldan MD [address] [place] [address] [phone] documented as of this encounter Visit Diagnoses Diagnosis Uncomplicated opioid dependence (CMS/HCC) (HCC) documented in this encounter Care Teams Fish Conservationist Relationship Specialty Start Date End Date Leticia Au MD [address] [place] [address] PCP - General Internal Medicine 01/13/14 documented as of this encounter
--- OUTSIDE RECORDS SUMMARY | 2025-03-22 10:37 | XMS_ITS | Encounter Summary ---
Author Organization [employer] Address [address] [facility] 7 [place] [address] Care Team Providers Care Chicken Vaccinator Name Role Phone Leticia Au MD Primary Care Provider [phone] Encounter Details Date Type Department Care Team (Late Contact Info) Description 03/31/2023 Orders Only [facility] MED & PEDS [address] [place], [place] [phone] Leticia Au MD 505 [place], [place] [phone] Anxiety (Primary Dx) Social History Tobacco Use [...] 1:15 PM EST Office Visit [facility] [address] [place] [address] Andreas Roldan MD [address] [place], [place] [phone] 04/25/2025 1:30 PM EST Office Visit [facility] ADULT DENTAL [address] [place], [place] [phone] Ana Roa 06/14/2025 1:15 PM EDT Office Visit [facility]INE [address] [place] [address] Andreas Roldan MD [address] [place], [place] [phone] documented as of this encounter Visit Diagnoses Diagnosis Anxiety- Primary Anxiety state, unspecified documented in this encounter Care Teams Chicken Vaccinator Relationship Specialty Start Date End Date Leticia Au MD [address] [place] [phone] PCP - General Internal Medicine 01/13/14 documented as of this encounter
--- OUTSIDE RECORDS SUMMARY | 2025-03-22 10:37 | XMS_ITS | Encounter Summary ---
Author Organization [employer] Address [address] [facility] 7 [place] [address] Care Team Providers Care Meat Cutter Name Role Phone Leticia Au MD Primary Care Provider [phone]- [phone] Reason for Visit * Reason Onset Date Comments Nurse Triage 12/10/2023 Encounter Details Date Type Department Care Team (Late st Contact Info) Description 12/10/2023 Telephone [facility] CHC MED & PEDS [address] [place], [place] [phone] Leticia Au MD [address] [place], [place] [phone] Nurse Triage Social History Tobacco Use Types [...] ago. Also denies any injury while in [place]. Pt reports being able to return to work yesterday and today. Advised pt to continue to take Eliquisand to go seek ED care if shortness of breath, or severe dizziness return. Pt verbalized understanding and agreement with plan. * Telephone Encounter - Karen Porter LPN - 12/10/2023 11:52 AM EDT Triage call returned to patient who reports that he was in [place] from 11/22-. Returned yesterday.While in [place] patient began with fast heartbeat and dizziness and accompanied shortness of breath. Happened off and on and then again last night. Did not go to work today due to symptoms. Did not seek ED care in [place] as he was concerned with Insurance being [place] of state. Patient when asked confirms that he missed Eliquis doses for approx 10 days. Disposition reviewed with patient and advised to seek ED treatment now. Rationale explained and patient verbalized understanding. Will go to [facility] and will call 911 as needed. [...] Description 03/22/2025 1:15 PM EST Office Visit [facility] MEDICINE [address] [place] [address] [phone] Andreas Roldan MD [address] [place] [address] [phone] 04/25/2025 1:30 PM EST Office Visit [facility] ADULT DENTAL [address] [place] [address] [phone] Ana Roa 06/14/2025 1:15 PM EDT Office Visit [facility] MEDICINE [address] [place] [address] [phone] Andreas Roldan MD [address] [place] [address] [phone] documented as of this encounter Visit Diagnoses Not on filedocumented in this encounter Care Teams Meat Cutter Relationship Specialty Start Date End Date Leticia Au MD [address] [place] [address] PCP - General Internal Medicine 01/13/14 documented as of this encounter
--- OUTSIDE RECORDS SUMMARY | 2025-03-22 10:37 | XMS_ITS | Encounter Summary ---
Author Organization [employer] Address [address] [facility] 7t [place] [address] Care Team Providers Care Reimbursement Coordinator Name Role Phone Leticia Au MD Primary Care Provider [phone] Encounter Details Date Type Department Care Team (Late Contact Info) Description 11/20/2022 Orders Only [facility] MED[facility]INE [address] [place] [address] [phone] Caryl Lunsford RN Opioid type dependence, continuous [...] 1:15 PM EST Office Visit [facility] MED[facility]INE [address] [place] [address]209 Andreas Roldan MD [address] [place] [address] 04/25/2025 1:30 PM EST Office Visit [facility] ADULT DENTAL [address] [place] [address] [phone] Ana Roa 06/14/2025 1:15 PM EDT Office Visit [facility] MEDICINE [address] [place] [address] [phone] Andreas Roldan MD [address] [place] [address] Scheduled Orders Name Type Priority Associated Diagnoses [...] continuous documented in this encounter Care Teams Reimbursement Coordinator Relationship Specialty Start Date End Date Leticia Au MD [address] [place] [phone] PCP - General Internal Medicine 01/13/14 documented as of this encounter
== END ==
LOC: HO.CARD 08:46
PROVIDERS: PCP Internal Medicine
DX: I50.22 Chronic systolic (congestive) heart failure (principal)
CPT/HCPCS: 93306; Q9957

== ENCOUNTER → 2025-03-22 08:48 | Outpatient (BNV) | payer OTHER, SELFPAY | PROVIDERS: PCP Internal Medicine; Visit Provider Internal Medicine | DX: I77.810 Thoracic aortic ectasia (principal) | CPT/HCPCS: 93306 ==